=== PATIENT | male | born 1950 | race Caucasian/White ===

== ENCOUNTER 2020-09-04 09:15 | Emergency (ER) | payer MEDICARE, SELFPAY ==
[2020-09-04 09:18] VITALS: BP 194/86; PULSE 83; RESP 16; TEMP 36.4; O2SAT 96; BMI 33.5
--- NOTE | 2020-09-04 09:28 | CT_ITS ---
WS: [id number] CT ABDOMEN PELVIS TECHNIQUE: Contrast-enhanced CT of the abdomen and pelvis with coronal and sagittal reformatted image s. CLINICAL INFORMATION: RLQ pain COMPARISON: None. DLP: 1764.[address] scans at [facility] use at least one of these dose optimization techniques: automat ed exposure control; mA and/or kV adjustment per patient size (includes targeted exams where dose is matched to clinical indication); or iterative reconstruction. FINDINGS: Diffuse fatty infiltration of the liver. Normal portal vein and splenic vein. Normal spleen. Normal G E junction. Lung bases are well aerated. Subsegmental atelectasis left lower lobe. Mild fatty atrophy of the pancreas. Adrenal glands are normal. Normal renal parenchymal enhancement. No hydronephrosis. Normal gallbladder. Normal caliber abdominal aorta. No evidence of small or large bowel obstruction. No abdominal or pelvic lymphadenopathy. No inguinal lymphadenopathy. Normal appendix in the right lower quadrant. No evidence of acute appendicitis. CT/CT abdomen pelvis w con* [id number] IMPRESSION: 1. No acute findings in the abdomen or pelvis. 2. Diffuse fatty infiltration liver. 3. No evidence of small or large bowel obstruction. 4. Appendix appears decompressed in the right lower quadrant. No evidence of a cute appendicitis.
--- NOTE | 2020-09-04 09:29 | ED_ITS ---
HPI - Abdominal Pain General: Chief Complaint: Abdominal Pain Stated Complaint: right side pain Time Seen by Provider: 09/04/20 09:22 History of Present Illness: HPI narrative: Patient states started with right lower quadrant pain somewhat in the evening. Went to bed and it woke him up with severe pain in the right lower quadrant. Patient denies being sick have any fever chills no bowel or bladder problems. Has denies any injury. MD elicited complaint: abdominal pain Onset (ago): hour(s) Pain Consistency: constant Location: RUQ and RLQ Severity: mild Quality: aching Radiation: none Migration to: no migration Exacerbating factors: nothing Relieving factors: nothing Associated Symptoms: Reports no associated symptoms; Denies chills, fever(s), nausea and vomiting Review of Systems Const: Denies: fever(s), chills or body aches Eyes: Denies: change in vision or blurry vision ENMT: Denies: throat pain or nasal congestion Card: Denies: chest pain or dyspnea on exertion Resp: Denies: dyspnea, productive cough or non-productive cough GI: Reports: abdominal pain; Denies: nausea or vomiting : Denies: difficulty urinating Musc: Denies: extremity pain Skin/Breast: Denies: rash Neuro: Denies: headache(s) Psych: Denies: anxiety or depression Marcus/Lymph: Denies: easy bruising Physical Exam Const: COMMON NORMALS: no acute distress, average body habitus and patient oriented x3 HENMT: COMMON NORMALS: normocephalic HEAD & SCALP: normal to inspection and normocephalic FACE & SINUS: normal facial exam Eye: COMMON NORMALS: conjunctivae normal GENERAL EYE: appearance normal, both eyes and all related structures CONJUNCTIVA: Yes conjunctivae normal Neck/C-Spine: COMMON NORMALS: no JVD Chest: COMMONS NORMALS: normal inspection of the chest Resp: COMMON NORMALS: normal respiratory effort and clear to auscultation bilaterally AUSCULTATION: clear to auscultation bilaterally Cardio: COMMON NORMALS: no JVD, regular rate and regular rhythm RATE: regular rate RHYTHM: regular rhythm GI: AUSCULTATION: Yes Hypoactive bowel sounds present PALPATION: Yes Tenderness to palpation present (GI) Details: RLQ and RUQ PERCUSSION: dullness to percussion Extremity: COMMON NORMALS: normal to inspection and full ROM Neuro: COMMON NORMALS: patient oriented x3 Course Vital Signs: Vital signs: Vital Signs Temperature 97.5 F L 09/04/20 09:18 Pulse Rate 71 09/04/20 11:18 Respiratory Rate 15 09/04/20 11:18 Blood Pressure 165/88 09/04/20 11:18 Pulse Oximetry 96 09/04/20 11:18 MDM - Abdominal Pain MDM Narrative: Medical decision making narrative: CT and labs were negative for any cause of his abdominal pain. Patient was encouraged to return here if abdominal pain worsens or follow-up with his primary care provider. Lab Data: Labs: Lab Results 09/04/20 09/04/20 09/04/20 Range/Units 09:41 09:41 09:41 WBC 5.8 (4.0-10.0) 10^3/ uL RBC 4.52 (4.1-5.3) 10^6/u L Hgb 14.0 (11.7-16.6) g/dL Hct 42.5 (42.0-52.0) % MCV 94.0 (80-94) fL MCH 31.0 (28.0-34.0) pg MCHC 32.9 (30.0-36.0) g/dL RDW 12.4 (12.1-15.1) % Plt Count 167 (130-400) 10^3/c mm MPV 10.6 H (7.4-10.4) fL Neut % (Auto) 74.4 % Lymph % (Auto) 16.7 % Wirt % (Auto) 7.1 % Eos % (Auto) 1.2 % Baso % (Auto) 0.3 % Neut # (Auto) 4.27 (1.8-7.7) 10^3/u L Lymph # (Auto) 1.0 (0.8-4.8) 10^3/u L Wirt # (Auto) 0.4 (0.2-0.9) 10^3/u L Eos # (Auto) 0.1 (0.0-0.8) 10^3/u L Baso # (Auto) 0.0 (0.0-0.1) 10^3/u L Nucleated RBC % (a uto) 0 % Nucleated RBCs # 0.0 /100WBC Sodium 140 (136-145) mmol/L Potassium 3.9 (3.5-5.1) mmol/L Chloride 101 (98-107) mmol/L Carbon Dioxide 28 (22-29) mmol/L Anion Gap 14.9 (5-19) BUN 13 (8-23) mg/dL Creatinine 0.7 (0.7-1.2) mg/dL GFR Calculation 111.8 (90-130) mL/min Glucose 107 (65-115) mg/dL Calculated Osmolal ity 291 (285-295) mOsm/k g Calcium 9.0 (8.5-10.5) mg/dL Total Bilirubin 0.6 (0.15-1.2) mg/dL AST 17 (0-40) U/L ALT 20 (0-41) U/L Alkaline Phosphata se 61 (40-130) IU/L Total Protein 6.8 (6.6-8.7) g/dL Albumin 4.3 (3.5-5.2) g/dL Globulin 2.5 (1.3-4.6) g/dL Lipase 38 (13-60) U/L Urine Color Yellow (Yellow) Urine Appearance Clear (CLEAR) Urine pH 6.5 (5-7) Ur Specific Gravit y 1.005 (1.005-1.030) Urine Protein Neg (Negative) Urine Glucose (UA) Norm (Normal) Urine Ketones Negative (Negative) Urine Blood Neg (Negative) Urine Nitrate Negative (Negative) Urine Bilirubin Neg (Negative) Urine Urobilinogen Norm (Negative) mg/dL Ur Leukocyte Caro ase Negative (Negative) Discharge Plan Discharge Patient Disposition: Home Clinical Impression: Abdominal pain Qualifiers: Abdominal location: right lower quadrant Qualified Code(s): R10.31 - Right lower quadrant pain Condition: Stable Discharge Orders: Discharge ED (Routine); Ordered 09/04/20 Ordered By: Carmelo Torres Discharge Diet: Advance as tolerated Discharge Activity: Increase activity as tolerated Patient Instructions: Abdominal Pain (ED) Activity Restrictions/Additional Instructions: Follow-up if any worsening of symptoms. Follow-up your primary care provider return here. Coding Level of Care Code ED Automobile Upholstery Trim Installer for Estefania Fwd Exam Comprehensive
[2020-09-04] MEDS: sodium chloride 0.9% 1,000 ML 999 ML IV (09:46)
[2020-09-04 09:56] LABS: Add Urine Microscopic? NO; Charge for UA Resulting for Rev
[2020-09-04 09:58] LABS: Basophils % 0.3 %; Eosinophils # 0.1 10^3/uL (0.0-0.8); Eosinophils % 1.2 %; Hematocrit 42.5 % (42.0-52.0); Lymphocytes % 16.7 %; Mean Corpuscular HGB Conc 32.9 g/dL (30.0-36.0); Mean Platelet Volume 10.6 fL (7.4-10.4); Monocytes # 0.4 10^3/uL (0.2-0.9); Monocytes % 7.1 %; Neutrophils # 4.27 10^3/uL (1.8-7.7); Neutrophils % 74.4 %; Nucleated Red Blood Cells % 0 %; Platelet Count 167 10^3/cmm (130-400); Red Blood Count 4.52 10^6/uL (4.1-5.3); Red Cell Distribution Width 12.4 % (12.1-15.1); White Blood Count 5.8 10^3/uL (4.0-10.0)
[2020-09-04 10:08] LABS: Bilirubin Urine Neg (Negative); Blood Urine Neg (Negative); Glucose Urine UA Norm (Normal); Ketones Urine Negative (Negative); Leukocyte Esterase Urine Negative (Negative); Nitrate Urine Negative (Negative); Protein Urine Neg (Negative); Specific Gravity, Urine 1.005 (1.005-1.030); Urine Appearance Clear (CLEAR); Urine Color Yellow (Yellow); Urobilinogen Urine Norm (Negative); pH Urine 6.5 (5-7)
[2020-09-04 10:11] LABS: Alanine Aminotransferase 20 U/L (0-41); Albumin Level 4.3 g/dL (3.5-5.2); Alkaline Phosphatase 61 IU/L (40-130); Anion Gap 14.9 (5-19); Aspartate Amino Transferase 17 U/L (0-40); Blood Urea Nitrogen 13 mg/dL (8-23); Carbon Dioxide 28 mmol/L (22-29); Chloride 101 mmol/L (98-107); Globulin 2.5 g/dL (1.3-4.6); Glomerular Filtration Rate 111.8 mL/min (90-130); Glucose 107 mg/dL (65-115); Lipase 38 U/L (13-60); Osmolality Calculated 291 mOsm/kg (285-295); Potassium 3.9 mmol/L (3.5-5.1); Sodium 140 mmol/L (136-145); Total Bilirubin 0.6 mg/dL (0.15-1.2); Total Protein 6.8 g/dL (6.6-8.7)
[2020-09-04] MEDS: iohexol 300 mg/mL 100 mL Btl IV (10:45)
[2020-09-04 11:03] VITALS: BP 165/88; RESP 16; O2SAT 96
[2020-09-04 11:18] VITALS: BP 165/88; PULSE 71; RESP 15; O2SAT 96
== END 2020-09-04 11:19 | disposition home or self-care (01) ==
PROVIDERS: Emergency Provider Nurse Practitioner Family
DX: R10.31 Right lower quadrant pain (principal)
CPT/HCPCS: 74177; 80053; 81003; 83690; 85025; 96360; 99283; J7030; Q9967

== ENCOUNTER 2021-04-27 06:00 | Outpatient (RCR) | payer MEDICARE, SELFPAY | END 2021-05-17 23:59 | disposition home or self-care (01) | LOC: SPT 06:00 | PROVIDERS: Referring Provider Family Medicine; Visit Provider Family Medicine | DX: R53.1 Weakness (principal) | CPT/HCPCS: 97110; 97161 ==

== ENCOUNTER 2021-05-18 06:00 | Outpatient (RCR) | payer MEDICARE, OTHER, SELFPAY | END 2021-06-17 23:59 | disposition home or self-care (01) | LOC: SPT 06:00 | PROVIDERS: Referring Provider Family Medicine; Visit Provider Family Medicine | DX: R29.898 Other symptoms and signs involving the musculoskeletal system (principal) | CPT/HCPCS: 97110 ==

== ENCOUNTER 2021-06-18 06:00 | Outpatient (RCR) | payer MEDICARE, OTHER, SELFPAY | END 2021-07-16 15:23 | disposition home or self-care (01) | LOC: SPT 06:00 | PROVIDERS: Referring Provider Family Medicine; Visit Provider Family Medicine | DX: R29.898 Other symptoms and signs involving the musculoskeletal system (principal) | CPT/HCPCS: 97110 ==

== ENCOUNTER 2021-11-20 07:42 | Inpatient (IN) | payer MEDICARE, OTHER, SELFPAY ==
[2021-11-20] VITALS (15 sets, daily range): BP systolic 141–198; BP diastolic 74–93; PULSE 80–100; RESP 15–24; TEMP 36.9–37.7; O2SAT 89–97; BMI 31.7
--- NOTE | 2021-11-20 07:59 | ED_ITS ---
HPI - Fall General: Chief Complaint: ER Hold Stated Complaint: WEAKNESS; FALL Time Seen by Provider: 11/20/21 07:46 History of Present Illness: 71 year-old male presents emergency room with complaint of a fall. Is fallen 3-4 times in the last week. He was diagnosed with pneumonia recently completed a course of antibiotics and then was started on a second course of antibiotics by Dr. Gonzalez. He states since that diagnosis pneumonia he has had difficulty with balance and walking. He generally felt very weak. Last night he fell in his home and laid on the ground for about 6 to 7 hours. His lives with him he could not reach his cell phone and could not get her attention to come and help him she found him this morning and EMS was called. He states he has had a mildly productive cough with slight chest discomfort with deep breathing. He denies any pain rating to the neck arms or back. No difficulty with speech or vision or swallowing. MD complaint: fall Onset (ago): week(s) (1) Fall from: standing Fall witnessed: no Place fall occurred: home Loss of consciousness: None Prolonged down time: yes and hour(s) (6-7) Symptoms prior to fall: lightheadedness and dizziness Context: history of frequent falls Associated symptoms-after fall: Reports chest pain and difficulty walking; Denies abdominal pain Review of Systems Const: Denies: fever(s), chills, body aches, change in appetite, fatigue or malaise ENMT: Denies: throat pain, ear or mastoid pain, nasal discharge or nasal c ongestion Card: Reports: chest pain; Denies: palpitations, irregular heart rhythm, edema, dyspnea on exertion or orthopnea Resp: Reports: dyspnea and productive cough; Denies: non-productive cough GI: Denies: abdominal pain, nausea, vomiting, hematemesis, coffee ground emesis, diarrhea, constipation, bloating, hematochezia or melena : Denies: flank pain, dysuria, urinary frequency or urinary urgency Skin/Breast: Denies: rash or pruritus Neuro: Reports: difficulty walking, frequent falls and dizziness [facility] ED PFSH: Medical History Hypertension Social History Smoking and tobacco status: never smoked Alcohol intake: never Physical Exam 2 Const: GENERAL APPEARANCE: cooperative and comfortable ORIENTATION/CONSCIOUSNESS: Yes awake, Yes oriented to person, Yes oriented to place and Yes oriented to time HENMT: COMMON NORMALS: normocephalic, atraumatic and hearing grossly normal bilaterally HEAD & SCALP: normocephalic and atraumatic Resp: COMMON NORMALS: normal respiratory effort, No retractions, No use of accessory muscles and clear to auscultation bilaterally AUSCULTATION: clear to auscultation bilaterally Cardio: COMMON NORMALS: regular rate, regular rhythm and No murmurs present (Cardio) RATE: regular rate RHYTHM: regular rhythm GI: COMMON NORMALS: Soft to palpation and No hepatosplenomegaly present AUSCULTATION: Yes normoactive bowel sounds PALPATION: Yes Soft to palpation, No Tenderness to palpation present (GI), No Guarding due to palpation present (GI) and Yes No hepatosplenomegaly present Extremity: COMMON NORMALS: normal to inspection, capillary refill normal, no clubbing, cyanosis or edema, no calf tenderness and no pedal edema Neuro: SENSORIUM/ORIENTATION: Yes oriented to person, Yes oriented to place and Yes oriented to time Skin: COMMON NORMALS: no rashes or lesions noted GENERAL SKIN EXAM: no rashes or lesions noted Course Vital Signs: Vital signs: Vital Signs Temperature 98.0 F 11/22/21 12:00 Pulse Rate 64 11/22/21 12:00 Respiratory Rate 16 11/22/21 12:00 Blood Pressure 137/81 11/22/21 12:00 Pulse Oximetry 95 11/22/21 12:00 Oxygen Delivery Me thod 11/22/21 12:00 Oxygen Flow Rate 2 11/21/21 00:00 MDM - Fall Medical Decision Making Pneumonia with hypertension history of diabetes mellitus. Discussed with hospitalist orders written Medical Records I reviewed the patient's medical records. Lab Data I reviewed the patient's lab results. : 11/21/21 04:25 11/21/21 04:[address] 11/20/21 08:00 IMPRESSION: 1. Mild senescent changes as above. 2. No acute intracranial abnormality. 3. 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 If clinically concerned for metastatic disease, consider bone scan to assess for metabolically active bone lesions. Chest X-Ray 11/20/21 10:25 IMPRESSION: Dense consolidation in the right upper lobe compatible with pneumonia. Chest CT 11/22/21 10:14 IMPRESSION: 1. Right upper lobe apical, anterior and posterior segment medium-sized region of irregular consolidation and adjacent ground-glass opacities are seen. This is suspicious for pneumonia. Recommend follow-up until complete resolution. 2. Small right and tiny left pleural effusions with associated atelectasis, as noted above. 3. Nonspecific mediastinal lymphadenopathy. 4. Mild cardiomegaly. Laboratory Results WBC 12.3 10^3/uL (4.0-10.0) H 11/20/21 08:21 RBC 3.66 10^6/uL (4.1-5.3) L 11/20/21 08:21 Hgb 11.2 g/dL (11.7-16.6) L 11/20/21 08:21 Hct 34.8 % (42.0-52.0) L 11/20/21 08:21 MCV 95.1 fl (80-94) H 11/20/21 08:21 MCH 30.6 pg (28.0-34.0) 11/20/21 08:21 MCHC 32.2 g/dL (30.0-36.0) 11/20/21 08:21 RDW 13.8 % (12.1-15.1) 11/20/21 08:21 Plt Count 255 10^3/cmm (130-400) 11/20/21 08:21 MPV 10.5 fL (7.4-10.4) H 11/20/21 08:21 Neut % (Auto) 86.7 % 11/20/21 08:21 Lymph % (Auto) 6.8 % 11/20/21 08:21 [place] % (Auto) 4.8 % 11/20/21 08:21 Eos % (Auto) 0.2 % 11/20/21 08:21 Baso % (Auto) 0.1 % 11/20/21 08:21 Neut # (Auto) 10.67 10^3/uL (1.8-7.7) H 11/20/21 08:21 Lymph # (Auto) 0.8 10^3/uL (0.8-4.8) 11/20/21 08:21 [place] # (Auto) 0.6 10^3/uL (0.2-0.9) 11/20/21 08:21 Eos # (Auto) 0.0 10^3/uL (0.0-0.8) 11/20/21 08:21 Baso # (Auto) 0.0 10^3/uL (0.0-0.1) 11/20/21 08:21 Nucleated RBC % (auto) 0 % 11/20/21 08:21 Nucleated RBCs # 0.0 /100WBC 11/20/21 08:21 Sodium 133 mmol/L (136-145) L 11/20/21 08:21 Potassium 3.5 mmol/L (3.5-5.1) 11/20/21 08:21 Chloride 95 mmol/L (98-107) L 11/20/21 08:21 Carbon Dioxide 26 mmol/L (22-29) 11/20/21 08:21 Anion Gap 15.5 (5-19) 11/20/21 08:21 BUN 19 mg/dL (8-23) 11/20/21 08:21 Creatinine 0.8 mg/dL (0.7-1.2) 11/20/21 08:21 GFR Calculation 95.6 mL/min (90-130) 11/20/21 08:21 Glucose 136 mg/dL (65-115) H 11/20/21 08:21 Calculated Osmolality 280 mOsm/kg (285-295) L 11/20/21 08:21 Calcium 8.7 mg/dL (8.5-10.5) 11/20/21 08:21 Total Bilirubin 0.6 mg/dL (0.15-1.2) 11/20/21 08:21 AST 43 U/L (0-40) H 11/20/21 08:21 ALT 65 U/L (0-41) H 11/20/21 08:21 Alkaline Phosphatase 317 U/L (40-130) H 11/20/21 08:21 Creatine Kinase 113 U/L (39-308) 11/20/21 08:21 Total Protein 7.6 g/dL (6.6-8.7) 11/20/21 08:21 Albumin 3.2 g/dL (3.5-5.2) L 11/20/21 08:21 Globulin 4.4 g/dL (1.3-4.6) 11/20/21 08:21 Procalcitonin 0.32 ng/mL (0-0.5) 11/20/21 08:21 TSH 0.64 uIU/mL (0.27-4.20) 11/20/21 08:21 Urine Color Dark yellow (Yellow) 11/20/21 08:37 Urine Appearance Clear (CLEAR) 11/20/21 08:37 Urine pH 5 (5-7) 11/20/21 08:37 Ur Specific [place] 1.020 (1.005-1.030) 11/20/21 08:37 Urine Protein 1+ (Negative) H 11/20/21 08:37 Urine Glucose (UA) Norm (Normal) 11/20/21 08:37 Urine Ketones 1+ (Negative) H 11/20/21 08:37 Urine Blood 3+ (Negative) H 11/20/21 08:37 Urine Nitrate Negative (Negative) 11/20/21 08:37 Urine Bilirubin Neg (Negative) 11/20/21 08:37 Urine Urobilinogen Norm mg/dL (Negative) 11/20/21 08:37 Ur Leukocyte Esterase Negative (Negative) 11/20/21 08:37 Urine RBC 0-4 /hpf (0-2) H 11/20/21 08:37 Urine WBC 10-15 /hpf (0-5) H 11/20/21 08:37 Ur Squamous Epith Cells 0-4 /hpf (0-5) H 11/20/21 08:37 Amorphous Sediment 2+ /hpf 11/20/21 08:37 Urine Bacteria Trace /hpf (NONE) 11/20/21 08:37 Hyaline Casts 0-4 /lpf H 11/20/21 08:37 Urine Mucus 1+ /hpf 11/20/21 08:37 Discharge Plan Discharge Patient Disposition: Admitted As Inpatient Admit Provider: Elsy Pink Clinical Impression: Pneumonia, Hypertension, Diabetes mellitus Condition: Stable Coding Level of Care Code ED Floorwalker for Estefania Fwd Exam Detailed
--- NOTE | 2021-11-20 08:00 | CTR_ITS ---
PROCEDURE INFORMATION: Exam: CT Head Without Contrast Exam date and time: 11/20/2021 8:21 AM Age: 71 years old Clinical indication: Fall with blunt trauma. Fall with closed head injury. Balance disturbance. TECHNIQUE: Imaging protocol: Computed tomography of the head without contrast. Radiation optimization: All CT scans at this facility use at least one of these dose optimization techniques: automated exposure control; mA and/or kV adjustment per patient size (includes targeted exams where dose is matched to clinical indication); or iterative reconstruction. COMPARISON: No relevant prior studies available. RADIATION DOSE METRICS: Total DLP (mGy-cm): 1177.38 FINDINGS: Brain: No acute intracranial hemorrhage. No mass, mass effect or midline shift. There is mild patchy subcortical and periventricular hypodensity, most commonly associated with small vessel ischemic disease of indeterminate age. The posterior fossa is grossly unremarkable; however, it is partially obscurred by beam hardening artifact. Cerebral ventricles: The ventricles are prominent, compatible with mild parenchymal volume loss. Paranasal sinuses: Tiny retention cysts or polyps in the left maxillary sinus. Mild mucosal thickening in the ethmoid air cells. Mastoid air cells: No mastoid effusion. Orbital cavities: The visualized orbits are unremarkable. Bones/joints: No acute fracture is seen. 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 If clinically concerned for metastatic disease, consider bone scan to assess for metabolically active bone lesions. Soft tissues: No significant scalp soft tissue swelling. Vasculature: There is no evidence of acute large vessel infarct. CT/CT head wo con* [id number] IMPRESSION: 1. Mild senescent changes as above. 2. No acute intracranial abnormality. 3. 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 If clinically concerned for metastatic disease, consider bone scan to assess for metabolically active bone lesions.
--- NOTE | 2021-11-20 08:09 | ECG_ITS ---
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 Measurements Intervals [place] Rate: 92 P: 44 AR: 146 QRS: 39 QRSD: 115 T: -5 QT: 354 QTc: 439 Interpretive Statements SINUS RHYTHM MODERATE INTRAVENTRICULAR CONDUCTION DELAY NONSPECIFIC T-WAVE ABNORMALITY No previous ECG available for comparison Electronically Signed On 11-20-2021 13:13:52 CDT by Shea Gann M.D. [id number]
[2021-11-20 08:29] LABS: Basophils % 0.1 %; Eosinophils % 0.2 %; Hematocrit 34.8 % (42.0-52.0); Hemoglobin 11.2 g/dL (11.7-16.6); Lymphocytes # 0.8 10^3/uL (0.8-4.8); Lymphocytes % 6.8 %; Mean Corpuscular HGB Conc 32.2 g/dL (30.0-36.0); Mean Corpuscular Hemoglobin 30.6 pg (28.0-34.0); Mean Corpuscular Volume 95.1 fl (80-94); Mean Platelet Volume 10.5 fL (7.4-10.4); Monocytes # 0.6 10^3/uL (0.2-0.9); Monocytes % 4.8 %; Neutrophils # 10.67 10^3/uL (1.8-7.7); Neutrophils % 86.7 %; Nucleated Red Blood Cells % 0 %; Platelet Count 255 10^3/cmm (130-400); Red Blood Count 3.66 10^6/uL (4.1-5.3); Red Cell Distribution Width 13.8 % (12.1-15.1); White Blood Count 12.3 10^3/uL (4.0-10.0)
[2021-11-20 08:46] LABS: Alanine Aminotransferase 65 U/L (0-41); Albumin Level 3.2 g/dL (3.5-5.2); Alkaline Phosphatase 317 U/L (40-130); Anion Gap 15.5 (5-19); Aspartate Amino Transferase 43 U/L (0-40); Blood Urea Nitrogen 19 mg/dL (8-23); Calcium 8.7 mg/dL (8.5-10.5); Carbon Dioxide 26 mmol/L (22-29); Chloride 95 mmol/L (98-107); Creatine Phosphokinase 113 U/L (39-308); Creatinine Clr Calc Pharmacy 108.1797; Globulin 4.4 g/dL (1.3-4.6); Glomerular Filtration Rate 95.6 mL/min (90-130); Glucose 136 mg/dL (65-115); Osmolality Calculated 280 mOsm/kg (285-295); Potassium 3.5 mmol/L (3.5-5.1); Sodium 133 mmol/L (136-145); Total Bilirubin 0.6 mg/dL (0.15-1.2); Total Protein 7.6 g/dL (6.6-8.7)
[2021-11-20 08:56] LABS: Add Urine Culture? Yes; Add Urine Microscopic? YES; Amorphous Sediment Urine 2+ /hpf; Bacteria Urine TRACE /hpf; Bilirubin Urine Neg (Negative); Blood Urine 3+ (Negative); Glucose Urine UA Norm (Normal); Hyaline Casts Urine 0-4 /lpf; Ketones Urine 1+ (Negative); Leukocyte Esterase Urine Negative (Negative); Mucus Urine 1+ /hpf; Nitrate Urine Negative (Negative); Protein Urine 1+ (Negative); RBC Urine 0-4 /hpf (0-2); Squamous Epithelial Cell Urine 0-4 /hpf (0-5); Urine Appearance Clear (CLEAR); Urine Color Dark Yellow (Yellow); Urobilinogen Urine Norm (Negative); pH Urine 5 (5-7)
--- NOTE | 2021-11-20 10:25 | P.HP_ITS ---
Providers/Chief Complaint Primary Care Provider: Leonardo Gonzalez MD Chief Complaint: WEAKNESS; FALL History of Present Illness Jose Miguel Coleman is a 71 year old male with past medical history of hypertension, hyperlipidemia, borderline diabetes presents to the hospital after a fall at home. His complaints started around 9 to 10 days ago. He was seen at his primary care's office twice and was told he had an ear infection. However patient remained febrile. Fever at home has been between 10 2-1 03. He has had poor oral intake, weakness, failure to thrive. He was again seen by primary care this past and had a chest x-ray done which resulted as pneumonia. Initially for his ear infection he was given amoxicillin for 10 days and on his second visit after being diagnosed with pneumonia he was given a shot and then he was placed on doxycycline. Patient however has been feeling weaker and weaker and has been having frequent falls. Patient's also states that he is confused for the last few days. She also felt that he was wheezing. He has been coughing and expectorating bloody sputum. Denies smoking and drinking at this time. ED course: On arrival blood pressure 193/79, pulse 90, respiratory rate 22, saturating 90% on room air. Patient was placed on oxygen. CT head done negative for acute intracranial process. Chest x-ray shows right upper lobe dense consolidation consistent with pneumonia. Urinalysis slightly abnormal with 10-15 WBCs. Serum WBC 12,000. CPK normal. AST is 43, ALT 65. Patient given a dose of ceftriaxone in ER. Medications/Allergies Home Medications Medication Instructions Recorded Confirmed Last Taken Type albuterol sulfate 90 mcg/actuation 2 puff inhalation Q4H PRN 11/20/21 11/20/21 Unknown History aerosol inhaler Shortness Of Breath amlodipine 10 mg tablet 10 mg PO DAILY 11/20/21 11/20/21 11/19/21 History atorvastatin 20 mg tablet 20 mg PO DAILY 11/20/21 11/20/21 11/19/21 History doxazosin 4 mg tablet 4 mg PO DAILY 11/20/21 11/20/21 11/19/21 History doxycycline hyclate 100 mg tablet 100 mg PO BID 11/20/21 11/20/21 11/19/21 History fluticasone propionate 50 2 spray intranasal DAILY PRN Nasal 11/20/21 11/20/21 Unknown History mcg/actuation nasal Congestion spray,suspension losartan 100 1 tab PO DAILY 11/20/21 11/20/21 11/19/21 History mg-hydrochlorothiazide 25 mg tablet meclizine 25 mg tablet 25 mg PO BID 11/20/21 11/20/21 11/19/21 History metformin 850 mg tablet 850 mg PO BID 11/20/21 11/20/21 11/19/21 History metoprolol succinate 200 mg 200 mg PO DAILY 11/20/21 11/20/21 11/19/21 History tablet,extended release 24 hr Allergies Allergy/AdvReac Type Severity Reaction Status Date / Time No Known Allergies Allergy Verified 09/04/20 09:24 PFSH Acute PFSH: Medical History (Updated 11/20/21 @ 12:11 by Elsy Pink MD) Hypertension Social History (Updated 11/20/21 @ 08:02 by Krzysztof Sewell DO) Smoking and tobacco status: never smoked Alcohol intake: never Vitals/I&O/Wt Last Vital Signs Temp 98.5 F 11/20/21 07:47 Pulse 95 11/20/21 07:47 Resp 20 H 11/20/21 07:47 BP 198/93 11/20/21 07:47 Pulse Ox 95 11/20/21 07:47 O2 Del Method 11/20/21 07:47 Weight last 48 hrs Weight 106.141 kg Physical Exam Narrative: General: Alert oriented x3, patient seen laying in bed appearing comfortable at this time on 2 L nasal cannula, present at bedside. appears very dehydrated HEENT: Normocephalic, atraumatic, EOMI, breathing comfortably, dry oral mucosa Cardio: Regular rate rhythm, normal S1-S2, Respiratory: Coarse breath sounds bilaterally with rhonchi right upper lobe area, coughing does improve some breath sounds. Wheezing at bases bilaterally. GI: Abdomen soft, nontender, nondistended, bowel sounds +, obese rounded abdomen Behavior: Appropriate and cooperative Extremities: Chronic skin stasis changes bilateral lower extremities. No lower extremity edema present at this time Data : 11/20/21 08:21 11/20/21 08:21 A&P Assessment and plan (1) Hypertension: Status: Acute (2) Pneumonia: Status: Acute (3) Diabetes mellitus: Status: Acute (4) Hyponatremia: Status: Acute Plan #Right upper lobe pneumonia #Hypertension #Diabetes mellitus, borderline #Recent frequent falls, weakness #Mild hyponatremia ? Check sputum culture gram stain, procalcitonin, blood cultures, bacterial antigens strep, Legionella, MRSA nares ? Started on Zosyn and Levaquin IV ? Continue amlodipine 10 daily, lopressor 100 BID (with holding parameters), hold losartain/hctz. Continue atorvastatin ? Start on normal saline 75 cc/h ? Cardiac diet ? Sliding scale insulin low-dose ? Continue to monitor vital signs. ? DuoNeb every 6 hours as needed ? Avoid steroids ? Wean down oxygen as able - Continue NS 75 cc/hr ? PT, OT ? Patient has been falling and has been weak also he is secondary to poor oral intake and pneumonia. CT head negative. DVT prophylaxis: Heparin subcu Full code at bedside updated Attestations Medical Necessity Statement*: Anticipate greater than 2 midnight stay for treatment of right upper lobe pneumonia. Coding Level of Care Code Acute Ux Visual Designer for 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 Diagnoses Hypertension I10 Pneumonia J18.9 Diabetes mellitus E11.9 Hyponatremia E87.1
--- NOTE | 2021-11-20 10:25 | XRR_ITS ---
PROCEDURE INFORMATION: Exam: XR Chest Exam date and time: 11/20/2021 10:47 AM Age: 71 years old Clinical indication: Fever and shortness of breath. Rule out pneumonia. TECHNIQUE: Imaging protocol: Radiologic exam of the chest. Views: 1 view. COMPARISON: CT abdomen pelvis w con* [id number] 09/04/2020 10:41 AM FINDINGS: Lungs: There is dense consolidation in the right upper lobe compatible with pneumonia. Probable subsegmental atelectasis at the left perihilar region. Pleural spaces: No pleural effusion. No pneumothorax. Heart/Mediastinum: The cardiac silhouette is unchanged. No gross evidence of pneumomediastinum. Diaphragm: Persistent elevation of the right hemidiaphragm. Bones/joints: No gross fracture. XR/XR chest 1V portable [id number] IMPRESSION: Dense consolidation in the right upper lobe compatible with pneumonia.
[2021-11-20] MEDS: cefTRIAXone 1,000 MG in sodium chloride 0.9% (plus) 50 ML 100 MG IV (11:02)
[2021-11-20] MEDS: sodium chloride 0.9% 1,000 ML 75 ML IV (11:05)
[2021-11-20 11:09] LABS: Procalcitonin 0.32 ng/mL (0-0.5); Thyroid Stimulating Hormone 0.64 uIU/mL (0.27-4.20)
[2021-11-20] MEDS: heparin 5,000 unit/mL INJ 1 mL 5000 UNIT SUBCUT ×2 (11:10→23:24)
[2021-11-20] MEDS: piperacillin-tazobactam 3.375 GM in sodium chloride 0.9% (plus) 50 ML IV ×2 (11:40→17:18)
[2021-11-20] MEDS: levofloxacin-dextrose 5 % 750 MG/150 ML PREMIX 100 MG IV (12:28)
[2021-11-20 14:54] LABS: Basophils % 0.2 %; Eosinophils # 0.1 10^3/uL (0.0-0.8); Eosinophils % 0.5 %; Hematocrit 35.4 % (42.0-52.0); Hemoglobin 11.2 g/dL (11.7-16.6); Lymphocytes # 0.6 10^3/uL (0.8-4.8); Lymphocytes % 6.6 %; Mean Corpuscular HGB Conc 31.6 g/dL (30.0-36.0); Mean Corpuscular Hemoglobin 30.4 pg (28.0-34.0); Mean Corpuscular Volume 95.9 fl (80-94); Mean Platelet Volume 10.4 fL (7.4-10.4); Monocytes # 0.4 10^3/uL (0.2-0.9); Monocytes % 4.2 %; Neutrophils # 8.39 10^3/uL (1.8-7.7); Neutrophils % 87.2 %; Nucleated Red Blood Cells % 0 %; Platelet Count 251 10^3/cmm (130-400); Red Blood Count 3.69 10^6/uL (4.1-5.3); Red Cell Distribution Width 13.9 % (12.1-15.1); White Blood Count 9.6 10^3/uL (4.0-10.0)
[2021-11-20] MEDS: ipratropium-albuterol 3 mL Neb INHALATION ×3 (15:23→23:12)
[2021-11-20] MEDS: metoprolol tartrate 50 mg Tablet 100 MG PO (20:50)
[2021-11-21] VITALS (15 sets, daily range): BP systolic 134–153; BP diastolic 63–81; PULSE 64–112; RESP 12–20; TEMP 36.5–38.4; O2SAT 90–96
[2021-11-21] MEDS: acetaminophen 325 mg Tablet 650 MG PO
[2021-11-21] MEDS: piperacillin-tazobactam 3.375 GM in sodium chloride 0.9% (plus) 50 ML IV ×3 (02:45→17:03)
[2021-11-21] MEDS: ipratropium-albuterol 3 mL Neb INHALATION ×6 (03:26→23:48)
[2021-11-21 05:00] LABS: Basophils % 0.3 %; Eosinophils # 0.1 10^3/uL (0.0-0.8); Eosinophils % 0.8 %; Hemoglobin 11.8 g/dL (11.7-16.6); Lymphocytes # 0.7 10^3/uL (0.8-4.8); Lymphocytes % 9.5 %; Mean Corpuscular HGB Conc 31.9 g/dL (30.0-36.0); Mean Corpuscular Hemoglobin 30.7 pg (28.0-34.0); Mean Corpuscular Volume 96.4 fl (80-94); Mean Platelet Volume 10.3 fL (7.4-10.4); Monocytes # 0.4 10^3/uL (0.2-0.9); Monocytes % 5.6 %; Neutrophils # 6.17 10^3/uL (1.8-7.7); Neutrophils % 82.2 %; Nucleated Red Blood Cells % 0 %; Platelet Count 246 10^3/cmm (130-400); Red Blood Count 3.84 10^6/uL (4.1-5.3); White Blood Count 7.5 10^3/uL (4.0-10.0)
[2021-11-21 05:44] LABS: Blood Urea Nitrogen 16 mg/dL (8-23); Calcium 8.5 mg/dL (8.5-10.5); Carbon Dioxide 26 mmol/L (22-29); Chloride 100 mmol/L (98-107); Creatinine Clr Calc Pharmacy 108.1797; Glomerular Filtration Rate 111.5 mL/min (90-130); Glucose 123 mg/dL (65-115); Magnesium 2.5 mg/dL (1.7-2.3); Osmolality Calculated 287 mOsm/kg (285-295); Phosphorus 3.5 mg/dL (2.5-4.5); Sodium 137 mmol/L (136-145)
[2021-11-21] MEDS: potassium chloride ER 20 mEq Tablet 40 MEQ PO ×2 (09:29→17:03)
[2021-11-21] MEDS: amlodipine 10 mg Tablet PO (09:29)
[2021-11-21] MEDS: metoprolol tartrate 50 mg Tablet 100 MG PO ×2 (09:30→20:55)
[2021-11-21] MEDS: heparin 5,000 unit/mL INJ 1 mL 5000 UNIT SUBCUT ×2 (10:51→22:48)
--- NOTE | 2021-11-21 11:37 | P.PN_ITS ---
Subjective Subjective: Patient feels a lot better compared to before. Coughing is also improved. However still appears a little dehydrated. Vitals/I&O/Wt Last Vital Signs Temp 97.7 F 11/21/21 08:00 Pulse 64 11/21/21 11:24 Resp 18 11/21/21 11:24 BP 153/71 11/21/21 08:00 Pulse Ox 92 11/21/21 11:24 O2 Del Method 11/21/21 11:24 O2 Flow Rate 2 11/21/21 00:00 11/20/21 11/21/21 11/21/21 22:59 06:59 14:59 Intake Total 250 / 300 1050 / 1050 Output Total 500 / 500 Balance 250 / 300 550 / 550 Weight last 48 hrs Weight 106.141 kg Physical Exam Narrative: General: Alert oriented x3, patient seen laying in bed appearing comfortable at this time on 2 L nasal cannula, present at bedside. Still appears slightly dehydrated. HEENT: Normocephalic, atraumatic, EOMI, breathing comfortably, Cardio: Regular rate rhythm, normal S1-S2, Respiratory: Coarse breath sounds bilaterally, improved compared to yesterday. GI: Abdomen soft, nontender, nondistended, bowel sounds +, obese rounded abdomen Extremities: Chronic skin stasis changes bilateral lower extremities. No lower extremity edema present at this time Data : 11/21/21 04:25 11/21/21 04:25 Micro: Microbiology 11/20/21 10:43 Blood Culture - Preliminary Blood NEGATIVE TO DATE 11/20/21 10:39 Blood Culture - Preliminary Blood NEGATIVE TO DATE 11/20/21 08:37 Urine Culture - Preliminary Urine,Clean Catch 11/20/21 08:37 Legionella Urinary Antigen - Final Urine,Voided A&P Assessment and plan (1) Hypertension: Status: Acute (2) Pneumonia: Status: Acute (3) Diabetes mellitus: Status: Acute (4) Hyponatremia: Status: Acute Plan #Right upper lobe pneumonia #Hypertension #Diabetes mellitus, borderline #Recent frequent falls, weakness #Mild hyponatremia ? Check sputum culture gram stain, procalcitonin, blood cultures, bacterial antigens strep, Legionella, MRSA nares ? Continue on Zosyn and Levaquin IV ? Continue amlodipine 10 daily, lopressor 100 BID (with holding parameters), hold losartain/hctz. Continue atorvastatin ? Continue on normal saline 75 cc/h ? Cardiac diet ? Sliding scale insulin low-dose ? Continue to monitor vital signs. ? DuoNeb every 6 hours as needed ? Avoid steroids ? Wean down oxygen as able - Continue NS 75 cc/hr ? PT, OT ? Patient has been falling and has been weak also he is secondary to poor oral intake and pneumonia. CT head negative. - pt improving. DVT prophylaxis: Heparin subcu Full code at bedside updated Attestations Medical Necessity Statement*: Most likely plan for discharge tomorrow. He is improving. I would like to give him another day of IV antibiotics. Sputum culture is pending. 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
[2021-11-21] MEDS: sodium chloride 0.9% 1,000 ML 75 ML IV (13:47)
[2021-11-22] VITALS (14 sets, daily range): BP systolic 137–170; BP diastolic 73–90; PULSE 61–83; RESP 16–18; TEMP 36.4–36.7; O2SAT 93–97
[2021-11-22] MEDS: ipratropium-albuterol 3 mL Neb INHALATION ×5 (03:01→19:25)
[2021-11-22] MEDS: piperacillin-tazobactam 3.375 GM in sodium chloride 0.9% (plus) 50 ML IV ×3 (03:33→17:49)
[2021-11-22] MEDS: sodium chloride 0.9% 1,000 ML 75 ML IV (03:34)
[2021-11-22] MEDS: amlodipine 10 mg Tablet PO (08:47)
[2021-11-22] MEDS: metoprolol tartrate 50 mg Tablet 100 MG PO ×2 (08:47→20:55)
--- NOTE | 2021-11-22 10:14 | CTR_ITS ---
PROCEDURE INFORMATION: Exam: CT Chest Without Contrast; Diagnostic Exam date and time: 11/22/2021 10:40 AM Age: 71 years old Clinical indication: Shortness of breath; Additional info: Evaluate for empyema TECHNIQUE: Imaging protocol: Diagnostic computed tomography of the chest without contrast. Radiation optimization: All CT scans at this facility use at least one of these dose optimization techniques: automated exposure control; mA and/or kV adjustment per patient size (includes targeted exams where dose is matched to clinical indication); or iterative reconstruction. COMPARISON: CR (CHEST, ) 11/20/2021 10:47 AM RADIATION DOSE METRICS: Total DLP (mGy-cm): 585.53 FINDINGS: Trachea: The airway appears unremarkable. Lungs: There are normal lung volumes. Right upper lobe apical, anterior and posterior segment medium-sized region of irregular consolidation and adjacent ground-glass opacities are seen. This is suspicious for pneumonia. Recommend follow-up until complete resolution. Mild right and minimal left lower lobe atelectasis is seen. No CT evidence of interstitial lung disease. Pleural spaces: Small right and tiny left pleural effusions are seen. No pneumothorax. Heart: There is mild cardiomegaly. Minimal to mild coronary arterial atherosclerotic vascular calcifications are seen. No pericardial effusion. Lymph nodes: Enlarged hilar, aortopulmonic window, right paratracheal, and subcarinal lymph nodes are seen, the largest measuring 1.6 x 1.5 cm. Vasculature: Unremarkable. No aortic aneurysm. Bones/joints: No acute osseous abnormalities seen. Small degenerative osteophytes are seen throughout the thoracic spine. Soft tissues: Unremarkable. CT/CT chest con [id number] IMPRESSION: 1. Right upper lobe apical, anterior and posterior segment medium-sized region of irregular consolidation and adjacent ground-glass opacities are seen. This is suspicious for pneumonia. Recommend follow-up until complete resolution. 2. Small right and tiny left pleural effusions with associated atelectasis, as noted above. 3. Nonspecific mediastinal lymphadenopathy. 4. Mild cardiomegaly.
[2021-11-22] MEDS: heparin 5,000 unit/mL INJ 1 mL 5000 UNIT SUBCUT ×2 (11:25→22:36)
--- NOTE | 2021-11-22 14:29 | PC.NURSE ---
physician notified of no am labs with low potassium yesterday. reported replaced yesterday's low potassium with 40mEq PO x2. No new orders given at this time. physician reported labs next am
--- NOTE | 2021-11-22 15:07 | P.PN_ITS ---
Subjective Subjective: T-max of 101 overnight. Currently saturating 95% on room air. Denies any dyspnea at this time. Medications: Reviewed: Yes Vitals/I&O/Wt Last Vital Signs Temp 98.0 F 11/22/21 12:00 Pulse 64 11/22/21 12:00 Resp 16 11/22/21 12:00 BP 137/81 11/22/21 12:00 Pulse Ox 95 11/22/21 12:00 O2 Del Method 11/22/21 12:00 O2 Flow Rate 2 11/21/21 00:00 11/22/21 11/22/21 11/22/21 06:59 14:59 22:59 Intake Total 1000 / 2510 290 / 290 Output Total 600 / 1100 Balance 400 / 1410 290 / 290 Physical Exam Narrative: General: No acute distress, AO x3 HEENT: PERRLA, pupils bilaterally equal and reactive, pallors not present Chest: Bronchial breath sounds right upper lobe CVS: S1-S2 regular, no murmurs, no tachycardia, no gallops, no rubs Abdomen: Soft, nontender, no organomegaly, bowel sounds present Neuro: No focal deficits, no facial deformity, AO x3, power 5/5 in all limbs Extremities: No edema clubbing cyanosis Data : 11/21/21 04:25 11/21/21 04:25 Micro: Microbiology 11/20/21 08:37 Legionella Urinary Antigen - Final Urine,Voided Bacterial Antigens - Final 11/20/21 17:28 Gram Stain - Final Sputum - Expectorated Sputum Sputum Culture - Final 11/20/21 08:37 Urine Culture - Final Urine,Clean Catch 11/20/21 17:27 MRSA Culture - Final Nose 11/20/21 10:43 Blood Culture - Preliminary Blood NEGATIVE TO DATE 11/20/21 10:39 Blood Culture - Preliminary Blood NEGATIVE TO DATE A&P Assessment and plan (1) Hypertension: Status: Acute (2) Pneumonia: Status: Acute (3) Diabetes mellitus: Status: Acute (4) Hyponatremia: Status: Acute Plan #Right upper lobe pneumonia, presumed bacterial pneumonia #Hypertension #Diabetes mellitus, borderline #Recent frequent falls, weakness #Mild hyponatremia, now resolved. # transaminitis, may be related to dehydration, will trend Patient has received treatment as outpatient with amoxicillin versus Augmentin for 10 days followed by a course of doxycycline, however continued to have worsening clinical status. Noted to be febrile upon admission. Chest x-ray with right upper lobe consolidation. Continue treatment with piperacillin tazobactam, Levaquin added for atypical coverage. Change Levaquin to p.o. today. Given failure of outpatient treatment course and nearly 2 weeks of illness, would evaluate for additional complications such as complicated parapneumonic effusions. CT of the chest ordered for this assessment today. Sputum culture shows rare gram-positive cocci in pairs and clusters. Otherwise normal annika. MRSA nasal screen negative Blood culture negative so far, negative urine streptococcal and haemophilus antigens. Patient has been tested for COVID-19 twice as outpatient, reportedly negative on both occasions. ? Continue amlodipine 10 daily, lopressor 100 BID (with holding parameters), hold losartain/hctz due to dehydration. Continue atorvastatin ?Discontinue IV fluids today, encourage p.o. intake. ? Cardiac diet ? Sliding scale insulin low-dose ? Continue to monitor vital signs. ? DuoNeb every 6 hours as needed - currently on Room air ? 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 Fwd Diagnoses Hypertension I10 Pneumonia J18.9 Diabetes mellitus E11.9 Hyponatremia E87.1
[2021-11-22] MEDS: levoFLOXacin 750 mg Tablet PO (15:58)
[2021-11-22 20:45] LABS: Glucose Point of Care 134 mg/dL (70-110)
[2021-11-23] VITALS (9 sets, daily range): BP systolic 134–171; BP diastolic 76–85; PULSE 66–76; RESP 16–18; TEMP 36.3–36.6; O2SAT 94–97
[2021-11-23] MEDS: piperacillin-tazobactam 3.375 GM in sodium chloride 0.9% (plus) 50 ML IV ×2 (03:06→09:36)
[2021-11-23] MEDS: ipratropium-albuterol 3 mL Neb INHALATION ×2 (03:40→07:48)
[2021-11-23 06:25] LABS: Glucose Point of Care 116 mg/dL (70-110)
--- NOTE | 2021-11-23 09:28 | PM.DCS ---
Discharge Providers Date of Admission: 11/20/21 11:06 Date of Discharge: November 23, 2021 Attending Provider at Admission: Elsy Pink MD Attending Provider at Discharge: Shira Sterling MD Primary Care Provider: Leonardo Gonzalez MD Diagnoses at Discharge Discharge Diagnosis (1) Hypertension: Status: Acute (2) Pneumonia: Status: Acute (3) Diabetes mellitus: Status: Acute (4) Hyponatremia: Status: Acute Reason for Visit Reason for Visit: WEAKNESS; FALL Hospital Course Hospital Course 71-year-old male with hypertension hyperlipidemia, diabetes presented after a fall at home.? He was being treated outpatient for possible ear infection vs upper respiratory infection with Augmentin and then doxycycline since 11/12.? Underwnet chest x-ray when he failed to improve which showed dense consolidation in the right upper lobe compatible with pneumonia.? He was significantly dehydrated upon admission. Antihypertensives needed to be held transiently, however resumed at discharge as patient's blood pressure is now stabilized. He was treated with antibiotics empirically including piperacillin tazobactam and levofloxacin. On day of admission he had fever spike up to 101 Fahrenheit, however has now been afebrile for over 24 hours. He does not have any leukocytosis. CT of the chest was additionally performed given failure of outpatient antibiotics and to evaluate for development of any empyema or complicated parapneumonic effusion. CT was negative for the same. Small right and tiny left pleural effusions were noted with atelectasis with nonspecific mediastinal lymphadenopathy however no signs of empyema. Other lab abnormalities have included deranged LFTs with mildly elevated AST at 67, ALT at 43, alkaline phosphatase in the 300 range. Patient does have a history of fatty liver. Suspect that there may be some degree of cholestasis additionally related to beta-lactam antibiotics. No clinical signs of cholecystitis. He is recommended to hold his atorvastatin at discharge. Additionally repeat LFTs has been ordered in 3 days from discharge to be followed up by primary care physician. home O2 eval was performed prior to discharge. Patient was saturating 97% on room air., Including on exertion. He had been on supplemental O2 at 2 L/min initially upon arrival. This was able to be weaned down..PT assessment was sought given reported falls at home. Patient is recommended home exercise program.Respiratory viral panel remains pending at the time of discharge. Anticipate that results may take 7 to 10 days. Physical Exam Narrative: General: No acute distress, AO x3 HEENT: PERRLA, pupils bilaterally equal and reactive, pallors not present Chest: Normal vesicular breath sounds, no added sounds, equal good air entry bilaterally CVS: S1-S2 regular, no murmurs, no tachycardia, no gallops, no rubs Abdomen: Soft, nontender, no organomegaly, bowel sounds present Neuro: No focal deficits, no facial deformity, AO x3, power 5/5 in all limbs Extremities: No edema clubbing or cyanosis Discharge Data Studies Completed and Pending Completed Studies During Hospitalization Category Date Time Status CT chest wo con [id number] Routine Cat Scan 11/22/21 10:[address] head wo con* [id number] Stat Cat Scan 11/20/21 08:00 Completed XR chest 1V portable [id number] Urgent Exams 11/20/21 10:25 Completed Pending at discharge Category Date Time Status Blood Culture Routine Lab 11/20/21 10:43 Results CBC Auto Diff [Complete Blood Count w/Auto] Stat Lab 11/23/21 09:27 Ordered CMP [Comprehensive Metabolic Panel] Stat Lab 11/23/21 09:27 Ordered Respiratory Viral Panel PCR Stat Lab 11/20/21 19:02 Received Radiology Impressions Head CT 11/20/21 08:00 IMPRESSION: 1. Mild senescent changes as above. 2. No acute intracranial abnormality. 3. 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 If clinically concerned for metastatic disease, consider bone scan to assess for metabolically active bone lesions. Chest X-Ray 11/20/21 10:25 IMPRESSION: Dense consolidation in the right upper lobe compatible with pneumonia. Chest CT 11/22/21 10:14 IMPRESSION: 1. Right upper lobe apical, anterior and posterior segment medium-sized region of irregular consolidation and adjacent ground-glass opacities are seen. This is suspicious for pneumonia. Recommend follow-up until complete resolution. 2. Small right and tiny left pleural effusions with associated atelectasis, as noted above. 3. Nonspecific mediastinal lymphadenopathy. 4. Mild cardiomegaly. Laboratory Results WBC 7.5 10^3/uL (4.0-10.0) 11/21/21 04:25 RBC 3.84 10^6/uL (4.1-5.3) L 11/21/21 04:25 Hgb 11.8 g/dL (11.7-16.6) 11/21/21 04:25 Hct 37.0 % (42.0-52.0) L 11/21/21 04:25 MCV 96.4 fl (80-94) H 11/21/21 04:25 MCH 30.7 pg (28.0-34.0) 11/21/21 04:25 MCHC 31.9 g/dL (30.0-36.0) 11/21/21 04:25 RDW 14.0 % (12.1-15.1) 11/21/21 04:25 Plt Count 246 10^3/cmm (130-400) 11/21/21 04:25 MPV 10.3 fL (7.4-10.4) 11/21/21 04:25 Neut % (Auto) 82.2 % 11/21/21 04:25 Lymph % (Auto) 9.5 % 11/21/21 04:25 [place] % (Auto) 5.6 % 11/21/21 04:25 Eos % (Auto) 0.8 % 11/21/21 04:25 Baso % (Auto) 0.3 % 11/21/21 04:25 Neut # (Auto) 6.17 10^3/uL (1.8-7.7) 11/21/21 04:25 Lymph # (Auto) 0.7 10^3/uL (0.8-4.8) L 11/21/21 04:25 [place] # (Auto) 0.4 10^3/uL (0.2-0.9) 11/21/21 04:25 Eos # (Auto) 0.1 10^3/uL (0.0-0.8) 11/21/21 04:25 Baso # (Auto) 0.0 10^3/uL (0.0-0.1) 11/21/21 04:25 Nucleated RBC % (auto) 0 % 11/21/21 04:25 Nucleated RBCs # 0.0 /100WBC 11/21/21 04:25 Sodium 137 mmol/L (136-145) 11/21/21 04:25 Potassium 3.0 mmol/L (3.5-5.1) L 11/21/21 04:25 Chloride 100 mmol/L (98-107) 11/21/21 04:25 Carbon Dioxide 26 mmol/L (22-29) 11/21/21 04:25 Anion Gap 14.0 (5-19) 11/21/21 04:25 BUN 16 mg/dL (8-23) 11/21/21 04:25 Creatinine 0.7 mg/dL (0.7-1.2) 11/21/21 04:25 GFR Calculation 111.5 mL/min (90-130) 11/21/21 04:25 Glucose 123 mg/dL (65-115) H 11/21/21 04:25 POC Glucose 116 mg/dL (70-110) H 11/23/21 06:07 Calculated Osmolality 287 mOsm/kg (285-295) 11/21/21 04:25 Calcium 8.5 mg/dL (8.5-10.5) 11/21/21 04:25 Phosphorus 3.5 mg/dL (2.5-4.5) 11/21/21 04:25 Magnesium 2.5 mg/dL (1.7-2.3) H 11/21/21 04:25 Total Bilirubin 0.6 mg/dL (0.15-1.2) 11/20/21 08:21 AST 43 U/L (0-40) H 11/20/21 08:21 ALT 65 U/L (0-41) H 11/20/21 08:21 Alkaline Phosphatase 317 U/L (40-130) H 11/20/21 08:21 Creatine Kinase 113 U/L (39-308) 11/20/21 08:21 Total Protein 7.6 g/dL (6.6-8.7) 11/20/21 08:21 Albumin 3.2 g/dL (3.5-5.2) L 11/20/21 08:21 Globulin 4.4 g/dL (1.3-4.6) 11/20/21 08:21 Procalcitonin 0.32 ng/mL (0-0.5) 11/20/21 08:21 TSH 0.64 uIU/mL (0.27-4.20) 11/20/21 08:21 Urine Color Dark yellow (Yellow) 11/20/21 08:37 Urine Appearance Clear (CLEAR) 11/20/21 08:37 Urine pH 5 (5-7) 11/20/21 08:37 Ur Specific [place] 1.020 (1.005-1.030) 11/20/21 08:37 Urine Protein 1+ (Negative) H 11/20/21 08:37 Urine Glucose (UA) Norm (Normal) 11/20/21 08:37 Urine Ketones 1+ (Negative) H 11/20/21 08:37 Urine Blood 3+ (Negative) H 11/20/21 08:37 Urine Nitrate Negative (Negative) 11/20/21 08:37 Urine Bilirubin Neg (Negative) 11/20/21 08:37 Urine Urobilinogen Norm mg/dL (Negative) 11/20/21 08:37 Ur Leukocyte Esterase Negative (Negative) 11/20/21 08:37 Urine RBC 0-4 /hpf (0-2) H 11/20/21 08:37 Urine WBC 10-15 /hpf (0-5) H 11/20/21 08:37 Ur Squamous Epith Cells 0-4 /hpf (0-5) H 11/20/21 08:37 Amorphous Sediment 2+ /hpf 11/20/21 08:37 Urine Bacteria Trace /hpf (NONE) 11/20/21 08:37 Hyaline Casts 0-4 /lpf H 11/20/21 08:37 Urine Mucus 1+ /hpf 11/20/21 08:37 Vitals Last Vital Signs Temp 97.6 F 11/23/21 07:53 Pulse 70 11/23/21 07:53 Resp 18 11/23/21 07:53 BP 171/85 11/23/21 07:53 Pulse Ox 97 11/23/21 07:53 O2 Del Method 11/23/21 07:53 O2 Flow Rate 2 11/22/21 21:00 Discharge Plan Discharge Patient Disposition: Home Condition: Stable Prescriptions: New levofloxacin 750 mg Tablet 750 mg PO DAILY 5 Days Qty: 5 0RF cefuroxime axetil 500 mg tablet 500 mg PO BID 5 Days Qty: 10 0RF Continued metoprolol succinate 200 mg tablet extended release 24 hr 200 mg PO DAILY metformin 850 mg tablet 850 mg PO BID losartan-hydrochlorothiazide 100-25 mg tablet 1 tab PO DAILY meclizine 25 mg tablet 25 mg PO BID amlodipine 10 mg tablet 10 mg PO DAILY doxazosin 4 mg tablet 4 mg PO DAILY albuterol sulfate 90 mcg/actuation HFA aerosol inhaler 2 puff INHALATION Q4H PRN (Reason: Shortness Of Breath) fluticasone propionate 50 mcg/actuation spray,suspension 2 spray INTRANASAL DAILY PRN (Reason: Nasal Congestion) Held atorvastatin 20 mg tablet 20 mg PO DAILY Hold Instructions: Resume on 11/29/21. eugene christianson LFTs obtained Discontinued doxycycline hyclate 100 mg tablet 100 mg PO BID Discharge Orders: Discharge Order (Routine); Ordered 11/23/21 Ordered By: Shira Sterling Other Ambulatory Orders: Liver Panel (Routine) Timeframe: 3 Days Facility: [facility] - Location: Lab - Main Lab Ordered By: Shira Sterling Referrals: Leonardo Gonzalez MD [Primary Care Provider] - 11/25/21 12:30 pm Andrew Ramsey MD [Physician] - 2 weeks (follow up from hospital discharge for pneumonia ) Discharge Diet: Usual diet Discharge Activity: Resume usual activity Patient Instructions: Cefuroxime (By mouth), Levofloxacin (By mouth), Opioid Safety, Pneumonia Stoplight, Pneumonia - Viral Discharge Attestations Time Spent in Discharge Care*: greater than 30 min Quality Metrics Clinical Quality Measures [ No reported AMI, CVA or VTE this stay] Coding Level of Care Code Acute Chg FW DC note Diagnoses Hypertension I10 Pneumonia J18.9 Diabetes mellitus E11.9 Hyponatremia E87.1
[2021-11-23] MEDS: metoprolol tartrate 50 mg Tablet 100 MG PO (09:35)
[2021-11-23] MEDS: amlodipine 10 mg Tablet PO (09:35)
[2021-11-23] MEDS: levoFLOXacin 750 mg Tablet PO (09:35)
[2021-11-23] MEDS: doxazosin 4 mg Tablet PO (09:42)
--- NOTE | 2021-11-23 10:08 | PC.SOCIAL ---
IMM update IMM updated with patient and at bedside. Verbalized an understanding. Copy Pg 2 provided. Initialled, dated, timed, and placed in chart.
[2021-11-23 11:39] LABS: Basophils % 0.5 %; Eosinophils # 0.1 10^3/uL (0.0-0.8); Eosinophils % 1.3 %; Hematocrit 38.7 % (42.0-52.0); Hemoglobin 11.8 g/dL (11.7-16.6); Lymphocytes # 0.8 10^3/uL (0.8-4.8); Lymphocytes % 12.5 %; Mean Corpuscular HGB Conc 30.5 g/dL (30.0-36.0); Mean Corpuscular Hemoglobin 31.1 pg (28.0-34.0); Mean Corpuscular Volume 101.8 fl (80-94); Mean Platelet Volume 10.6 fL (7.4-10.4); Monocytes # 0.3 10^3/uL (0.2-0.9); Monocytes % 4.6 %; Neutrophils % 80.4 %; Nucleated Red Blood Cells % 0 %; Platelet Count 244 10^3/cmm (130-400); Red Cell Distribution Width 14.4 % (12.1-15.1); White Blood Count 6.1 10^3/uL (4.0-10.0)
[2021-11-23 11:50] LABS: Alanine Aminotransferase 89 U/L (0-41); Albumin Level 2.7 g/dL (3.5-5.2); Alkaline Phosphatase 363 U/L (40-130); Blood Urea Nitrogen 10 mg/dL (8-23); Calcium 8.4 mg/dL (8.5-10.5); Carbon Dioxide 25 mmol/L (22-29); Chloride 105 mmol/L (98-107); Globulin 4.3 g/dL (1.3-4.6); Glomerular Filtration Rate 133.2 mL/min (90-130); Glucose 122 mg/dL (65-115); Osmolality Calculated 284 mOsm/kg (285-295); Sodium 137 mmol/L (136-145); Total Bilirubin 0.3 mg/dL (0.15-1.2)
[2021-11-23 11:58] LABS: Creatinine Clr Calc Pharmacy 108.1797
[2021-11-23 11:59] LABS: Anion Gap 11.7 (5-19); Potassium 4.7 mmol/L (3.5-5.1)
[2021-11-23 12:00] LABS: Aspartate Amino Transferase 67 U/L (0-40)
[2021-11-23 12:13] LABS: Glucose Point of Care 131 mg/dL (70-110)
[2021-11-25 14:37] LABS: Adenovirus Not Detected (Not Detected); Human Metapneumovirus Not Detected (Not Detected); Human Parainflu Virus 1 Not Detected (Not Detected); Human Parainflu Virus 2 Not Detected (Not Detected); Human Parainflu Virus 3 Not Detected (Not Detected); Human Rsv A Not Detected (Not Detected); Influenza A Not Detected (Not Detected); Influenza B Not Detected (Not Detected); Rhinovirus/Enterovirus Not Detected (Not Detected)
== END 2021-11-23 14:39 | disposition home or self-care (01) | DRG 194 ==
LOC: ER 08:35 → MEDSURG 12:37
PROVIDERS: Admitting Provider Internal Medicine; Emergency Provider Family Medicine; PCP Family Medicine; Visit Provider Student in an Organized Health Care Education/Training Program
DX: J15.9 Unspecified bacterial pneumonia (principal); E87.1 Hypo-osmolality and hyponatremia; W19.XXXA Unspecified fall, initial encounter; I10 Essential (primary) hypertension; E78.5 Hyperlipidemia, unspecified; E11.9 Type 2 diabetes mellitus without complications; E86.0 Dehydration; R59.0 Localized enlarged lymph nodes; Z79.84 Long term (current) use of oral hypoglycemic drugs; Z79.51 Long term (current) use of inhaled steroids
CPT/HCPCS: 36415; 36416; 70450; 71045; 71250; 80048; 80053; 81001; 82550; 82962; 83735; 84100; 84145; 84443; 85025; 86403; 87040; 87070; 87086; 87205; 87449; 87633; 87641; 93005; 94640; 94760; 96365; 96366; 96367; 96372; 97161; 97165; 99285; J0696; J1644; J1956; J2543; J7030

== ENCOUNTER → 2021-12-01 12:28 | Outpatient (BNVA) | payer MEDICARE, OTHER, SELFPAY | PROVIDERS: PCP Family Medicine; Visit Provider Internal Medicine Critical Care Medicine | DX: J18.9 Pneumonia, unspecified organism (principal); J91.8 Pleural effusion in other conditions classified elsewhere | CPT/HCPCS: 71046 ==

== ENCOUNTER 2022-01-19 07:11 | Outpatient (CLI) | payer MEDICARE, OTHER, SELFPAY ==
--- NOTE | 2022-01-19 07:18 | NM_ITS ---
WS: [id number] NUCLEAR MEDICINE BONE SCAN Radiopharmaceutical: 26.7 Tc-99m MDP mCi IV Injection site: Antecubital Postinjection imaging delay: 1 hr CLINICAL INFORMATION: ABNORMAL CT OF THE HEAD COMPARISON: CT head November 20, [address] 2007 FINDINGS: Bone lesions: There are no osseous lesions suspicious for metastatic disease. Tiny amount of low-grad e uptake corresponding to the LEFT frontal calvarial lesion further described below Soft tissue contours: Normal. Kidneys: Normal. Other findings: Postoperative changes LEFT TKA. Degenerative type uptake about both AC joints, both s ternoclavicular joints, both knees. NM/NM bone scan whole body* [id number] IMPRESSION: 1. No evidence of osseous metastatic disease. 2. Small amount of low-grade uptake along the LEFT frontal calvarium correspon ding to the lesion seen on the head CT. However this is unchanged and stable co mpared to the sinus CT in 2007 and is of doubtful clinical significance. No cor tical breakthrough on the prior head CT. 3. This could be followed up with head CT in 3-6 months months to confirm stab ility if continued concern
== END 2022-01-19 07:12 | disposition home or self-care (01) ==
LOC: RAD 07:14
PROVIDERS: PCP Family Medicine; Visit Provider Family Medicine
DX: R93.0 Abnormal findings on diagnostic imaging of skull and head, not elsewhere classified (principal)
CPT/HCPCS: 78306; A9561

== ENCOUNTER → 2023-04-05 09:19 | Outpatient (BNVA) | payer MEDICARE, OTHER, SELFPAY | PROVIDERS: PCP Family Medicine; Visit Provider Family Medicine | DX: E11.9 Type 2 diabetes mellitus without complications (principal); I10 Essential (primary) hypertension; R60.0 Localized edema; E78.5 Hyperlipidemia, unspecified; R74.01 Elevation of levels of liver transaminase levels; H91.90 Unspecified hearing loss, unspecified ear; E66.9 Obesity, unspecified; Z79.899 Other long term (current) drug therapy | CPT/HCPCS: 80053; 80061; 83036; 84439; 84443; 85025 ==

== ENCOUNTER 2023-04-19 07:38 | Outpatient (CLI) | payer MEDICARE, OTHER, SELFPAY ==
--- NOTE | 2023-04-19 08:15 | USCV_ITS ---
Jose Miguel Coleman Age: 72 Gender: M : 1950 Exam Date: 04/19/2023 08:03 Ordering Phys: Sebastián Cochran MD Technologist: Exam Location: [facility] [place] Indication: sob chest pain BP: 154 / 82 HR: 75 Rhythm: Sinus Technical Quality: Adequate MEASUREMENTS (Male / Female) Normal Values 2D ECHO LV Diastolic Diameter PLAX 5.5 cm 4.2 - 5.9 / 3.9 - 5.3 cm LV Systolic Diameter PLAX 3.2 cm IVS Diastolic Thickness 1.2 cm 0.6 - 1.0 / 0.6 - 0.9 cm IVS Systolic Thickness 2.4 cm LVPW Diastolic Thickness 1.3 cm 0.6 - 1.0 / 0.6 - 0.9 cm LVPW Systolic Thickness 2.0 cm LVOT Diameter 2.4 cm LV Ejection Fraction 2D Teich 71.7 % LV Ejection Fraction MOD 2C 64.2 % LV Ejection Fraction 2C AL 65.9 % LA Diameter 4.0 cm IVC Diameter 1.2 cm M-MODE Aortic Annulus Diameter 4.0 cm LA Ao Ratio MM 0.9 MV E Point Septal Separation 1.3 cm DOPPLER AV Peak Velocity 129.0 cm/s LVOT Peak Velocity 90.0 cm/s AV Area Cont Eq vti 2.9 cm squared AV Area Cont Eq pk 3.1 cm squared MV Area PHT 4.6 cm squared Mitral E to A Ratio 1.0 MV E' Velocity 40.0 cm/s Mitral E to MV E' Ratio 11.0 Mitral E to LV E' Lateral Ratio 11.3 Mitral E to LV E' Septal Ratio 10.7 TR Peak Velocity 155.0 cm/s TR Peak Gradient 9.6 mmHg RV Acceleration Time 0.1 s FINDINGS Left Ventricle Left ventricle is normal in size. LV systolic function is normal with EF of 55 to 60%. No regional wall motion abnormalities are seen. Right Ventricle Normal in size and function Right Atrium Normal in size Left Atrium Normal in size Mitral Valve Structurally normal mitral valve. Trace mitral regurgitation. Aortic Valve Aortic valve is thickened. No significant stenosis or regurgitation. Tricuspid Valve Mild tricuspid regurgitation. Insufficient TR jet to calculate RVSP. Pulmonic Valve Not well-visualized. Pericardium Normal Aorta Normal in size IVC Appears to be normal CONCLUSIONS LV systolic function is normal with EF of 55 to 60%. Trace mitral regurgitation Mild tricuspid regurgitation. No comparison studies are available Malik Ye MD (Electronically Signed) Final Date: 21 April 2023 17:59 S
== END 2023-04-19 07:39 | disposition home or self-care (01) ==
LOC: RAD 07:38
PROVIDERS: PCP Family Medicine; Visit Provider Family Medicine
DX: R60.0 Localized edema (principal)
CPT/HCPCS: 93306

== ENCOUNTER 2023-05-04 07:36 | Outpatient (CLI) | payer MEDICARE, OTHER, SELFPAY ==
--- NOTE | 2023-05-04 08:15 | USCV_ITS ---
Jose Miguel Coleman Age: 72 Gender: M : 1950 Exam Date: 05/04/2023 07:56 Ordering Phys: Sebastián Cochran MD Technologist: KELLY Exam Location: [facility] [place] Indication: LE Edema HISTORY: Lower extremity edema. PROCEDURES: Venous duplex imaging was performed in bilateral lower extremities. The following venous structures were evaluated: common femoral vein, profunda vein, proximal portion of the greater saphenous vein, superficial femoral vein, and the popliteal vein. In addition, the posterior tibial and peroneal trunk were evaluated. Serial compression, augmentation maneuvers, and spectral Doppler flow evaluation were performed. FINDINGS: Normal 2-D Doppler and augmentation and compressibility throughout the lower extremity venous structures. Additional imaging through the proximal calf veins also reveals no thrombus. Limited evaluation of the greater saphenous vein is patent with no thrombus. CONCLUSIONS No DVT bilateral lower extremities. Dr. Sadia Krause DO (Electronically Signed) Final Date: 04 May 2023 09:34 S
== END 2023-05-04 07:37 | disposition home or self-care (01) ==
LOC: RAD 07:36
PROVIDERS: PCP Family Medicine; Visit Provider Family Medicine
DX: R60.0 Localized edema (principal)
CPT/HCPCS: 93970

== ENCOUNTER → 2023-05-22 11:58 | Outpatient (BNVA) | payer MEDICARE, OTHER, SELFPAY | PROVIDERS: PCP Family Medicine; Visit Provider Family Medicine | DX: R60.0 Localized edema (principal) | CPT/HCPCS: 80053; 85025 ==

== ENCOUNTER 2023-06-12 07:37 | Outpatient (CLI) | payer MEDICARE, OTHER, SELFPAY ==
[2023-06-12 09:01] LABS: Hepatitis B Core AB, Total Non-Reactive (Nonreactive); Hepatitis B Surface Antigen Non-Reactive (Nonreactive); Hepatitis C Virus Antibody Non-Reactive (Nonreactive)
[2023-06-12 09:05] LABS: Gamma Glutamyl Transferase 183 U/L (8-61)
[2023-06-14 18:04] LABS: Quantiferon Mitogen 8.25 IU/mL; Quantiferon Nil 0.04 IU/mL; Quantiferon Plus TB1 0.01 IU/mL; Quantiferon Plus TB2 0.01 IU/mL; Quantiferon TB Gold NEGATIVE (NEGATIVE)
== END 2023-06-12 07:38 | disposition home or self-care (01) ==
LOC: LAB 07:38
PROVIDERS: PCP Family Medicine; Visit Provider Internal Medicine Rheumatology
DX: Z11.1 Encounter for screening for respiratory tuberculosis (principal); Z11.59 Encounter for screening for other viral diseases; L93.2 Other local lupus erythematosus; Z79.899 Other long term (current) drug therapy; R74.01 Elevation of levels of liver transaminase levels
CPT/HCPCS: 36415; 82977; 86480; 86704; 86803; 87340

== ENCOUNTER → 2023-08-01 12:55 | Outpatient (BNVA) | payer MEDICARE, SELFPAY | PROVIDERS: PCP Family Medicine; Visit Provider Internal Medicine Rheumatology | DX: Z79.899 Other long term (current) drug therapy (principal); L93.2 Other local lupus erythematosus; R74.8 Abnormal levels of other serum enzymes; K74.3 Primary biliary cirrhosis; Z71.85 Encounter for immunization safety counseling | CPT/HCPCS: 36415; 82657; 99214 ==

== ENCOUNTER → 2023-08-09 08:58 | Outpatient (BNVA) | payer MEDICARE, OTHER, SELFPAY | PROVIDERS: PCP Family Medicine; Visit Provider Family Medicine | DX: E11.9 Type 2 diabetes mellitus without complications (principal); R60.0 Localized edema; I10 Essential (primary) hypertension; E78.5 Hyperlipidemia, unspecified; R74.01 Elevation of levels of liver transaminase levels; E66.9 Obesity, unspecified; L93.2 Other local lupus erythematosus; R19.7 Diarrhea, unspecified | CPT/HCPCS: 80053; 83036; 85025 ==

== ENCOUNTER 2023-09-05 07:23 | Outpatient (CLI) | payer MEDICARE, OTHER, SELFPAY ==
[2023-09-05 07:39] LABS: Basophils % 0.3 %; Eosinophils # 0.1 10^3/uL (0.0-0.8); Eosinophils % 2.1 %; Hematocrit 37.3 % (37-53); Mean Corpuscular HGB Conc 31.4 g/dL (30-55); Mean Corpuscular Hemoglobin 29.8 pg (27-33); Mean Corpuscular Volume 94.9 fl (82-101); Monocytes # 0.4 10^3/uL (0.2-0.9); Monocytes % 6.4 %; Neutrophils # 3.52 10^3/uL (1.8-7.7); Neutrophils % 57.7 %; Nucleated Red Blood Cells % 0 %; Platelet Count 193 10^3/cmm (157-399); Red Blood Count 3.93 10^6/uL (3.85-5.65); Red Cell Distribution Width 15.6 % (12.1-15.1)
[2023-09-05 07:57] LABS: Alanine Aminotransferase 25 U/L (0-41); Albumin Level 2.1 g/dL (3.5-5.2); Alkaline Phosphatase 230 U/L (40-130); Aspartate Amino Transferase 32 U/L (0-40); C Reactive Protein 3.1 mg/L (0.0-4.9); Globulin 3.1 g/dL (1.3-4.6); Total Bilirubin 0.2 mg/dL (0.15-1.2); Total Protein 5.2 g/dL (6.6-8.7)
== END 2023-09-05 07:24 | disposition home or self-care (01) ==
PROVIDERS: PCP Family Medicine; Visit Provider Internal Medicine Rheumatology
DX: Z79.899 Other long term (current) drug therapy (principal); L93.2 Other local lupus erythematosus
CPT/HCPCS: 36415; 80076; 82565; 85025; 86140

== ENCOUNTER 2023-10-09 09:22 | Emergency (ER) | payer MEDICARE, OTHER, SELFPAY ==
[2023-10-09] VITALS (41 sets, daily range): BP systolic 126–163; BP diastolic 70–81; PULSE 60–107; RESP 10–26; TEMP 36.6; O2SAT 92–98; BMI 33.7
--- NOTE | 2023-10-09 09:38 | XRR_ITS ---
PROCEDURE INFORMATION: Exam: XR Chest Exam date and time: 10/09/2023 9:59 AM Age: 73 years old Clinical indication: Other: Weakness TECHNIQUE: Imaging protocol: Radiologic exam of the chest. Views: 1 view. COMPARISON: CR XR chest 2V* [id number] 12/01/2021 12:36 PM FINDINGS: Lungs: No consolidation. Pleural spaces: No sizable pleural effusion or pneumothorax. Heart/Mediastinum: No cardiomegaly. Bones/joints: Unremarkable. XR/XR chest 1V portable [id number] IMPRESSION: No acute intrathoracic findings.
--- NOTE | 2023-10-09 09:39 | ECG_ITS ---
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 Measurements Intervals [place] Rate: 74 P: 25 MT: 118 QRS: 46 QRSD: 109 T: 37 QT: 394 QTc: 438 Interpretive Statements SINUS RHYTHM WITH SHORT MT INTERVAL Compared to ECG 11/20/2021 08:09:47 Short MT interval now present Intraventricular conduction delay no longer present T-wave abnormality no longer present Electronically Signed On 10-09-2023 14:30:49 CDT by Alexander Yo M.D. [id number]
[2023-10-09 10:02] LABS: Basophils % 0.4 %; Eosinophils # 0.1 10^3/uL (0.0-0.8); Eosinophils % 2.3 %; Hematocrit 36.9 % (37-53); Lymphocytes # 1.3 10^3/uL (0.8-4.8); Lymphocytes % 25.2 %; Mean Corpuscular HGB Conc 32.2 g/dL (30-55); Mean Corpuscular Hemoglobin 30.4 pg (27-33); Mean Corpuscular Volume 94.1 fl (82-101); Mean Platelet Volume 10.6 fL (7.4-10.4); Monocytes # 0.3 10^3/uL (0.2-0.9); Monocytes % 6.1 %; Neutrophils # 3.44 10^3/uL (1.8-7.7); Neutrophils % 65.6 %; Nucleated Red Blood Cells % 0 %; Platelet Count 188 10^3/cmm (157-399); Red Blood Count 3.92 10^6/uL (3.85-5.65); Red Cell Distribution Width 15.5 % (12.1-15.1); White Blood Count 5.24 10^3/uL (3.29-11.43)
[2023-10-09 10:30] LABS: Partial Thromboplastin Time 25.4 SECONDS (23.9-36.7)
--- NOTE | 2023-10-09 10:42 | W.ED.ABDPA2 ---
HPI - Abdominal Pain General: Chief Complaint: Abdominal Pain Stated Complaint: sent by walk in, [facility] fluid Time Seen by Provider: 10/09/23 09:31 History of Present Illness: 73-year-old man with a history of diabetes, hypertension, hyperlipidemia, type 2 diabetes and chronic lower extremity swelling that he has been being treated with torsemide. He had had some improvement and then over the last couple weeks his swelling has become much worse. He says his abdomen is swollen. His legs are swollen. He does not know why he swells. Apparently had a normal echo recently. There was some concern for liver disease but then he was told that was normal as well. He went to walk-in clinic today sent him to the emergency room. He is not having any orthopnea. He has some mild exertional dyspnea. No chest pain. No easy bruising. Abdomen is distended but no focal tenderness. Review of Systems Narrative: Constitutional symptoms: Negative except as documented in HPI. Skin symptoms: Negative except as documented in HPI. Eye symptoms: Negative except as documented in HPI. ENMT symptoms: Negative except as documented in HPI. Respiratory symptoms: Negative except as documented in HPI. Cardiovascular symptoms: Negative except as documented in HPI. Gastrointestinal symptoms: Negative except as documented in HPI. Genitourinary symptoms: Negative except as documented in HPI. Musculoskeletal symptoms: Negative except as documented in HPI. Neurologic symptoms: Negative except as documented in HPI. Psychiatric symptoms: Negative except as documented in HPI. Endocrine symptoms: Negative except as documented in HPI. [facility] PFSH: Medical History (Updated 10/09/23 @ 14:15 by Theresa Barrera MD) High gamma glutamyl transferase (GGT) History of pneumonia URI with cough and congestion Allergic rhinitis due to allergen Immunization counseling High risk medication use Hearing impaired Type 2 diabetes mellitus Hyperlipidemia Hypertension Diabetes mellitus Family History Brother Cancer Lung disease Father Stroke Other Diabetes Hypertension Denies family history of CAD (coronary artery disease) Clotting disorder Dementia Hyperlipidemia Psychiatric illness Chronic kidney disease (CKD) Suicide Anesthesia complication Bleeding disorder Family history of premature coronary artery disease Social History Smoking and tobacco/nicotine status: never used tobacco/nicotine Second hand smoke exposure: No Alcohol intake: current Alcohol intake frequency: holidays/special occasions only Alcohol type: beer Substance/Drug Use: never Adopted: No Caregiver/support person: No Lives independently: Yes Household members: spouse Housing: House Marital status: service: Yes ([employer]) Physical Exam Narrative: EXAM NARRATIVE: General: Alert, no acute distress. Skin: Warm, dry. Head: Normocephalic, atraumatic. Neck: Supple, trachea midline. Eye: Extraocular movements are intact. Ears, nose, mouth and throat: mucosa moist. Cardiovascular: Regular, Normal peripheral perfusion. Patient has extensive swelling of his legs. He has some venous stasis dermatitis changes of his shins. Respiratory: Lungs are clear to auscultation, respirations are non-labored, breath sounds are equal, Symmetrical chest wall expansion. Gastrointestinal: Soft, Nontender, distended Musculoskeletal: Normal ROM, no deformity. Neurological: Alert and oriented, No focal neurological deficit observed. Psychiatric: Cooperative, appropriate mood & affect. Course Vital Signs: Vital signs: Vital Signs Temperature 97.9 F 10/09/23 09:32 Pulse Rate 72 10/09/23 13:11 Respiratory Rate 14 10/09/23 13:11 Blood Pressure 151/79 10/09/23 13:11 Pulse Oximetry 98 10/09/23 13:11 Oxygen Delivery Me thod Room Air 10/09/23 13:11 MDM - Abdominal Pain Medical Decision Making Medical decision making: Differential diagnosis including but not limited to and based on the above HPI, review of systems and physical exam: for patient with edema: Congestive heart failure. Kidney failure. DVT / Pulmonary embolism. Protein malnutrition. Cirrhosis. Orders placed to evaluate differential diagnosis based on the above differential, HPI and physical exam Chest x-ray: No acute process. No infiltrate. No pneumothorax. This was reviewed and interpreted by myself the ER physician. EKG: Time 9:43 AM. Rate 74. Normal sinus rhythm, No ST-T changes, no ectopy, normal UT & QRS intervals, This was reviewed and interpreted by myself the ER physician at 9:45 AM Lab Review: Laboratory results were reviewed and interpreted by myself the emergency room physician. Lab work is fairly unremarkable. No leukocytosis. No severe anemia. His hemoglobin is 11.9. Platelets are 188. Liver enzymes are normal. Coags are normal. BUN and creatinine are [address] of the abdomen and pelvis with contrast: There is interval development of soft tissue anasarca throughout the abdomen and pelvis. Small amount of ascites. The rest of the exam is normal. This was reviewed and interpreted by myself the emergency room physician. I also reviewed the radiology report. I reviewed the patient's medical record. Consultation: I spoke with Dr. Barrera who saw the patient in the emergency room and has developed a plan for home. We are increasing his torsemide. He does not appear to have the stigmata of liver disease. Platelets are normal. Liver enzymes are normal. He also does not appear to have heart failure. His proBNP is not elevated and he had a fairly normal echocardiogram several months ago. His albumin is low and I agree that he may very well have a nephrotic syndrome and Dr. Barrera has arranged for 24-hour urine at home. Also arranged for him to have follow-up in clinic at the end of the week at the walk-in clinic because his PCP is out of town. Reexamination: Discussed admission versus going home with the patient. He is adamant that he wants to go home. I have consulted the hospitalist who saw the patient in the emergency room and we have developed a plan for going home. Apparently had success on 60 mg of torsemide rather than the 40 and so we are going to increase him to that for the next 3 weeks at which time he will see his primary care. There is an appointment already scheduled at that time. He has no increased work of breathing. No altered mental status. No focal motor deficits. Assessment and plan: Anasarca ?80 mg IV Lasix. Set up for 24-hour urine protein analysis. - Follow-up has been arranged. Increasing home torsemide. I have written a prescription for this. - Discharged home - Discussed findings and plan with patient. Answered any questions. - All laboratory values were reviewed and interpreted personally by myself, the ER physician - All imaging was reviewed and interpreted personally by myself, the ER physician. - Evaluation and treatment of this problem were appropriate in the emergency setting Lab Data 10/09/23 09:50 10/09/23 10:48 Labs/Radiology: Radiology Impressions Chest X-Ray 10/09/23 09:38 IMPRESSION: No acute intrathoracic findings. Abdomen/Pelvis CT 10/09/23 11:40 IMPRESSION: 1. Interval development of diffuse moderate soft tissue anasarca throughout the abdomen and pelvis. 2. Small amount of ascites. 3. No GI tract obstruction. Some of the small bowel loops in the central abdomen appear mildly thickened with adjacent fluid. No ischemic changes. 4. Small bilateral pleural effusions and small pericardial effusion. 5. No renal obstruction. 6. Small pelvic and iliac chain lymph nodes have increased slightly in size since 2020. This may be reactive process. Laboratory Results WBC 5.24 10^3/uL (3.29-11.43) 10/09/23 09:50 RBC 3.92 10^6/uL (3.85-5.65) 10/09/23 09:50 Hgb 11.90 g/dL (11.27-16.99) 10/09/23 09:50 Hct 36.9 % (37-53) L 10/09/23 09:50 MCV 94.1 fl (82-101) 10/09/23 09:50 MCH 30.4 pg (27-33) 10/09/23 09:50 MCHC 32.2 g/dL (30-55) 10/09/23 09:50 RDW 15.5 % (12.1-15.1) H 10/09/23 09:50 Plt Count 188 10^3/cmm (157-399) 10/09/23 09:50 MPV 10.6 fL (7.4-10.4) H 10/09/23 09:50 Neut % (Auto) 65.6 % 10/09/23 09:50 Lymph % (Auto) 25.2 % 10/09/23 09:50 [place] % (Auto) 6.1 % 10/09/23 09:50 Eos % (Auto) 2.3 % 10/09/23 09:50 Baso % (Auto) 0.4 % 10/09/23 09:50 Neut # (Auto) 3.44 10^3/uL (1.8-7.7) 10/09/23 09:50 Lymph # (Auto) 1.3 10^3/uL (0.8-4.8) 10/09/23 09:50 [place] # (Auto) 0.3 10^3/uL (0.2-0.9) 10/09/23 09:50 Eos # (Auto) 0.1 10^3/uL (0.0-0.8) 10/09/23 09:50 Baso # (Auto) 0.0 10^3/uL (0.0-0.1) 10/09/23 09:50 Nucleated RBC % (auto) 0 % 10/09/23 09:50 Nucleated RBCs # 0.0 /100WBC 10/09/23 09:50 PT 12.40 SECONDS (12.1-14.9) 10/09/23 09:50 PT Cancelled 10/09/23 09:50 INR 0.90 (0.8-1.2) 10/09/23 09:50 INR Cancelled 10/09/23 09:50 APTT 25.4 SECONDS (23.9-36.7) 10/09/23 09:50 APTT Cancelled 10/09/23 09:50 Sodium 140 mmol/L (136-145) 10/09/23 10:48 Potassium 4.4 mmol/L (3.5-5.1) 10/09/23 10:48 Chloride 110 mmol/L (98-107) H 10/09/23 10:48 Carbon Dioxide 23 mmol/L (22-29) 10/09/23 10:48 Anion Gap 11.4 (5-19) 10/09/23 10:48 BUN 23 mg/dL (8-23) 10/09/23 10:48 Creatinine 0.7 mg/dL (0.7-1.2) 10/09/23 10:48 GFR Calculation Not Reportable 10/09/23 10:48 Glucose 119 mg/dL (65-115) H 10/09/23 10:48 Calculated Osmolality 295 mOsm/kg (285-295) 10/09/23 10:48 Lactic Acid 0.7 mmol/L (0.5-2.2) 10/09/23 10:48 Calcium 7.4 mg/dL (8.5-10.5) L 10/09/23 10:48 Total Bilirubin 0.2 mg/dL (0.15-1.2) 10/09/23 10:48 AST 24 U/L (0-40) 10/09/23 10:48 ALT 19 U/L (0-41) 10/09/23 10:48 Alkaline Phosphatase 205 U/L (40-130) H 10/09/23 10:48 Ammonia 31 umol/L (16-60) 10/09/23 10:48 Troponin T Baseline 16 ng/L (0-15) H 10/09/23 10:48 C-Reactive Protein 3.3 mg/L (0.0-4.9) 10/09/23 10:48 NT-Pro-B Natriuret Pep 289 pg/mL (0-125) H 10/09/23 10:48 Total Protein 4.6 g/dL (6.6-8.7) L 10/09/23 10:48 Albumin 1.8 g/dL (3.5-5.2) L 10/09/23 10:48 Globulin 2.8 g/dL (1.3-4.6) 10/09/23 10:48 Urine Color Yellow (Yellow) 10/09/23 14:20 Urine Appearance Clear (CLEAR) 10/09/23 14:20 Urine pH 5 (5-7) 10/09/23 14:20 Ur Specific [place] 1.010 (1.005-1.030) 10/09/23 14:20 Urine Protein 3+ (Negative) H 10/09/23 14:20 Urine Glucose (UA) Norm (Normal) 10/09/23 14:20 Urine Ketones Negative (Negative) 10/09/23 14:20 Urine Blood 2+ (Negative) H 10/09/23 14:20 Urine Nitrate Negative (Negative) 10/09/23 14:20 Urine Bilirubin Neg (Negative) 10/09/23 14:20 Urine Urobilinogen Norm mg/dL (Negative) 10/09/23 14:20 Ur Leukocyte Esterase Negative (Negative) 10/09/23 14:20 Urine RBC 5-10 /hpf (0-2) H 10/09/23 14:20 Urine WBC 0-4 /hpf (0-5) H 10/09/23 14:20 Ur Squamous Epith Cells 0-4 /hpf (0-5) H 10/09/23 14:20 Amorphous Sediment Not Reportable 10/09/23 14:20 Urine Bacteria Trace /hpf (NONE) 10/09/23 14:20 All radiology interpretation(s) finalized by discharge Discharge Plan Discharge Patient Disposition: Home Clinical Impression: Anasarca Condition: Stable Prescriptions: New torsemide 20 mg tablet 60 mg PO DAILY 21 Days Qty: 60 0RF No Action loratadine 10 mg tablet 10 mg PO DAILY PRN (Reason: allergy symptoms) Qty: 30 1RF torsemide 20 mg tablet 40 mg PO QAM Qty: 180 0RF potassium chloride 20 mEq tablet extended release 40 meq PO DAILY Qty: 180 1RF ezetimibe 10 mg tablet 10 mg PO DAILY Qty: 90 1RF azathioprine 50 mg tablet 50 mg PO BID Qty: 180 1RF hydroxychloroquine 200 mg tablet 200 mg PO BID Qty: 180 1RF metformin 850 mg tablet 850 mg PO DAILY Qty: 90 2RF chlorthalidone 25 mg tablet 25 mg PO DAILY Qty: 90 0RF amlodipine 10 mg tablet 10 mg PO DAILY Qty: 30 1RF metoprolol succinate 100 mg tablet extended release 24 hr 100 mg PO BID clobetasol 0.05 % cream 1 applic topical BID PRN (Reason: Skin Irritation) doxazosin 4 mg tablet 8 mg PO DAILY lisinopril 40 mg tablet 40 mg PO DAILY Discharge Orders: Discharge ED (Routine); Ordered 10/09/23 Ordered By: Iza Harrell Other Ambulatory Orders: Comprehensive Metabolic Panel (Routine) Timeframe: 20231023 Facility: [facility] - Location: Lab - Main Lab Ordered By: Theresa Barrera Total Protein 24 Hour Urine (Routine) Timeframe: 20231009 Facility: [facility] - Location: Lab - Main Lab Ordered By: Theresa Barrera Referrals: Sebastián Cochran MD [Primary Care Provider] - 10/24/23 (Keep scheduled appointment for october 23) Discharge Diet: Usual diet Discharge Activity: Increase activity as tolerated Patient Instructions: Edema (ED) Activity Restrictions/Additional Instructions: Thank you for choosing [facility] for your healthcare needs today. Please realize this is an emergency room and that we are providing you with a medical screening exam and this may not be complete and all inclusive of all the testing and or work up that you may need to determine your ailment or severity of your illness. You have been screened and evaluated and felt safe for discharge. Health conditions do change or evolve sometimes and as such it is important that you follow up with your Primary Doctor to be re checked, 3-5 days is a general good time frame for follow up. You are always welcome to return to the ED for re assessment if your symptoms are worsening or you have new concerns Coding Level of Care Code ED Oil Processing Technician for 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
[2023-10-09 11:18] LABS: Ammonia 31 umol/L (16-60); Lactic Sepsis W/Reflex 0.7 mmol/L (0.5-2.2)
[2023-10-09 11:19] LABS: Troponin(5th) Baseline 16 ng/L (0-15)
[2023-10-09 11:27] LABS: Alanine Aminotransferase 19 U/L (0-41); Albumin Level 1.8 g/dL (3.5-5.2); Alkaline Phosphatase 205 U/L (40-130); Anion Gap 11.4 (5-19); Aspartate Amino Transferase 24 U/L (0-40); Blood Urea Nitrogen 23 mg/dL (8-23); C Reactive Protein 3.3 mg/L (0.0-4.9); Calcium 7.4 mg/dL (8.5-10.5); Carbon Dioxide 23 mmol/L (22-29); Chloride 110 mmol/L (98-107); Creatinine Clr Calc Pharmacy 108.3018; Globulin 2.8 g/dL (1.3-4.6); Glucose 119 mg/dL (65-115); NT Pro B Type Natriuretic Pept 289 pg/mL (0-125); Osmolality Calculated 295 mOsm/kg (285-295); Potassium 4.4 mmol/L (3.5-5.1); Sodium 140 mmol/L (136-145); Total Bilirubin 0.2 mg/dL (0.15-1.2); Total Protein 4.6 g/dL (6.6-8.7)
--- NOTE | 2023-10-09 11:40 | CT_ITS ---
WS: [id number] CT ABDOMEN AND PELVIS NONCONTRAST HISTORY: abdominal swelling TECHNIQUE: Imaging performed through the abdomen and pelvis. Coronal and sagittal reformats are submi tted. All CT scans at [facility] use at least one of these dose optimization techniques: auto mated exposure control; mA and/or kV adjustment per patient size (includes targeted exams where dose is matched to clinical indication); or iterative reconstruction. DLP: 1099.58 mGy.cm COMPARISON: 09/04/2020 Lower thorax: Motion artifact at the lung bases. There are small bilateral pleural effusions and depe ndent changes. Moderately enlarged heart with a small pericardial effusion. Small amount of fluid adj acent to the descending aorta. Liver: Normal size liver. No mass or bile duct dilatation. Gallbladder: Normal gallbladder. No pericholecystic fluid or cholelithiasis. No gallbladder wall thic kening. Pancreas: Normal size and attenuation. Normal pancreatic duct. No pancreatitis or mass. Spleen: Normal. Adrenal glands: Normal. No mass. Right kidney: Perinephric stranding, no obstruction. Left kidney: Perinephric stranding, no obstruction. Aorta: Mild atherosclerosis abdominal aorta with no aneurysm. There is moderate diffuse soft tissue edema and anasarca. There is a small amount of mesenteric disea se edema and a small amount of ascites. GI tract: No obstructive pattern. There is fluid adjacent to the small bowel loops. Some of the small bowel loops in the central abdomen appear mildly prominent with wall thickening. There is no obstruc tion or free air. No pneumatosis identified. Abdominal wall: Diffuse soft tissue anasarca. Pelvis: Well-distended urinary bladder. Soft tissue anasarca. There are small pelvic lymph nodes whic h may be reactive. Iliac chain and inguinal lymph nodes measure up to 2 cm. Lymph nodes have slightly increased in size since 2020. Osseous structures: Lumbar spondylosis. CT/CT abdomen pelvis wo con [id number] IMPRESSION: 1. Interval development of diffuse moderate soft tissue anasarca throughout e abdomen and pelvis. 2. Small amount of ascites. 3. No GI tract obstruction. Some of the small bowel loops in the central abdom en appear mildly thickened with adjacent fluid. No ischemic changes. 4. Small bilateral pleural effusions and small pericardial effusion. 5. No renal obstruction. 6. Small pelvic and iliac chain lymph nodes have increased slightly in size si nce 2020. This may be reactive process.
[2023-10-09] MEDS: FUROsemide 10 mg/mL SDV 10mL 80 MG IVP (13:09)
--- NOTE | 2023-10-09 14:05 | PM.CONSULT ---
Providers/Reason For Consult Consulting Physician/Specialty*: Frase/Hospitalist Reason for Consult*: Edema, weight gain ~30 pounds Requesting Physician: Dr Harrell Attending Physician: Dr Harrell Primary Care Provider: Sebastián Cochran MD History of Present Illness History of Present Illness Jose Miguel Coleman is a 73 year old male presented to the emergency room from walk-in clinic due to increasing edema. He follows with Dr. Cochran normally but he is out of town. He has known history of hypertension and hyperlipidemia. He has been on multiple medicines to manage blood pressures. He began having significant lower extremity edema sometime ago. Echocardiogram in March of this year showed normal ejection fraction. He has had adjustments made to medications and increasing amounts of diuretics added. His legs seem to be doing the best after he had taken torsemide 60 mg daily for 3 weeks. Ever since he stopped taking the torsemide at 60 mg and went back to 40 mg the edema has gradually returned and exceeded what it had been before. In addition to torsemide he is on chlorthalidone. Also taking an SHWETA inhibitor, extended release metoprolol, doxazosin and amlodipine. The amount of swelling has been such that he developed some blisters on his legs, 1 on the left lower extremity recently opening up with significant serous drainage. Healing wound noted to right lower extremity. Workup in the emergency room revealed extensive edema. Renal function was okay. He did receive a dose of Lasix. Hospitalist were consulted for consideration for admission. Review of Systems General: Reports: Other (ROS as per HPI or as noted here) Const: Reports: change in weight (20 to 30 pound gain last couple of months); Denies: fever(s) Card: Reports: palpitations, edema (Worsening) and dyspnea on exertion; Denies: chest pain, lightheadedness, syncope, orthopnea or leg pain with exertion Resp: Reports: dyspnea; Denies: productive cough, non-productive cough, pain on inspiration or hemoptysis GI: Denies: abdominal pain, nausea, vomiting, change in bowel habits or hematochezia : Denies: difficulty urinating, change in urine stream (No change in urine color), oliguria or hematuria Musc: Reports: extremity swelling Skin/Breast: Reports: sores (Left anterior leg, right posterior leg) Endo: Denies: polyuria or polydipsia Marcus/Lymph: Reports: other (No known history of blood clots); Denies: easy bruising or easy bleeding Medications/Allergies Home Medications Medication Instructions Recorded Confirmed Last Taken Type potassium chloride 20 mEq 40 meq (2 x 20 mEq) PO DAILY #180 07/04/23 10/09/23 10/08/23 Rx tablet,extended release tabs torsemide 20 mg tablet 40 mg (2 x 20 mg) PO QAM #180 tabs 07/04/23 10/09/23 10/08/23 Rx ezetimibe 10 mg tablet 10 mg PO DAILY cholesterol #90 tabs 07/05/23 10/09/23 10/08/23 Rx loratadine 10 mg tablet 10 mg PO DAILY PRN allergy 07/14/23 10/09/23 Unknown Rx symptoms #30 tabs azathioprine 50 mg tablet 50 mg PO BID #180 tabs 08/09/23 10/09/23 10/08/23 Rx hydroxychloroquine 200 mg tablet 200 mg PO BID #180 tabs 08/09/23 10/09/23 10/08/23 Rx metformin 850 mg tablet 850 mg PO DAILY #90 tabs 08/12/23 10/09/23 10/08/23 Rx chlorthalidone 25 mg tablet 25 mg PO DAILY #90 tabs 08/30/23 10/09/23 10/08/23 Rx amlodipine 10 mg tablet 10 mg PO DAILY #30 tabs 10/05/23 10/09/23 10/08/23 Rx clobetasol 0.05 % topical cream 1 applic topical BID PRN Skin 10/09/23 10/09/23 Unknown History Irritation doxazosin 4 mg tablet 8 mg PO DAILY 10/09/23 10/09/23 10/08/23 History lisinopril 40 mg tablet 40 mg PO DAILY 10/09/23 10/09/23 10/08/23 History metoprolol succinate 100 mg 100 mg PO BID 10/09/23 10/09/23 10/08/23 History tablet,extended release 24 hr torsemide 20 mg tablet 60 mg (3 x 20 mg) PO DAILY 3 weeks 10/09/23 Unknown Rx #60 tabs Allergies Allergy/AdvReac Type Severity Reaction Status Date / Time No Known Allergies Allergy Verified 10/09/23 08:40 PFSH Acute PFSH: Medical History (Updated 10/09/23 @ 18:50 by Theresa Barrera MD) High gamma glutamyl transferase (GGT) History of pneumonia Allergic rhinitis due to allergen Hearing impaired Type 2 diabetes mellitus Hyperlipidemia Hypertension Family History Brother Cancer Lung disease Father Stroke Other Diabetes Hypertension Denies family history of CAD (coronary artery disease) Clotting disorder Dementia Hyperlipidemia Psychiatric illness Chronic kidney disease (CKD) Suicide Anesthesia complication Bleeding disorder Family history of premature coronary artery disease Social History Smoking and tobacco/nicotine status: never used tobacco/nicotine Second hand smoke exposure: No Alcohol intake: current Alcohol intake frequency: holidays/special occasions only Alcohol type: beer Substance/Drug Use: never Adopted: No Caregiver/support person: No Lives independently: Yes Household members: spouse Housing: House Marital status: service: Yes ([employer]) Vitals/I&O/Wt Last Vital Signs Temp 97.9 F 10/09/23 09:32 Pulse 72 10/09/23 13:11 Resp 14 10/09/23 13:11 BP 151/79 10/09/23 13:11 Pulse Ox 98 10/09/23 13:11 O2 Del Method Room Air 10/09/23 13:11 Weight last 48 hrs Weight 112.945 kg Physical Exam Narrative: Patient is awake and alert, able to provide history. Normocephalic. Extraocular movements are intact. Oropharynx with moist mucous membranes. Lungs are clear without any accessory muscle use noted. Cardiovascular exam reveals a regular rhythm. Abdomen is soft. 4+ edema noted to the mid abdomen. Hands are also puffy. There is approximately quarter size diameter loss of superficial skin surface with visible fat layer and serous drainage in the left anterior cagle. There is some surrounding erythema but no warmth. Chronic stasis changes noted left more so than right lower extremity. On the posterior calf on the right there is approximately 1 cm diameter yellow scabbed over lesion with no drainage, surrounding erythema but no warmth, nontender. Data 10/09/23 09:50 10/09/23 10:48 Other Labs: Radiology Impressions Chest X-Ray 10/09/23 09:38 IMPRESSION: No acute intrathoracic findings. Abdomen/Pelvis CT 10/09/23 11:40 IMPRESSION: 1. Interval development of diffuse moderate soft tissue anasarca throughout the abdomen and pelvis. 2. Small amount of ascites. 3. No GI tract obstruction. Some of the small bowel loops in the central abdomen appear mildly thickened with adjacent fluid. No ischemic changes. 4. Small bilateral pleural effusions and small pericardial effusion. 5. No renal obstruction. 6. Small pelvic and iliac chain lymph nodes have increased slightly in size since 2020. This may be reactive process. Laboratory Results WBC 5.24 10^3/uL (3.29-11.43) 10/09/23 09:50 RBC 3.92 10^6/uL (3.85-5.65) 10/09/23 09:50 Hgb 11.90 g/dL (11.27-16.99) 10/09/23 09:50 Hct 36.9 % (37-53) L 10/09/23 09:50 MCV 94.1 fl (82-101) 10/09/23 09:50 MCH 30.4 pg (27-33) 10/09/23 09:50 MCHC 32.2 g/dL (30-55) 10/09/23 09:50 RDW 15.5 % (12.1-15.1) H 10/09/23 09:50 Plt Count 188 10^3/cmm (157-399) 10/09/23 09:50 MPV 10.6 fL (7.4-10.4) H 10/09/23 09:50 Neut % (Auto) 65.6 % 10/09/23 09:50 Lymph % (Auto) 25.2 % 10/09/23 09:50 Hudson % (Auto) 6.1 % 10/09/23 09:50 Eos % (Auto) 2.3 % 10/09/23 09:50 Baso % (Auto) 0.4 % 10/09/23 09:50 Neut # (Auto) 3.44 10^3/uL (1.8-7.7) 10/09/23 09:50 Lymph # (Auto) 1.3 10^3/uL (0.8-4.8) 10/09/23 09:50 Hudson # (Auto) 0.3 10^3/uL (0.2-0.9) 10/09/23 09:50 Eos # (Auto) 0.1 10^3/uL (0.0-0.8) 10/09/23 09:50 Baso # (Auto) 0.0 10^3/uL (0.0-0.1) 10/09/23 09:50 Nucleated RBC % (auto) 0 % 10/09/23 09:50 Nucleated RBCs # 0.0 /100WBC 10/09/23 09:50 PT 12.40 SECONDS (12.1-14.9) 10/09/23 09:50 PT Cancelled 10/09/23 09:50 INR 0.90 (0.8-1.2) 10/09/23 09:50 INR Cancelled 10/09/23 09:50 APTT 25.4 SECONDS (23.9-36.7) 10/09/23 09:50 APTT Cancelled 10/09/23 09:50 Sodium 140 mmol/L (136-145) 10/09/23 10:48 Potassium 4.4 mmol/L (3.5-5.1) 10/09/23 10:48 Chloride 110 mmol/L (98-107) H 10/09/23 10:48 Carbon Dioxide 23 mmol/L (22-29) 10/09/23 10:48 Anion Gap 11.4 (5-19) 10/09/23 10:48 BUN 23 mg/dL (8-23) 10/09/23 10:48 Creatinine 0.7 mg/dL (0.7-1.2) 10/09/23 10:48 GFR Calculation Not Reportable 10/09/23 10:48 Glucose 119 mg/dL (65-115) H 10/09/23 10:48 Calculated Osmolality 295 mOsm/kg (285-295) 10/09/23 10:48 Lactic Acid 0.7 mmol/L (0.5-2.2) 10/09/23 10:48 Calcium 7.4 mg/dL (8.5-10.5) L 10/09/23 10:48 Total Bilirubin 0.2 mg/dL (0.15-1.2) 10/09/23 10:48 AST 24 U/L (0-40) 10/09/23 10:48 ALT 19 U/L (0-41) 10/09/23 10:48 Alkaline Phosphatase 205 U/L (40-130) H 10/09/23 10:48 Ammonia 31 umol/L (16-60) 10/09/23 10:48 Troponin T Baseline 16 ng/L (0-15) H 10/09/23 10:48 C-Reactive Protein 3.3 mg/L (0.0-4.9) 10/09/23 10:48 NT-Pro-B Natriuret Pep 289 pg/mL (0-125) H 10/09/23 10:48 Total Protein 4.6 g/dL (6.6-8.7) L 10/09/23 10:48 Albumin 1.8 g/dL (3.5-5.2) L 10/09/23 10:48 Globulin 2.8 g/dL (1.3-4.6) 10/09/23 10:48 Urine Color Yellow (Yellow) 10/09/23 14:20 Urine Appearance Clear (CLEAR) 10/09/23 14:20 Urine pH 5 (5-7) 10/09/23 14:20 Ur Specific [place] 1.010 (1.005-1.030) 10/09/23 14:20 Urine Protein 3+ (Negative) H 10/09/23 14:20 Urine Glucose (UA) Norm (Normal) 10/09/23 14:20 Urine Ketones Negative (Negative) 10/09/23 14:20 Urine Blood 2+ (Negative) H 10/09/23 14:20 Urine Nitrate Negative (Negative) 10/09/23 14:20 Urine Bilirubin Neg (Negative) 10/09/23 14:20 Urine Urobilinogen Norm mg/dL (Negative) 10/09/23 14:20 Ur Leukocyte Esterase Negative (Negative) 10/09/23 14:20 Urine RBC 5-10 /hpf (0-2) H 10/09/23 14:20 Urine WBC 0-4 /hpf (0-5) H 10/09/23 14:20 Ur Squamous Epith Cells 0-4 /hpf (0-5) H 10/09/23 14:20 Amorphous Sediment Not Reportable 10/09/23 14:20 Urine Bacteria Trace /hpf (NONE) 10/09/23 14:20 Other data: ECHO 03/2023 CONCLUSIONS LV systolic function is normal with EF of 55 to 60%. Trace mitral regurgitation Mild tricuspid regurgitation. No comparison studies are available Laboratory Tests 04/05/23 09:19 Triglycerides 75 Cholesterol 163 LDL Cholesterol, Calc 89 HDL Cholesterol 59 L LDL/HDL Ratio 1.51 Cholesterol/HDL Ratio 2.76 A&P Assessment and plan (1) Lower extremity edema: Progressing to anasarca over time. Has had approximately 20-30 pound weight gain over the last couple of months which is documented and computer systems. Clinically did better when was on 60 mg of torsemide a day by his report. (2) Hypoalbuminemia: Progressively worsening over time (3) Nephrotic syndrome: Worsening lower extremity edema and abdominal wall anasarca, weight gain, worsening hypoalbuminemia, hypertension, 3+ protein on urinary dipstick today consistent with progressing nephrotic syndrome. In this patient known to have double-stranded DNA positivity though a chronic diagnosis of cutaneous lupus erythematosus only, concern is is this evidence of developing lupus nephritis or other vasculitic type entity versus nephrotic syndrome picture from diabetes, hepatic disease, heart failure. Normal renal function currently. Is on immunosuppressive azathioprine as well as hydroxychloroquine. Not on any NSAID therapy. Only on topical steroids. No history or current clinical evidence of thrombotic events. (4) Hypertension: Secondary hypertension suspected, though appears to be considered primary hypertension chronically, on amplodipine, doxazosin, torsemide, chlorthalidone, lisinopril, metoprolol succinate, and potassium replacement (5) Type 2 diabetes mellitus: [id number] without complications. Chronically on metformin. Is on an SHWETA inhibitor. 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 On hydroxychloroquine, azathioprine (recently started) and topical clobetasol. Follows with Dr holbrook. (8) High gamma glutamyl transferase (GGT): Previously noted abnormal lab value along with elevated alkaline phosphatase. Had been referred to GI for evaluation of primary biliary cirrhosis though not seen yet. Had nonobstructive biliary stones on ultrasound imaging. (9) Non-pressure ulcer of left lower extremity: With fat layer exposed and currently significant serous exudate, recent appearance on anterior cagle (10) Non-pressure ulcer of right lower extremity: Currently limited to skin breakdown with ongoing healing in the posterior calf (11) Obesity (BMI 30.0-34.9): Plan Recommendation to Mr. Coleman was at least overnight admission for further workup and medication adjustment along with clinical monitoring. He was not eager to be admitted to the hospital. We discussed alternative management options as outlined below and he was in agreement. He was given strict instructions to return to the emergency room for continued increase edema, increasing shortness of breath with exertion, increasing number of sores to his lower extremity or worsening of already present sores to include increasing redness, purulence, increasing drainage or pain in the legs, return for any chest discomfort or other concerning symptoms. He lives nearby and indicated he would not have issues returning should he need to. Recommend increasing torsemide to 60 mg daily for 2 to 3 weeks until follow-up with Dr. Cochran which is already scheduled on October 23 at 9:30 AM Follow-up at walk-in clinic this Monday if not showing improvement with this regimen as he did before Low-sodium diet information provided to Mr. Coleman Needs to monitor weights and blood pressures Complete metabolic panel to be drawn at the main lab the day prior to clinic follow-up with Dr Cochran, order placed 24-hour urine for total protein has been ordered by me with materials needed and instructions provided to Mr. Coleman on how to return and store urine Pending results of above may need referral to nephrology for further workup, possible biopsy Pending results of above may want to arrange follow-up with rheumatology sooner than the currently scheduled December 19, 2023 appointment at 1 PM Could consider a trial of steroids, though will need to monitor blood sugars if initiated and ideally would delay until work up confirms diagnosis as able clinically Will Check repeat GGT on ED blood work Lipid panel was collected in March Currently okay to continue metformin Currently okay to continue hydroxychloroquine and clobetasol topical Will continue azathioprine though it can have a side effect of worsening lower extremity edema given that overall clinical appearance is that of nephrotic syndrome for another reason, the edema was present prior to the initiation of azathioprine Patient instructed to keep a close eye on nonpressure ulcers to both lower extremities, keeping them as dry as able. Okay to use triple antibiotic ointment. Patient should be seen by a provider either at walk-in or here at the emergency room if develops any purulence, worsening/expansion of wound area, increasing redness or other discoloration or increasing pain with or without fevers. Above plans were reviewed with Dr. Harrell, ED physician as well as with patient and both were given an opportunity to ask questions Coding Level of Care Code 94138 Moderate Time for a total of 70 minutes, includes reviewing past or interval history, examining/interviewing patient, placing orders, counseling patient/family/other support, discussing plan of care with staff, communicating with other healthcare providers (ED provider), documenting encounter and coordinating care (Arranging outpatient 24-hour urine) Diagnoses Lower extremity edema R60.0 Hypoalbuminemia E88.09 Nephrotic syndrome N04.9 Hypertension I10 Type 2 diabetes mellitus E11.9 Hyperlipidemia E78.5 Cutaneous lupus erythematosus L93.2 High gamma glutamyl transferase (GGT) R74.8 Non-pressure ulcer of left lower extremity L97.929 Non-pressure ulcer of right lower extremity L97.919 Obesity (BMI 30.0-34.9) E66.9
[2023-10-09 14:53] LABS: Urine Appearance Clear (CLEAR); Urine Color Yellow (Yellow); pH Urine 5 (5-7)
[2023-10-09 14:54] LABS: Add Urine Culture? No; Add Urine Microscopic? YES; Bacteria Urine TRACE /hpf; Bilirubin Urine Neg (Negative); Blood Urine 2+ (Negative); Glucose Urine UA Norm (Normal); Ketones Urine Negative (Negative); Leukocyte Esterase Urine Negative (Negative); Nitrate Urine Negative (Negative); Protein Urine 3+ (Negative); Squamous Epithelial Cell Urine 0-4 /hpf (0-5); Urobilinogen Urine Norm (Negative); WBC Urine 0-4 /hpf (0-5)
[2023-10-09 20:02] LABS: Gamma Glutamyl Transferase 129 U/L (8-61)
== END 2023-10-09 15:07 | disposition home or self-care (01) ==
PROVIDERS: Hospitalist; Emergency Provider Emergency Medicine; PCP Family Medicine
DX: R60.1 Generalized edema (principal); Z79.84 Long term (current) use of oral hypoglycemic drugs; E11.9 Type 2 diabetes mellitus without complications; E78.5 Hyperlipidemia, unspecified; I10 Essential (primary) hypertension
CPT/HCPCS: 36415; 71045; 74176; 80053; 81001; 82140; 82977; 83605; 83880; 84484; 85025; 85610; 85730; 86140; 93005; 96374; 99285; J1940

== ENCOUNTER 2023-10-11 08:03 | Outpatient (CLI) | payer MEDICARE, OTHER, SELFPAY ==
[2023-10-11 09:01] LABS: Urine Total Protein 74.6 mg/dL (0-150)
[2023-10-11 09:08] LABS: Total Volume, Urine 2500 mL
== END 2023-10-11 08:04 | disposition home or self-care (01) ==
LOC: LAB 08:06
PROVIDERS: PCP Family Medicine; Visit Provider Hospitalist
DX: N04.9 Nephrotic syndrome with unspecified morphologic changes (principal); R60.1 Generalized edema
CPT/HCPCS: 84156

== ENCOUNTER → 2023-10-24 09:57 | Outpatient (BNVA) | payer MEDICARE, OTHER, SELFPAY | PROVIDERS: PCP Family Medicine; Visit Provider Family Medicine | DX: R74.01 Elevation of levels of liver transaminase levels (principal) | CPT/HCPCS: 80053; 82977 ==

== ENCOUNTER → 2023-11-22 13:12 | Outpatient (BNVA) | payer MEDICARE, OTHER, SELFPAY | PROVIDERS: PCP Family Medicine; Visit Provider Family Medicine | DX: R74.01 Elevation of levels of liver transaminase levels (principal) | CPT/HCPCS: 80053 ==

== ENCOUNTER → 2023-12-19 12:45 | Outpatient (BNVA) | payer MEDICARE, OTHER, SELFPAY | PROVIDERS: PCP Family Medicine; Visit Provider Internal Medicine Rheumatology | DX: L93.2 Other local lupus erythematosus (principal); R74.8 Abnormal levels of other serum enzymes; Z79.899 Other long term (current) drug therapy; Z71.85 Encounter for immunization safety counseling | CPT/HCPCS: 36415; 80076; 82550; 85025; 86140; 99214 ==

== ENCOUNTER → 2023-12-28 08:37 | Outpatient (BNVA) | payer MEDICARE, OTHER, SELFPAY | PROVIDERS: PCP Family Medicine; Visit Provider Family Medicine | DX: R60.9 Edema, unspecified (principal) | CPT/HCPCS: 80053 ==

== ENCOUNTER 2024-01-02 07:59 | Outpatient (CLI) | payer MEDICARE, OTHER, SELFPAY ==
[2024-01-02 08:52] LABS: Basophils % 0.6 %; Eosinophils # 0.2 10^3/uL (0.0-0.8); Eosinophils % 3.1 %; Hematocrit 36.1 % (37-53); Lymphocytes # 1.1 10^3/uL (0.8-4.8); Lymphocytes % 22.8 %; Mean Corpuscular HGB Conc 31.6 g/dL (30-55); Mean Corpuscular Hemoglobin 31.4 pg (27-33); Mean Corpuscular Volume 99.4 fl (82-101); Mean Platelet Volume 10.3 fL (7.4-10.4); Monocytes # 0.3 10^3/uL (0.2-0.9); Monocytes % 6.6 %; Neutrophils # 3.23 10^3/uL (1.8-7.7); Neutrophils % 66.5 %; Nucleated Red Blood Cells % 0 %; Platelet Count 166 10^3/cmm (157-399); Red Blood Count 3.63 10^6/uL (3.85-5.65); Red Cell Distribution Width 13.4 % (12.1-15.1); White Blood Count 4.86 10^3/uL (3.29-11.43)
[2024-01-02 09:12] LABS: Complement C3 54 mg/dL (90-180)
== END 2024-01-02 08:00 | disposition home or self-care (01) ==
LOC: LAB 08:00
PROVIDERS: PCP Family Medicine; Visit Provider Internal Medicine Rheumatology
DX: R76.8 Other specified abnormal immunological findings in serum (principal); Z79.899 Other long term (current) drug therapy; L93.2 Other local lupus erythematosus; R74.8 Abnormal levels of other serum enzymes
CPT/HCPCS: 36415; 82657; 85025; 86160

== ENCOUNTER → 2024-04-08 09:23 | Outpatient (BNVA) | payer MEDICARE, OTHER, SELFPAY | PROVIDERS: PCP Family Medicine; Visit Provider Family Medicine | DX: R80.9 Proteinuria, unspecified (principal); R60.9 Edema, unspecified; N04.9 Nephrotic syndrome with unspecified morphologic changes; E88.09 Other disorders of plasma-protein metabolism, not elsewhere classified; L93.2 Other local lupus erythematosus; R74.8 Abnormal levels of other serum enzymes; E11.9 Type 2 diabetes mellitus without complications; I10 Essential (primary) hypertension | CPT/HCPCS: 80048; 80076; 81000; 82043; 83735; 84156; 85025 ==

== ENCOUNTER → 2024-04-15 09:11 | Outpatient (BNVA) | payer MEDICARE, OTHER, SELFPAY | PROVIDERS: PCP Family Medicine; Visit Provider Internal Medicine Rheumatology | DX: L93.2 Other local lupus erythematosus (principal); Z79.899 Other long term (current) drug therapy; Z71.85 Encounter for immunization safety counseling; R74.8 Abnormal levels of other serum enzymes | CPT/HCPCS: 99214 ==

== ENCOUNTER → 2024-05-07 11:38 | Outpatient (BNVA) | payer MEDICARE, OTHER, SELFPAY | PROVIDERS: PCP Family Medicine; Visit Provider Family Medicine | DX: R74.8 Abnormal levels of other serum enzymes (principal) | CPT/HCPCS: 80076 ==

== ENCOUNTER 2024-06-18 12:26 | Outpatient (CLI) | payer MEDICARE, OTHER, SELFPAY ==
[2024-06-18 13:20] LABS: Basophils % 0.1 %; Eosinophils # 0.1 10^3/uL (0.0-0.8); Eosinophils % 0.9 %; Lymphocytes # 0.6 10^3/uL (0.8-4.8); Lymphocytes % 7.5 %; Mean Corpuscular HGB Conc 32.3 g/dL (30-55); Mean Corpuscular Hemoglobin 30.5 pg (27-33); Mean Corpuscular Volume 94.3 fl (82-101); Mean Platelet Volume 10.8 fL (7.4-10.4); Monocytes # 0.2 10^3/uL (0.2-0.9); Monocytes % 2.5 %; Neutrophils # 7.04 10^3/uL (1.8-7.7); Neutrophils % 88.6 %; Nucleated Red Blood Cells % 0 %; Platelet Count 163 10^3/cmm (157-399); Red Blood Count 3.71 10^6/uL (3.85-5.65); Red Cell Distribution Width 12.4 % (12.1-15.1); White Blood Count 7.95 10^3/uL (3.29-11.43)
[2024-06-18 13:25] LABS: Erythrocyte Sedimentation Rate 40 mm/hr (0-10)
[2024-06-18 13:45] LABS: Alanine Aminotransferase 21 U/L (0-41); Albumin Level 2.3 g/dL (3.5-5.2); Alkaline Phosphatase 60 U/L (40-130); Aspartate Amino Transferase 21 U/L (0-40); Globulin 2.4 g/dL (1.3-4.6); Total Bilirubin 0.2 mg/dL (0.15-1.2); Total Protein 4.7 g/dL (6.6-8.7)
== END 2024-06-18 12:27 | disposition home or self-care (01) ==
PROVIDERS: PCP Family Medicine; Visit Provider Internal Medicine Rheumatology
DX: R74.01 Elevation of levels of liver transaminase levels (principal); L93.2 Other local lupus erythematosus; Z79.899 Other long term (current) drug therapy
CPT/HCPCS: 36415; 80076; 82565; 85025; 85651; 86140

== ENCOUNTER → 2024-07-15 10:54 | Outpatient (BNVA) | payer MEDICARE, OTHER, SELFPAY | PROVIDERS: PCP Family Medicine; Visit Provider Internal Medicine Rheumatology | DX: M32.14 Glomerular disease in systemic lupus erythematosus (principal); Z79.899 Other long term (current) drug therapy; Z71.85 Encounter for immunization safety counseling; R74.8 Abnormal levels of other serum enzymes | CPT/HCPCS: 71100; 99215 ==

== ENCOUNTER 2024-11-11 08:14 | Outpatient (RCR) | payer MEDICARE, OTHER, SELFPAY | END 2024-11-17 23:59 | disposition home or self-care (01) | LOC: SPT 08:14 | PROVIDERS: PCP Family Medicine; Visit Provider Family Medicine | DX: S39.011D Strain of muscle, fascia and tendon of abdomen, subsequent encounter (principal); X58.XXXD Exposure to other specified factors, subsequent encounter | CPT/HCPCS: 97110; 97161 ==

== ENCOUNTER 2024-11-18 06:30 | Outpatient (RCR) | payer MEDICARE, OTHER, SELFPAY | END 2024-11-28 13:47 | disposition home or self-care (01) | LOC: SPT 06:30 | PROVIDERS: PCP Family Medicine; Visit Provider Family Medicine | DX: S39.011D Strain of muscle, fascia and tendon of abdomen, subsequent encounter (principal); X58.XXXD Exposure to other specified factors, subsequent encounter | CPT/HCPCS: 97110 ==

== ENCOUNTER 2024-11-26 09:24 | Outpatient (CLI) | payer MEDICARE, OTHER, SELFPAY ==
[2024-11-26 12:24] LABS: Alanine Aminotransferase 7 U/L (0-41); Albumin Level 2.1 g/dL (3.5-5.2); Alkaline Phosphatase 80 U/L (40-130); Aspartate Amino Transferase 12 U/L (0-40); Globulin 2.8 g/dL (1.3-4.6); Total Protein 4.9 g/dL (6.6-8.7)
== END 2024-11-26 09:25 | disposition home or self-care (01) ==
PROVIDERS: PCP Family Medicine; Visit Provider Internal Medicine Gastroenterology
DX: M32.14 Glomerular disease in systemic lupus erythematosus (principal); Z79.52 Long term (current) use of systemic steroids; D89.9 Disorder involving the immune mechanism, unspecified
CPT/HCPCS: 36415; 80076

== ENCOUNTER 2024-12-13 19:16 | Inpatient (IN) | payer MEDICARE, OTHER, SELFPAY ==
--- OUTSIDE RECORDS SUMMARY | 2024-11-21 09:00 | XMS_ITS ---
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 Name Role Phone Dimas MASON, Sebastián Primary Care Provider Unavailab Latonya Beaulieu Unavailable [phone] Flex Rao Unavailable [phone] Allergies No Known Allergies REASON FOR VISIT Lupus nephritis Medications Medication SIG (Take, Route, Frequency, Duration) Notes Start Date End Date Status Tylenol as needed Active Chlorthalidone 50 MG Tablet 1/2 tablet in the morning with food Orally daily; Duration: 30 days Active Bumetanide 2 MG Tablet as instructed Orally 2 tablets (3mg) in the morning and 1.5 tablet (2mg) in the early afternoon; Duration: 30 days increase in dose 02/04/2025 Active Allopurinol 100 MG Tablet 1 tablet Orall y twice a day; Duration: 30 days increase in dose 09/24/2024 Active Potassium Chloride ER 20 MEQ Tablet Extended Release 1 tablet Orally Twice a day Active Farxiga 10 MG Tablet 1 tablet Orally Once a day; Duration: 30 days 11/21/2024 Active Lisinopril 40 MG Tablet 1 tablet Orally Once a day Active Mycophenolate Mofetil 500 MG Tablet 3 tablets Orally Twice a day; Duration: 30 days Active Metoprolol Succinate 100 MG Capsule ER 24 Hour Sprinkle 1 capsule Orally Once a day Active Doxazosin Mesylate 4 MG Tablet 1 tablet Orally Twice a day Active Hydroxychloroquine Sulfate 200 MG Tablet 1 tablet Orally twice a day Active predniSONE 2.5 MG Tablet 1 tablet with food or milk Orally Once a day; Duration: 14 days Active Ezetimibe 10 MG Tablet 1 tablet Orally Once a day Active predniSONE 1 MG Tablet 1 tablet with food or milk Orally Once a day; Duration: 14 days To be started after Rx for 2.5 mg prednisone daily is completed 11/21/2024 Active Social History Tobacco Use: Social History Observation Description Date Details (start date - stop date) Former Smoker NA - NA Social History Tobacco Use: Social Info Question Answer Notes Tobacco Control (Standard) Tobacco use: Former smoker Additional Details Category Social Info Options Details Miscellaneous: Marital status: Children: x2 : [id number] [facility] Level of Education: 2 years [employer] 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 No complications of immunosuppressio n. Renal function is slightly worse, likely due to hydration status (chlorthalidone as well as being in the sun for a track meet) as indicated by his elevated BUN/cr. HTN is controlled. Edema is stable. Hypokalemia is controlled. Anemia is at goal and he is iron replete 11/21/2024 Nephrotic range proteinuria (ICD-10 - R80.9) Class V lupus i s being treated with persistent nephrotic proteinuria but with improved hypoalbuminemia and no microscopic hematuria. No complications of immunosuppressio n. Renal function is slightly worse, likely due to hydration status (chlorthalidone as well as being in the sun for a track meet) as indicated by his elevated BUN/cr. HTN is controlled. Edema is stable. Hypokalemia is controlled. 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 No complications of immunosuppressio n. Renal function is slightly worse, likely due to hydration status (chlorthalidone as well as being in the sun for a track meet) as indicated by his elevated BUN/cr. HTN is controlled. Edema is stable. Hypokalemia is controlled. 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 No complications of immunosuppressio n. Renal function is slightly worse, likely due to hydration status (chlorthalidone as well as being in the sun for a track meet) as indicated by his elevated BUN/cr. HTN is controlled. Edema is stable. Hypokalemia is controlled. 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 No complications of immunosuppressio n. Renal function is slightly worse, likely due to hydration status (chlorthalidone as well as being in the sun for a track meet) as indicated by his elevated BUN/cr. HTN is controlled. Edema is stable. Hypokalemia is controlled. Anemia is at goal and he is iron replete 11/21/2024 Stage 2 chronic kidney disease (ICD-10 - N18.2) Class V lupus i s being treated with persistent nephrotic proteinuria but with improved hypoalbuminemia and no microscopic hematuria. No complications of immunosuppressio n. Renal function is slightly worse, likely due to hydration status (chlorthalidone as well as being in the sun for a track meet) as indicated by his elevated BUN/cr. HTN is controlled. Edema is stable. Hypokalemia is controlled. Anemia is at goal and he is iron replete 11/21/2024 Essential hypertension (ICD-10 - I10) Class V lupus is being treated with persistent nephrotic proteinuria but with improved hypoalbuminemia and no microscopic hematuria. No complications of immunosuppressio n. Renal function is slightly worse, likely due to hydration status (chlorthalidone as well as being in the sun for a track meet) as indicated by his elevated BUN/cr. HTN is controlled. Edema is stable. Hypokalemia is controlled. 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 No complications of immunosuppressio n. Renal function is slightly worse, likely due to hydration status (chlorthalidone as well as being in the sun for a track meet) as indicated by his elevated BUN/cr. HTN is controlled. Edema is stable. Hypokalemia is controlled. Anemia is at goal and he is iron replete 11/21/2024 Hypokalemia (ICD-10 - E87.6) Class V lupus i s being treated with persistent nephrotic proteinuria but with improved hypoalbuminemia and no microscopic hematuria. No complications of immunosuppressio n. Renal function is slightly worse, likely due to hydration status (chlorthalidone as well as being in the sun for a track meet) as indicated by his elevated BUN/cr. HTN is controlled. Edema is stable. Hypokalemia is controlled. Anemia is at goal and he is iron replete 11/21/2024 Anemia of chronic disease (ICD-10 - D63.8) Class V lupus is being treated with persistent nephrotic proteinuria but with improved hypoalbuminemia and no microscopic hematuria. No complications of immunosuppressio n. Renal function is slightly worse, likely due to hydration status (chlorthalidone as well as being in the sun for a track meet) as indicated by his elevated BUN/cr. HTN is controlled. Edema is stable. Hypokalemia is controlled. 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 No complications of immunosuppressio n. Renal function is slightly worse, likely due to hydration status (chlorthalidone as well as being in the sun for a track meet) as indicated by his elevated BUN/cr. HTN is controlled. Edema is stable. Hypokalemia is controlled. 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 No complications of immunosuppressio n. Renal function is slightly worse, likely due to hydration status (chlorthalidone as well as being in the sun for a track meet) as indicated by his elevated BUN/cr. HTN is controlled. Edema is stable. Hypokalemia is controlled. Anemia is at goal and he is iron replete 11/21/2024 Other Decrease prednisione to 2.5 mg daily and continue mycophenelate 1500 mg twice daily. Monitor for complications of immunosupressio n. Monitor proteinuria and serum albumin. No need to renally dose medications. Decrease chlorthalidone to 50 mg once a day and continue other antihypertensiv es. Monitor blood pressure daily with goal blood pressure less than 130/80. Monitor weight daily, and skin for rashes. Goal is to not lose more than 4 lbs in 24 hours. Avoid nephrotoxins. Follow a low-sodium diet. Stay well hydrated. Risk factor modification. Order for an echocardiogram. Follow-up in 2 months with labs at [place] 5 to 10 days prior to appointment. BMP, mag, uric, hgb, iron stuides, UA, urine protein, urine creatinine, albumin The patient was instructed to follow up with their PCP for preventative health screenings. I am the scribe for Dr. 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 No complications of immunosuppressio n. Renal function is slightly worse, likely due to hydration status (chlorthalidone as well as being in the sun for a track meet) as indicated by his elevated BUN/cr. HTN is controlled. Edema is stable. Hypokalemia is controlled. Anemia is at goal and he is iron replete Plan Of Treatment Medication Medication Name Sig Start Date Stop Date Notes Farxiga 10 MG Tablet 1 tablet Orally Once a day; Duration: 30 days 11/21/2024 predniSONE 2.5 MG Tablet 1 tablet with food or milk Orally Once a day; Duration: 14 days predniSONE 1 MG Tablet 1 tablet with sophia d or milk Orally Once a day; Duration: 14 days 11/21/2024 To be started after Rx for 2.5 mg prednisone daily is completed Treatment Notes Assessment Notes Other Decrease prednisione to 2.5 mg daily and continue mycophenelate 1500 mg twice daily. Monitor for complications of immunosupression. Monitor proteinuria and serum albumin. No need to renally dose medications. Decrease chlorthalidone to 50 mg once a day and continue other antihypertensives. Monitor blood pressure daily with goal blood pressure less than 130/80. Monitor weight daily, and skin for rashes. Goal is to not lose more than 4 lbs in 24 hours. Avoid nephrotoxins. Follow a low-sodium diet. Stay well hydrated. Risk factor modification. Order for an echocardiogram. Follow-up in 2 months with labs at [place] 5 to 10 days prior to appointment. BMP, mag, uric, hgb, iron stuides, UA, urine protein, urine creatinine, albumin Next Appt Details Provider Name:Flex Jalen, 02/26/2025 01:40:00 PM, [address] [place] [address] Rik Freitas, [place], [phone], Provider Name:Flex Rao, 04/24/2025 02:00:00 PM, [address] [place] [address] Rik Freitas, [place], [phone], Provider Name:Flex Rao, 08/28/2025 01:00:00 PM, [address] [place] [address] Rik Freitas, [place], [phone], History and Physical Notes * HPI (History of Present Illness) Category Sub-Category Detail Notes Category Not es : The following is from my interview with the patient and review of provided records. The labs referenced in this note are from 11/05/2024, unless stated otherwise. Mr. Meraz is a 73-year-old white man with lupus and class V lupus nephritis who returns for follow-up. He had a baseline creatinine in the 0.7-0.8 rnage until he developed JEOL with a creatinine of 1.26 in 12/2023 and proteinuria. In 01/2024, his UPC was 2.01 g/gram. 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 He is currently on prednisone 15mg once daily and mycophenelate 1500mg BID. He follows with Dr. Gomez in [facility]. His creatinine was 1.31. He has no urinary complaints. His UA showed no blood, 3+protein and no bacteria. His UACR is >559.6 mg/gram. Urine protein was 189.20, urine creatinine 67.9, and urine microalbumin > 380.0. His serum albumin was 2.5. For hypertension, he takes lisinopril 40 mg daily, chlorthalidone 50 mg twice daily, doxazosin 4 mg twice daily, metoprolol succinate 100 mg daily, and Bumex (3 mg qAM and 2 mg in the afternoon) with 20 meq KCl twice daily. His blood pressure in clinic is 149/68 with a pulse of 64. He has been monitoring his blood pressure at home and his BP has been 120's -130's/70's-80's He has no complaints of chest pain, palpitations, or dyspnea with exertion. He does report swelling. He is trying to eat a low-sodium diet. No NSAID use. His sodium was 144, with a potassium of 4.3 and a magnesium of 2. His phosphorus was 3.3, and calcium 26.5. His hemoglobin was 10.9. His iron was 61, TSAT 26%, and ferritin 100. He has a history of gout. His uric acid was 6.9. He is taking Allopurinal 100 mg one tablet twice daily. Comorbidities: HTN, History of diabetes, now diet controlled, Lupus (SLE), HPLD Associated factors: Nephrotic proteinuria, hypoalbuminemia, anemia Aggravating factors: none known Laboratory data: 11/05/2024: 144, 4.3, 108, 26.5, 50, 1.31, glucose 100, calcium 8.0, phosphorus 3.3, magnesium 2.0, uric aicd 6.9, albumin 2.5, Hgb 10.9, TSAT 26%, ferritin 100, UA shows negative blood, 3+ protein, no evidence of infection, UPC 2.79 g/gram, UACR >559.6 mg/grams 08/22/2024: 144, 3.8, 106, 28.4, 48, 1.1, glucose 115, calcium 7.8, phosphorus 3.7, magnesium 2.1, uric acid 13.9, albumin 2.9, Hgb 11, Tsat 40%, ferritin 118. UA showed no blood, 2+ protein, no evidence of infection. UPC 4.99 g/gram. UACR > 1928.9 mg/gram 06/24/2024: 144, 3.8, 109, 29.7, 60, 1.02, glucose 125, calcium 7.7, magnesium 2.1, albumin 2.6, Hgb 11.7, WBC 6.8, platelets 149. UA showed trace/nonhemolyzed blood, 2+ protein. UPC 9.04 g/gram. UACR >3423 mg/gram 05/14/2024: 141, 4.3, 103, 32, 56, 0.94, glucose 112, calcium 7.9, albumin 2.3, Hgb 11.8. UA showed 1+ blood, 3+ protein. UPC 6.26 g/gram. UACR > 1155 mg/grams 03/28/2024: Hgb10.8-> 10.1 01/22/2024: UPC 2.01 g/gram 01/02/2024: Hgb 11.4, C3 54, C4 10, TPMT activity 16 (abnormal). 24 hour urine: 1.8 g/grams in 12/202312/26/2023: 145, 3.8, 112, 32.8, 44, 1.26, glucose 102, calcium 7.4, albumin 2.1, Hgb 10.9 12/19/2023: Albumin 1.9, Hgb 10.4 08/09/2023: 141, 5, 110, 27, 34, 0.9, glucose 100, calcium 7.6, albumin 2.4, HgbA1c 5.4%, Hgb 11.7 05/22/2023: 142, 3.6, 105, 29, 14, 0.8, glucose 121, calcium 7.5, albumin 2.4 04/05/2023: 141, 3.7, 104, 29, 9, 0.6, glucose 90, calcium 8.6, albumin 2.5, HgbA1c 6%, Hgb 13.4 07/21/2021: Creatinine 0.70 03/02/2020: Creatinine 0.80 Renal biopsy 03/28/2024: Membranous glomerulopathy, focal nodular glandular sclerosis. Mild IF/TA, mild/moderate arterial intimal fibrosis, no segmental sclerosis Examination Category Sub-Category Detail Notes Category Not es General Examination GENERAL APPEARANCE: alert, w ell hydrated, white woman in no distress, converses well EYES: extraocular movement intact (EOMI); sclera anicteric HEART: regular rate and rhy thm without murmurs, rubs, or gallops LUNGS: respirations even an d non-labored; no wheezes; no increased work of breathing ABDOMEN: bowel sounds present , soft, nontender, nondistended NEUROLOGIC: cranial nerves 2-12 grossly intact; nonfocal EXTREMITIES: 2+ edema up to the c [place] bilaterally PSYCH: cognitive function i ntact; good eye contact; judgment and insight good; mood/affect full range Progress Notes * MARKY MERAZ EDOB:[birth year] (74 yo M)Acc No.[id number]:11/21/2024 Progress Notes Patient: MARKY HOANG Provider: Kwasi Rao MD :1950 A ge:74 Y S ex:Male Date:11/21/2024 Address:[address] [place], [place] [id number] Pcp:Sebastián Cochran MD 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 The labs referenced in this note are from 11/05/2024, unless stated otherwise. Osmany Meraz is a 73-year-old white man with lupus and class V lupus nephritis who returns for follow-up. He had a baseline creatinine in the 0.7-0.8 rnage until he developed JOEL with a creatinine of 1.26 in 12/2023 and proteinuria. In 01/2024, his UPC was 2.01 g/gram. 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 He is currently on prednisone 15mg once daily and mycophenelate 1500mg BID. He follows with Dr. Gomez in [facility]. His creatinine was 1.31. He has no urinary complaints. His UA showed no blood, 3+protein and no bacteria. His U ACR is >559.6 mg/gram. Urine protein was 189.20, urine creatinine 67.9, and urine microalbumin > 380.0. His serum albumin was 2.5. F or hypertension, he takes lisinopril 40 mg daily, chlorthalidone 50 mg twice daily, doxazosin 4 mg twice daily, metoprolol succinate 100 mg daily, and Bumex (3 mg qAM and 2 mg in the afternoon) with 20 meq KCl twice daily. His blood pressure in clinic is 149/68 with a pulse of 64. He has been monitoring his blood pressure at home and his BP has been 120's -130's/70's-80's He has no complaints of chest pain, palpitations, or dyspnea with exertion. He does report swelling. He is trying to eat a low-sodium diet. No NSAID use. His sodium was 144, with a potassium of 4.3 and a magnesium of 2. H is phosphorus was 3.3, and calcium 26.5. H is hemoglobin was 10.9. His iron was 61, TSAT 26%, and ferritin 100. H e has a history of gout. His uric acid was 6.9. He is taking Allopurinal 100 mg one tablet twice daily. Comorbidities: HTN, History of diabetes, now diet controlled, Lupus (SLE), HPLD Associated factors: Nephrotic proteinuria, hypoalbuminemia, anemia Aggravating factors: none known Laboratory data: 11/05/2024: 144, 4.3, 108, 26.5, 50, 1.31, glucose 100, calcium 8.0, phosphorus 3.3, magnesium 2.0, uric aicd 6.9, albumin 2.5, Hgb 10.9, TSAT 26%, ferritin 100, UA shows negative blood, 3+ protein, no evidence of infection, UPC 2.79 g/gram, UACR >559.6 mg/grams 08/22/2024: 144, 3.8, 106, 28.4, 48, 1.1, g lucose 115, calcium 7.8, phosphorus 3.7, magnesium 2.1, uric acid 13.9, albumin 2.9, Hgb 11, Tsat 40%, ferritin 118. UA showed no blood, 2+ protein, no evidence of infection. UPC 4.99 g/gram. UACR > 1928.9 mg/gram 06/24/2024: 144, 3.8, 109, 29.7, 60, 1.02, glucose 125, calcium 7.7, magnesium 2.1, albumin 2.6, Hgb 11.7, WBC 6.8, platelets 149. UA showed trace/nonhemolyzed blood, 2+ protein. UPC 9.04 g/gram. UACR >3423 mg/gram 05/14/2024: 141, 4.3, 103, 32, 56, 0.94, glucose 112, calcium 7.9, albumin 2.3, Hgb 11.8. UA showed 1+ blood, 3+ protein. UPC 6.26 g/gram. U ACR > 1155 mg/grams 03/28/2024: Hgb10.8-> 10.1 01/22/2024: UPC 2.01 g/gram 01/02/2024: Hgb 11.4, C3 54, C4 10, TPMT activity 16 (abnormal). 24 hour urine: 1.8 g/grams i n 12/202312/26/2023: 145, 3.8, 112, 32.8, 44, 1.26, glucose 102, calcium 7.4, albumin 2.1, Hgb 10.9 12/19/2023: Albumin 1.9, Hgb 10.4 08/09/2023: 141, 5, 110, 27, 34, 0.9, glucose 100, calcium 7.6, a lbumin 2.4, HgbA1c 5.4%, Hgb 11.7 05/22/2023: 142, 3.6, 105, 29, 14, 0.8, glucose 121, calcium 7.5, albumin 2.4 04/05/2023: 141, 3.7, 104, 29, 9, 0.6, glucose 90, calcium 8.6, a lbumin 2.5, HgbA1c 6%, Hgb 13.4 07/21/2021: Creatinine 0.70 03/02/2020: Creatinine 0.80 Renal biopsy 03/28/2024: Membranous glomerulopathy, focal nodular glandular sclerosis. Mild IF/TA, mild/moderate arterial intimal fibrosis, no segmental sclerosis. * ROS: r claudio scanned into chart. * Medical History: Pneumonia Hernia Back Trouble High Blood Pressure Anxiety Colonic polyps elevated LFTs Primary biliary cirrhosis Lupus Medical History Verified * Surgical History: umbilical hernia (L) knee replacement Surgical History verified. * Hospitalization/Major Diagno stic Procedure: see surgical history Hospitalization Verified. * Family History: F ather: , Stroke. M other: , Heart attack. F amily History Verified..? no known family history of colon polyps or colon cancer. * Social History: T obacco Use: T obacco Control (Standard) T obacco use: F ormer smoker M iscellaneous: Boy mcgrath Employment Status: Retired. Children: x2. Level of Education: 2 years college. Marital status: . : [id number] [employer]. [employer] ocial History Verified. * Medications: T akingDoxazosin Mesylate 4 MG Tablet 1 tablet Orally Twice a day Ezetimibe 10 MG Tablet 1 tablet Orally Once a day Hydroxychloroquine Sulfate 200 MG Tablet 1 tablet Orally twice a day Lisinopril 40 MG Tablet 1 tablet Orally Once a day Metoprolol Succinate 100 MG Capsule ER 24 Hour Sprinkle 1 capsule Orally Once a day Mycophenolate Mofetil 500 MG Tablet 3 tablets Orally Twice a day Potassium Chloride ER 20 MEQ Tablet Extended Release 1 tablet Orally Twice a day Tylenol , Notes to Pharmacist: as neededChlorthalidone 50 MG Tablet 1/2 tablet in the morning with food Orally daily predniSONE 10 MG Tablet 1/2 tablet with food or milk Orally Once a day Bumetanide 2 MG Tablet as instructed Orally 2 tablets (3mg) in the morning and 1.5 tablet (2mg) in the early afternoon , stop date 02/04/2025, Notes to Pharmacist: increase in doseAllopurinol 100 MG Tablet 1 tablet Orally twice a day , Notes to Pharmacist: increase in doseTaking Doxazosin Mesylate 4 MG Tablet 1 tablet Orally Twice a day Taking Ezetimibe 10 MG Tablet 1 tablet Orally Once a day Taking Hydroxychloroquine Sulfate 200 MG Tablet 1 tablet Orally twice a day Taking Lisinopril 40 MG Tablet 1 tablet Orally Once a day Taking Metoprolol Succinate 100 MG Capsule ER 24 Hour Sprinkle 1 capsule Orally Once a day Taking Mycophenolate Mofetil 500 MG Tablet 3 tablets Orally Twice a day Taking Potassium Chloride ER 20 MEQ Tablet Extended Release 1 tablet Orally Twice a day Taking Tylenol , Notes to Pharmacist: as neededTaking Chlorthalidone 50 MG Tablet 1/2 tablet in the morning with food Orally daily Taking predniSONE 10 MG Tablet 1/2 tablet with food or milk Orally Once a day Taking Bumetanide 2 MG Tablet as instructed Orally 2 tablets (3mg) in the morning and 1.5 tablet (2mg) in the early afternoon , stop date 02/04/2025, Notes to Pharmacist: increase in doseTaking Allopurinol 100 MG Tablet 1 tablet Orally twice a day , Notes to Pharmacist: increase in doseDiscontinuedColchicine 0.6 MG Tablet 1.2 mg at the first sign of flare, then 0.6 mg in 1 hour Orally then take once daily for the next 3 days Orally Medication List reviewed and reconciled with the patientDiscontinued Colchicine 0.6 MG Tablet 1.2 mg at the first sign of flare, then 0.6 mg in 1 hour Orally then take once daily for the next 3 days Orally Medication List reviewed and reconciled with the patient * Allergies: N .K.D.A.yesAllergies Verified. Objective: * Vitals: H t: 72 in, Wt:231.04lbs, Wt-k.8 kg, BMI:31.33Index, Temp:97.8F, BP:149/68mm Hg, HR:64/min, Oxygen sat %:100%, O2 Source: RA, Ht-cm: 182.88 cm. * Examination: G eneral Examination: GENERAL APPEARANCE: a lert, well hydrated, white woman in no distress, converses well. EYES: e xtraocular movement intact (EOMI); sclera anicteric. HEART: r egular rate and rhythm without murmurs, rubs, or gallops. LUNGS: r espirations even and non-labored; no wheezes; no increased work of breathing. ABDOMEN: b owel sounds present, soft, nontender, nondistended. EXTREMITIES: 2 + edema up to the calves bilaterally. NEUROLOGIC: c ranial nerves 2-12 grossly intact; nonfocal. PSYCH: c ognitive function intact; good eye contact; judgment and insight good; mood/affect full range. Assessment: * Assessment: 1. 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 N ephrotic range proteinuria - R80.9 3 . H ypoalbuminemia - E88.09 4 . L julissa term (current) use of systemic steroids - Z79.52 5 . I mmunosuppressed status - D89.9 & #160; 6 . 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 E ssential hypertension - I10 8 . E nisa - R60.9 9 . H ypokalemia - E87.6 ? 1 0. A nemia of chronic disease - D63.8 1 1. B ilateral leg edema - R60.0 1 2. 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 No complications of immunosuppression. Renal function is slightly worse, likely due to hydration status (chlorthalidone as well as being in the sun for a track meet) as indicated by his elevated BUN/cr. HTN is controlled. Edema is stable. Hypokalemia is controlled. Anemia is at goal and he is iron replete Plan: * Treatment: 2. N ephrotic range proteinuria Start Farxiga Tablet, 10 MG, 1 tablet, Orally, Once a day, 30 days, 30, Start Date: 11/21/2024, Refills 11. 3. O thers Notes: Decrease prednisione to 2.5 mg daily and continue mycophenelate 1500 mg twice daily. Monitor for complications of immunosupression. Monitor proteinuria and serum albumin. No need to renally dose medications. Decrease chlorthalidone to 50 mg once a day and continue other antihypertensives. Monitor blood pressure daily with goal blood pressure less than 130/80. Monitor weight daily, and skin for rashes. Goal is to not lose more than 4 lbs in 24 hours. ? Avoid nephrotoxins. Follow a low-sodium diet. Stay well hydrated. Risk factor modification.? Order for an echocardiogram. Follow-up in 2 months with labs at [place] [facility] 5 to 10 days prior to appointment. BMP, mag, uric, hgb, iron stuides, UA, urine protein, urine c reatinine, albumin Clinical Notes: The patient was instructed to follow up with their PCP for preventative health screenings. I am the scribe for Dr. Rao and I have documented sections of this chart - Yola Diana ? * Procedure Codes: 3 079F DIAST BP 80-89 MM [id number] DIAST BP < 80 MM HG Billing Information: * Procedure Codes: 3079F DIAST BP 80-89 MM HG. 3078F DIAST BP < 80 MM HG. Care Plan Details* * Electronic signature of Brenna Rao MD on 12/13/2024 at 07:24 PM CDT Sign off status: Pending * Provider: Kwasi Rao MD Date: 0 11/21/2024 Generated for Margie hernandez/Randy/Jermaineitting on: 0 12/13/2024 07:24 PM CDT
--- NOTE | 2024-12-13 19:13 | CTR_ITS ---
PROCEDURE INFORMATION: Exam: CT Head Without Contrast Exam date and time: 12/13/2024 7:17 PM Age: 74 years old Clinical indication: Stroke-like symptoms; Left facial droop; Lt upper extremity and lt lower extremity weakness; Additional info: Left facial droop with left upper and lower ext weakness. Last known well time of 1810 hours. TECHNIQUE: Imaging protocol: Computed tomography of the head without contrast. Radiation optimization: All CT scans at this facility use at least one of these dose optimization techniques: automated exposure control; mA and/or kV adjustment per patient size (includes targeted exams where dose is matched to clinical indication); or iterative reconstruction. Other technique: STROKE PROTOCOL was implemented. COMPARISON: CT head wo con* [id number] 11/20/2021 8:21 AM RADIATION DOSE METRICS: Total DLP (mGy-cm): 1211.38 FINDINGS: Brain: No evidence of intra-axial or extra-axial hemorrhage. No mass effect or midline shift. Locke-white differentiation is maintained. Basilar cisterns are patent. Cerebral ventricles: No hydrocephalus. Paranasal sinuses: The visualized paranasal sinuses are well aerated. Mastoid air cells: The visualized mastoids and middle ears are clear. Bones: Calvarium is intact. No evidence of acute fracture. Soft tissues: No gross soft tissue abnormality. CT/CT head thrombolytic [id number] IMPRESSION: 1. No acute intracranial abnormality. ASSESSMENT: ASPECTS ([facility]roke Program Early CT Score) is 10.
--- NOTE | 2024-12-13 19:20 | CTR_ITS ---
PROCEDURE INFORMATION: Exam: CTA Head With Contrast, Arteriography Exam date and time: 12/13/2024 7:21 PM Age: 74 years old Clinical indication: Stroke-like symptoms; Left facial droop; Lt upper extremity and lt lower extremity weakness; Additional info: Left facial droop with left upper and lower ext weakness. Last known well time of 1810 hours. TECHNIQUE: Imaging protocol: Computed tomographic angiography of the head with contrast. Exam focused on the arteries. 3D rendering (Not supervised by radiologist): MIP and/or 3D reconstructed images were created by the technologist. Radiation optimization: All CT scans at this facility use at least one of these dose optimization techniques: automated exposure control; mA and/or kV adjustment per patient size (includes targeted exams where dose is matched to clinical indication); or iterative reconstruction. Contrast material: OMNI 350; Contrast volume: 100 ml; Contrast route: INTRAVENOUS (IV); COMPARISON: CT head thrombolytic [id number] 12/13/2024 7:17 PM RADIATION DOSE METRICS: Total DLP (mGy-cm): 483.97 FINDINGS: ANTERIOR CIRCULATION: Right internal carotid artery: Patent. Right middle cerebral artery: M1 and proximal M2 segments are patent. There is dense atherosclerotic calcification of/within a right M2 sylvian branch with high-grade stenosis distal to the calcification (for example, images 265-263 of series 4). Right anterior cerebral artery: Patent. Left internal carotid artery: Patent. Left middle cerebral artery: Patent. Moderate atherosclerotic irregularity of the M2/M3 branches. Left anterior cerebral artery: Patent. POSTERIOR CIRCULATION: Right vertebral artery: Patent. Left vertebral artery: Patent. The left vertebral artery is developmentally diminutive and terminates as an AICA-PICA trunk. Basilar artery: Patent. Right posterior cerebral artery: Patent. There is moderate atherosclerotic irregularity. Left posterior cerebral artery: Patent. PROCEDURE INFORMATION: Exam: CTA Neck With Contrast Exam date and time: 12/13/2024 7:21 PM Age: 74 years old Clinical indication: Stroke-like symptoms; Left facial droop; Lt upper extremity and lt lower extremity weakness; Additional info: Left facial droop with left upper and lower ext weakness. Last known well time of 1810 hours. TECHNIQUE: Imaging protocol: Computed tomographic angiography of the neck with contrast. Exam focused on the cervical segments of the vasculature. 3D rendering (Not supervised by radiologist): MIP and/or 3D reconstructed images were created by the technologist. Radiation optimization: All CT scans at this facility use at least one of these dose optimization techniques: automated exposure control; mA and/or kV adjustment per patient size (includes targeted exams where dose is matched to clinical indication); or iterative reconstruction. Contrast material: OMNI 350; Contrast volume: 100 ml; Contrast route: INTRAVENOUS (IV); COMPARISON: NM bone scan whole body* [id number] 01/19/2022 7:18 AM RADIATION DOSE METRICS: Total DLP (mGy-cm): 483.97 FINDINGS: Right common carotid artery: Patent. No evidence of hemodynamically significant stenosis. Right internal carotid artery: Patent. Moderate approximate 50% narrowing of the origin of the right ICA secondary to densely calcified atherosclerotic plaque. Right external carotid artery: Patent. Left common carotid artery: Patent. No evidence of hemodynamically significant stenosis. Left internal carotid artery: Patent. Moderate approximately 30% narrowing of the origin of the left ICA secondary to mixed atherosclerotic plaque. Left external carotid artery: Patent. Right vertebral artery: Patent. Dominant. Left vertebral artery: Patent. Developmentally diminutive. Soft tissues: No gross soft tissue abnormality. No evidence of fluid collection or hematoma. Bones/joints: No evidence of acute fracture or subluxation of the cervical spine. Severe foraminal stenosis on the left at C3-C4. Consider correlation with follow-up outpatient MRI if there is concern for neural impingement. Moderate C2-C3 central stenosis secondary to dense calcification the posterior longitudinal ligament. CT/CT angio headneck* [id number] IMPRESSION: 1. High-grade stenosis of a right M2 sylvian branch distal to a dense calcification raising the question of an embolized calcified plaque. IMPRESSION: 1. No evidence of acute thrombosis or high-grade stenosis in the neck. The findings were verbally communicated by telephone with Dr. WALDROP at 7:50 PM CDT on 12/13/2024. REFERENCES: NASCET CRITERIA. The degree of stenosis in the cervical segment of the internal carotid artery is based on NASCET criteria. Normal is no stenosis. Mild is less than 50% stenosis. Moderate is 50-69% stenosis. Severe is 70% to 99% stenosis. Total occlusion is no detectable patent lumen.
--- OUTSIDE RECORDS SUMMARY | 2024-12-13 19:24 | XMS_ITS | Clinical Summary ---
Author Organization [facility] Address [address] Attn: [place] [address] Care Team Providers Care Integrated Specialist Name Role Phone Unavailable Primary Care Provider Unavailabl e Immunizations Immunization Administration Dates Next Due (TDVAX)(7 YRS UP) TETANUS AN D DIPHTHERIA TOXOIDS, ADSORBED (2 LF OF TETANUS TOXOID AND 2 LF OF DIPHTHERIA TOXOID), 0.5ML (PF), IM 12/23/2003 Hepatitis A Vaccine 06/30/2004,01/23/2004,2003 Social History Tobacco Use Types Packs/Day Years Used Date Smoking Tobacco: Never Assessed Sex and Gender Information Value Date Recorded Sex Assigned at Not on file Legal Sex Male 4:37 PM [employer] Gender Identity Not on file Sexual Orientation Not on file Plan of Treatment Health Maintenance Due Date Last Done Comments COLORECTAL SCREENING 06/10/1996 Colorectal Cancer Screening 06/10/1996 FIT-DNA Q 3 years 06/10/1996 FIT/FOBT Q 1 year 06/10/1996 Flex Sig/CT Colonography Q 5 years 06/10/1996 PNEUMOCOCCAL VACCINE 50+ YEARS (1 of 1 - PCV) 06/11/19 02 ZOSTER VACCINE (1 of 2) 06/10/2001 DTAP/TDAP/TD VACCINES (1 - Tdap) 12/24/2003 12/23/19 04 INFLUENZA VACCINE (#1) 2024 RSV VACCINE (60+ or ) (1 - 1-dose 75+ series) 06/10/2026
--- OUTSIDE RECORDS SUMMARY | 2024-12-13 19:24 | XMS_ITS | Patient Health Record ---
Author Organization [facility] Address [address] [place] [address] Care Team Providers Care Decision Unit Rn Name Role Phone Sebastián Cochran MD Primary Care Provider Unavailab Latonya Beaulieu Unavailable [phone] Flex Rao Unavailable [phone] Mariana Lazar Unavailable [phone] Nathalie Cunningham Unavailable [phone] Adri Walters Unavailable [phone] Rossy Stokes Unavailable [phone] Allergies No Known Allergies Results Component Value Reference Range Flag Notes US Abdomen Limited-34796 Reviewed date:02/01/2024 02:19:58 PM Interpretation: Performing Lab: Notes/Report: zem=[id number]&org=iSite Protein (U) Random 04795 Reviewed date:02/28/2024 10:26:22 AM Interpretation: Performing Lab: Notes/Report: Diagnosis Description: Proteinuria, unspecified Ur Prot 120.40 .00-12.00 MG/DL VT Creatinine (U) 06549 Reviewed date:02/28/2024 10:26:22 AM Interpretation: Performing Lab: Notes/Report: Diagnosis Description: Proteinuria, unspecified Ur Creat 59.9 40.0-278.0 MG/DL Basic Metabolic Panel (BMP) 65766 Reviewed date:05/20/2024 05:55:21 PM Interpretation: Performing Lab: Notes/Report: Diagnosis 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 Ziggy Nuñez, [place] [address]. CLIA ID#: [id number] BUN 56 7-21 MG/DL HI Creat .94 .57-1.17 MG/DL C-lururj-q-benzoquinone imine (NAPQI) is a metabolite of acetaminophen, NAPQI concentrations of apparoximately 10 mg/L correlation to toxic levels of acetaminophen demonstrates a greater than or equil to 10% change in results. NAPQI concentrations greater than this may lead to falsely depressed results for patient samples. Use of this assay is not recommended for patients undergoing treatment with phenindione, due to the potential for falsely depressed results. GFR 85.9 NA Calculation pe rformed from GFR calculator provided by the [employer]. Glomerular Filtration rate(GRF) is the best overall index of kidney function. Normal GFR varies according to age,sex, body size, and declines with age. The National Kidney Foundation recommends using the CKD-EPI Creatinine Equation(2020) to estimate GFR. Anion Gap 10 5-15 BUN/Creat Ratio 59.6 12.0-20.0 % HI Calcium 7.9 8.7-10.4 MG/DL LOW Osmo Serum,Calculated 308 280-300 MOSM/KG HI CBC w\o Diff [id number] Reviewed date:05/20/2024 05:55:21 PM Interpretation: Performing Lab: Notes/Report: Diagnosis Description: Anemia in chronic kidney disease Diagnosis Description: Other detention (current) drug therapy WBC 7.4 4.5-11.0 X10'3 RBC 3.83 4.50-5.90 X10'6 LOW Hgb 11.8 13.5-17.5 G/DL LOW Hct 36.8 41.0-53.0 % LOW MCV 96.1 80.0-100.0 FL MCH 30.8 27.0-31.0 PG MCHC 32.1 31.0-37.0 G/DL Platelet 157 150-400 X10'3 RDW-SD 46.2 35.0-49.0 FL RDW-CV 13.2 12.2-15.6 % MPV 10.5 9.2-12.0 FL Microalbumin (U) Random 8204 3 Reviewed date:05/20/2024 05:55:21 PM Interpretation: Performing Lab: Notes/Report: Diagnosis Description: Proteinuria, unspecified Diagnosis Description: Essential (primary) hypertension Ur Microalbumin >380.0 .0-30.0 MG/L HI Ur Creat 32.9 40.0-278.0 MG/DL LOW Mal/Crea/Ratio >1155.0 .0-30.0 mg Alb/g Cr HI WHITLEY IGG SCREEN W/ RFX [id number] Reviewed date:02/14/2024 07:52:42 AM Interpretation: Performing Lab: Notes/Report: Diagnosis Description: Abnormal levels of other serum enzymes Diagnosis Description: Other specified abnormal findings of blood chemistry Diagnosis Description: Primary biliary cirrhosis WHITLEY IgG Detected WHITLEY BRIAN assays have been reported to have lower sensitivity than WHITLEY IFA for systemic autoimmune rheumatic diseases(SARD). Negative results do not necessarily rule out SARD. The GSD Antinuclear Antibody Screening test is qualitative enzyme immunoassay (EIA) intended to screen for the presence of antinuclear antibodies (WHITLEY) in human serum, against double stranded DNA (dsDNA,nDNA), histone, SS-A/Ro, SS-B/La, Sm, Sm/PRESIDENT [employer] CEO,SCL-70,Mervat-1, and ecntromeric antigens, along with sera positive for immunofluorescent (IFA) HEp-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 Diagnosis Description: Disorder involving the immune mechanism, unspecified Diagnosis Description: Chronic kidney disease, stage 2 (mild) Diagnosis Description: Acute kidney failure, unspecified Diagnosis Description: Anemia in chronic kidney disease 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 Patients should be off warfarin therapy for two weeks for accurate measurement of protein C. Access complete set of age- and/or gender-specific reference intervals for this test in the [facility] Test Directory ([employer]). 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 Diagnosis Description: Disorder involving the immune mechanism, unspecified Diagnosis Description: Chronic kidney disease, stage 2 (mild) Diagnosis Description: Acute kidney failure, unspecified Diagnosis Description: Anemia in chronic kidney disease Diagnosis Description: Other detention (current) drug therapy Diagnosis Description: Proteinuria, unspecified Diagnosis Description: Essential (primary) hypertension Diagnosis Description: Edema, unspecified Ur Creat 11.1 40.0-278.0 MG/DL LOW UA Microscopic--62425 Reviewed date:11/13/2024 01:35:07 PM Interpretation: Performing Lab: Notes/Report: Micro UA ordered by [employer] Expert Rules system. RBC U 2 NA WBC U <1 0-5 /HPF Bacteria None Seen Hyaline Casts 13 NA SQ EPI <1 NA Hemoglobin 37698 Reviewed date:04/24/2024 02:39:44 PM Interpretation: Performing Lab: Notes/Report: Diagnosis Description: Proteinuria, unspecified Diagnosis Description: Acute kidney failure, unspecified Diagnosis Description: Essential (primary) hypertension Diagnosis Description: Abnormal levels of other serum enzymes Diagnosis Description: Other specified disorders of kidney and ureter Diagnosis Description: Hemorrhagic condition, unspecified Diagnosis Description: Encounter for preprocedural laboratory examination Hgb 10.8 13.5-17.5 G/DL LOW Creatinine (B) 19515 Reviewed date:01/15/2024 12:50:09 PM Interpretation: Performing Lab: Notes/Report: Diagnosis Description: Abnormal levels of other serum enzymes Diagnosis Description: Other specified abnormal findings of blood chemistry Creat 1.26 .57-1.17 MG/DL HI B-wkpnbv-j-benzoquinone imine (NAPQI) is a metabolite of acetaminophen, NAPQI concentrations of apparoximately 10 mg/L correlation to toxic levels of acetaminophen demonstrates a greater than or equil to 10% change in results. NAPQI concentrations greater than this may lead to falsely depressed results for patient samples. Use of this assay is not recommended for patients undergoing treatment with phenindione, due to the potential for falsely depressed results. GFR 60.2 NA Calculation pe rformed from GFR calculator provided by the [employer]. Glomerular Filtration rate(GRF) is the best overall index of kidney function. Normal GFR varies according to age,sex, body size, and declines with age. The National Kidney Foundation recommends using the CKD-EPI Creatinine Equation(2020) to estimate GFR. Blood Urea Nitrogen (BUN) 84 520 Reviewed date:01/15/2024 12:50:55 PM Interpretation: Performing Lab: Notes/Report: Diagnosis Description: Abnormal levels of other serum enzymes Diagnosis Description: Other specified abnormal findings of blood chemistry BUN 44 7-21 MG/DL HI Magnesium (B) 21625 Reviewed date:05/20/2024 05:55:21 PM Interpretation: Performing Lab: Notes/Report: Diagnosis Description: Acute kidney failure, unspecified Diagnosis Description: Proteinuria, unspecified Diagnosis Description: Essential (primary) hypertension Magnesium 2.2 1.8-2.4 MG/DL % Iron Saturation (Fe & TIBC )--73359,27139 Reviewed date:01/11/2024 10:43:15 AM Interpretation: Performing Lab: Notes/Report: Diagnosis Description: Abnormal levels of other serum enzymes Diagnosis Description: Other specified abnormal findings of blood chemistry Iron 60 65-175 MCG/DL LOW Per Iron as say instruction for Use(IFU), patients treated with metal-binding drugs (e.g.deferoxamine) may have depressed iron values as chelated iron may not properly react in the iron assay. Testing was performed with this assay method. TIBC 206 250-450 NG/DL LOW % Iron Saturation 29 20-50 % Hepatic Function Panel [id number] Reviewed date:01/11/2024 10:43:15 AM Interpretation: Performing Lab: Notes/Report: Diagnosis Description: Abnormal levels of other serum enzymes Diagnosis Description: Other specified abnormal findings of blood chemistry Total Protein 4.1 5.8-8.0 G/DL LOW Albumin 2.1 3.2-4.8 G/DL LOW Bili Total <.2 .3-1.2 MG/DL LOW Use of this assay is not recommended for patients undergoing treatment with eltrombopag due to the potential for falsely elevated results. Bili Direct <.10 .05-.40 MG/DL Alk Phos 130 46-116 HI AST/SGOT 25 15-37 UNIT/L ALT/SGPT 15 12-78 UNIT/L Comprehensive Metabolic Pane l (CMP) 32029 Reviewed date:01/11/2024 10:43:15 AM Interpretation: Performing Lab: Notes/Report: Diagnosis Description: Abnormal levels of other serum enzymes Diagnosis Description: Other specified abnormal findings of blood chemistry Glucose Serum 102 71-110 MG/DL Testing p erformed at [facility], [address] [place] [address] Dr. Ziggy Nuñez, [place] [address]. CLIA ID#: [id number] BUN 44 7-21 MG/DL HI Creat 1.26 .57-1.17 MG/DL HI U-jmusup-c-benzoquinone imine (NAPQI) is a metabolite of acetaminophen, NAPQI concentrations of apparoximately 10 mg/L correlation to toxic levels of acetaminophen demonstrates a greater than or equil to 10% change in results. NAPQI concentrations greater than this may lead to falsely depressed results for patient samples. Use of this assay is not recommended for patients undergoing treatment with phenindione, due to the potential for falsely depressed results. GFR 60.2 NA Calculation pe rformed from GFR calculator provided by the National [employer]. Glomerular Filtration rate(GRF) is the best overall index of kidney function. Normal GFR varies according to age,sex, body size, and declines with age. The National Kid[employer] Foundation recommends using the CKD-EPI Creatinine Equation(2020) to estimate GFR. BUN/Creat Ratio 34.9 12.0-20.0 % HI Total Protein 4.1 5.8-8.0 G/DL LOW Albumin 2.1 3.2-4.8 G/DL LOW Globulin 2.0 2.3-3.5 G/DL LOW Alb/Glob 1.0 0.8-2.2 Calcium 7.4 8.7-10.4 MG/DL LOW Sodium 145 136-145 MMOL/L Potassium 3.8 3.5-5.1 MMOL/L Chloride 112 98-107 MMOL/L HI CO2 32.8 20.0-31.0 MMOL/L HI Anion Gap 4 5-15 LOW Alk Phos 130 46-116 HI Bili Total <.2 .3-1.2 MG/DL LOW Use of this assay is not recommended for patients undergoing treatment with eltrombopag due to the potential for falsely elevated results. AST/SGOT 25 15-37 UNIT/L ALT/SGPT 15 12-78 UNIT/L Osmo Serum,Calculated 311 280-300 MOSM/KG HI CBC w\ Auto Diff 17754 Reviewed date:01/11/2024 10:43:15 AM Interpretation: Performing Lab: Notes/Report: Diagnosis Description: Abnormal levels of other serum enzymes Diagnosis Description: Other specified abnormal findings of blood chemistry WBC 5.4 4.5-11.0 X10'3 RBC 3.51 4.50-5.90 X10'6 LOW Hgb 10.9 13.5-17.5 G/DL LOW Hct 34.9 41.0-53.0 % LOW MCV 99.4 80.0-100.0 FL MCH 31.1 27.0-31.0 PG HI MCHC 31.2 31.0-37.0 G/DL Platelet 179 150-400 X10'3 RDW-SD 49.6 35.0-49.0 FL HI RDW-CV 13.5 12.2-15.6 % MPV 10.5 9.2-12.0 FL Neutro Auto% 72.4 40.0-70.0 % HI Lymph Auto% 18.1 22.0-44.0 % LOW [place] Auto% 6.7 3.0-7.0 % Eos Auto% 2.0 2.0-4.0 % Baso Auto% 0.4 0.0-1.0 % Imm Gran% .4 .0-.4 % Neutro Abs 3.89 .80-7.70 Absolute Neutrophil Count 3890 NA Lymph Abs .97 .10-4.10 [place] Abs .36 .20-1.00 Eos Abs .11 .00-.40 Baso Abs .02 .00-.20 Imm Gran Abs .02 .00-.10 NRBC# .00 .00-.20 NRBC% .00 .00-.20 /100 intact WBC's Prothrombin Time 12639 Reviewed date:01/11/2024 10:43:15 AM Interpretation: Performing Lab: Notes/Report: Diagnosis Description: Abnormal levels of other serum enzymes Diagnosis Description: Other specified abnormal findings of blood chemistry ProTime 9.8 9.1-11.9 SEC Normal Range : 9.1-11.9 INR <.93 .90-1.20 Therapeutic Range: 2.0-3.0 Therapaeutic Range for heart valve replacement: 2.5-3.50 UA Reflex Micro, Reflex Cult [id number], 09991, 02178 Reviewed date:11/13/2024 01:35:07 PM Interpretation: Performing Lab: Notes/Report: Diagnosis 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 Diagnosis Description: Proteinuria, unspecified Diagnosis Description: Other disorders of plasma-protein metabolism, not elsewhere classified Diagnosis Description: Disorder involving the immune mechanism, unspecified Diagnosis Description: Chronic kidney disease, stage 2 (mild) Diagnosis Description: Essential (primary) hypertension Diagnosis Description: Edema, unspecified Diagnosis Description: Anemia, unspecified Diagnosis Description: Hypokalemia Diagnosis Description: Other detention (current) drug therapy Color UA Yellow NA Clarity UA Clear NA Specific gravity UA 1.011 1.005-1.030 Urine pH 5.5 5.0-8.0 NA Urine Glucose Negative NA Urine Bilirubin Negative NA Urine Ketone Negative NA Urine Blood Negative NA Urine Protein 3+ NA Urobilinogen 0.2 0.1-1.0 NA Urine Nitrite Negative NA Urine Leukocyte Negative NA Normal UA No Urine Culture No UA Reflex Micro, Reflex Cult [id number], 20399, 26849 Reviewed date:05/20/2024 05:55:21 PM Interpretation: Performing Lab: Notes/Report: Diagnosis Description: Acute kidney failure, unspecified Diagnosis Description: Proteinuria, unspecified Diagnosis Description: Essential (primary) hypertension Color UA Yellow NA Clarity UA Clear NA Specific gravity UA 1.011 1.005-1.030 Urine pH 5.5 5.0-8.0 NA Urine Glucose Negative NA Urine Bilirubin Negative NA Urine Ketone Negative NA Urine Blood 1+ NA Urine Protein 3+ NA Urobilinogen 0.2 0.1-1.0 NA Urine Nitrite Negative NA Urine Leukocyte Negative NA Normal UA No Urine Culture No Creatinine (U) 06648 Reviewed date:05/20/2024 05:55:21 PM Interpretation: Performing Lab: Notes/Report: Diagnosis Description: Proteinuria, unspecified Diagnosis Description: Essential (primary) hypertension Ur Creat 32.9 40.0-278.0 MG/DL LOW Protein (U) Random 49259 Reviewed date:05/20/2024 05:55:21 PM Interpretation: Performing Lab: Notes/Report: Diagnosis Description: Acute kidney failure, unspecified Diagnosis Description: Proteinuria, unspecified Diagnosis Description: Essential (primary) hypertension Ur Prot 205.90 .00-12.00 MG/DL HI Hepatic Function Panel [id number] Reviewed date:05/20/2024 05:55:21 PM Interpretation: Performing Lab: Notes/Report: future order labs due 10/29/2024 Diagnosis Description: Abnormal levels of other serum enzymes Total Protein 4.3 5.8-8.0 G/DL LOW Albumin 2.3 3.2-4.8 G/DL LOW Bili Total .3 .3-1.2 MG/DL Use of this assay is not recommended for patients undergoing treatment with eltrombopag due to the potential for falsely elevated results. Bili Direct <.10 .05-.40 MG/DL Alk Phos 77 46-116 AST/SGOT 22 15-37 UNIT/L ALT/SGPT 33 12-78 UNIT/L CT Guidance for Needle Biops w-Drhel-[id number] Reviewed date:03/28/2024 12:03:03 PM Interpretation: Performing Lab: Notes/Report: yso=[id number]&org=iSite IgM [id number] Reviewed date:02/01/2024 02:21:01 PM Interpretation: Performing Lab: Notes/Report: Diagnosis Description: Abnormal levels of other serum enzymes Diagnosis Description: Other specified abnormal findings of blood chemistry Diagnosis Description: Primary biliary cirrhosis IgM 22 35-263 mg/dL LOW Performed By: [email or web address] [place] [address] Linker Up: Jadiel Coates MD, PhD CLIA Number: [id number] IgG [id number] Reviewed date:02/01/2024 02:20:16 PM Interpretation: Performing Lab: Notes/Report: Diagnosis Description: Abnormal levels of other serum enzymes Diagnosis Description: Other specified abnormal findings of blood chemistry Diagnosis Description: Primary biliary cirrhosis IgG 351 677-0952 mg/dL NA Performed By: [email or web address] [address] Linker Up: Jadiel Coates MD, PhD CLIA Number: [id number] IgA [id number] Reviewed date:02/01/2024 02:21:20 PM Interpretation: Performing Lab: Notes/Report: Diagnosis Description: Abnormal levels of other serum enzymes Diagnosis Description: Other specified abnormal findings of blood chemistry Diagnosis Description: Primary biliary cirrhosis IgA 387 68-408 mg/dL NA Performed By: [facility] [address] [place] [address] Linker Up: Jadiel Coates MD, PhD CLIA Number: [id number] Ferritin [id number] Reviewed date:11/13/2024 01:35:07 PM Interpretation: Performing Lab: Notes/Report: Diagnosis 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 Diagnosis Description: Proteinuria, unspecified Diagnosis Description: Other disorders of plasma-protein metabolism, not elsewhere classified Diagnosis Description: Disorder involving the immune mechanism, unspecified Diagnosis Description: Chronic kidney disease, stage 2 (mild) Diagnosis Description: Essential (primary) hypertension Diagnosis Description: Edema, unspecified Diagnosis Description: Anemia, unspecified Diagnosis Description: Hypokalemia Diagnosis Description: Other detention (current) drug therapy Ferritin 100 8-388 NG/ML % Iron Saturation (Fe & TIBC )--86594,59694 Reviewed date:11/13/2024 01:35:07 PM Interpretation: Performing Lab: Notes/Report: Diagnosis 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 Diagnosis Description: Proteinuria, unspecified Diagnosis Description: Other disorders of plasma-protein metabolism, not elsewhere classified Diagnosis Description: Disorder involving the immune mechanism, unspecified Diagnosis Description: Chronic kidney disease, stage 2 (mild) Diagnosis Description: Essential (primary) hypertension Diagnosis Description: Edema, unspecified Diagnosis Description: Anemia, unspecified Diagnosis Description: Hypokalemia Diagnosis Description: Other heel sprayer (current) drug therapy Iron 61 65-175 MCG/DL LOW Per Iron as say instruction for Use(IFU), patients treated with metal-binding drugs (e.g.deferoxamine) may have depressed iron values as chelated iron may not properly react in the iron assay. Testing was performed with this assay method. 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 Diagnosis Description: Proteinuria, unspecified Diagnosis Description: Other disorders of plasma-protein metabolism, not elsewhere classified Diagnosis Description: Disorder involving the immune mechanism, unspecified Diagnosis Description: Chronic kidney disease, stage 2 (mild) Diagnosis Description: Essential (primary) hypertension Diagnosis Description: Edema, unspecified Diagnosis Description: Anemia, unspecified Diagnosis Description: Hypokalemia Diagnosis Description: Other heel sprayer (current) drug therapy Ur Prot 189.20 .00-12.00 MG/DL HI Magnesium (B) 16426 Reviewed date:11/13/2024 01:35:07 PM Interpretation: Performing Lab: Notes/Report: Diagnosis 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 Diagnosis Description: Proteinuria, unspecified Diagnosis Description: Other disorders of plasma-protein metabolism, not elsewhere classified Diagnosis Description: Disorder involving the immune mechanism, unspecified Diagnosis Description: Chronic kidney disease, stage 2 (mild) Diagnosis Description: Essential (primary) hypertension Diagnosis Description: Edema, unspecified Diagnosis Description: Anemia, unspecified Diagnosis Description: Hypokalemia Diagnosis Description: Other heel sprayer (current) drug therapy Magnesium 2.0 1.8-2.4 MG/DL Basic Metabolic Panel (BMP) 61170 Reviewed date:11/13/2024 01:35:07 PM Interpretation: Performing Lab: Notes/Report: Diagnosis 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 Diagnosis Description: Proteinuria, unspecified Diagnosis Description: Other disorders of plasma-protein metabolism, not elsewhere classified Diagnosis Description: Disorder involving the immune mechanism, unspecified Diagnosis Description: Chronic kidney disease, stage 2 (mild) Diagnosis Description: Essential (primary) hypertension Diagnosis Description: Edema, unspecified Diagnosis Description: Anemia, unspecified Diagnosis Description: Hypokalemia Diagnosis Description: Other heel sprayer (current) drug therapy Sodium 144 136-145 MMOL/L Potassium 4.3 3.5-5.1 MMOL/L Chloride 108 98-107 MMOL/L HI CO2 26.5 20.0-31.0 MMOL/L Glucose Serum 100 71-110 MG/DL Testing p erformed at [facility], [address] [place] [address] [address]gy Nuñ[place] [address]. CLIA ID#: [id number] BUN 50 7-21 MG/DL HI Creat 1.31 .57-1.17 MG/DL HI U-ztncwu-f-benzoquinone imine (NAPQI) is a metabolite of acetaminophen, NAPQI concentrations of apparoximately 10 mg/L correlation to toxic levels of acetaminophen demonstrates a greater than or equil to 10% change in results. NAPQI concentrations greater than this may lead to falsely depressed results for patient samples. Use of this assay is not recommended for patients undergoing treatment with phenindione, due to the potential for falsely depressed results. GFR 57.2 NA Calculation pe rformed from GFR calculator provided by the [employer]. Glomerular Filtration rate(GRF) is the best overall index of kidney function. Normal GFR varies according to age,sex, body size, and declines with age. The National Kid[employer] recommends using the CKD-EPI Creatinine Equation(2020) to estimate GFR. 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 Diagnosis Description: Proteinuria, unspecified Diagnosis Description: Other disorders of plasma-protein metabolism, not elsewhere classified Diagnosis Description: Disorder involving the immune mechanism, unspecified Diagnosis Description: Chronic kidney disease, stage 2 (mild) Diagnosis Description: Essential (primary) hypertension Diagnosis Description: Edema, unspecified Diagnosis Description: Anemia, unspecified Diagnosis Description: Hypokalemia Diagnosis Description: Other detention (current) drug therapy Ur Microalbumin >380.0 .0-30.0 MG/L HI Ur Creat 67.9 40.0-278.0 MG/DL Mal/Crea/Ratio >559.6 .0-30.0 mg Alb/g Cr HI Uric Acid (B) 77306 Reviewed date:11/13/2024 01:35:07 PM Interpretation: Performing Lab: Notes/Report: Diagnosis 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 Diagnosis Description: Proteinuria, unspecified Diagnosis Description: Other disorders of plasma-protein metabolism, not elsewhere classified Diagnosis Description: Disorder involving the immune mechanism, unspecified Diagnosis Description: Chronic kidney disease, stage 2 (mild) Diagnosis Description: Essential (primary) hypertension Diagnosis Description: Edema, unspecified Diagnosis Description: Anemia, unspecified Diagnosis Description: Hypokalemia Diagnosis Description: Other heel sprayer (current) drug therapy Uric Acid 6.9 3.5-7.2 MG/DL Phosphorus (B) 56969 Reviewed date:11/13/2024 01:35:07 PM Interpretation: Performing Lab: Notes/Report: Diagnosis 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 Diagnosis Description: Proteinuria, unspecified Diagnosis Description: Other disorders of plasma-protein metabolism, not elsewhere classified Diagnosis Description: Disorder involving the immune mechanism, unspecified Diagnosis Description: Chronic kidney disease, stage 2 (mild) Diagnosis Description: Essential (primary) hypertension Diagnosis Description: Edema, unspecified Diagnosis Description: Anemia, unspecified Diagnosis Description: Hypokalemia Diagnosis Description: Other heel sprayer (current) drug therapy Phos 3.3 2.4-5.1 MG/DL Hemoglobin 80419 Reviewed date:11/13/2024 01:35:07 PM Interpretation: Performing Lab: Notes/Report: Diagnosis 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 Diagnosis Description: Proteinuria, unspecified Diagnosis Description: Other disorders of plasma-protein metabolism, not elsewhere classified Diagnosis Description: Disorder involving the immune mechanism, unspecified Diagnosis Description: Chronic kidney disease, stage 2 (mild) Diagnosis Description: Essential (primary) hypertension Diagnosis Description: Edema, unspecified Diagnosis Description: Anemia, unspecified Diagnosis Description: Hypokalemia Diagnosis Description: Other detention (current) drug therapy Hgb 10.9 13.5-17.5 G/DL LOW Albumin 97813 Reviewed date:11/13/2024 01:35:07 PM Interpretation: Performing Lab: Notes/Report: Diagnosis 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 Diagnosis Description: Proteinuria, unspecified Diagnosis Description: Other disorders of plasma-protein metabolism, not elsewhere classified Diagnosis Description: Disorder involving the immune mechanism, unspecified Diagnosis Description: Chronic kidney disease, stage 2 (mild) Diagnosis Description: Essential (primary) hypertension Diagnosis Description: Edema, unspecified Diagnosis Description: Anemia, unspecified Diagnosis Description: Hypokalemia Diagnosis Description: Other detention (current) drug therapy Albumin 2.5 3.2-4.8 G/DL LOW Protein (U) Random 60966 Reviewed date:08/22/2024 04:50:29 PM Interpretation: Performing Lab: Notes/Report: Ur Prot 98.40 .00-12.00 MG/DL HI Uric Acid (B) 20965 Reviewed date:08/22/2024 04:50:29 PM Interpretation: Performing Lab: Notes/Report: Uric Acid 13.9 3.5-7.2 MG/DL HI UA Reflex Micro, Reflex Cult 60495, 88765, 91602 Reviewed date:08/22/2024 04:50:29 PM Interpretation: Performing Lab: Notes/Report: Color UA Yellow NA Clarity UA Clear NA Specific gravity UA 1.008 1.005-1.030 Urine pH 5.5 5.0-8.0 NA Urine Glucose Negative NA Urine Bilirubin Negative NA Urine Ketone Negative NA Urine Blood Negative NA Urine Protein 2+ NA Urobilinogen 0.2 0.1-1.0 NA Urine Nitrite Negative NA Urine Leukocyte Negative NA Normal UA No Urine Culture No Hemoglobin 27615 Reviewed date:08/22/2024 04:50:29 PM Interpretation: Performing Lab: Notes/Report: Hgb 11.0 13.5-17.5 G/DL LOW Ferritin 13146 Reviewed date:08/22/2024 04:50:29 PM Interpretation: Performing Lab: Notes/Report: Ferritin 118 8-388 NG/ML % Iron Saturation (Fe & TIBC )--35013,57116 Reviewed date:08/22/2024 04:50:29 PM Interpretation: Performing Lab: Notes/Report: Iron 100 65-175 MCG/DL Per Iron as say instruction for Use(IFU), patients treated with metal-binding drugs (e.g.deferoxamine) may have depressed iron values as chelated iron may not properly react in the iron assay. Testing was performed with this assay method. TIBC 250 250-450 NG/DL % Iron Saturation 40 20-50 % Albumin 39352 Reviewed date:08/22/2024 04:50:29 PM Interpretation: Performing Lab: Notes/Report: Albumin 2.9 3.2-4.8 G/DL LOW Creatinine (U) 60666 Reviewed date:08/22/2024 04:50:29 PM Interpretation: Performing Lab: Notes/Report: Ur Creat 19.7 40.0-278.0 MG/DL LOW Microalbumin (U) Random 8204 3 Reviewed date:08/22/2024 04:50:29 PM Interpretation: Performing Lab: Notes/Report: Ur Microalbumin >380.0 .0-30.0 MG/L HI Ur Creat 19.7 40.0-278.0 MG/DL LOW Mal/Crea/Ratio >1928.9 .0-30.0 mg Alb/g Cr HI Phosphorus (B) 24473 Reviewed date:08/22/2024 04:50:29 PM Interpretation: Performing Lab: Notes/Report: Phos 3.7 2.4-5.1 MG/DL Magnesium (B) 06928 Reviewed date:08/22/2024 04:50:29 PM Interpretation: Performing Lab: Notes/Report: Magnesium 2.1 1.8-2.4 MG/DL Basic Metabolic Panel (BMP) 95061 Reviewed date:08/22/2024 04:50:29 PM Interpretation: Performing Lab: Notes/Report: Sodium 144 136-145 MMOL/L Potassium 3.8 3.5-5.1 MMOL/L Chloride 106 98-107 MMOL/L CO2 28.4 20.0-31.0 MMOL/L Glucose Serum 115 71-110 MG/DL HI Testing p erformed at [facility], [address] [place] [address] [address] [place] [address]. CLIA ID#: [id number] BUN 48 7-21 MG/DL HI Creat 1.10 .57-1.17 MG/DL G-jfjkxz-j-benzoquinone imine (NAPQI) is a metabolite of acetaminophen, NAPQI concentrations of apparoximately 10 mg/L correlation to toxic levels of acetaminophen demonstrates a greater than or equil to 10% change in results. NAPQI concentrations greater than this may lead to falsely depressed results for patient samples. Use of this assay is not recommended for patients undergoing treatment with phenindione, due to the potential for falsely depressed results. GFR 70.4 NA Calculation pe rformed from GFR calculator provided by the [employer]. Glomerular Filtration rate(GRF) is the best overall index of kidney function. Normal GFR varies according to age,sex, body size, and declines with age. The National [employer] recommends using the CKD-EPI Creatinine Equation(2020) to estimate GFR. Anion Gap 13 5-15 BUN/Creat Ratio 43.6 12.0-20.0 % HI Calcium 7.8 8.7-10.4 MG/DL LOW Osmo Serum,Calculated 312 280-300 MOSM/KG HI UA Microscopic--86127 Reviewed date:08/23/2024 01:00:15 PM Interpretation: Performing Lab: Notes/Report: Micro UA ordered by [employer] Expert Rules system. RBC U <1 NA WBC U <1 0-5 /HPF SQ EPI 4 NA Protein (U) Random 68492 Reviewed date:06/26/2024 11:02:44 PM Interpretation: Performing Lab: Notes/Report: Ur Prot 100.30 .00-12.00 MG/DL HI Microalbumin (U) Random 8204 3 Reviewed date:06/26/2024 11:02:44 PM Interpretation: Performing Lab: Notes/Report: Ur Microalbumin >380.0 .0-30.0 MG/L HI Ur Creat 11.1 40.0-278.0 MG/DL LOW Mal/Crea/Ratio >3423.4 .0-30.0 mg Alb/g Cr HI UA Microscopic--57459 Reviewed date:06/26/2024 11:03:53 PM Interpretation: Performing Lab: Notes/Report: Micro UA ordered by [employer] Rules system. RBC U 5 NA WBC U <1 0-5 /HPF Bacteria None Seen Hyaline Casts <1 NA SQ EPI <1 NA UA Reflex Micro, Reflex Cult 44726, 44324, 32100 Reviewed date:06/26/2024 11:03:28 PM Interpretation: Performing Lab: Notes/Report: Diagnosis 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 Diagnosis Description: Disorder involving the immune mechanism, unspecified Diagnosis Description: Chronic kidney disease, stage 2 (mild) Diagnosis Description: Acute kidney failure, unspecified Diagnosis Description: Anemia in chronic kidney disease Diagnosis Description: Other detention (current) drug therapy Diagnosis Description: Proteinuria, unspecified Diagnosis Description: Essential (primary) hypertension Diagnosis Description: Edema, unspecified Color UA Yellow NA Clarity UA Clear NA Specific gravity UA 1.007 1.005-1.030 Urine pH 5.5 5.0-8.0 NA Urine Glucose Negative NA Urine Bilirubin Negative NA Urine Ketone Negative NA Urine Blood NHT NA Urine Protein 2+ NA Urobilinogen 0.2 0.1-1.0 NA Urine Nitrite Negative NA Urine Leukocyte Negative NA Normal UA No Urine Culture No Magnesium (B) 69977 Reviewed date:06/26/2024 11:03:53 PM Interpretation: Performing Lab: Notes/Report: Diagnosis 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 Diagnosis Description: Disorder involving the immune mechanism, unspecified Diagnosis Description: Chronic kidney disease, stage 2 (mild) Diagnosis Description: Acute kidney failure, unspecified Diagnosis Description: Anemia in chronic kidney disease Diagnosis Description: Other heel sprayer (current) drug therapy Diagnosis Description: Proteinuria, unspecified Diagnosis Description: Essential (primary) hypertension Diagnosis Description: Edema, unspecified Magnesium 2.1 1.8-2.4 MG/DL CBC w\ Auto Diff 43822 Reviewed date:06/26/2024 11:03:53 PM Interpretation: Performing Lab: Notes/Report: Diagnosis 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 Diagnosis Description: Disorder involving the immune mechanism, unspecified Diagnosis Description: Chronic kidney disease, stage 2 (mild) Diagnosis Description: Acute kidney failure, unspecified Diagnosis Description: Anemia in chronic kidney disease Diagnosis Description: Other detention (current) drug therapy Diagnosis Description: Proteinuria, unspecified Diagnosis Description: Essential (primary) hypertension Diagnosis Description: Edema, unspecified WBC 6.8 4.5-11.0 X10'3 RBC 3.87 4.50-5.90 X10'6 LOW Hgb 11.6 13.5-17.5 G/DL LOW Hct 37.1 41.0-53.0 % LOW MCV 95.9 80.0-100.0 FL MCH 30.0 27.0-31.0 PG MCHC 31.3 31.0-37.0 G/DL Platelet 149 150-400 X10'3 LOW RDW-SD 44.8 35.0-49.0 FL RDW-CV 12.7 12.2-15.6 % MPV 10.9 9.2-12.0 FL Neutro Auto% 81.4 40.0-70.0 % HI Lymph Auto% 11.5 22.0-44.0 % LOW [place] Auto% 4.7 3.0-7.0 % Eos Auto% 1.5 2.0-4.0 % LOW Baso Auto% 0.3 0.0-1.0 % Imm Gran% .6 .0-.4 % HI Neutro Abs 5.58 .80-7.70 Absolute Neutrophil Count 5580 NA Lymph Abs .79 .10-4.10 [place] Abs .32 .20-1.00 Eos Abs .10 .00-.40 Baso Abs .02 .00-.20 Imm Gran Abs .04 .00-.10 NRBC# .00 .00-.20 NRBC% .00 .00-.20 /100 intact WBC's Basic Metabolic Panel (BMP) 98374 Reviewed date:06/26/2024 11:03:53 PM Interpretation: Performing Lab: Notes/Report: Diagnosis 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 Diagnosis Description: Disorder involving the immune mechanism, unspecified Diagnosis Description: Chronic kidney disease, stage 2 (mild) Diagnosis Description: Acute kidney failure, unspecified Diagnosis Description: Anemia in chronic kidney disease Diagnosis Description: Other heel sprayer (current) drug therapy Diagnosis Description: Proteinuria, unspecified Diagnosis Description: Essential (primary) hypertension Diagnosis Description: Edema, unspecified Sodium 144 136-145 MMOL/L Potassium 3.8 3.5-5.1 MMOL/L Chloride 109 98-107 MMOL/L HI CO2 29.7 20.0-31.0 MMOL/L Glucose Serum 125 71-110 MG/DL HI Testing p erformed at [address] [place] [place] [address]. CLIA ID#: [id number] BUN 60 7-21 MG/DL HI Creat 1.02 .57-1.17 MG/DL K-sfvgty-u-benzoquinone imine (NAPQI) is a metabolite of acetaminophen, NAPQI concentrations of apparoximately 10 mg/L correlation to toxic levels of acetaminophen demonstrates a greater than or equil to 10% change in results. NAPQI concentrations greater than this may lead to falsely depressed results for patient samples. Use of this assay is not recommended for patients undergoing treatment with phenindione, due to the potential for falsely depressed results. GFR 77.1 NA Calculation pe rformed from GFR calculator provided by the [employer]. Glomerular Filtration rate(GRF) is the best overall index of kidney function. Normal GFR varies according to age,sex, body size, and declines with age. The National [employer] recommends using the CKD-EPI Creatinine Equation(2020) to estimate GFR. Anion Gap 9 5-15 BUN/Creat Ratio 58.8 12.0-20.0 % HI Calcium 7.7 8.7-10.4 MG/DL LOW Osmo Serum,Calculated 316 280-300 MOSM/KG HI Albumin 29673 Reviewed date:06/26/2024 11:03:53 PM Interpretation: Performing Lab: Notes/Report: Diagnosis 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 Diagnosis Description: Disorder involving the immune mechanism, unspecified Diagnosis Description: Chronic kidney disease, stage 2 (mild) Diagnosis Description: Acute kidney failure, unspecified Diagnosis Description: Anemia in chronic kidney disease Diagnosis Description: Other detention (current) drug therapy Diagnosis Description: Proteinuria, unspecified Diagnosis Description: Essential (primary) hypertension Diagnosis Description: Edema, unspecified Albumin 2.6 3.2-4.8 G/DL LOW UA Microscopic--22316 Reviewed date:05/16/2024 01:20:10 PM Interpretation: Performing Lab: Notes/Report: Micro UA ordered by [employer] Expert Rules system. RBC U 4 NA WBC U <1 0-5 /HPF Bacteria None Seen Hyaline Casts <1 NA SQ EPI <1 NA Hemoglobin 73746 Reviewed date:05/23/2024 04:11:14 PM Interpretation: Performing Lab: Notes/Report: Obtain 4 hours after biopsy. Hgb 10.1 13.5-17.5 G/DL LOW Schedule Confirmation Reviewed date:03/28/2024 11:55:21 AM Interpretation: Performing Lab: Notes/Report: CT Guidance for Needle Biopsy-Renal Partial Thromboplastin Time 64675 Reviewed date:03/28/2024 11:55:06 AM Interpretation: Performing Lab: Notes/Report: Diagnosis Description: Proteinuria, unspecified Diagnosis Description: Acute kidney failure, unspecified Diagnosis Description: Essential (primary) hypertension Diagnosis Description: Abnormal levels of other serum enzymes Diagnosis Description: Other specified disorders of kidney and ureter Diagnosis Description: Hemorrhagic condition, unspecified Diagnosis Description: Encounter for preprocedural laboratory examination PTT 24.0 22.6-31.8 SEC Therapeutic Range: 60-100. Critical Value Starting at > 100. Prothrombin Time 11432 Reviewed date:03/28/2024 11:55:10 AM Interpretation: Performing Lab: Notes/Report: Diagnosis Description: Proteinuria, unspecified Diagnosis Description: Acute kidney failure, unspecified Diagnosis Description: Essential (primary) hypertension Diagnosis Description: Abnormal levels of other serum enzymes Diagnosis Description: Other specified disorders of kidney and ureter Diagnosis Description: Hemorrhagic condition, unspecified Diagnosis Description: Encounter for preprocedural laboratory examination ProTime 9.8 9.1-11.9 SEC Normal Range : 9.1-11.9 INR <.93 .90-1.20 Therapeutic Range: 2.0-3.0 Therapaeutic Range for heart valve replacement: 2.5-3.50 Schedule Confirmation Reviewed date:02/01/2024 02:24:51 PM Interpretation: Performing Lab: Notes/Report: US Abdomen Limited Schedule Confirmation Reviewed date:01/11/2024 04:41:24 PM Interpretation: Performing Lab: Notes/Report: US Abdomen Limited US Abdomen Limited-[id number] Reviewed date:02/01/2024 02:20:22 PM Interpretation: Performing Lab: Notes/Report: See Below For Report US Abdomen Limited Diagnosis Description: Abnormal levels of other serum enzymes Read See Below For [place] [address] Reviewed date:02/01/2024 02:21:55 PM Interpretation: Performing Lab: Notes/Report: Diagnosis Description: Abnormal levels of other serum enzymes Diagnosis Description: Other specified abnormal findings of blood chemistry Diagnosis Description: Primary biliary cirrhosis Alkaline Phosphatase 129 40-120 UNIT/L HI Liver Isoenzyme 95 0-94 UNIT/L HI INTERPRETIVE INFORMATION: Alk-Phosphatase Liver Calc Bone Specific Alkaline Phosphatase (8056751) and 5'-nucleotidase (0101573) may be useful in identifying disorders of bone and liver, respectively. Bone Isoenzyme 34 0-55 UNIT/L NA Other Isoenzyme 0 NA Performed By: [facility] [address] [place] [address] Linker Up: Jadiel Coates MD, PhD CLIA Number: [id number] Miscellaneous Test Reviewed date:02/14/2024 07:52:53 AM Interpretation: Performing Lab: Notes/Report: Misc Sent to Ref Lab Name of Misc Test whitley reflex NA Mitochondial (M2) IgG 29727 Reviewed date:02/01/2024 02:22:27 PM Interpretation: Performing Lab: Notes/Report: Diagnosis Description: Abnormal levels of other serum enzymes Diagnosis Description: Other specified abnormal findings of blood chemistry Diagnosis Description: Primary biliary cirrhosis Mitochondrial M2 IgG 8.8 0.0-24.9 Units NA REFERENCE INTERVAL: Mitochondrial (M2) Antibody, IgG 20.0 Units or less ......... Negative 20.1 - 24.9 Units........... Equivocal 25.0 Units or greater....... Positive Anti-mitochondrial antibodies (AMA) are thought to be present in 90-95% of patients with primary biliary cholangitis (PBC). However, the frequency of detected antibodies may be cohort or assay dependent, as lower sensitivities have been reported. Not all PBC patients are positive for AMA; some patients may be positive for SP100 and/or GP210 antibodies. A negative result does not rule out PBC. Performed by [facility], [address] [place] [id number] [email or web address] Maksim Briones MD, Lab. Director [place] Number: [id number] Gamma Glutamyl Transferase ( GGT) 76298 Reviewed date:02/01/2024 02:20:42 PM Interpretation: Performing Lab: Notes/Report: Diagnosis Description: Abnormal levels of other serum enzymes Diagnosis Description: Other specified abnormal findings of blood chemistry Diagnosis Description: Primary biliary cirrhosis GGT 97 15-85 UNIT/L HI Reason For Referral Reason Elevated LFT's,Cirrh osis Appt 12/25 Referring Provider First Name Sebastián Referring Provider Last Name Dimas Referring Provider Speciality Family [facility] Referred Organization [facility] Ref[facility] Referred Address [address] [facility],[address],[place] Referred Provider Specialty Gastroentero logy General Notes Felicity Renteria 10/02 03:18:34 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 Referral Priority Routine Medications Medication SIG (Take, Route, Frequency, Duration) Notes Start Date End Date Status Tylenol 325 MG Tablet 1 tablet as needed Orally every 6 hrs as needed Active Potassium Chloride ER 20 MEQ Tablet Extended Release 1 tablet Orally Twice a day Active Bumetanide 2 MG Tablet as instructed Orally 2 tablets (3mg) in the morning and 1.5 tablet (2mg) in the early afternoon; Duration: 30 days increase in dose Active Chlorthalidone 50 MG Tablet 1/2 tablet in the morning with food Orally daily; Duration: 30 days Active Doxazosin Mesylate 4 MG Tablet 1 tablet Orally Twice a day Active Farxiga 10 MG Tablet 1 tablet Orally Once a day; Duration: 30 days 11/21/2024 Active Allopurinol 100 MG Tablet 1 tablet Orally 3 times a day; Duration: 30 days increase in dose 09/24/2024 Active Hydroxychloroquine Sulfate 200 MG Tablet 1 tablet Orally twice a day Active predniSONE 1 MG Tablet 1 tablet with food or milk Orally Once a day; Duration: 14 days To be started after Rx for 2.5 mg prednisone daily is completed 11/21/2024 Not-Taking Ezetimibe 10 MG Tablet 1 tablet Orally Once a day Active predniSONE 10 MG Tablet 1/2 tablet with food or milk Orally Once a day; Duration: 14 days Active Metoprolol Succinate 100 MG Capsule ER 24 Hour Sprinkle 1 capsule Orally Once a day Active Lisinopril 40 MG Tablet 1 tablet Orally Once a day Active Allopurinol 300 MG Tablet 1 tablet Orally Once a day; Duration: 30 days 11/25/2024 Not-Taking Mycophenolate Mofetil 500 MG Tablet 3 tablets Orally Twice a day; Duration: 30 days Active Social History Tobacco Use: Social History Observation Description Date Details (start date - stop date) Former Smoker NA - NA Social History Drugs/Alcohol: Social Info Question Answer Notes Drugs Have you used drugs other than those for medical reasons in the past 12 months? No Caffeine Intake: 2-3 cups per day Drug/Alcohol: Social Info Question Answer Notes AUDIT-C (Standard) Did you have a drink containing alcohol in the past year? Yes How often did you have a drink containing alcohol in the past year? 2 to 4 times a month (2 points) How many drinks did you have on a typical day when you were drinking in the past year? 1 or 2 drinks (0 point) How often did you have six or more drinks on one occasion in the past year? Less than monthly (1 point) Points 3 Interpretation Negative Tobacco Use: Social Info Question Answer Notes Tobacco Control (Standard) Tobacco use: Former smoker Additional Details Category Social Info Options Details Miscellaneous: Marital status: Children: x2 : 9790-8470 [facility] Level of Education: 2 years damaris [employer] Current Employment Status Retire d Drugs/Alcohol: Do you smoke marijuana? De nies, Denies Problems Problem Type SNOMED Code ICD Code Onset Dates Problem Status W/U Status Risk Notes Problem Anemia in chronic kidney disease (961372728) Anemia in chronic kidney disease (D63.1) Active confirmed Problem Primary biliary cirrhosis (32257606) Primary biliary cirrhosis (K74.3) Active confirmed Problem Disorder of kidney and/or ureter (982395804) Other specified disorders of kidney and ureter (N28.89) Active confirmed Problem Long-term current use of systemic steroid (888640960709118) behavioral health assistant (current) use of systemic steroids (Z79.52) Active confirmed Problem Essential hypertension (45998681) Essential hypertension (I10) Active confirmed Problem Anemia (390669668) Anemia, unspe cified type (D64.9) Active confirmed Problem Gout (70873615) Gout (M10.9) Active confirmed Problem Hypoalbuminemia (028138051) Hypoalbuminemia (E88.09) Active confirmed Problem Chronic kidney disease stage 2 (232549108) Stage 2 chronic kidney disease (N18.2) Active confirmed Problem Encounter for pre-operative laboratory testing (Z01.812) Active confirmed Problem Alkaline phosphatase raised (270183124) Elevated alkaline phosphatase level (R74.8) Active confirmed Problem Anemia of chronic disease (361939601) Anemia of chronic disease (D63.8) Active confirmed Problem Disorder of immune function (781869588) Immunosuppressed status (D89.9) Active confirmed Problem Lupus nephritis (23976670) 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) Active confirmed Problem Bleeds easily (556298882) Bleeds easily (D69.9) Active confirmed Vital Signs Heart Rate 74 /min 11/27/2024 Temperature 98.0 degrees Fahrenheit 11/27/2024 Respiratory Rate 20 /min 11/27/2024 Oximetry 98 % 11/27/2024 Blood pressure diastolic 60 mm Hg 11/27/2024 Height-cm 182.88 cm 11/27/2024 Weight-kg 103.33 kg 11/27/2024 Height 72 in 11/27/2024 Blood pressure systolic 146 mm Hg 11/27/2024 Weight 227.8 lbs 11/27/2024 BMI 30.89 kg/m2 11/27/2024 Encounters Encounter Location Date Provider Diagnosis [facility] [address] [place] [address] [address] [place] [address] 11/21/2024 Flex Rao Lupus nephritis M32. 14 ; Nephrotic range proteinuria R80.9 ; Hypoalbuminemia E88.09 ; detention (current) use of systemic steroids Z79.52 ; Immunosuppressed status D89.9 ; Stage 2 chronic kidney disease N18.2 ; Essential hypertension I10 ; Edema R60.9 ; Hypokalemia E87.6 ; Anemia of chronic disease D63.8 ; Bilateral leg edema R60.0 and Pharmacologic therapy Z79.899 [facility] [address] [place] [place] [address] 12/26/2023 Nathalie Cunningham Elevated serum gamma-glutamyl transferase level R74.8 ; Elevated LFTs R79.89 ; Primary biliary cirrhosis K74.3 and Functional diarrhea K59.1 [facility] [address] [place] [address] [address] [place] [address] 01/22/2024 Adri Stratmoen Proteinuria, unspecified type R80.9 ; JOEL (acute kidney injury) N17.9 ; Other proteinuria R80.8 and Essential hypertension I10 [facility] [address] [place] [address] 04/04/2024 Rossy Jacquespraneethff Lupus nephritis M32. 14 ; Stage 2 chronic kidney disease N18.2 ; JOEL (acute kidney injury) N17.9 ; Nephrotic range proteinuria R80.9 ; Essential hypertension I10 ; Anemia in chronic kidney disease D63.1 and Pharmacologic therapy Z79.899 [facility] [address] [place] [address] 05/01/2024 Brittneyrishi Nathan Elevated alkaline phosphatase level R74.8 ; Essential hypertension I10 ; Lupus nephritis M32.14 ; Stage 2 chronic kidney disease N18.2 and Anemia in chronic kidney disease D63.1 [facility] [address] [place] [address] [address] [place] [address] 05/16/2024 Flex Rao Lupus nephritis M32. 14 ; Nephrotic range proteinuria R80.9 ; Hypoalbuminemia E88.09 ; Immunosuppressed status D89.9 ; JOEL (acute kidney injury) N17.9 ; Stage 2 chronic kidney disease N18.2 ; Essential hypertension I10 ; Edema R60.9 ; Hypokalemia E87.6 ; Anemia in chronic kidney disease D63.1 and Pharmacologic therapy Z79.899 [facility] [address] [place] [address] 06/24/2024 Flex Rao Lupus nephritis M32. 14 ; Nephrotic range proteinuria R80.9 ; Hypoalbuminemia E88.09 ; Immunosuppressed status D89.9 ; Stage 2 chronic kidney disease N18.2 ; Essential hypertension I10 ; Edema R60.9 ; Hypokalemia E87.6 ; Anemia, unspecified type D64.9 and Pharmacologic therapy Z79.899 [facility] [address] [place] [address] Dr [address] [place] [address] 08/22/2024 Flex Rao Lupus nephritis M32. 14 ; Nephrotic range proteinuria R80.9 ; Hypoalbuminemia E88.09 ; detention (current) use of systemic steroids Z79.52 ; Immunosuppressed status D89.9 ; Stage 2 chronic kidney disease N18.2 ; Essential hypertension I10 ; Edema R60.9 ; Hypokalemia E87.6 ; Anemia of chronic disease D63.8 and Pharmacologic therapy Z79.899 [facility] [address] [place] [place] [address] 11/27/2024 Latonya Evans Elevated alkaline phosphatase level R74.8 ; Essential hypertension I10 ; Lupus nephritis M32.14 ; Stage 2 chronic kidney disease N18.2 ; Anemia in chronic kidney disease D63.1 and Gout M10.9 [facility] [address] [place] [address] 01/11/2024 Nathalie Cunningham Elevated serum gamma-glutamyl transferase level R74.8 ; Elevated LFTs R79.89 and Primary biliary cirrhosis K74.3 [facility] [address] [place] [address] Dr [address] [place] [address] 01/23/2024 Adri Stratmoen [facility] [address] [place] [address] [place] [address] 02/01/2024 Adri Stratmoen Proteinuria, unspecified type R80.9 and JOEL (acute kidney injury) N17.9 [facility] [address] [place] [place] [address] 02/14/2024 Nathalie Cunningham Elevated LFTs R79.89 [facility] [address] [place] [address] Dr [address] [place] [address] 03/07/2024 Adri Stratmoen Proteinuria, unspecified type R80.9 ; JOEL (acute kidney injury) N17.9 ; Essential hypertension I10 ; Elevated serum gamma-glutamyl transferase level R74.8 ; Other specified disorders of kidney and ureter N28.89 ; Bleeds easily D69.9 and Encounter for pre-operative laboratory testing Z01.812 [facility] [address] [place] [address] 03/28/[address] [address] [place] [address] 04/05/2024 [facility] [address] [place] [address] 04/10/2024 Adri [facility] [address] [place] [address] 04/10/2024 [facility] [address] [place] [address] 04/17/2024 [facility] [address] [place] [address] 05/07/2024 [facility] [address] [place] [address] 05/14/2024 Flex Rao Lupus nephritis M32. 14 ; Stage 2 chronic kidney disease N18.2 ; JOEL (acute kidney injury) N17.9 ; Anemia in chronic kidney disease D63.1 ; Pharmacologic therapy Z79.899 ; Nephrotic range proteinuria R80.9 ; Proteinuria, unspecified type R80.9 ; Essential hypertension I10 and Elevated alkaline phosphatase level R74.8 [facility] [address] [place] [address] 05/16/2024 Flex Rao [facility] [address] [place] [address] 06/24/2024 Flex Rao Nephrotic range proteinuria R80.9 ; JOEL (acute kidney injury) N17.9 and Hypoalbuminemia E88.09 [facility] [address] [place] [address] 08/22/2024 [facility] [address] R[address] Morley-[address] [place] [address] 09/02/2024 Adri Walters [facility] [address] [place] [address] R[address] [place] [address] 09/24/2024 Adri Walters Stage 2 chronic kidn ey disease N18.2 [facility] [address] Jolly Peyman-[address] [place] [address] 10/07/2024 [facility] R60.9 [facility] [address] Jolly Peyman-[address] [place] [address] 10/10/2024 [facility] [address] R[address] Morley-[address] [place] [address] 11/05/2024 [facility] [address] R[address] [place] [address] 11/14/2024 [facility] [address] [place] [address] 11/25/2024 [facility] [address] [place] [address] 11/25/2024 Latonya Evans [facility] [address] [place] [address] 11/26/2024 Latonya Evans Primary biliary cirrhosis K74.3 Assessments Encounter Date Diagnosis (ICD Code) Assessment Notes Treatment Notes Treatment Clinical Notes Section Notes 12/26/2023 Elevated LFTs (ICD-10 - R79.89) Having more la bs drawn and ordering ultrasound of liver. When resulted with consult with Dr Evans. Went over functional diarrhea measures. Mr Meraz does not plan to have any further colonoscopies. 12/26/2023 Elevated serum gamma-glutamyl transferase level (ICD-10 - R74.8) Having more lab s drawn and ordering ultrasound of liver. When resulted with consult with Dr Evans. Went over functional diarrhea measures. Mr Meraz does not plan to have any further colonoscopies. 01/11/2024 Elevated LFTs (ICD-10 - R79.89) 01/11/2024 Elevated serum gamma-glutamyl transferase level (ICD-10 - R74.8) 01/22/2024 JOEL (acute kidney injury) (ICD-10 - N17.9) Acute Kidney Injury: Care Instructions material was printed Acute kidney injury likely due to diuretics/nephro tic syndrome/Lisinop ril. Baseline creatinine 0.7-0.8 from February 2020 through May 2023. Proteinuria is possibly a recent finding. Hypertension is controlled. Diabetes is diet controlled. Following with rheumatology for cutaneous lupus. 01/22/2024 Proteinuria, unspecified type (ICD-10 - R80.9) Acute kidney injury likely due to diuretics/nephro tic syndrome/Lisinop ril. Baseline creatinine 0.7-0.8 from February 2020 through May 2023. Proteinuria is possibly a recent finding. Hypertension is controlled. Diabetes is diet controlled. Following with rheumatology for cutaneous lupus. 02/01/2024 Proteinuria, unspecified type (ICD-10 - R80.9) 02/14/2024 Elevated LFTs (ICD-10 - R79.89) 03/07/2024 Proteinuria, unspecified type (ICD-10 - R80.9) 04/04/2024 Stage 2 chronic kidney disease (ICD-10 - N18.2) CKD stage 1-2 i s baseline. JOEL noted in 12/2023 with no further lab to evaluate current renal function. Renal biopsy is consistent with lupus nephritis with resultant JOEL previously. Proteinuria was nephrotic range. Anemia is at goal with no iron studies to review. HTN is controlled at home but uncontrolled in clinic. 04/04/2024 Lupus nephritis (ICD-10 - M32.14) CKD stage 1-2 is baseline. JOEL noted in 12/2023 with no further lab to evaluate current renal function. Renal biopsy is consistent with lupus nephritis with resultant JOEL previously. Proteinuria was nephrotic range. Anemia is at goal with no iron studies to review. HTN is controlled at home but uncontrolled in clinic. 05/01/2024 Elevated alkaline phosphatase level (ICD-10 - R74.8) 05/01/2024 Essential hypertension (ICD-10 - I10) 05/14/2024 Lupus nephritis (ICD-10 - M32.14) 05/16/2024 Nephrotic range proteinuria (ICD-10 - R80.9) Class V lupus i s being treated with persistent nephrotic proteinuria and hypoalbuminemia. No complications of immunosuppressio n. JOEL is improved but renal function is not back at previous baseline. HTN is not controlled and is exacerbated by steroids and hypervolemia. Edema is uncontrolled. Hypokalemia is controlled. Anemia is at goal 05/16/2024 Lupus nephritis (ICD-10 - M32.14) Class V lupus is being treated with persistent nephrotic proteinuria and hypoalbuminemia. No complications of immunosuppressio n. JOEL is improved but renal function is not back at previous baseline. HTN is not controlled and is exacerbated by steroids and hypervolemia. Edema is uncontrolled. Hypokalemia is controlled. Anemia is at goal 06/24/2024 Nephrotic range proteinuria (ICD-10 - R80.9) Class V lupus i s being treated with persistent nephrotic proteinuria but with improved hypoalbuminemia. No complications of immunosuppressio n. Renal function is slightly worse, possibly due to hydration status as shown by BUN/Cr. HTN is stable. Edema is controlled. Hypokalemia is controlled. Anemia is at goal, unknown iron status. 06/24/2024 Lupus nephritis (ICD-10 - M32.14) Class V lupus is being treated with persistent nephrotic proteinuria but with improved hypoalbuminemia. No complications of immunosuppressio n. Renal function is slightly worse, possibly due to hydration status as shown by BUN/Cr. HTN is stable. Edema is controlled. Hypokalemia is controlled. Anemia is at goal, unknown iron status. 06/24/2024 Nephrotic range proteinuria (ICD-10 - R80.9) 08/22/2024 Nephrotic range proteinuria (ICD-10 - R80.9) Class [...] at goal and he is iron replete 08/22/2024 Lupus nephritis (ICD-10 - M32.14) Class V [...] at goal and he is iron replete 09/24/2024 Stage 2 chronic kidney disease (ICD-10 - N18.2) 10/07/2024 Edema (ICD-10 - R60.9) 11/21/2024 Nephrotic range proteinuria (ICD-10 - R80.9) [...] goal and he is iron replete 11/21/2024 Lupus nephritis (ICD-10 - M32.14) Class [...] at goal and he is iron replete 11/26/2024 Primary biliary cirrhosis (ICD-10 - K74.3) 11/27/2024 Essential hypertension (ICD-10 - I10) 11/27/2024 Elevated alkaline phosphatase level (ICD-10 - R74.8) 11/27/2024 Lupus nephritis (ICD-10 - M32.14) 11/21/2024 Hypoalbuminemia (ICD-10 - E88.09) Class V [...] at goal and he is iron replete 08/22/2024 Hypoalbuminemia (ICD-10 - E88.09) Class V lupus [...] at goal and he is iron replete 06/24/2024 JOEL (acute kidney injury) (ICD-10 - N17.9) 06/24/2024 Hypoalbuminemia (ICD-10 - E88.09) Class V lupus is being treated with persistent nephrotic proteinuria but with improved hypoalbuminemia. No complications of immunosuppressio n. Renal function is slightly worse, possibly due to hydration status as shown by BUN/Cr. HTN is stable. Edema is controlled. Hypokalemia is controlled. Anemia is at goal, unknown iron status. 05/16/2024 Hypoalbuminemia (ICD-10 - E88.09) Class V lupus is being treated with persistent nephrotic proteinuria and hypoalbuminemia. No complications of immunosuppressio n. JOEL is improved but renal function is not back at previous baseline. HTN is not controlled and is exacerbated by steroids and hypervolemia. Edema is uncontrolled. Hypokalemia is controlled. Anemia is at goal 05/14/2024 Stage 2 chronic kidney disease (ICD-10 - N18.2) 05/01/2024 Lupus nephritis (ICD-10 - M32.14) 04/04/2024 JOEL (acute kidney injury) (ICD-10 - N17.9) CKD stage 1-2 is baseline. JOEL noted in 12/2023 with no further lab to evaluate current renal function. Renal biopsy is consistent with lupus nephritis with resultant JOLE previously. Proteinuria was nephrotic range. Anemia is at goal with no iron studies to review. HTN is controlled at home but uncontrolled in clinic. 03/07/2024 JOEL (acute kidney injury) (ICD-10 - N17.9) 02/01/2024 JOEL (acute kidney injury) (ICD-10 - N17.9) 01/22/2024 Other proteinuria (ICD-10 - R80.8) Acute kidney injury likely due to diuretics/nephro tic syndrome/Lisinop ril. Baseline creatinine 0.7-0.8 from February 2020 through May 2023. Proteinuria is possibly a recent finding. Hypertension is controlled. Diabetes is diet controlled. Following with rheumatology for cutaneous lupus. 01/11/2024 Primary biliary cirrhosis (ICD-10 - K74.3) 12/26/2023 Primary biliary cirrhosis (ICD-10 - K74.3) Having more labs drawn and ordering ultrasound of liver. When resulted with consult with Dr Evans. Went over functional diarrhea measures. Mr Meraz does not plan to have any further colonoscopies. 12/26/2023 Functional diarrhea (ICD-10 - K59.1) Diarrhea Recommendations: 1. No liquids 30 minutes before meals and 1 hour after meals 2. No smoothies, milk, ice cream, or soup 3. Fiber Supplement 15 grams/day i.e. Metamucil wafer, 2 wafers with each meal (do not drink recommended liquid) 4. Stop all nonessential medications 5. Avoid concentrated sweets, juices, and sugar alcohols. Having more labs drawn and ordering ultrasound of liver. When resulted with consult with Dr Evans. Went over functional diarrhea measures. Mr Meraz does not plan to have any further colonoscopies. 01/22/2024 Essential hypertension (ICD-10 - I10) Acute kidney injury likely due to diuretics/nephro tic syndrome/Lisinop ril. Baseline creatinine 0.7-0.8 from February 2020 through May 2023. Proteinuria is possibly a recent finding. Hypertension is controlled. Diabetes is diet controlled. Following with rheumatology for cutaneous lupus. 03/07/2024 Essential hypertension (ICD-10 - I10) 04/04/2024 Nephrotic range proteinuria (ICD-10 - R80.9) CKD stage 1-2 i s baseline. JOEL noted in 12/2023 with no further lab to evaluate current renal function. Renal biopsy is consistent with lupus nephritis with resultant JOEL previously. Proteinuria was nephrotic range. Anemia is at goal with no iron studies to review. HTN is controlled at home but uncontrolled in clinic. 05/01/2024 Stage 2 chronic kidney disease (ICD-10 - N18.2) 05/14/2024 JOEL (acute kidney injury) (ICD-10 - N17.9) 05/16/2024 Immunosuppressed status (ICD-10 - D89.9) Class V lupus is being treated with persistent nephrotic proteinuria and hypoalbuminemia. No complications of immunosuppressio n. JOEL is improved but renal function is not back at previous baseline. HTN is not controlled and is exacerbated by steroids and hypervolemia. Edema is uncontrolled. Hypokalemia is controlled. 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 No complications of immunosuppressio n. Renal function is slightly worse, possibly due to hydration status as shown by BUN/Cr. HTN is stable. Edema is controlled. Hypokalemia is controlled. Anemia is at goal, unknown iron status. 11/21/2024 detention (current) use of systemic steroids (ICD-10 - [...] at goal and he is iron replete 11/27/2024 Stage 2 chronic kidney disease (ICD-10 - N18.2) 11/21/2024 Immunosuppressed status (ICD-10 - D89.9) Class [...] at goal and he is iron replete 08/22/2024 Immunosuppressed status (ICD-10 - D89.9) Class V [...] at goal and he is iron replete 11/27/2024 Anemia in chronic kidney disease (ICD-10 - D63.1) 06/24/2024 Stage 2 chronic kidney disease (ICD-10 - N18.2) Class V lupus i s being treated with persistent nephrotic proteinuria but with improved hypoalbuminemia. No complications of immunosuppressio n. Renal function is slightly worse, possibly due to hydration status as shown by BUN/Cr. HTN is stable. Edema is controlled. Hypokalemia is controlled. Anemia is at goal, unknown iron status. 05/16/2024 JOEL (acute kidney injury) (ICD-10 - N17.9) Class V lupus is being treated with persistent nephrotic proteinuria and hypoalbuminemia. No complications of immunosuppressio n. JOEL is improved but renal function is not back at previous baseline. HTN is not controlled and is exacerbated by steroids and hypervolemia. Edema is uncontrolled. Hypokalemia is controlled. Anemia is at goal 05/14/2024 Anemia in chronic kidney disease (ICD-10 - D63.1) 05/01/2024 Anemia in chronic kidney disease (ICD-10 - D63.1) 03/07/2024 Elevated serum gamma-glutamyl transferase level (ICD-10 - R74.8) 04/04/2024 Essential hypertension (ICD-10 - I10) CKD stage 1-2 is baseline. JOEL noted in 12/2023 with no further lab to evaluate current renal function. Renal biopsy is consistent with lupus nephritis with resultant JOEL previously. Proteinuria was nephrotic range. Anemia is at goal with no iron studies to review. HTN is controlled at home but uncontrolled in clinic. 04/04/2024 Anemia in chronic kidney disease (ICD-10 - D63.1) CKD stage 1-2 i s baseline. JOEL noted in 12/2023 with no further lab to evaluate current renal function. Renal biopsy is consistent with lupus nephritis with resultant JOEL previously. Proteinuria was nephrotic range. Anemia is at goal with no iron studies to review. HTN is controlled at home but uncontrolled in clinic. 03/07/2024 Other specified disorders of kidney and ureter (ICD-10 - N28.89) 05/14/2024 Pharmacologic therapy (ICD-10 - Z79.899) 06/24/2024 Essential hypertension (ICD-10 - I10) Class V lupus is being treated with persistent nephrotic proteinuria but with improved hypoalbuminemia. No complications of immunosuppressio n. Renal function is slightly worse, possibly due to hydration status as shown by BUN/Cr. HTN is stable. Edema is controlled. Hypokalemia is controlled. Anemia is at goal, unknown iron status. 05/16/2024 Stage 2 chronic kidney disease (ICD-10 - N18.2) Class V lupus i s being treated with persistent nephrotic proteinuria and hypoalbuminemia. No complications of immunosuppressio n. JOEL is improved but renal function is not back at previous baseline. HTN is not controlled and is exacerbated by steroids and hypervolemia. Edema is uncontrolled. Hypokalemia is controlled. Anemia is at goal 08/22/2024 Stage 2 chronic kidney disease (ICD-10 - [...] at goal and he is iron replete 11/27/2024 Gout (ICD-10 - M10.9) 11/21/2024 Essential hypertension (ICD-10 - I10) Class [...] at goal and he is iron replete 08/22/2024 Essential hypertension (ICD-10 - I10) Class V [...] at goal and he is iron replete 06/24/2024 Edema (ICD-10 - R60.9) Class V lupus is being treated with persistent nephrotic proteinuria but with improved hypoalbuminemia. No complications of immunosuppressio n. Renal function is slightly worse, possibly due to hydration status as shown by BUN/Cr. HTN is stable. Edema is controlled. Hypokalemia is controlled. Anemia is at goal, unknown iron status. 05/16/2024 Essential hypertension (ICD-10 - I10) Class V lupus is being treated with persistent nephrotic proteinuria and hypoalbuminemia. No complications of immunosuppressio n. JOEL is improved but renal function is not back at previous baseline. HTN is not controlled and is exacerbated by steroids and hypervolemia. Edema is uncontrolled. Hypokalemia is controlled. Anemia is at goal 03/07/2024 Bleeds easily (ICD-10 - D69.9) 05/14/2024 Nephrotic range proteinuria (ICD-10 - R80.9) 05/14/2024 Proteinuria, unspecified type (ICD-10 - R80.9) 04/04/2024 Pharmacologic therapy (ICD-10 - Z79.899) CKD stage 1-2 is baseline. JOEL noted in 12/2023 with no further lab to evaluate current renal function. Renal biopsy is consistent with lupus nephritis with resultant JOEL previously. Proteinuria was nephrotic range. Anemia is at goal with no iron studies to review. HTN is controlled at home but uncontrolled in clinic. 03/07/2024 Encounter for pre-operative laboratory testing (ICD-10 - Z01.812) 05/16/2024 Edema (ICD-10 - R60.9) Class V lupus is being treated with persistent nephrotic proteinuria and hypoalbuminemia. No complications of immunosuppressio n. JOEL is improved but renal function is not back at previous baseline. HTN is not controlled and is exacerbated by steroids and hypervolemia. Edema is uncontrolled. Hypokalemia is controlled. Anemia is at goal 06/24/2024 Hypokalemia (ICD-10 - E87.6) Class V lupus i s being treated with persistent nephrotic proteinuria but with improved hypoalbuminemia. No complications of immunosuppressio n. Renal function is slightly worse, possibly due to hydration status as shown by BUN/Cr. HTN is stable. Edema is controlled. Hypokalemia is controlled. Anemia is at goal, unknown iron status. 08/22/2024 Edema (ICD-10 - R60.9) Class V lupus [...] at goal and he is iron replete 06/24/2024 Anemia, unspecified type (ICD-10 - D64.9) Class V lupus i s being treated with persistent nephrotic proteinuria but with improved hypoalbuminemia. No complications of immunosuppressio n. Renal function is slightly worse, possibly due to hydration status as shown by BUN/Cr. HTN is stable. Edema is controlled. Hypokalemia is controlled. Anemia is at goal, unknown iron status. 08/22/2024 Hypokalemia (ICD-10 - E87.6) Class V lupus [...] at goal and he is iron replete 05/16/2024 Hypokalemia (ICD-10 - E87.6) Class V lupus i s being treated with persistent nephrotic proteinuria and hypoalbuminemia. No complications of immunosuppressio n. JOEL is improved but renal function is not back at previous baseline. HTN is not controlled and is exacerbated by steroids and hypervolemia. Edema is uncontrolled. Hypokalemia is controlled. Anemia is at goal 05/14/2024 Essential hypertension (ICD-10 - I10) 05/14/2024 Elevated alkaline phosphatase level (ICD-10 - R74.8) 05/16/2024 Anemia in chronic kidney disease (ICD-10 - D63.1) Class V lupus i s being treated with persistent nephrotic proteinuria and hypoalbuminemia. No complications of immunosuppressio n. JOEL is improved but renal function is not back at previous baseline. HTN is not controlled and is exacerbated by steroids and hypervolemia. Edema is uncontrolled. Hypokalemia is controlled. Anemia is at goal 06/24/2024 Pharmacologic therapy (ICD-10 - Z79.899) Class V lupus is being treated with persistent nephrotic proteinuria but with improved hypoalbuminemia. No complications of immunosuppressio n. Renal function is slightly worse, possibly due to hydration status as shown by BUN/Cr. HTN is stable. Edema is controlled. Hypokalemia is controlled. Anemia is at goal, unknown iron status. 08/22/2024 Anemia of chronic disease (ICD-10 - D63.8) [...] at goal and he is iron replete 08/22/2024 Pharmacologic therapy (ICD-10 - Z79.899) Class V [...] at goal and he is iron replete 05/16/2024 Pharmacologic therapy (ICD-10 - Z79.899) Class V lupus is being treated with persistent nephrotic proteinuria and hypoalbuminemia. No complications of immunosuppressio n. JOEL is improved but renal function is not back at previous baseline. HTN is not controlled and is exacerbated by steroids and hypervolemia. Edema is uncontrolled. Hypokalemia is controlled. Anemia is at goal 11/21/2024 Pharmacologic therapy (ICD-10 - Z79.899) Class [...] Follow-up in 2 months with labs at [facility] 5 to 10 days prior to appointment. [...] at goal and he is iron replete 01/22/2024 Other Repeat BMP in [address] Cochran's office. Urine protein creatinine ratio was 2.01 g/grams on January 22, 2024. Check SPEP, SIFE and Free light chains. Await results and decide on renal biopsy. Continue current diuretics. Weigh daily. Stay well-hydrated. Avoid nephrotoxins and NSAIDs. Need to renal dose medications at this time. Continue current antihypertensives and monitor blood pressure daily with a goal of less than 140/80. Patient instructed to call clinic if blood pressure not at goal range. Low-sodium diet. Follow up with Dr. Rao in 2 months with labs [address] Cochran's office. Acute kidney injury likely due to diuretics/nephro tic syndrome/Lisinop ril. Baseline creatinine 0.7-0.8 from February 2020 through May 2023. Proteinuria is possibly a recent finding. Hypertension is controlled. Diabetes is diet controlled. Following with rheumatology for cutaneous lupus. 04/04/2024 Other Repeat BMP within 1 week (04/08/2024) at Dr. Cochran's office. Given renal biopsy findings, he has been diagnosed with lupus nephritis. Would recommend he discontinue azathioprine and continue hydroxychloroquine . Recommendation is to start mycophenolate 500 mg twice daily for 7 days then increase to 1000 mg thereafter with concurrent glucocorticoid (prednisone 30-40 mg daily) therapy. It is recommended that he have CBC, LFTs and BMP weekly while taking mycophenolate. I have initiated a call to Dr Quiñones, Rheumatology to discuss treatment prior to initiation of medication regimen. He will need to monitor his blood glucose levels closely while taking prednisone. Continue current diuretics. Weigh daily. Stay well-hydrated. Avoid nephrotoxins and NSAIDs. Need to renal dose medications at this time. Continue current antihypertensives and monitor blood pressure daily with a goal of less than 140/80. Patient instructed to call clinic if blood pressure not at goal range. Low-sodium diet. Follow up in 1 month (after starting medications) with labs at Dr. Cochran's office 5-10 days prior to appointment BMP, CBC, LFTs, UA, serum albumin, mag The patient was instructed to follow up with their PCP for preventative health screenings. CKD stage 1-2 is baseline. JOEL noted in 12/2023 with no further lab to evaluate current renal function. Renal biopsy is consistent with lupus nephritis with resultant JOEL previously. Proteinuria was nephrotic range. Anemia is at goal with no iron studies to review. HTN is controlled at home but uncontrolled in clinic. 05/01/2024 Other Laboratory investigations from January 2024 as follows: total alkaline phosphatase 129, liver isoenzyme 95, bone isoenzyme 34. Antimitochondrial antibody within normal limits. Immunoglobulins within normal limits. Laboratory Investigations from last month as follows: total bilirubin 0.2, AST 35, ALT 25, albumin 2.1, alkaline [id number], WBC 4, hemoglobin 11, hematocrit 37, MCV 101, platelets 167. The patient has isolated alkaline phosphatase. He has no evidence of primary biliary cholangitis. Recent AMA was within normal limits.The report of abdominal ultrasound performed in January 2024 was also reviewed and noted. Liver is said to be normal. Gallbladder and bile ducts are said to be normal. No further intervention is indicated at this time. Will recheck liver function tests in 6 months. 05/16/2024 Other Increase mycophenelate to 1500mg twice daily. He is to call if experiancing diarrhea. Decrease to 15mg prednisone once daily. Call with current prednisone dose prior to taking decreased dose. Monitor for complications of immunosupression. Increase Bumex to 3mg in morning and 2mg in the afternoon (6-8 hours between doses). Monitor weight daily. Continue current antihypertensives and monitor blood pressure daily with goal blood pressure less than 130/80. No need to renally dose medications. Avoid nephrotoxins. Follow a low-sodium diet. Stay well hydrated. Risk factor modification. Monitor proteinuria Follow-up in 1 month with labs at [facility] the morning of the appointment. BMP, mag, CBC, UA, serum albumin, urine protein, urine creatinine The patient was instructed to follow up with their PCP for preventative health screenings. I am the scribe for Dr. 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 No complications of immunosuppressio n. JOEL is improved but renal function is not back at previous baseline. HTN is not controlled and is exacerbated by steroids and hypervolemia. Edema is uncontrolled. Hypokalemia is controlled. Anemia is at goal 06/24/2024 Other Continue prednisione and mycophenelate. Monitor for complications of immunosupression. Monitor proteinuria and serum albumin. No need to renally dose medications. Continue current antihypertensives. Monitor blood pressure daily with goal blood pressure less than 130/80. Avoid nephrotoxins. Follow a low-sodium diet. Stay well hydrated. Risk factor modification. Follow-up in 2 months with labs at [facility] 5 to 10 days prior to appointment. BMP, mag, uric, hgb, iron stuides, UA, urine protein, microalbumin, creatinine, albumin The patient was instructed to follow up with their PCP for preventative health screenings. I am the scribe for Dr. 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 No complications of immunosuppressio n. Renal function is slightly worse, possibly due to hydration status as shown by BUN/Cr. HTN is stable. Edema is controlled. Hypokalemia is controlled. Anemia is at goal, unknown iron status. 08/22/2024 Other Decrease prednisione to 10 mg daily and continue mycophenelate 1500 mg twice daily. Monitor for complications of immunosupression. Monitor proteinuria and serum albumin. No need to renally dose medications. Decrease chlorthalidone to 50 mg once a day and continue other antihypertensives. Monitor blood pressure daily with goal blood pressure less than 130/80. Avoid nephrotoxins. Follow a low-sodium diet. Stay well hydrated. Risk factor modification. Follow-up in 2 months with labs at [facility] 5 to 10 days prior to appointment. BMP, mag, uric, hgb, iron stuides, UA, urine protein, urine creatinine, albumin The patient was instructed to follow up with their PCP for preventative health screenings. I am the scribe for Dr. Rao and I have documented sections of this chart - Danisha Back Class V lupus is being treated with [...] at goal and he is iron replete 11/27/2024 Other Laboratory investigations from yesterday as follows: Total bilirubin 0.2 AST 12 ALT 7 albumin 2.1 total protein 4.9 alkaline phosphatase 80. The previously elevated alkaline phosphatase is now within normal limits. The patient has no evidence of liver cirrhosis. No further investigation or intervention is indicated at this time. We will see the patient back in the clinic on as-needed basis. Plan Of Treatment Pending Test Test Name Order Date Prothrombin Time 25039 03/07/2024 CBC w\ Auto Diff 75725 02/14/2024 Hemoglobin 74666 03/07/2024 Hepatic Function Panel 11724 02/14/2024 Hepatic Function Panel 13747 11/26/2024 Partial Thromboplastin Time 67651 2023 Basic Metabolic Panel (BMP) 67925 2023 Protein Electrophoresis (S) 40978, 26579 02/01/2024 Protein Electrophoresis (U) (Loiza/Lambd a) 81922, 77477, 42192, 24580 02/01/2024 Immunofixation-Serum 71378 02/01/2024 Albumin 19147 05/14/2024 Future Test Test Name Order Date Basic Metabolic Panel (BMP) 44605 2024 CBC w\ Auto Diff 70930 11/11/2024 Hepatic Function Panel 69939 11/11/2024 Creatinine (U) 44859 11/11/2024 Urinalysis--15919 11/11/2024 Next Appt Details Provider Name:Flex Rao, 02/26/2025 01:40:00 PM, [address] [place] [address] Rik Freitas, [place], [phone], Provider Name:Flex Rao, 04/24/2025 02:00:00 PM, [address] [place] [address] [place], [phone], Provider Name:Flex Rao, 08/28/2025 01:00:00 PM, [address] [place] [address] Rik Freitas, [place], [phone], Insurance Providers Payer Name Payer Address Payer Phone Subscriber Number Group Number Insured Name Patient Relationship to Insured Coverage Start Date Coverage End Date [place] [address] FAZAL ANDERSON [phone] [id number] MARKY NAJERA Self - patient is the insured [facility] [address] [place] [phone] [id number] MARKY NAJERA Self - patient is the insured Medical (General) History Medical History History ICD Code Pneumonia hernia Back Trouble hypertension anxiety colonic polyps elevated LFTs primary biliary cirrhosis lupus gout Surgical History Surgery Date(Month/Year) umbilical hernia repair (L) knee replacement Hospitalization History Reason Date(Month/Year) see surgical history
--- OUTSIDE RECORDS SUMMARY | 2024-12-13 19:24 | XMS_ITS | Data Portability ---
Author Organization JAROCHO Ardon Attala [facility] Address [address] [facility] [address] [place] [address] Care Team Providers Care Photoengraving Helper Name Role Phone RADHA LEWIS Primary Care Provider Assessment No assessment recorded. Plan of Treatment Reminders Order Date Submit Date Provider Last Modified By Organization Details Last Modified Time Details Appointments None record ed. Lab None record ed. Referral None record ed. Procedures None record ed. Surgeries None record ed. Imaging None record ed. Medication Orders lisino pril 10 mg tablet 2023 024 fantasma [facility] [place], [address], 4 11:23:28 Ciprod ex 0.3 %-0.1 % ear drops, suspen nora 2022 023 HAIM [facility] [place], [address], 3 15:12:29 olmesa rtan 40 mg tablet [address] [facility] [place], [address], 4 14:29:24 hydroc hlorot hiazid e 50 mg tablet [address] [facility] [place], [address], 4 14:29:29 metopr olol succin ate ER 100 mg tablet ,exten ded releas e 24 hr 2022 023 [facility], [place], [address], 3 10:48:38 Patient TargetsNo targets recorded. Patient InstructionsNo instructions recorded. Reason for Referral None Reported. Results Created Date Observation Date Name Description Value Unit Range Abnormal Flag Note LastModifiedBy Organization Detail LastModifiedTime 06/01/1905/31/2022 micro album in, urine creatinine, random urine 111 mg/dL 20-320 negative Not Available [facility] [id number] 10/16/2022 13:55:13 06/01/1905/31/2022 micro album in, urine albumin/crea tinine ratio, random urine 226 <30 abnormal units : mcg/m g creat the ada defin es abnor malit ies in album in excre tion follo ws: album inuri a categ ory resul t (mcg/ mg creat inine ) shahid l to mildl y incre ased <30 moder ately incre ased 30-29 9 sever luciana incre ased > or = 300 the ada recom mends that at least two of three speci mens colle cted withi n a 3-6 month perio d BE abnor mal befor e consi forrest g a patie nt to BE withi n a diagn ostic categ ory. repor t comme nt: yf test perfo [facility]med [facility] [place] [address] [place] [phone] candace tijerina md Not Available [facility] [id number] 10/16/2022 13:55:13 06/01/1905/31/2022 micro album in, urine albumin, urine 25.1 mg/dL negative refer ence range not estab lishe d Not Available [facility] [id number] 10/16/2022 13:55:13 06/01/1905/31/2022 CBC w/ auto diff monocytes % 8.0 % 2.0-10 .0 negative Not Available [facility] [address], [place], [address], 10/16/2022 13:55:36 06/01/19 23 05/31/2022 CBC w/ auto diff monocytes # 0.4 3_/uL negative Not Available [facility] [address], [place], [address], 10/16/2022 13:55:36 06/01/19 23 05/31/2022 CBC w/ auto diff lymphocytes # 1.1 3_/uL negative Not Available [facility] [address], [place], [address], 10/16/2022 13:55:36 06/01/19 23 05/31/2022 CBC w/ auto diff lymphocytes % 23.4 % 20.0-5 0.0 negative Not Available [facility] [address], [place], [address], 10/16/2022 13:55:36 06/01/19 23 05/31/2022 CBC w/ auto diff WBC 4.8 3_/uL 4.5-10 .5 negative Not Available [facility] [address], [place], [address], 10/16/2022 13:55:36 06/01/19 23 05/31/2022 CBC w/ auto diff MCHC 32.5 g/dL 32.0-3 6.0 negative Not Available [facility] [address], [place], [address], 10/16/2022 13:55:36 06/01/19 23 05/31/2022 CBC w/ auto diff RDW 14.5 % 11.5-1 4.5 negative Not Available [facility] [address], [place], [address], 10/16/2022 13:55:36 06/01/19 23 05/31/2022 CBC w/ auto diff HGB 12.5 g/dL 13.5-1 8.0 abnormal Not Available [facility] [address], [place], [address], 10/16/2022 13:55:36 06/01/19 23 05/31/2022 CBC w/ auto diff plt 132.6 3_/uL 150.0- 451.0 abnormal Not Available [facility] [address], [place], [address], 10/16/2022 13:55:36 06/01/19 23 05/31/2022 CBC w/ auto diff MCH 30.2 pg 27.0-3 2.0 negative Not Available [facility] [address], [place], [address], 10/16/2022 13:55:36 06/01/19 23 05/31/2022 CBC w/ auto diff MCV 93.0 fL 80.0-9 9.9 negative Not Available [facility] [address], [place], [address], 10/16/2022 13:55:36 06/01/19 23 05/31/2022 CBC w/ auto diff granulcytes# 3.2 3_/uL negative Not Available [facility] [address] [facility] [address], [place], [address], 10/16/2022 13:55:36 06/01/19 23 05/31/2022 CBC w/ auto diff granulcytes % 65.4 % 30.0-7 0.0 negative Not Available [facility] [address] [facility] [address], [place], [address], 10/16/2022 13:55:36 06/01/19 23 05/31/2022 CBC w/ auto diff HCT 38.3 % 35.0-6 0.0 negative Not Available [facility] [address] [facility], [place], [address], 10/16/2022 13:55:36 06/01/19 23 05/31/2022 CBC w/ auto diff RBC 4.12 6_/uL 4.30-5 .90 abnormal Not Available [facility] [address], [place], [address], 10/16/2022 13:55:36 06/01/19 23 05/31/2022 HbA1c (hemo globi n A1c), blood hemaglobin A1C 6.7 4.2-6. 5 abnormal Not Available [facility] [address], [place], [address], 10/16/2022 13:55:12 11/23/19 23 11/22/2022 HbA1c (hemo globi n A1c), blood HbA1c 6.6 Not Available [facility] ([facility]) [address] [place] [address], [id number], 11/22/2022 08:40:41 12/28/1912/28/2022 COMPR EHENS HU METAB OLIC PANEL glucose 111 mg/dL 65-99 high Fasti ng refer ence inter omer For someo ne witho ut known diabe julian, a gluco se value betwe en 100 and 125 mg/dL is consi stent with predi abete s and shoul d be confi rmed with a follo w-up test. Not Available [facility] [address], [address], 12/28/2022 06:21:46 12/28/1912/28/2022 COMPR EHENS HU METAB OLIC PANEL urea nitrogen (BUN) 11 mg/dL 7-25 normal Not Available [facility] [address], [address], 12/28/2022 06:21:46 12/28/19 23 12/28/2022 COMPR EHENS HU METAB OLIC PANEL creatinine 0.73 mg/dL 0.70-1 .28 normal Not Available [facility] [address] [place], [address], 12/28/2022 06:21:46 12/28/1912/28/2022 COMPR EHENS HU METAB OLIC PANEL eGFR 97 mL/mi n/1.7 3m2 > or = 60 normal Not Available [address], [address], 12/28/2022 06:21:46 12/28/1912/28/2022 COMPR EHENS HU METAB OLIC PANEL BUN/creatini ne ratio SEE NOTE: (calc ) 6-22 Not Repor howie: BUN and Creat inine are withi n refer ence range . Not Available [address], [address], 12/28/2022 06:21:46 12/28/1912/28/2022 COMPR EHENS HU METAB OLIC PANEL sodium 140 mmol/ L 135-14 6 normal Not Available [address], [address], 12/28/2022 06:21:46 12/28/1912/28/2022 COMPR EHENS HU METAB OLIC PANEL potassium 3.7 mmol/ L 3.5-5. 3 normal Not Available [address], [address], 12/28/2022 06:21:46 12/28/1912/28/2022 COMPR EHENS HU METAB OLIC PANEL chloride 104 mmol/ L 98-110 normal Not Available [address], [address], 12/28/2022 06:21:46 12/28/1912/28/2022 COMPR EHENS HU METAB OLIC PANEL carbon dioxide 30 mmol/ L 20-32 normal Not Available [address], [address], 12/28/2022 06:21:46 12/28/1912/28/2022 COMPR EHENS HU METAB OLIC PANEL calcium 8.9 mg/dL 8.6-10 .3 normal Not Available [address], [address], 12/28/2022 06:21:46 12/28/1912/28/2022 COMPR EHENS HU METAB OLIC PANEL protein, total 7.0 g/dL 6.1-8. 1 normal Not Available [address], [address], 12/28/2022 06:21:46 12/28/1912/28/2022 COMPR EHENS HU METAB OLIC PANEL albumin 3.5 g/dL 3.6-5. 1 low Not Available [address], [address], 12/28/2022 06:21:46 12/28/1912/28/2022 COMPR EHENS HU METAB OLIC PANEL globulin 3.5 g/dL_ (calc ) 1.9-3. 7 normal Not Available [address], [address], 12/28/2022 06:21:46 12/28/1912/28/2022 COMPR EHENS HU METAB OLIC PANEL albumin/glob ulin ratio 1.0 (calc ) 1.0-2. 5 normal Not Available [address], [address], 12/28/2022 06:21:46 12/28/1912/28/2022 COMPR EHENS HU METAB OLIC PANEL bilirubin, total 0.5 mg/dL 0.2-1. 2 normal Not Available [address], [address], 12/28/2022 06:21:46 12/28/1912/28/2022 COMPR EHENS HU METAB OLIC PANEL alkaline phosphatase 194 U/L 35-144 high Not Available [facility] [address] [place], [address], 12/28/2022 06:21:46 12/28/1912/28/2022 COMPR EHENS HU METAB OLIC PANEL AST 29 U/L 10-35 normal Not Available [facility] [address] [place], [address], 12/28/2022 06:21:46 12/28/1912/28/2022 COMPR EHENS HU METAB OLIC PANEL ALT 31 U/L 9-46 normal Not Available [address], [address], 12/28/2022 06:21:46 Result Notes None recorded. Problems Name Problem SNOMED Code Status Onset Date Resolution Date Notes Provider Name and Address Organization Details Recorded Time Benign essential hypertension 4886843 Active 2022 Hyperte nsion; 023 10:29AM by Pippa maguire, Office Visit; Promote d; acuity set as *; Not Available [facility] 3 03:08:39 Hyperlipidemi a 28845051 Active 2022 Hyperli pidemia ; 023 10:29AM by Pippa maguire, Office Visit; Promote d; acuity set as *; Not Available [facility] 3 03:08:39 Type 2 diabetes mellitus 83995190 Active 2022 [facility] roy [facility] 3 10:13:38 Problem Notes None recorded. Procedures Surgical History Date Name Laterality Status Provider Name and Address Organization Details Recorded Time Knee Replacement completed FABIO SUTTON [facility] 11/24/2022 09:58:28 Hernia Repair completed PIPPA MORRIS [facility] 01/03/2023 10:31:35 Imaging Results None recorded. Procedure Notes None recorded. Medical Equipment None Reported. Medications Name Sig Start Date Stop Date Status Note LastModified by Organization Details LastModified Time neomycin- polymyxin -hydrocor t 3.5 mg/mL-10, 000 unit/mL-1 % ear solution INSTILL 4 DROPS IN EAR 2 TIMES PER DAY FOR 7 DAYS FOR OTITIS EXTERNA 11/24 completed Not Available Not Available Not Available prednison e 10 mg tablet PLEASE SEE ATTACHED FOR DETAILED DIRECTIO NS active Not Available Not Available No t Available atorvasta tin 20 mg tablet TAKE 1 TABLET DAILY 01/03 completed Not Available Not Available Not Available torsemide 20 mg tablet TAKE 2 TABLETS BY MOUTH EVERY MORNING active Not Available Not Available No t Available cetirizin e 10 mg tablet TAKE 2 TABLETS IN THE MORNING AND 2 TABLETS IN THE EVENING 01/03 completed Not Available Not Available Not Available hydrochlo rothiazid e 50 mg tablet TAKE 1 TABLET DAILY 03/23 completed Not Available Not Available Not Available metoprolo l succinate ER 200 mg tablet,ex tended release 24 hr TAKE 1 TABLET DAILY 01/03 completed Not Available Not Available Not Available lisinopri l 20 mg tablet TAKE 1 TABLET BY MOUTH EVERY DAY 04/20 completed Not Available Not Available Not Available prednison e 20 mg tablet 2 TABS DAILY FOR 5 DAYS, 1&1/2 TABS DAILY FOR 5 DAYS, 1 TAB DAILY FOR 5 DAYS, 1/2 TAB DAILY X 5 DAYS active Not Available Not Available No t Available fluoroura cil 5 % topical cream APPLY A THIN LAYER TWICE DAILY TO LESIONS OF CONCERNS ON FACE FOR 14 DAYS 11/24 completed Not Available Not Available Not Available metoprolo l succinate ER 100 mg tablet,ex tended release 24 hr TAKE 2 TABLETS BY MOUTH DAILY active Not Available Not Available No t Available metformin 850 mg tablet TAKE 1 TABLET BY MOUTH TWICE A DAY active Not Available Not Available No t Available clobetaso l 0.05 % topical cream APPLY TOPICALL Y TWICE A DAY active Not Available Not Available No t Available penicilli n V potassium 500 mg tablet TAKE 1 TABLET BY MOUTH FOUR TIMES A DAY UNTIL GONE active Not Available Not Available No t Available chlorthal idone 25 mg tablet TAKE 1 TABLET BY MOUTH EVERY DAY active Not Available Not Available No t Available losartan 100 mg-hydroc hlorothia zide 25 mg tablet 01/03 completed Not Available Not Available Not Available amoxicill in 875 mg tablet TAKE 1 TABLET BY MOUTH TWICE DAILY 11/24 completed Not Available Not Available Not Available doxazosin 8 mg tablet TAKE 1 TABLET DAILY active Not Available Not Available No t Available meclizine 25 mg tablet TAKE 1 TABLET BY MOUTH TWICE A DAY 01/03 completed Not Available Not Available Not Available amlodipin e 10 mg tablet TAKE 1 TABLET DAILY active Not Available Not Available No t Available lisinopri l 10 mg tablet TAKE 1 TABLET BY MOUTH EVERY DAY active Not Available Not Available No t Available omeprazol e 20 mg capsule,d elayed release TAKE 1 CAPSULE BY MOUTH EVERY DAY 01/03 completed Not Available Not Available Not Available doxazosin 4 mg tablet TAKE 2 TABLETS BY MOUTH DAILY active Not Available Not Available No t Available hydroxych loroquine 200 mg tablet TAKE 1 TABLET BY MOUTH TWICE A DAY active Not Available Not Available No t Available cefuroxim e axetil 500 mg tablet TAKE 1 TABLET BY MOUTH TWICE A DAY FOR 5 DAYS 11/24 completed Not Available Not Available Not Available levofloxa yuko 750 mg tablet TAKE 1 TABLET BY MOUTH DAILY FOR 5 DAYS 11/24 completed Not Available Not Available Not Available albuterol sulfate HFA 90 mcg/actua tion aerosol inhaler TAKE 2 PUFFS BY MOUTH EVERY 4 HOURS NEEDED active Not Available Not Available No t Available lisinopri l 40 mg tablet Take 1 tablet every day by oral route. 2023 active Not Available Not Available Not Avai lable fluticaso ne propionat e 50 mcg/actua tion nasal spray,karlie pension USE 1 SPRAY IN EACH NOSTRIL TWICE DAILY NEEDED 01/03 completed Not Available Not Available Not Available doxycycli ne hyclate 100 mg tablet TAKE 1 TABLET BY MOUTH TWICE A DAY 11/24 completed Not Available Not Available Not Available amoxicill in 875 mg-potass ium clavulana te 125 mg tablet TAKE 1 TABLET BY MOUTH TWICE A DAY 11/24 completed Not Available Not Available Not Available olmesarta n 40 mg tablet TAKE 1 TABLET DAILY 03/23 completed Not Available Not Available Not Available ezetimibe 10 mg tablet TAKE 1 TABLET BY MOUTH EVERY DAY FOR CHOLESTE ROL active Not Available Not Available No t Available Ciprodex 0.3 %-0.1 % ear drops,karlie pension INSTILL 4 DROPS INTO AFFECTED EAR(S) BY OTIC ROUTE 2 TIMES PER DAY FOR 7 DAYS 2022 active Not Available Not Available Not Avai lable atorvasta tin QD 11/24 completed 173; Recorded 04/04/19 23 12:40PM by Fabio Sutton RN (Authori zed through Radha Lewis MD), Refill Request; Mail Order Quantity : 100 Tablet; Refill Quantity : 0; Not Available Not Available Not Available doxazosin QD 11/24 completed Recorded 03/07/20 22 2:20PM by Radha Lewis MD, Office Visit; Mail Order Quantity : 100 Tablet; Refill Quantity : 0; Not Available Not Available Not Available metoprolo l succinate QD 11/24 completed Recorded 06/30/19 22 11:53AM by Radha Lewis MD, Office Visit; Mail Order Quantity : 100 Tablet; Refill Quantity : 0; Not Available Not Available Not Available metformin two times daily 11/24 completed 173; Recorded 05/24/19 23 1:38PM by Fabio Sutton RN (Authori jenarod through Radha Lewis MD), Refill Request; Mail Order Quantity : 180 Tablet; Refill Quantity : 0; Not Available Not Available Not Available Hyzaar QD 11/24 completed short supply sent to local pharmacy [facility]/; 173; Recorded 05/25/19 23 2:56PM by Fabio Sutton RN (Authori zed through Radha Lewis MD), Refill Request; Refill Quantity : 0; Not Available Not Available Not Available amlodipin e besylate (bulk) QD 11/24 completed 173; Recorded 04/06/19 23 9:29AM by Pippa hunter (Authori zed through Radha Lewis MD), Refill Request; Mail Order Quantity : 90 Tablet; Refill Quantity : 0; Not Available Not Available Not Available potassium chloride ER 20 mEq tablet,ex tended release TAKE 2 TABLETS BY MOUTH DAILY active Not Available Not Available No t Available Vitals Date Recorded Body height Body mass index (BMI) Body weight Oxygen saturation Oxygen saturation in Arterial blood by Pulse oximetry Heart rate Respiratory rate Body temperature Systolic And Diastolic Provider Name and Address Organization Details Last Updated DateTime 4 182.88 cm 32.7 kg/m2 485677. 76 g 96 % 96 % 75 /min 20 /min 98.2 [degF] 190/82 mm[Hg] [facility] 4 14:35:55 Date Recorded Body height Body mass index (BMI) Body weight Body temperature Oxygen saturation Oxygen saturation in Arterial blood by Pulse oximetry Heart rate Systolic And Diastolic Provider Name and Address Organization Details Last Updated DateTime 3 182.88 cm 31.7 kg/m2 940001. 61 g 98.5 [degF] 95 % 95 % 73 /min 170/80 mm[Hg] [facility] 12:02:29 Date Recorded Body height Body mass index (BMI) Body weight Respiratory rate Heart rate Oxygen saturation Oxygen saturation in Arterial blood by Pulse oximetry Body temperature Systolic And Diastolic Provider Name and Address Organization Details Last Updated DateTime 3 182.88 cm 31.8 kg/m2 831541. 01 g 20 /min 80 /min 98 % 98 % 98.3 [degF] 174/68 mm[Hg] [facility] 3 10:13:23 Date Recorded Body height Body mass index (BMI) Body weight Oxygen saturation Oxygen saturation in Arterial blood by Pulse oximetry Heart rate Respiratory rate Body temperature Systolic And Diastolic Provider Name and Address Organization Details Last Updated DateTime 3 182.88 cm 31.2 kg/m2 104487. 25 g 98 % 98 % 64 /min 18 /min 97.5 [degF] 156/70 mm[Hg] PIPPA DURAN [facility] 3 10:39:07 Date Recorded Body height Body weight Body mass index (BMI) Oxygen saturation Oxygen saturation in Arterial blood by Pulse oximetry Heart rate Respiratory rate Body temperature Systolic And Diastolic Provider Name and Address Organization Details Last Updated DateTime 3 182.88 cm 982771. 69 g 30.4 kg/m2 100 % 100 % 76 /min 15 /min 97.3 [degF] 182/91 mm[Hg] Heidi Toby [facility] 3 14:56:53 Social History Question Answer Notes LastModified by [employer] Details LastModified Time Tobacco Smoking Status Former Smoker PIPPA roy [facility] 01/03/2023 10:31:19 Have You Ever Been Counseled For Unhealthy Alcohol Use? No Information not available 01/03/2023 Sex: Unknown Functional Status Question Answer Note LastModified by [employer] Details LastModified Time Do you use any illicit or recreational drugs? No Information not available 01/03/2023 What is your level of alcohol consumption? Occasional Information not available 01/03/2023 Mental Status None recorded. Family History Nothing Reported. Medical History No medical history recorded. Immunizations Vaccine Type Date Status Note Provider Nam e and Address Organization Details Recorded Time Td(adult) unspecified formulation 3 completed Not Available [facility] 03/23/2023 14:02:51 Influenza, split virus, trivalent, preservative 3 completed Not Available [facility] 03/23/2023 14:02:52 zoster recombinant 3 completed FABIO roy [facility] 11/24/2022 10:05:09 COVID-19, mRNA, LNP-S, PF, 100 mcg/0.5mL dose or 50 mcg/0.25mL dose 1 completed [facility]ABIO roy [facility] 11/24/2022 10:05:09 COVID-19, mRNA, LNP-S, PF, 100 mcg/0.5mL dose or 50 mcg/0.25mL dose 1 completed FABIO roy, [facility] 11/24/2022 10:05:09 Pneumococcal conjugate PCV20, polysaccharide NYZ325 conjugate, adjuvant, PF 2 completed FABIO roy, [facility] 11/24/2022 10:05:09 pneumococcal polysaccharide PPV23 5 completed FABIO roy, [facility] 11/24/2022 10:05:10 Influenza, split virus, trivalent, preservative 2 completed FABIO roy [facility] 11/24/2022 10:05:10 Td (adult), 2 Lf tetanus toxoid, preservative free, adsorbed 4 completed FABIO roy, [facility] 11/24/2022 10:05:10 Influenza, split virus, quadrivalent, PF 5 completed FABIO roy, [facility] 11/24/2022 10:05:10 Hep A-Hep B 5 completed FABIO roy [facility] 11/24/2022 10:05:10 Hep A-Hep B 4 completed FABIO roy [facility] 11/24/2022 10:05:10 Hep A-Hep B 4 completed FABIO roy [facility] 11/24/2022 10:05:10 Past Encounters Encounter ID Performer Location Encounter Start Date Encounter Closed Date Diagnosis/Indication Diagnosis SNOMED-CT Code Diagnosis ICD10 Code Diagnosis IMO Codes Diagnosis Note [id number] LESLIE CUMMINGS PA-C [facility] ([facility]) [address] [place] [phone] 07/01/2022 11:21:06 07/07/2022 13:04:37 Impacted cerumen in left ear 1322292881 972836 H61.22 ear flushed with water until clear. TM was visuallize d and normal after. [id number] Radha Lewis MD [facility] ([facility]) [address] [place] [phone] 11/24/2022 09:45:38 12/02/2022 22:52:07 Benign essential hypertension 4842249 I10 Type 2 martha betes mellitus 44285144 E11.9 [id number] Radha Lewis MD [facility] ([facility]) [address] [place] [phone] 01/03/2023 09:53:12 01/03/2023 14:24:48 Benign essential hypertension 6947061 I10 [id number] TERRANCE DE LA TORRE [facility] ([facility]) [address] [place] [phone] 03/15/2023 12:13:28 03/15/2023 16:10:03 Acute otitis externa 27043882 H60.509 Start Ciprodex today. Encouraged patient to avoid swimming and submerging head in water for the next 14 days. Can use heat compresses as needed for pain relief. If not improving in 7 days, should return for further evaluation . Essential hypertension 14800239 I10 Recommend a follow up with PCP regarding BP readings. Recommend keeping a log of morning and evening blood pressures until seen by PCP. If any chest pain, SOB, dizziness, or severe HAs occur, should go to ED. Patient verbalizes understand ing. [id number] aRdha Lewis MD [facility] ([facility]) [address] [place] [phone] 03/23/2023 14:02:33 03/23/2023 15:44:23 Benign essential hypertension 5384275 I10 Cough 63923711 R05.9 Health Concerns Section Related Observation LastModified by Organization Detai ls LastModified Time None Recorded Concern Status LastModified by Organization Details LastModified Time None Recorded Advance Directives Directive None Recorded Payers Insurance Date Sequence Insurance Name Policy Number Policy Forrester Covered Member ID Forrester Member ID Guarantor Name 07/07/2023 [place] - [facility] (MEDICARE) Jose Miguel Edmondisenant [id number] Jose Miguel Dang Jared 04/19/2023 2 [employer] - PLAN F (MEDICARE SUPPLEMENT) Jose Miguel Dang Jared [id number] Jose Miguel Dang Jared 03/23/2023 2 [employer] (MEDICARE SUPPLEMENT) Jose Miguel Dang Jared [id number] Jose Miguel Dang Jaerd 07/07/2023 1 [place] Jose Miguel Edmondisenant [id number] Jose Miguel Dang Jared Notes Date Note Type Note Provider Name and Address Organization Details Recorded Time 3 text/html Ear Pain Brief HPIReported by PatientHPIFor quality, patient reportsaching pain. For severity, patient reportsfeverbut reportscurrent pain 04/29. For location, patient reportsleft. For onset/timing, patient reportsrecurrent episode. For context, patient reportsnon-smoker. For associated symptoms, patient reportsno discharge from ear,no nasal congestion,no nasal discharge,no sore throat,no dental pain, andno jaw pain.ROS as noted in the HPI LESLIE CUMMINGS PA-C [address] [place] [address], [phone], [facility] 07/04/2022 14:45:13 3 text/html Hypertension F/UReported by PatientHPIFor lifestyle, patient reportsnot exercising regularly. For medications, patient reportstaking medications as directed,no side effects from medication, andchecks blood pressure at home, range: (150-160's/70's). For associated symptoms, patient reportsno dizziness,no lightheadedness,no chest pain,no shortness of breath,no palpitations,no edema,no calf pain with exertion, andno headache. Diabetes F/UReported by PatientHPIFor context, patient reportsnot missing doses of medications,not seeing eye doctor regularly, andnot checking feet regularly. For associated symptoms, patient reportsno unintentional weight gain,no unintentional weight loss,no dizziness,no sweats,no headaches,no confusion,no polydipsia,no polyphagia,no polyuria,no blurred vision,no numbness of feet,no calluses on feet,no nocturia,no skin infections,no paresthesia,no fatigue, andno utis.ROS as noted in the HPI Radha Lewis MD [address] [place], [address], [facility] 11/24/2022 10:48:45 3 text/html Hypertension F/UReported by PatientHPIFor lifestyle, patient reportsnot exercising regularly. For medications, patient reportstaking medications as directed,no side effects from medication, andchecks blood pressure at home, range: (140,10/70s). For associated symptoms, patient reportsno dizziness,no lightheadedness,no chest pain,no shortness of breath,no palpitations,no edema,no calf pain with exertion, andno headache.ROS as noted in the HPI Pt states his Bp has been running mainly 160/70s occ it is 140/70s Radha Lewis MD [address] [place], [address], [facility] 01/03/2023 10:58:37 3 text/html Ear Pain Brief HPIReported by PatientHPIFor location, patient reportspain radiates to neckbut reportsleft. For quality, patient reportsaching painbut reportsno discharge from the ears. For severity, patient reportsinterferes with ability to sleepbut reportsno fever,able to perform daily activities, andmoderate pain. For associated symptoms, patient reportssore throatbut reportsno discharge from ear,no nasal congestion,no nasal discharge, andno hearing loss. For onset/timing, patient reportsstarted 2weeks ago,constant pain, andgradual onset. For duration, patient reportsconstant pain. For context, patient reportsno recent trauma. For alleviating factors, patient reportsnsaids.ROS as noted in the HPI Patient is a 72 year old male who presents to the walk in clinic today for left ear pain and sore throat. Reports symptoms for 2 weeks, however, pain is worse today. Reports his ear is now painful to touch. Denies any drainage. Has not tried any OTC medications. Patient also reports BPs running in the 180s/90s for 1 week. Patient recently stopped his olmesartan and hydrochlorothiazide 1 week ago per PCP orders. Is still taking amlodipine, doxazosin, and metoprolol. Denies chest pain, PINEDA, dizziness, or SOB. VILMA DE LA TORRE-Boy [address] [place], [address], [facility] 06/04/2023 23:35:36 4 text/html CoughReported by PatientHPIFor associated symptoms, patient reportswheezing,shortnes s of breath, andnasal dischargebut reportsno feverandno chest pain. For quality, patient reportsdry. For severity, patient reportsmild. For duration, patient reportsacute (<3 weeks). Hypertension F/UReported by PatientHPIFor lifestyle, patient reportsnot exercising regularly. For associated symptoms, patient reportsshortness of breathandedemabut reportsno dizziness,no lightheadedness,no chest pain,no palpitations,no calf pain with exertion, andno headache. For medications, patient reportstaking medications as directedandno side effects from medication.ROS as noted in the HPI s Radha Lewis MD [address] [place], [address], [facility] 03/23/2023 15:39:06
--- OUTSIDE RECORDS SUMMARY | 2024-12-13 19:25 | XMS_ITS | Encounter Summary ---
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 Name Role Phone Unavailable Primary Care Provider Unavailabl e Encounter Details Date Type Department Care Team (Latest Contact Info) Description 04/30/2002 Outpatient Historical [facility] Medicine [place] [address] [facility] [address] [facility] [address] [place] [id number] Nyla Ventura MD SCREENING MAL NEOP-COLON (Primary Dx) Social History Tobacco Use Types Packs/Day Years Used Date Smoking Tobacco: Never Assessed Sex and Gender Information Value Date Recorded Sex Assigned at Not on file 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
--- OUTSIDE RECORDS SUMMARY | 2024-12-13 19:25 | XMS_ITS | Clinical Summary ---
Author Organization [facility] Address [address] 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
[2024-12-13] MEDS: iohexol 350 mg/mL 500 mL Btl (per mL) IV (19:33)
--- NOTE | 2024-12-13 19:34 | ECG_ITS ---
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[id number] Requested By: Baudilio Man Order Number: [id number] Reading MD: ADRIAN CAROLINA Measurements Intervals [place] Rate: 94 P: 66 AR: 177 QRS: 66 QRSD: 120 T: 37 QT: 382 QTc: 478 Interpretive Statements SINUS RHYTHM WITH OCCASIONAL VENTRICULAR PREMATURE COMPLEXES POSSIBLE LEFT ATRIAL ENLARGEMENT [-0.1mV P-WAVE IN V1/V2] SEPTAL MYOCARDIAL INFARCTION , OF INDETERMINATE AGE [40+ ms Q WAVE IN V1/V2] Compared to ECG 10/09/2023 09:43:45 Ventricular premature complex(es) now present Myocardial infarct finding now present Short AR interval no longer present Electronically Signed On 12-14-2024 21:34:46 CDT by ADRIAN CAROLINA [email or web address]
--- NOTE | 2024-12-13 19:35 | ED_ITS ---
HPI - Neuro Symptoms/Deficit 2 General: Chief Complaint: Neuro Symptoms/Deficit Stated Complaint: stroke Time Seen by Provider: 12/13/24 19:16 History of Present Illness: 74-year-old male gentleman with history of diabetes hypertension hyperlipidemia. He presents with sudden onset of left-sided facial and extremity weakness around 610 this evening. 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 No speech difficulty. No vision change. He did have a gait abnormality trying to get to the ambulance [place]. He complains of no symptoms currently. He believes he is back to normal. No headache. No recent illness. No vomiting. No history of hemorrhage Related Data Home Medications ?Medication ?Instructions ?Recorded ?Confirmed clobetasol 0.05 % topical cream 1 applic topical BID P RN Skin 10/09/23 12/09/24 Irritation metoprolol succinate 100 mg 100 mg PO ONCE 02/26/24 tablet,extended release 24 hr allopurinol 200 mg tablet 200 mg PO DAILY 10/29/24 bumetanide 2 mg tablet See Rx Instructions PO BID 0 10/29/24 12/09/24 chlorthalidone 50 mg tablet 25 mg PO DAILY 10/29/24 colchicine 0.6 mg tablet 0.3 mg PO DAILY PRN 10/29/24 12/09/24 Previous Rx's ?Medication ?Instructions ?Recorded doxazosin 4 mg tablet 8 mg (2 x 4 mg) PO DAILY #18 0 tabs 02/14/24 albuterol sulfate 90 mcg/actuation 2 puff inhalation Q 6H PRN 07/05/24 aerosol inhaler shortness of breath or wheez ing #8.5 grams ehasoikmcnywltk-ffhrfxoevnnjlhu-SB 5 ml PO Q6H PRN col d symptoms #118 07/05/24 2 mg-30 mg-10 mg/5 mL oral syrup mL (Bromfed DM) potassium chloride 20 mEq 40 meq (2 x 20 mEq) PO DAILY #180 07/08/24 tablet,extended release tabs hydroxychloroquine 200 mg tablet 200 mg PO ONCE #90 ta bs 07/15/24 mycophenolate mofetil 500 mg 1,500 mg (3 x 500 mg) PO BID lpus 07/15/24 tablet (CellCept) nephriis #180 tabs ezetimibe 10 mg tablet 10 mg PO DAILY cholesterol # 90 tabs 09/11/24 lisinopril 40 mg tablet 40 mg PO DAILY #90 tabs 08/19 09/11 Allergies Allergy/AdvReac Type Severity Reaction Status Date / Time No Known Allergies Allergy Verified 12/09/24 09:53 PFSH ED 2 PFSH: Medical History Lupus nephritis Fluid retention Dependent edema Anasarca High gamma glutamyl transferase (GGT) History of pneumonia Allergic rhinitis due to allergen Hearing impaired Type 2 diabetes mellitus Hyperlipidemia Hypertension Family History Brother Cancer Lung disease Father Stroke Other Diabetes Hypertension Denies family history of CAD (coronary artery disease) Clotting disorder Dementia Hyperlipidemia Psychiatric illness Chronic kidney disease (CKD) Suicide Anesthesia complication Bleeding disorder Family history of premature coronary artery disease Social History Smoking and tobacco/nicotine status: never used tobacco/nicotine Second hand smoke exposure: No Alcohol intake: current Alcohol intake frequency: holidays/special occasions only Alcohol type: beer Substance/Drug Use: never Adopted: No Caregiver/support person: No Lives independently: Yes Household members: spouse Housing: House Marital status: service: Yes ([facility]) NIH stroke score 2 NIHSS: Level Of Consciousness - 1a: 0 Level Of Consciousness Questions - 1b: Both Correct Level Of Consciousness Commands - 1c: Both Correct Best Gaze - 2: Normal Visual Tinajero - 3: No Visual Loss Facial Palsy - 4: N ormal Motor Arm Right - 5: No Drift Motor Arm Left - 5: No Drift Motor Leg Right - 6: No Drift Motor Leg Left - 6: No Drift Limb Ataxia - 7: A bsent Sensory - 8: Normal Best Language - 9: No Aphasia Dysarthia - 10: Normal Extinction And Inattention - 11: 0 Score: Total Score: 0 Physical Exam 2 Const: COMMON NORMALS: no acute distress GENERAL APPEARANCE: cooperative; not ill appearing and not frail appearing HENMT: COMMON NORMALS: normocephalic, atraumatic and Normal external nose present HEAD & SCALP: normocephalic and atraumatic FACE & SINUS: normal facial exam and face symmetric NOSE: Normal external nose present Eye: COMMON NORMALS: Equal, round and reactive pupils present and EOMs intact bilaterally PUPIL: Yes Equal, round and reactive pupils present Neck/C-Spine: GENERAL: Yes trachea midline Chest: CHEST: Yes Symmetrical chest wall rise Resp: COMMON NORMALS: normal respiratory effort, No retractions, No use of accessory muscles and clear to auscultation bilaterally AUSCULTATION: clear to auscultation bilaterally Cardio: COMMON NORMALS: regular rate and regular rhythm RATE: regular rate RHYTHM: regular rhythm GI: COMMON NORMALS: Normal to inspection, nondistended, normoactive bowel sounds present Extremity: COMMON NORMALS: no pedal edema Neuro: MILA COMA SCALE: document GCS findings [place] coma scale eye opening: Spontaneous Mila coma scale verbal response: Orientated Mila coma scale motor response: Obey commands Mila coma scale total score: 15 S ENSORY EXAM: Yes extremities (intact) Psych: COMMON NORMALS: speech normal SPEECH: Yes normal speech Skin: COMMON NORMALS: no rashes or lesions noted GENERAL SKIN EXAM: no rashes or lesions noted Course 2 Vital Signs: Vital signs: Vital Signs Temperature 98 F 12/13/24 19:43 Pulse Rate 77 12/13/24 22:53 Respiratory Rate 16 12/13/24 22:53 Blood Pressure 174/76 12/13/24 22:53 Pulse Oximetry 95 12/13/24 22:53 Oxygen Delivery Me thod Room Air 12/13/24 21:28 MDM - Neuro Symptoms/Deficit Medical Decision Making Patient symptoms are resolved. His NIH scale is now 0. He has walked in the room without any problem. He states that he feels much better than he did at home. His CT of the head shows no acute abnormality. CTA however shows high- grade stenosis in the right M2 sylvian branch raising the question of an embolized calcified plaque. We have sent images to neurology at [facility] as well as to IR. Neurology will call us back with an opinion. As his stroke scale is currently 0, he is not a candidate for TNKase at this time. Spoke with neurology at [facility] in [place]. Dr. Bennett's recommendations are no IR intervention at this time, as it is a calcified plaque likely not amenable to intervention, as well as the resolution of symptoms and NIH score currently of 0. He recommends antiplatelet therapy with aspirin 81 mg, Plavix 75 mg, echocardiogram, MRI. I have spoken with hospitalist regarding observation admission for these. The patient has been quite hypertensive in the emergency department. He has responded transiently to 2 different boluses of labetalol. He was given oral amlodipine here. Blood pressure is down to 172/71 currently. Allowing permissive hypertension at this point given his TIA symptoms and high-grade stenosis in the area listed above. Will continue to monitor. Lab Data 12/13/24 19:35 12/13/24 19:[address] 12/13/24 19:13 IMPRESSION: 1. No acute intracranial abnormality. ASSESSMENT: ASPECTS ([place] Stroke Program Early CT Score) is 10. ADDENDUM: 12/13/241938 The findings were verbally communicated by telephone with Dr. WALDROP at 7:37 PM CDT on 12/13/2024. Head/Neck CTA 12/13/24 19:20 IMPRESSION: 1. High-grade stenosis of a right M2 sylvian branch distal to a dense calcification raising the question of an embolized calcified plaque. IMPRESSION: 1. No evidence of acute thrombosis or high-grade stenosis in the neck. The findings were verbally communicated by telephone with Dr. WALDROP at 7:50 PM CDT on 12/13/2024. REFERENCES: NASCET CRITERIA. The degree of stenosis in the cervical segment of the internal carotid artery is based on NASCET criteria. Normal is no stenosis. Mild is less than 50% stenosis. Moderate is 50-69% stenosis. Severe is 70% to 99% stenosis. Total occlusion is no detectable patent lumen. Laboratory Results WBC 5.31 10^3/uL (3.29-11.43) 12/13/24 19:35 RBC 3.60 10^6/uL (3.85-5.65) L 12/13/24 19:35 Hgb 10.80 g/dL (11.27-16.99) L 12/13/24 19:35 Hct 34.0 % (37-53) L 12/13/24 19:35 MCV 94.4 fl (82-101) 12/13/24 19:35 MCH 30.0 pg (27-33) 12/13/24 19:35 MCHC 31.8 g/dL (30-55) 12/13/24 19:35 RDW 13.3 % (12.1-15.1) 12/13/24 19:35 Plt Count 237 10^3/cmm (157-399) 12/13/24 19:35 MPV 9.6 fL (7.4-10.4) 12/13/24 19:35 Neut % (Auto) 75.3 % 12/13/24 19:35 Lymph % (Auto) 14.3 % 12/13/24 19:35 Swain % (Auto) 7.7 % 12/13/24 19:35 Eos % (Auto) 1.9 % 12/13/24 19:35 Baso % (Auto) 0.4 % 12/13/24 19:35 Neut # (Auto) 4.00 10^3/uL (1.8-7.7) 12/13/24 19:35 Lymph # (Auto) 0.8 10^3/uL (0.8-4.8) 12/13/24 19:35 Swain # (Auto) 0.4 10^3/uL (0.2-0.9) 12/13/24 19:35 Eos # (Auto) 0.1 10^3/uL (0.0-0.8) 12/13/24 19:35 Baso # (Auto) 0.0 10^3/uL (0.0-0.1) 12/13/24 19:35 Nucleated RBC % (auto) 0 % 12/13/24 19:35 Nucleated RBCs # 0.0 /100WBC 12/13/24 19:35 PT 12.40 SECONDS (12.1-14.9) 12/13/24 19:35 INR 0.87 (0.8-1.2) 12/13/24 19:35 APTT 25.8 SECONDS (23.9-36.7) 12/13/24 19:35 Sodium 139 mmol/L (136-145) 12/13/24 19:35 Potassium 3.8 mmol/L (3.5-5.1) 12/13/24 19:35 Chloride 102 mmol/L (98-107) 12/13/24 19:35 Carbon Dioxide 27 mmol/L (22-29) 12/13/24 19:35 Anion Gap 13.8 (5-19) 12/13/24 19:35 BUN 33 mg/dL (8-23) H 12/13/24 19:35 Creatinine 1.0 mg/dL (0.7-1.2) 12/13/24 19:35 GFR Calculation Not Reportable 12/13/24 19:35 Glucose 127 mg/dL (65-115) H 12/13/24 19:35 Calculated Osmolality 297 mOsm/kg (285-295) H 12/13/24 19:35 Calcium 7.9 mg/dL (8.5-10.5) L 12/13/24 19:35 Total Bilirubin 0.2 mg/dL (0.15-1.2) 12/13/24 19:35 AST 22 U/L (0-40) 12/13/24 19:35 ALT 16 U/L (0-41) 12/13/24 19:35 Alkaline Phosphatase 85 U/L (40-130) 12/13/24 19:35 Total Protein 5.2 g/dL (6.6-8.7) L 12/13/24 19:35 Albumin 2.3 g/dL (3.5-5.2) L 12/13/24 19:35 Globulin 2.9 g/dL (1.3-4.6) 12/13/24 19:35 Urine Color Yellow (Yellow) 12/13/24 20:12 Urine Appearance Clear (CLEAR) 12/13/24 20:12 Urine pH 6.0 (5-7) 12/13/24 20:12 Ur Specific [place] 1.025 (1.005-1.030) 12/13/24 20:12 Urine Protein 3+ (Negative) A 12/13/24 20:12 Urine Glucose (UA) Trace (Normal) H 12/13/24 20:12 Urine Ketones Negative (Negative) 12/13/24 20:12 Urine Blood Trace (Negative) A 12/13/24 20:12 Urine Nitrate Negative (Negative) 12/13/24 20:12 Urine Bilirubin Negative (Negative) 12/13/24 20:12 Urine Urobilinogen 0.2 mg/dL (Negative) 12/13/24 20:12 Ur Leukocyte Esterase Negative (Negative) 12/13/24 20:12 Urine RBC 3-5 /hpf (0-2) 12/13/24 20:12 Urine WBC 0-5 /hpf (0-5) 12/13/24 20:12 Ur Squamous Epith Cells 0-5 /hpf (0-5) 12/13/24 20:12 Amorphous Sediment Not Reportable 12/13/24 20:12 Urine Bacteria None seen /hpf (NONE) 12/13/24 20:12 Hyaline Casts 10.73 /lpf 12/13/24 20:12 Urine Opiates Screen Negative ng/mL (Negative) 12/13/24 20:12 Ur Barbiturates Screen Negative ng/mL (Negative) 12/13/24 20:12 Ur Phencyclidine Scrn Negative ng/mL (Negative) 12/13/24 20:12 Ur Amphetamines Screen Negative ng/mL (Negative) 12/13/24 20:12 U Benzodiazepines Scrn Negative ng/mL (Negative) 12/13/24 20:12 Urine Cocaine Screen Negative ng/mL (Negative) 12/13/24 20:12 U Marijuana (THC) Screen Negative ng/mL (Negative) 12/13/24 20:12 Ethyl Alcohol 20 mg/dL (0-10) H 12/13/24 19:35 All radiology interpretation(s) finalized by discharge Critical Care Time 2 Critical Care Time: Critical Care Time: Yes Total Critical Care Time: 40 Attestation: This case had a high probability of a clinically significant, sudden, or life threatening deterioration of this patient's condition which required my full and direct attention, intervention and personal management. Time is independent of any procedures performed. 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
[2024-12-13 19:43] VITALS: BP 233/114; PULSE 92; RESP 22; TEMP 36.6; O2SAT 100; BMI 30.4
[2024-12-13 19:46] LABS: Hematocrit 34.0 % (37-53); Hemoglobin 10.80 g/dL (11.27-16.99); Mean Corpuscular HGB Conc 31.8 g/dL (30-55); Mean Corpuscular Hemoglobin 30.0 pg (27-33); Mean Corpuscular Volume 94.4 fl (82-101); Nucleated Red Blood Cells % 0 %; Platelet Count 237 10^3/cmm (157-399); Red Blood Count 3.60 10^6/uL (3.85-5.65); White Blood Count 5.31 10^3/uL (3.29-11.43)
[2024-12-13 19:52] LABS: INR 0.87 (0.8-1.2); Prothrombin Time 12.40 SECONDS (12.1-14.9)
[2024-12-13 19:53] LABS: Partial Thromboplastin Time 25.8 SECONDS (23.9-36.7)
[2024-12-13 20:04] LABS: Alanine Aminotransferase 16 U/L (0-41); Albumin Level 2.3 g/dL (3.5-5.2); Alcohol Level 20 mg/dL (0-10); Alkaline Phosphatase 85 U/L (40-130); Anion Gap 13.8 (5-19); Aspartate Amino Transferase 22 U/L (0-40); Blood Urea Nitrogen 33 mg/dL (8-23); Calcium 7.9 mg/dL (8.5-10.5); Carbon Dioxide 27 mmol/L (22-29); Chloride 102 mmol/L (98-107); Creatinine Clr Calc Pharmacy 81.2814; Globulin 2.9 g/dL (1.3-4.6); Glucose 127 mg/dL (65-115); Osmolality Calculated 297 mOsm/kg (285-295); Potassium 3.8 mmol/L (3.5-5.1); Sodium 139 mmol/L (136-145); Total Protein 5.2 g/dL (6.6-8.7)
[2024-12-13 20:36] LABS: Glucose Urine UA Trace (Normal); Nitrate Urine Negative (Negative); Specific Gravity, Urine 1.025 (1.005-1.030)
[2024-12-13 20:39] LABS: Add Urine Microscopic? YES
[2024-12-13 20:44] LABS: PCP Screen Urine Negative (Negative)
[2024-12-13 20:47] LABS: UA Slide Review UA Slide Review Perf
[2024-12-13] MEDS: labetalol 5 mg/mL SDV 20mL 10 MG IVP ×2 (21:14→21:41)
[2024-12-13 21:28] VITALS: BP 197/85; PULSE 79; RESP 18; O2SAT 98
--- NOTE | 2024-12-13 22:31 | PM.HP ---
Providers/Chief Complaint Admitting Physician: Mag Torres MD--- patient admitted before 12 midnight Primary Care Provider: Sebsatián Cochran MD Chief Complaint: stroke History of Present Illness Jose Miguel Coleman is a 74 year old male with medical history significant for hypertension lupus, presenting to the emergency room because of an abrupt left-sided weakness while doing some cleaning out at home. He found that the left hand was not working well not cooperating at all with him and he also then found out that he could not walk because his left foot was not carrying on the weight. Patient decided to come to the emergency room but by the time patient mated to the emergency room all the symptomatology regarding the left side had resolved patient just received aspirin and Plavix the area no need for thrombolytics because patient did not have any other thing going on. The emergency room physician had called the higher institution for the scope and they felt like there is nothing to add to care except for give antiplatelets and for that reason did not be excepting the patient. I was called to evaluate patient for admission and as I walked into the room and noticed that patient has left facial droop I called the attention of the patient and the they said they never noted and confirmed that yes he has a droop. Again this will take 24 hours should this resolve within 24 hours then this will be seen as a TIA. I will follow through with obtaining an MRI this morning for this patient. Patient be monitored prior to discharge. Echocardiogram be obtained and read as well. If we could not get an MRI then CTA of the head and neck done if not already done in the ED. PT OT to see the patient speech may have to evaluate the patient as well. Review of Systems Narrative: System review upon 10 organ review where entirely unremarkable except for neurological event that had happened as narrated otherwise system review where unremarkable. Medications/Allergies Home Medications ?Medication ?Instructions ?Recorded ?Confirmed ?Last Taken ?Type clobetasol 0.05 % topical cream 1 applic topical BID PRN Skin 10/09/23 12/09/24 Unknown History Irritation doxazosin 4 mg tablet 8 mg (2 x 4 mg) PO DAILY #180 tabs 02/14/24 12/09/24 Unknown Rx metoprolol succinate 100 mg 100 mg PO ONCE 02/26/24 12/09/24 Unknown History tablet,extended release 24 hr albuterol sulfate 90 mcg/actuation 2 puff inhalation Q6H PRN 07/05/24 12/09/24 Unknown Rx aerosol inhaler shortness of breath or wheezing #8.5 grams mqkyjbnxpcznanc-zkhgujcdhiqkahb-ZS 5 ml PO Q6H PRN cold symptoms #118 07/05/24 12/09/24 Unknown Rx 2 mg-30 mg-10 mg/5 mL oral syrup mL (Bromfed DM) potassium chloride 20 mEq 40 meq (2 x 20 mEq) PO DAILY #180 07/08/24 12/09/24 Unknown Rx tablet,extended release tabs hydroxychloroquine 200 mg tablet 200 mg PO ONCE #90 tabs 07/15/24 12/09/24 Unknown Rx mycophenolate mofetil 500 mg 1,500 mg (3 x 500 mg) PO BID lpus 07/15/24 12/09/24 Unknown Rx tablet (CellCept) nephriis #180 tabs ezetimibe 10 mg tablet 10 mg PO DAILY cholesterol #90 tabs 09/11/24 12/09/24 Unknown Rx lisinopril 40 mg tablet 40 mg PO DAILY #90 tabs 09/12/24 12/09/24 Unknown Rx allopurinol 200 mg tablet 200 mg PO DAILY 10/29/24 12/09/24 Unknown History bumetanide 2 mg tablet See Rx Instructions PO BID 10/29/24 12/09/24 Unknown History chlorthalidone 50 mg tablet 25 mg PO DAILY 10/29/24 12/09/24 Unknown History colchicine 0.6 mg tablet 0.3 mg PO DAILY PRN 10/29/24 12/09/24 Unknown History Allergies Allergy/AdvReac Type Severity Reaction Status Date / Time No Known Allergies Allergy Verified 12/09/24 09:53 PFSH Acute PFSH: Medical History Lupus nephritis Fluid retention Dependent edema Anasarca High gamma glutamyl transferase (GGT) History of pneumonia Allergic rhinitis due to allergen Hearing impaired Type 2 diabetes mellitus Hyperlipidemia Hypertension Family History Brother Cancer Lung disease Father Stroke Other Diabetes Hypertension Denies family history of CAD (coronary artery disease) Clotting disorder Dementia Hyperlipidemia Psychiatric illness Chronic kidney disease (CKD) Suicide Anesthesia complication Bleeding disorder Family history of premature coronary artery disease Social History Smoking and tobacco/nicotine status: never used tobacco/nicotine Second hand smoke exposure: No Alcohol intake: current Alcohol intake frequency: holidays/special occasions only Alcohol type: beer Substance/Drug Use: never Adopted: No Caregiver/support person: No Lives independently: Yes Household members: spouse Housing: House Marital status: service: Yes ([facility]) Vitals/I&O/Wt Last Vital Signs Temp 98 F 12/13/24 19:43 Pulse 79 12/13/24 21:28 Resp 18 12/13/24 21:28 BP 197/85 12/13/24 21:28 Pulse Ox 98 12/13/24 21:28 O2 Del Method Room Air 12/13/24 21:28 12/13/24 12/13/24 12/13/24 06:59 14:59 22:59 Intake Total 0 / 0 Balance 0 / 0 Weight last 48 hrs Weight 101.968 kg Weight 101.786 kg Physical Exam Narrative: Patient is not ill-appearing and not toxic. 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 There is positive left facial droop Data 12/14/24 02:23 12/14/24 02:23 A&P Assessment and plan 1. Transient cerebral ischemia: 2. Lupus nephritis: 3. Gout: 4. Accelerated hypertension: 5. Left-sided weakness: Plan: #1 TIA with an active left facial droop but with resolution of left-sided weakness - Continue antiplatelets with an admission to stepdown unit - May obtain MRI of the brain today or CTA of the head and neck - Monitor the resolution of the left-sided facial droop - May have speech to evaluate, PT OT to evaluate ambulation and self-care #2 Dehydration - Gentle hydration #3 Accelerated hypertension likely secondary to events of TIA/CVA - Continue to optimize high blood pressure but cannot optimize to a low blood pressure or close to that - Must allow perfusion of the brain at this time #4 GI and DVT prophylaxis in place PDMP PDMP Reviewed: Last Reviewed 12/14/24 05:26 by Mag Torres MD Attestations Medical Necessity Statement*: Patient with TIA on presentation with left facial droop will need further monitoring for at least 2 midnights Coding Level of Care Code 21103 Diagnoses Transient cerebral ischemia G45.9 Lupus nephritis M32.14 Gout M10.9 Accelerated hypertension I10 Left-sided weakness R53.1 Time Spent (min) 60
[2024-12-13 22:53] VITALS: BP 174/76; PULSE 77; RESP 16; O2SAT 95
[2024-12-14] VITALS (7 sets, daily range): BP systolic 170–191; BP diastolic 82–98; PULSE 80–89; RESP 10–20; TEMP 36.3–36.9; O2SAT 97–100
[2024-12-14] MEDS: pantoprazole 40 mg SDV IVP ×2 (00:39→21:34)
[2024-12-14] MEDS: heparin 5,000 unit/mL INJ 1 mL 5000 UNIT SUBCUT ×4 (00:41→21:35)
[2024-12-14 02:53] LABS: Hematocrit 34.0 % (37-53); Hemoglobin 10.70 g/dL (11.27-16.99); Mean Corpuscular HGB Conc 31.5 g/dL (30-55); Mean Corpuscular Hemoglobin 29.4 pg (27-33); Mean Corpuscular Volume 93.4 fl (82-101); Nucleated Red Blood Cells % 0 %; Platelet Count 237 10^3/cmm (157-399); Red Blood Count 3.64 10^6/uL (3.85-5.65); White Blood Count 6.11 10^3/uL (3.29-11.43)
--- NOTE | 2024-12-14 03:03 | XRR_ITS ---
PROCEDURE INFORMATION: Exam: XR Bilateral Hips Exam date and time: 12/14/2024 3:26 AM Age: 74 years old Clinical indication: Injury or trauma; Blunt trauma (contusions or hematomas); Fall from standing onto buttocks. C/O low back and left hip pain. TECHNIQUE: Imaging protocol: Radiologic exam of the bilateral hips. Views: 2 views of hips with pelvis when performed. COMPARISON: CT abdomen pelvis wo con [id number] 10/09/2023 12:38 PM FINDINGS: Bones/joints: No fracture or subluxation. Degenerative changes lower lumbar spine. Soft tissues: Unremarkable. Organs: Contrast material in the bladder. XR/XR hip BI 3-4V wo/w pel [id number] IMPRESSION: No fracture or subluxation.
--- NOTE | 2024-12-14 03:03 | XRR_ITS ---
PROCEDURE INFORMATION: Exam: XR Lumbosacral Spine Exam date and time: 12/14/2024 3:17 AM Age: 74 years old Clinical indication: Injury or trauma; Blunt trauma (contusions or hematomas); Prior surgery; Surgery date: 6+ months; Surgery type: Hernia repair; Fall from standing onto buttocks. C/O low back and left hip pain. TECHNIQUE: Imaging protocol: Radiologic exam of the lumbosacral spine. Views: 2 or 3 views. COMPARISON: [place] bone scan whole body* [id number] 01/19/2022 7:18 AM FINDINGS: Bones/joints: Moderate disc narrowing L3-L4 L4-L5. Anterior and posterior vertebral: Lines are intact. No listhesis. Multilevel facet arthropathy most prominent in the lower lumbar spine. No acute fracture or subluxation. Degenerative changes as above. Soft tissues: Unremarkable. XR/XR lumbar spine 2-3V* [id number] IMPRESSION: 1. No acute fracture or subluxation. 2. Degenerative changes as above.
[2024-12-14 03:17] LABS: Alanine Aminotransferase 14 U/L (0-41); Albumin Level 2.4 g/dL (3.5-5.2); Alkaline Phosphatase 83 U/L (40-130); Anion Gap 13.7 (5-19); Aspartate Amino Transferase 19 U/L (0-40); Blood Urea Nitrogen 30 mg/dL (8-23); Calcium 8.0 mg/dL (8.5-10.5); Carbon Dioxide 26 mmol/L (22-29); Chloride 106 mmol/L (98-107); Creatinine Clr Calc Pharmacy 99.0055; Globulin 2.8 g/dL (1.3-4.6); Glucose 115 mg/dL (65-115); Magnesium 2.2 mg/dL (1.7-2.3); Osmolality Calculated 301 mOsm/kg (285-295); Potassium 3.7 mmol/L (3.5-5.1); Sodium 142 mmol/L (136-145); Total Protein 5.2 g/dL (6.6-8.7)
--- NOTE | 2024-12-14 03:44 | PC.NURSE ---
patient sitting to sit on side of bed to use urinal, nurse stepped out of room momentarily and returned to find patient sitting on floor, patient stated he had dropped urinal and bent over to pick it up and slid on floor, patient assisted back to bed, patient denies any pain or injuries, denies hitting his head, no injuries noted on assessment, bp 179/92, hr 80, O2 95% RA, RR 20, patient educated not to attempt to flower picker any items and to call for help instead, bed alarm set, Dr Torres notified, x-rays ordered
--- NOTE | 2024-12-14 07:00 | MRR_ITS ---
PROCEDURE INFORMATION: Exam: MR Head Without Contrast Exam date and time: 12/14/2024 9:04 AM Age: 74 years old Clinical indication: Weakness, extremity and weakness, facial; Left; Additional info: Left facial droop, patient left-sided weakness and hemiparesis had resolved TECHNIQUE: Imaging protocol: Magnetic resonance imaging of the head without contrast. COMPARISON: CT angio headneck* [id number] 12/13/2024 7:21 PM FINDINGS: Brain: There is a small area of patchy acute ischemia involving the superior aspect of the right centrum semiovale. This area measures about 2.5 cm in diameter. No evidence of hemorrhage or significant mass effect. No midline shift. Mild chronic ischemic change involves the periventricular white matter bilaterally. Cerebral ventricles: Normal. No ventriculomegaly. Bones: Unremarkable. Paranasal sinuses: Bilateral maxillary sinus disease is noted. Mastoid air cells: Normal as visualized. No mastoid effusion. Orbital cavities: Unremarkable. Soft tissues: Unremarkable. MR/MR head wo con* [id number] IMPRESSION: Small acute infarct involving the right centrum semiovale with no evidence of hemorrhage
--- NOTE | 2024-12-14 09:11 | PC.NURSE ---
Assisted patient up to wheelchair x1 assist. Patient taken to MRI at this time. Patient is extremely weak on the left side. He also is favoring his left side. speech remains clear and is aaox4.
--- NOTE | 2024-12-14 11:50 | PC.CHAP ---
Pastoral Care Encounter/Spiritual Assessment Type of Contact [] Declined study coordinator visit [] Patient/Family/Request visit [] Outpatient visit [] Follow-up visit [] Physician referral [] Code/Alert [X] Routine visit [] Staff referral [] Actively dying [] Patient sleeping [] Family support [] [] Out of room [] Palliative care [] [X] Receiving care in room [] Pre-surgical visit [] Trauma [] Long length of stay [] ICU visit [] Other: Relational/Emotional Strength [] Patient feels connected with others/family/visitors/staff [] Distress [] Loneliness/isolation [] Abandonment Spirituality of Patient [] Person of Lise [] Attends Restorationist of their Lise [] Believes in Prayer [] Reads Bible or Hoahaoism materials [] There are Spiritual issues to be addressed Marine Meteorologist Interventions [] Prayer [] Active listening [] Non-anxious presence [] Spiritual/emotional support [] Crisis/trauma care [] Spiritual counseling [] Bereavement support [] Provided bereavement packet [] Provided Bible/devotional materials [] Provided toy/stuffed animal, coloring book to patient or family member [] Provided Communion [] Anointing/[place] [] Salvation [] Completed spiritual assessment [] Other: Impact on Illness or Injury [] Angry [] Fearful [] Anxious [] Often cries [] Exhaustion [] Unable to work [] Unable to attend confucianist [] Unable to walk/stand [] Unable to read [] Unable to drive [] Unable to eat/drink [] Unable to sleep [] Unable to be with family [] Patient intubated [] Other: Summary Time spent with patient
--- NOTE | 2024-12-14 12:00 | P.PN_ITS ---
Subjective 2 Subjective: ongoing Left UE weakenss, decreased sensation. Vitals/I&O/Wt Last Vital Signs Temp 98.4 F 12/14/24 11:36 Pulse 81 12/14/24 11:36 Resp 20 H 12/14/24 11:36 BP 180/95 12/14/24 11:36 Pulse Ox 98 12/14/24 11:36 O2 Del Method Room Air 12/14/24 11:36 12/13/24 12/14/24 12/14/24 22:59 06:59 14:59 Intake Total 0 / 0 480 / 480 Output Total 200 / 200 200 / 200 Balance 0 / 0 -200 / -200 280 / 280 Weight last 48 hrs Weight 96.706 kg Weight 96.388 kg Weight 101.968 kg Weight 101.786 kg Physical Exam 2 Const: COMMON NORMALS: no acute distress, average body habitus and patient oriented x3 HENMT: COMMON NORMALS: normocephalic and atraumatic HEAD & SCALP: n ormocephalic and atraumatic Eye: COMMON NORMALS: Equal, round and reactive pupils present and EOMs intact bilaterally PUPIL: Yes Equal, round and reactive pupils present Neck/C-Spine: COMMON NORMALS: full ROM, no lymphadenopathy and supple Resp: COMMON NORMALS: normal respiratory effort and clear to auscultation bilaterally AUSCULTATION: clear to auscultation bilaterally Cardio: COMMON NORMALS: regular rate, regular rhythm, S1 normal heart sound present, S2 normal heart sound present, No gallops present (Cardio), No murmurs present (Cardio) and No rub (Cardio) RATE: regular rate RHYTHM: regular rhythm HEART SOUNDS: S1 normal heart sound present and S2 normal heart sound present GI: COMMON NORMALS: Soft to palpation, non-tender, no masses and no bruits PALPATION: Yes Soft to palpation Neuro: COMMON NORMALS: patient oriented x3 and CN's II-XII intact bilaterally SENSORIUM/ORIENTATION: Yes other (decreased strength 4/5 on left UE, 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 Left-sided weakness: 2. CVA (cerebral vascular accident): Plan: 74 year old male presentign with left sided weakness. 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 - will need vascular follow up within 2 weeks. - cont. ASA/plavix, intensive statin, cont. zetia - lumbar xray without fractures Dehydration - Gentle hydration - hold bumex Lupus nephritis: - cont. doxazosin, cellcept Gout: Accelerated hypertension likely secondary to events of TIA/CVA - cont. chlorthalidone, lisinopril, BB #4 GI and DVT prophylaxis in place Disposition - speech to evaluate, PT OT to evaluate ambulation and self-care - home meds restarted PDMP PDMP Reviewed: Not Reviewed Attestations 2 Medical Necessity Statement*: ongoing inpatient stay for acute CVA Time Spent in Patient Care: 16 - 35 minutes (>than 50% of time sp ent in counselling and/or direct pt care on unit) . Coding Level of Care Code Acute Code for Chg Fwd Diagnoses Left-sided weakness R53.1 CVA (cerebral vascular accident) I63.9
[2024-12-14 12:44] LABS: Estmated Average Glucose 134; Hemoglobin A1C 6.3 % (4.0-6.0)
--- NOTE | 2024-12-14 13:24 | PC.NURSE ---
Patient assisted up to bathroom using walker and gait belt. Patient tolerated well. Denies pain or other needs at this time.
[2024-12-15] VITALS: BP 197/83; PULSE 79; RESP 15; TEMP 36.8; O2SAT 98
[2024-12-15 03:51] LABS: Hematocrit 31.9 % (37-53); Hemoglobin 9.90 g/dL (11.27-16.99); Mean Corpuscular HGB Conc 31.0 g/dL (30-55); Mean Corpuscular Hemoglobin 29.2 pg (27-33); Mean Corpuscular Volume 94.1 fl (82-101); Nucleated Red Blood Cells % 0 %; Platelet Count 218 10^3/cmm (157-399); Red Blood Count 3.39 10^6/uL (3.85-5.65); White Blood Count 5.01 10^3/uL (3.29-11.43)
[2024-12-15 04:00] VITALS: BP 190/91; PULSE 74; RESP 15; TEMP 37.1; O2SAT 97
[2024-12-15 04:16] LABS: Anion Gap 8.6 (5-19); Blood Urea Nitrogen 26 mg/dL (8-23); Calcium 7.6 mg/dL (8.5-10.5); Carbon Dioxide 26 mmol/L (22-29); Chloride 106 mmol/L (98-107); Creatinine Clr Calc Pharmacy 88.1364; Glucose 111 mg/dL (65-115); Osmolality Calculated 289 mOsm/kg (285-295); Potassium 3.6 mmol/L (3.5-5.1); Sodium 137 mmol/L (136-145)
[2024-12-15 04:32] LABS: Cholesterol 203 mg/dL (0-200); HDL Cholesterol 46 mg/dL (60-100); Triglycerides 158 mg/dL (0-150)
[2024-12-15] MEDS: heparin 5,000 unit/mL INJ 1 mL 5000 UNIT SUBCUT ×3 (05:35→22:01)
[2024-12-15] MEDS: metoprolol succinate ER (24 HR) 100 mg Tablet PO (07:49)
[2024-12-15 08:00] VITALS: BP 198/72; PULSE 78; RESP 27; TEMP 36.7; O2SAT 97
--- NOTE | 2024-12-15 10:52 | P.PN_ITS ---
Subjective 2 Subjective: Left sided weakness improving. Vitals/I&O/Wt Last Vital Signs Temp 98.0 F 12/15/24 08:00 Pulse 78 12/15/24 08:00 Resp 27 H 12/15/24 08:00 BP 198/72 12/15/24 08:00 Pulse Ox 97 12/15/24 08:00 O2 Del Method Room Air 12/15/24 04:00 12/14/24 12/15/24 12/15/24 22:59 06:59 14:59 Intake Total 420 / 2100 987.5 / 3087.5 360 / 360 Output Total 400 / 900 250 / 250 Balance 20 / 1200 987.5 / 2187.5 110 / 110 Weight last 48 hrs Weight 97.205 kg Weight 96.706 kg Weight 96.388 kg Weight 101.968 kg Weight 101.786 kg Physical Exam 2 Narrative: Physical Exam Const: no acute distress, average body habi tus and patient or iented x3 HENMT: normocephalic and atraumatic Eye: Equal, round and r eactive pupils pre sent and EOMs inta ct bilaterally Neck/C-Spine: full ROM, no lymph adenopathy and sup ple Resp: normal respiratory effort and clear to auscultation bi laterally Cardio: regular rate, regu lar rhythm, S1/S2 normal, No gallops , No murmurs and N o rub GI: Soft to palpation, non-tender, no ma sses and no bruits Neuro: patient oriented x 3 and CN's II-XII intact bilaterally . 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 Per , sl ight left corner o f mouth downturn i s chronic, not new . Psych: mental status aliza sly normal, Normal thought process p resent, cooperativ e, normal affect a nd speech normal Skin: no rashes or lesio ns noted GENERAL SKIN EXAM: no rash es or lesions note d Data 12/15/24 03:21 12/15/24 03:21 A&P Assessment and plan 1. CVA (cerebral vascular accident): 2. Left-sided weakness: Plan: 74 year old male presenting with left sided weakness. Acute CVA - Left-sided weakness - acute left facial droop (resolved) - left-sided weakness ongoing, improved this AM. 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 - will need vascular follow up within 2 weeks as outpatient. - cont. ASA/plavix, intensive statin, cont. zetia - lumbar xray without fractures - echo Dehydration - Gentle hydration - hold bumex Lupus nephritis: - cont. doxazosin, cellcept Gout: Accelerated hypertension likely secondary to events of TIA/CVA - cont. chlorthalidone, lisinopril, BB GI and DVT prophylaxis in place Diet: cardiac Disposition - PT OT to evaluate ambulation and self-care - home meds restarted - may benefit from ongoing therapies PT/OT are recommending outpatient services after discharge. PDMP PDMP Reviewed: Not Reviewed Attestations 2 Medical Necessity Statement*: Ongoing inpatient for CVA Time Spent in Patient Care: 16 - 35 minutes (>than 50% of time sp ent in counselling and/or direct pt care on unit) . Coding Level of Care Code Acute Code for Chg Fwd Diagnoses CVA (cerebral vascular accident) I63.9 Left-sided weakness R53.1
--- NOTE | 2024-12-15 11:00 | USCV_ITS ---
Jose Miguel Coleman Age: 74 Gender: M : 1950 Exam Date: 12/15/2024 13:43 Ordering Phys: Elia Rangel MD Technologist: Ron Luis [place] [facility] [place]: cva BP: 198 / 72 HR: 66 Rhythm: Sinus Technical Quality: Adequate MEASUREMENTS (Male / Female) Normal Values 2D ECHO LV Diastolic Diameter PLAX 5.9 cm 4.2 - 5.9 / 3.9 - 5.3 cm IVS Diastolic Thickness 1.3 cm 0.6 - 1.0 / 0.6 - 0.9 cm IVS Systolic Thickness 2.3 cm LVPW Diastolic Thickness 0.9 cm 0.6 - 1.0 / 0.6 - 0.9 cm LVPW Systolic Thickness 2.1 cm LVOT Diameter 2.1 cm LV Ejection Fraction 2D Teich 69.6 % LV Ejection Fraction MOD 4C 69.3 % LV Ejection Fraction MOD 2C 61.0 % LV Ejection Fraction 2C AL 60.5 % LA Diameter 3.3 cm RA Systolic Volume 4C AL 35.4 ml RA Systolic Volume 4C MOD 35.1 ml LA Sys Volume AL 71.5 cm cubed LA Sys Volume Index AL 31.9 cm cubed/m squared Aorta at Sinotubular Diameter 2.5 cm IVC Diameter 1.9 cm M-MODE LA Ao Ratio MM 1.3 AV Cusp Separation MM 1.6 cm DOPPLER AV Peak Velocity 163.0 cm/s LVOT Peak Velocity 92.0 cm/s AV Area Cont Eq vti 2.4 cm squared AV Area Cont Eq pk 2.0 cm squared MV Peak Velocity 115.0 cm/s MV Area PHT 3.7 cm squared Mitral E to A Ratio 0.7 TV Peak Velocity 485.3 cm/s TR Peak Velocity 498.0 cm/s TR Peak Gradient 99.2 mmHg TR Mean Velocity 380.0 cm/s TR Mean Gradient 62.2 mmHg TR Velocity Time Integral 118.8 cm PV Peak Velocity 108.7 cm/s RV Ejection Time 0.3 s FINDINGS Left Ventricle Normal left ventricular size and systolic function, EF 60-65%. No regional wall motion abnormalities. Grade 1 diastolic dysfunction Right Ventricle Normal right ventricular size and systolic function. Right Atrium Normal right atrial size. Echogenic structure seen in right atrium. 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 Bubble study does not show evidence of intracardiac shunting Left Atrium Normal left atrial size. Mitral Valve Structurally normal mitral valve. Mild mitral valve regurgitation. Aortic Valve Thickened aortic valve. No significant stenosis or regurgitation. Tricuspid Valve Insufficient TR jet to calculate RVSP Pulmonic Valve Not well visualized Pericardium Normal Aorta Normal in size IVC Not well visualized CONCLUSIONS LV systolic function is normal with EF of 60-65%. Grade 1 diastolic dysfunction. Echogenic structure seen in right atrium. 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 Clinical correlation is required. Bubble study does not show evidence of intracardiac shunting Mild mitral valve regurgitation. Malik Ye MD (Electronically Signed) Final Date: 16 December 2024 12:33 S
--- NOTE | 2024-12-15 13:11 | PC.NURSE ---
Patient is c/o increases slurring of words and heaviness to left arm. Observed worsening of facial droop. Informed Dr Rangel. No new orders received.
[2024-12-15 14:00] VITALS: PULSE 70
[2024-12-15 16:00] VITALS: BP 195/95; PULSE 77; RESP 23; TEMP 36.7; O2SAT 97
--- NOTE | 2024-12-15 16:01 | PC.NURSE ---
Patient requesting to be weighed at this time. He says I feel a little tao. Patient has put on 9lb. His left side is swollen. Informed Dr Rangel and received order to stop IVF.
[2024-12-15 19:44] VITALS: BP 169/86; PULSE 83; RESP 18; TEMP 36.8
[2024-12-15] MEDS: pantoprazole 40 mg SDV IVP (22:00)
[2024-12-16] VITALS (7 sets, daily range): BP systolic 160–196; BP diastolic 74–91; PULSE 65–76; RESP 13–21; TEMP 36.6–36.9; O2SAT 95–97
[2024-12-16 04:35] LABS: Hematocrit 31.4 % (37-53); Hemoglobin 9.70 g/dL (11.27-16.99); Mean Corpuscular HGB Conc 30.9 g/dL (30-55); Mean Corpuscular Hemoglobin 29.0 pg (27-33); Mean Corpuscular Volume 93.7 fl (82-101); Nucleated Red Blood Cells % 0 %; Platelet Count 203 10^3/cmm (157-399); Red Blood Count 3.35 10^6/uL (3.85-5.65); White Blood Count 5.57 10^3/uL (3.29-11.43)
[2024-12-16 05:06] LABS: Anion Gap 11.6 (5-19); Blood Urea Nitrogen 31 mg/dL (8-23); Calcium 7.8 mg/dL (8.5-10.5); Carbon Dioxide 25 mmol/L (22-29); Chloride 107 mmol/L (98-107); Creatinine Clr Calc Pharmacy 81.1124; Glucose 98 mg/dL (65-115); Osmolality Calculated 297 mOsm/kg (285-295); Potassium 3.6 mmol/L (3.5-5.1); Sodium 140 mmol/L (136-145)
[2024-12-16] MEDS: heparin 5,000 unit/mL INJ 1 mL 5000 UNIT SUBCUT (06:02)
[2024-12-16] MEDS: metoprolol succinate ER (24 HR) 100 mg Tablet PO (08:40)
--- NOTE | 2024-12-16 09:28 | PC.SOCIAL ---
IMM Update pg 2 of IMM Updated and reviewed w/ patient and signed by patient. Copy provided and copy dated, initialed and placed in chart.
--- NOTE | 2024-12-16 09:51 | PC.CHAP ---
Pastoral Care Encounter/Spiritual Assessment Type of Contact [] Declined mold worker visit [] Patient/Family/Request visit [] Outpatient visit [] Follow-up visit [] Physician referral [] Code/Alert [x] Routine visit [] Staff referral [] Actively dying [] Patient sleeping [] Family support [] [] Out of room [] Palliative care [] [x] Receiving care in room [] Pre-surgical visit [] Trauma [] Long length of stay [] ICU visit [] Other: Relational/Emotional Strength [] Patient feels connected with others/family/visitors/staff [] Distress [] Loneliness/isolation [] Abandonment Spirituality of Patient [] Person of Lise [] Attends Denominational of their Lise [] Believes in Prayer [] Reads Bible or Anabaptist materials [] There are Spiritual issues to be addressed Database Programmer Analyst Interventions [x] Prayer [] Active listening [] Non-anxious presence [] Spiritual/emotional support [] Crisis/trauma care [] Spiritual counseling [] Bereavement support [] Provided bereavement packet [] Provided Bible/devotional materials [] Provided toy/stuffed animal, coloring book to patient or family member [] Provided Communion [] Anointing/[place] [] Salvation [] Completed spiritual assessment [] Other: Impact on Illness or Injury [] Angry [] Fearful [] Anxious [] Often cries [] Exhaustion [] Unable to work [] Unable to attend taoism [] Unable to walk/stand [] Unable to read [] Unable to drive [] Unable to eat/drink [] Unable to sleep [] Unable to be with family [] Patient intubated [] Other: Summary Time spent with patient
--- NOTE | 2024-12-16 10:25 | USCV_ITS ---
Jose Miguel Coleman Age: 74 Gender: M : 1950 Exam Date: 12/16/2024 13:14 Ordering Phys: Shira Sterling MD Technologist: Exam Location[place] [facility] [place]: lt arm swelling PROCEDURES: Venous duplex imaging was performed in only the left upper extremity. The following venous structures were evaluated: internal jugular vein, subclavian vein, axillary vein, and brachial veins. In addition, the basilic vein, cephalic vein, radial vein, and ulnar vein. FINDINGS: No evidence of deep vein thrombosis or superficial thrombophlebitis in the left upper extremity. CONCLUSIONS No evidence of thrombus of the left upper extremity veins. Phan Quispe MD (Electronically Signed) Final Date: 16 December 2024 16:45 S
--- NOTE | 2024-12-16 11:30 | PM.DCS ---
Discharge Providers Date of Admission: 12/13/24 20:52 Date of Discharge: December 16, 2024 Attending Provider at Admission: Mag Torres MD Attending Provider at Discharge: Shira Sterling MD Primary Care Provider: Sebastián Cochran MD Diagnoses at Discharge Discharge Diagnosis 1. CVA (cerebral vascular accident): 2. Left-sided weakness: Reason for Visit Reason for Visit: stroke Hospital Course Hospital Course 74 year old male with medical history significant for hypertension, lupus, gout on allopurinol ppx, on chronic prednisone 1mg po daily , being tapered down from presenting to the emergency room because of an abrupt left-sided weakness while doing some cleaning out at home. NIHSS at arrival was estimated at zero per review of ER records. CT of the head did not show acute abnormality. CTA showed high-grade stenosis in the right M2 sylvian branch raising the question of an embolized calcified plaque. Images were sent to neurology at [facility] as well as to IR there. He was not considered a TNKase candidate due to low NIHSS. Neurology at [facility] opined that calcified plaque likely not amenable to intervention, antiplatelet therapy with aspirin 81 mg, Plavix 75 mg, echocardiogram and usual stroke care was recommended. Patient was noted to have left sided facial droop by the time he was seen by admitting hospitalist and LUE weakness which has persisted. Facial droop is resolved today. MRI of the brain showed a small acute infarct involving the right centrum semiovale with no evidence of hemorrhage. Patient was evaluated by physical therapy, Occupational Therapy and speech therapy during the course of admission. Please see their assessments for details. Patient is being discharged to acute rehab for poststroke rehabilitative care. Outpatient follow-up recommended with neurology within 2 weeks No A-fib was noted on telemetry during course of admission. Outpatient event monitor is recommended at discharge given suspicion for embolization. Echocardiogram remains pending at discharge. Patient will be called if reported abnormal. Patient was noted to have left hand and forearm swelling today. Patient states that he has intermittent swelling affecting his left upper extremity and left lower extremity on and off for many years. It has been attributed previously to either gout flares versus anasarca. However given the asymmetry of the upper extremity swelling, would be prudent to rule out DVT since patient does have underlying lupus which makes him high risk of thromboembolic events. An upper extremity Doppler has been ordered and is currently pending at the time of this discharge. If Doppler returns negative, possibility of gout remains. Resume his home allopurinol prophylaxis and also added colchicine for acute flare. Patient reports that he is recently on a prednisone taper which was prescribed after a gout flare a few months ago. He suspects that tapering the prednisone may be related to his worsening swelling. Physical Exam Narrative: General: No acute distress, AO x3 HEENT: PERRLA, pupils bilaterally equal and reactive, pallors not present Chest: Normal vesicular breath sounds, no added sounds, equal good air entry bilaterally CVS: S1-S2 regular, no murmurs, no tachycardia, no gallops, no rubs Abdomen: Soft, nontender, no organomegaly, bowel sounds present Neuro: LUE Drift noted, weaker paralegal compared to right side. Discharge Data Studies Completed and Pending Completed Studies During Hospitalization Category Date Time Status CT angio headneck* [id number] Stat Cat Scan 12/13/24 19:[address] head thrombolytic [id number] Stat Cat Scan 12/13/24 19:13 Completed XR hip BI 3-4V wo/w pel [id number] Stat Exams 12/14/24 03:03 Completed XR lumbar spine 2-3V* [id number] Stat Exams 12/14/24 03:03 Completed MR head wo con* [id number] Routine MRI 12/14/24 07:00 Completed Pending at discharge Category Date Time Status Covid Antigen [SARS Covid-2 Antigen] Routine Lab 12/16/24 10:42 Uncollected HBA1C [Hemoglobin A1C] Routine Lab 12/16/24 11:28 Ordered Lipid Panel Routine Lab 12/16/24 11:28 [place] [id number] Urgent Ultrasound 12/16/24 10:25 Ordered CV. echo w/w bubble cont [id number] Routine Ultrasound 12/15/24 11:00 Taken Radiology Impressions Head CT 12/13/24 19:13 IMPRESSION: 1. No acute intracranial abnormality. ASSESSMENT: ASPECTS ([place] Stroke Program Early CT Score) is 10. ADDENDUM: 12/13/241938 The findings were verbally communicated by telephone with Dr. WALDROP at 7:37 PM CDT on 12/13/2024. Head/Neck CTA 12/13/24 19:20 IMPRESSION: 1. High-grade stenosis of a right M2 sylvian branch distal to a dense calcification raising the question of an embolized calcified plaque. IMPRESSION: 1. No evidence of acute thrombosis or high-grade stenosis in the neck. The findings were verbally communicated by telephone with Dr. WALDROP at 7:50 PM CDT on 12/13/2024. REFERENCES: NASCET CRITERIA. The degree of stenosis in the cervical segment of the internal carotid artery is based on NASCET criteria. Normal is no stenosis. Mild is less than 50% stenosis. Moderate is 50-69% stenosis. Severe is 70% to 99% stenosis. Total occlusion is no detectable patent lumen. Hip/Pelvis X-Ray 12/14/24 03:03 IMPRESSION: No fracture or subluxation. Lumbar Spine X-Ray 12/14/24 03:03 IMPRESSION: 1. No acute fracture or subluxation. 2. Degenerative changes as above. Head MRI 12/14/24 07:00 IMPRESSION: Small acute infarct involving the right centrum semiovale with no evidence of hemorrhage Laboratory Results WBC 5.57 10^3/uL (3.29-11.43) 12/16/24 02:31 RBC 3.35 10^6/uL (3.85-5.65) L 12/16/24 02:31 Hgb 9.70 g/dL (11.27-16.99) L 12/16/24 02:31 Hct 31.4 % (37-53) L 12/16/24 02:31 MCV 93.7 fl (82-101) 12/16/24 02:31 MCH 29.0 pg (27-33) 12/16/24 02:31 MCHC 30.9 g/dL (30-55) 12/16/24 02:31 RDW 13.6 % (12.1-15.1) 12/16/24 02:31 Plt Count 203 10^3/cmm (157-399) 12/16/24 02:31 MPV 10.2 fL (7.4-10.4) 12/16/24 02:31 Neut % (Auto) 70.7 % 12/16/24 02:31 Lymph % (Auto) 18.1 % 12/16/24 02:31 Runnels % (Auto) 8.6 % 12/16/24 02:31 Eos % (Auto) 2.0 % 12/16/24 02:31 Baso % (Auto) 0.2 % 12/16/24 02:31 Neut # (Auto) 3.94 10^3/uL (1.8-7.7) 12/16/24 02:31 Lymph # (Auto) 1.0 10^3/uL (0.8-4.8) 12/16/24 02:31 Runnels # (Auto) 0.5 10^3/uL (0.2-0.9) 12/16/24 02:31 Eos # (Auto) 0.1 10^3/uL (0.0-0.8) 12/16/24 02:31 Baso # (Auto) 0.0 10^3/uL (0.0-0.1) 12/16/24 02:31 Nucleated RBC % (auto) 0 % 12/16/24 02: Nucleated RBCs # 0.0 /100WBC 12/16/24 02:31 PT 12.40 SECONDS (12.1-14.9) 12/13/24 19:35 INR 0.87 (0.8-1.2) 12/13/24 19:35 APTT 25.8 SECONDS (23.9-36.7) 12/13/24 19:35 Sodium 140 mmol/L (136-145) 12/16/24 02:31 Potassium 3.6 mmol/L (3.5-5.1) 12/16/24 02:31 Chloride 107 mmol/L (98-107) 12/16/24 02:31 Carbon Dioxide 25 mmol/L (22-29) 12/16/24 02:31 Anion Gap 11.6 (5-19) 12/16/24 02:31 BUN 31 mg/dL (8-23) H 12/16/24 02:31 Creatinine 1.0 mg/dL (0.7-1.2) 12/16/24 02:31 GFR Calculation Not Reportable 12/16/24 02:31 Glucose 98 mg/dL (65-115) 12/16/24 02:31 POC Glucose 128 mg/dL (70-110) H 12/13/24 19:18 Estimat Average Glucose 134 12/14/24 02:23 Hemoglobin A1c 6.3 % (4.0-6.0) H 12/14/24 02:23 Calculated Osmolality 297 mOsm/kg (285-295) H 12/16/24 02:31 Calcium 7.8 mg/dL (8.5-10.5) L 12/16/24 02:31 Phosphorus 4.1 mg/dL (2.5-4.5) 12/14/24 02:23 Magnesium 2.2 mg/dL (1.7-2.3) 12/14/24 02:23 Total Bilirubin 0.2 mg/dL (0.15-1.2) 12/14/24 02:23 AST 19 U/L (0-40) 12/14/24 02:23 ALT 14 U/L (0-41) 12/14/24 02:23 Alkaline Phosphatase 83 U/L (40-130) 12/14/24 02:23 Total Protein 5.2 g/dL (6.6-8.7) L 12/14/24 02:23 Albumin 2.4 g/dL (3.5-5.2) L 12/14/24 02:23 Globulin 2.8 g/dL (1.3-4.6) 12/14/24 02:23 Triglycerides 158 mg/dL (0-150) H 12/15/24 03:21 Cholesterol 203 mg/dL (0-200) H 12/15/24 03:21 LDL Cholesterol, Calc 125 mg/dL (50-129) 12/15/24 03:21 HDL Cholesterol 46 mg/dL (60-100) L 12/15/24 03:21 LDL/HDL Ratio 2.72 RATIO (0.00-3.22) 12/15/24 03:21 Cholesterol/HDL Ratio 4.41 mg/dL (1.0-5.00) 12/15/24 03:21 Urine Color Yellow (Yellow) 12/13/24 20:12 Urine Appearance Clear (CLEAR) 12/13/24 20:12 Urine pH 6.0 (5-7) 12/13/24 20:12 Ur Specific Selmer 1.025 (1.005-1.030) 12/13/24 20:12 Urine Protein 3+ (Negative) A 12/13/24 20:12 Urine Glucose (UA) Trace (Normal) H 12/13/24 20:12 Urine Ketones Negative (Negative) 12/13/24 20:12 Urine Blood Trace (Negative) A 12/13/24 20:12 Urine Nitrate Negative (Negative) 12/13/24 20:12 Urine Bilirubin Negative (Negative) 12/13/24 20:12 Urine Urobilinogen 0.2 mg/dL (Negative) 12/13/24 20:12 Ur Leukocyte Esterase Negative (Negative) 12/13/24 20:12 Urine RBC 3-5 /hpf (0-2) 12/13/24 20:12 Urine WBC 0-5 /hpf (0-5) 12/13/24 20:12 Ur Squamous Epith Cells 0-5 /hpf (0-5) 12/13/24 20:12 Amorphous Sediment Not Reportable 12/13/24 20:12 Urine Bacteria None seen /hpf (NONE) 12/13/24 20:12 Hyaline Casts 10.73 /lpf 12/13/24 20:12 Urine Opiates Screen Negative ng/mL (Negative) 12/13/24 20:12 Ur Barbiturates Screen Negative ng/mL (Negative) 12/13/24 20:12 Ur Phencyclidine Scrn Negative ng/mL (Negative) 12/13/24 20:12 Ur Amphetamines Screen Negative ng/mL (Negative) 12/13/24 20:12 U Benzodiazepines Scrn Negative ng/mL (Negative) 12/13/24 20:12 Urine Cocaine Screen Negative ng/mL (Negative) 12/13/24 20:12 U Marijuana (THC) Screen Negative ng/mL (Negative) 12/13/24 20:12 Ethyl Alcohol 20 mg/dL (0-10) H 12/13/24 19:35 Vitals Last Vital Signs Temp 98.4 F 12/16/24 07:36 Pulse 74 12/16/24 07:36 Resp 16 12/16/24 07:36 BP 196/83 12/16/24 07:36 Pulse Ox 96 12/16/24 07:36 O2 Del Method Room Air 12/15/24 04:00 Discharge Plan Discharge Patient Disposition: Xfer SNF Condition: Stable Prescriptions: New clopidogrel 75 mg Tablet 75 mg PO DAILY 21 Days Qty: 21 0RF colchicine 0.6 mg Tablet 0.6 mg PO DAILY 30 Days Qty: 30 0RF aspirin 81 mg Tablet,Delayed Release (Dr/Ec) 81 mg PO DAILY 30 Days Qty: 30 0RF atorvastatin 40 mg Tablet 40 mg PO BEDTIME 30 Days Qty: 30 0RF Continued metoprolol succinate 100 mg tablet extended release 24 hr 100 mg PO DAILY hydroxychloroquine 200 mg tablet 200 mg PO ONCE Qty: 90 1RF mycophenolate mofetil [CellCept] 500 mg tablet 1,500 mg PO BID Qty: 180 5RF chlorthalidone 50 mg tablet 50 mg PO BID bumetanide 2 mg tablet See Rx Instructions PO BID Rx Instructions: 4mg qAM and 3mg qPM orally twice a day; doxazosin 4 mg tablet 8 mg PO DAILY Qty: 180 3RF potassium chloride 20 mEq tablet extended release 40 meq PO DAILY Qty: 180 3RF ezetimibe 10 mg tablet 10 mg PO DAILY Qty: 90 3RF lisinopril 40 mg tablet 40 mg PO DAILY Qty: 90 1RF dapagliflozin propanediol [Farxiga] 10 mg Tablet 10 mg PO DAILY prednisone 1 mg Tablet 1 mg PO DAILY Other Ambulatory Orders: MCT/Event Monitor 14 Days (Routine) Timeframe: 1 Day Facility: [facility] - Location: Radiology Ordered By: Shira Sterling Occupational Therapy Eval and Treat Outpatient (Order) Timeframe: 3 Days Facility: [facility] - Location: Occupational Therapy Ordered By: Shira Sterling Physical Therapy Eval and Treat Outpatient (Order) Timeframe: 3 Days Facility: [facility] - Location: Physical Therapy [place] Ordered By: Shira Sterling Referrals: [facility] [Outside] Sebastián Cochran MD [Primary Care Provider, Family Practice] - 01/08/25 9:30 am Lidia Theodore MD [Physician, Neurology] - 7-10 days Referral Note: post stroke follow up, right M2 sylvian branch with high-grade stenosis Discharge Diet: Cardiac and Diabetic Discharge Activity: As per PT/OT instructions Patient Instructions: Ischemic Stroke (GEN), Self Care Measures After a Stroke (DC), Opioid Safety, Stroke Stoplight, Patient Portal & Ivette Instructions Discharge Attestations Time Spent in Discharge Care*: greater than 30 min Quality Metrics Clinical Quality Measures [ Cerebrovascular Accident { Contraindication to Antithrombotic: None; antithrombotic prescribed; Contraindication to Anticoagulation: Overlap treatment not indicated; Contraindication to Statin: None; Statin prescribed; Contraindication to tPA: Did not meet criteria; Symptom Onset Unknown: No;}] Coding Level of Care Code Acute Code for Chg Fwd Diagnoses CVA (cerebral vascular accident) I63.9 Left-sided weakness R53.1
[2024-12-16 12:01] LABS: Estmated Average Glucose 134; Hemoglobin A1C 6.3 % (4.0-6.0)
[2024-12-16 12:13] LABS: Cholesterol 192 mg/dL (0-200); HDL Cholesterol 49 mg/dL (60-100); Triglycerides 159 mg/dL (0-150)
[2024-12-16 13:22] LABS: SARS Covid-2 Antigen Negative (Negative)
--- NOTE | 2024-12-16 16:08 | PC.NURSE ---
report called to snf talked to Nina cabrera in [facility]. Report provided about pt's stroke and discharge plan and continuity of rehab care post stroke.
--- NOTE | 2024-12-16 16:25 | PC.NURSE ---
Patient BP is 188/86. Notified hospitalist and received telephone order to give 10 mg iv once of hydralazine and recheck in half an hour and keep BP between 150 to 160 systolic range. BP recheck approximately 1701 pm: BP-161/72. Notified , and agreed to discharge patient to SNF.
[2024-12-16] MEDS: hyDRALAzine 20 mg/mL INJ 1 mL 10 MG IVP (16:45)
== END 2024-12-16 17:31 | disposition skilled nursing facility (03) | DRG 65 ==
LOC: ER 20:40 → MEDSURG 21:45 → CSU 23:03
PROVIDERS: Internal Medicine; Admitting Provider Internal Medicine; Emergency Provider Emergency Medicine; PCP Family Medicine; Visit Provider Student in an Organized Health Care Education/Training Program
DX: I63.9 Cerebral infarction, unspecified (principal); G81.94 Hemiplegia, unspecified affecting left nondominant side; R29.810 Facial weakness; R29.700 NIHSS score 0; M32.14 Glomerular disease in systemic lupus erythematosus; M10.9 Gout, unspecified; M79.89 Other specified soft tissue disorders; E86.0 Dehydration; I10 Essential (primary) hypertension; Z79.52 Long term (current) use of systemic steroids
CPT/HCPCS: 36415; 36416; 70450; 70496; 70498; 70551; 72100; 73522; 80048; 80053; 80061; 80306; 80307; 81001; 82962; 83036; 83735; 84100; 85025; 85610; 85730; 87426; 92523; 92610; 93005; 93971; 96372; 96374; 96375; 97112; 97116; 97161; 97165; 97530; 97535; 99285; C8929; J0360; J1644; J2470; J3490; J7030; J7512; J9999

== ENCOUNTER 2024-12-30 09:55 | Outpatient (CLI) | payer MEDICARE, OTHER, SELFPAY | END 2024-12-30 09:56 | disposition home or self-care (01) | LOC: RAD 01-11 09:40 | PROVIDERS: PCP Family Medicine; Visit Provider Student in an Organized Health Care Education/Training Program | DX: I63.9 Cerebral infarction, unspecified (principal); R03.0 Elevated blood-pressure reading, without diagnosis of hypertension | CPT/HCPCS: 99203 ==

== ENCOUNTER 2024-12-31 11:34 | Outpatient (CLI) | payer MEDICARE, OTHER, SELFPAY | END 2024-12-31 11:35 | disposition home or self-care (01) | LOC: LAB 11:37 | PROVIDERS: PCP Family Medicine; Visit Provider Nurse Practitioner | DX: I63.9 Cerebral infarction, unspecified (principal) | CPT/HCPCS: 36415; 85613; 85730 ==

== ENCOUNTER → 2025-01-22 09:20 | Outpatient (BNVA) | payer MEDICARE, OTHER, SELFPAY | PROVIDERS: PCP Family Medicine; Visit Provider Internal Medicine Rheumatology | DX: L93.2 Other local lupus erythematosus (principal); Z79.899 Other long term (current) drug therapy; Z71.85 Encounter for immunization safety counseling; R74.8 Abnormal levels of other serum enzymes; K80.20 Calculus of gallbladder without cholecystitis without obstruction | CPT/HCPCS: 99214 ==

== ENCOUNTER 2025-02-07 09:41 | Inpatient (IN) | payer MEDICARE, OTHER, SELFPAY ==
[2025-02-07] VITALS (7 sets, daily range): BP systolic 106–144; BP diastolic 58–71; PULSE 74–98; RESP 15–18; TEMP 36.5–36.8; O2SAT 93–100; BMI 24.7; BMI 25.9
--- OUTSIDE RECORDS SUMMARY | 2025-02-07 09:51 | XMS_ITS | Data Portability ---
Author Organization JAROCHO Ardon Nap[facility] Address [address] [facility] [address] [place] [address] Care Team Providers Care Operations Research Engineer Name Role Phone RADHA LEWIS Primary Care [...] pril 10 mg tablet 2023 024 fantasma [facility] [place], [address], 4 11:23:28 Ciprod ex 0.3 %-0.1 % ear drops, suspen nora 2022 023 HAIM [facility] [place], [address], 3 15:12:29 olmesa rtan 40 mg tablet [address] [facility], [address], 4 14:29:24 hydroc hlorot hiazid e 50 mg tablet [address] [facility] [place], [address], 4 14:29:29 metopr olol succin ate ER 100 mg tablet ,exten ded releas e 24 hr 2022 0907 023 [facility], [facility], [place], [address], 3 10:48:38 Patient TargetsNo targets recorded. Patient InstructionsNo instructions recorded. Reason for Referral None Reported. Results Created Date Observation Date Name Description Value Unit Range Abnormal Flag Note LastModifiedBy Organization Detail LastModifiedTime 11/23/1911/22/2022 HbA1c (hemo globi n A1c), blood HbA1c 6.6 Not Available [facility] ([facility]) [address] [place] [address], [phone], 11/22/2022 08:40:41 12/28/1912/28/2022 COMPR EHENS HU METAB OLIC PANEL glucose 111 mg/dL 65-99 high Fasti ng refer ence inter omer For someo ne witho ut known diabe julian, a gluco se value betwe en 100 and 125 mg/dL is consi stent with predi abete s and shoul d be confi rmed with a follo w-up test. Not Available [facility] [address] [address] [place], [address], 12/28/2022 06:21:46 12/28/1912/28/2022 COMPR EHENS HU METAB OLIC PANEL urea nitrogen (BUN) 11 mg/dL 7-25 normal Not Available [facility] [address] [address] [address] [place], [address], 12/28/2022 06:21:46 12/28/1912/28/2022 COMPR EHENS HU METAB OLIC PANEL creatinine 0.73 mg/dL 0.70-1 .28 normal Not Available [facility] [address] [address] [place], [address], 12/28/2022 06:21:46 12/28/19 23 12/28/2022 COMPR EHENS HU METAB OLIC PANEL eGFR 97 mL/mi n/1.7 3m2 > or = 60 normal Not Available [address], [address], 12/28/2022 06:21:46 12/28/1912/28/2022 COMPR EHENS HU METAB OLIC PANEL BUN/creatini ne ratio SEE NOTE: (calc ) 6-22 Not Repor howie: BUN and Creat inine are withi n refer ence range . Not Available [address], [address], 12/28/2022 06:21:46 12/28/1912/28/2022 COMPR EHENS HU METAB OLIC PANEL sodium 140 mmol/ L 135-14 6 normal Not Available [address], [address], 12/28/2022 06:21:46 12/28/1912/28/2022 COMPR EHENS HU METAB OLIC PANEL potassium 3.7 mmol/ L 3.5-5. 3 normal Not Available [address], [address], 12/28/2022 06:21:46 12/28/1912/28/2022 COMPR EHENS HU METAB OLIC PANEL chloride 104 mmol/ L 98-110 normal Not Available [address], [address], 12/28/2022 06:21:46 12/28/1912/28/2022 COMPR EHENS HU METAB OLIC PANEL carbon dioxide 30 mmol/ L 20-32 normal Not Available [address], [address], 12/28/2022 06:21:46 12/28/1912/28/2022 COMPR EHENS HU METAB OLIC PANEL calcium 8.9 mg/dL 8.6-10 .3 normal Not Available [facility] [address], [address], 12/28/2022 06:21:46 12/28/1912/28/2022 COMPR EHENS HU METAB OLIC PANEL protein, total 7.0 g/dL 6.1-8. 1 normal Not Available [address], [address], 12/28/2022 06:21:46 12/28/1912/28/2022 COMPR EHENS HU METAB OLIC PANEL albumin 3.5 g/dL 3.6-5. 1 low Not Available [address], [address], 12/28/2022 06:21:46 12/28/1912/28/2022 COMPR EHENS HU METAB OLIC PANEL globulin 3.5 g/dL_ (calc ) 1.9-3. 7 normal Not Available [address], [address], 12/28/2022 06:21:46 12/28/1912/28/2022 COMPR EHENS HU METAB OLIC PANEL albumin/glob ulin ratio 1.0 (calc ) 1.0-2. 5 normal Not Available [facility] [employer] [address], [address], 12/28/2022 06:21:46 12/28/19 23 12/28/2022 COMPR EHENS HU METAB OLIC PANEL bilirubin, total 0.5 mg/dL 0.2-1. 2 normal Not Available [address], [address], 12/28/2022 06:21:46 12/28/19 23 12/28/2022 COMPR EHENS HU METAB OLIC PANEL alkaline phosphatase 194 U/L 35-144 high Not Available [facility] [address] [place], [address], 12/28/2022 06:21:46 12/28/1912/28/2022 COMPR EHENS HU METAB OLIC PANEL AST 29 U/L 10-35 normal Not Available [facility] [address] [place], [address], 12/28/2022 06:21:46 12/28/19 23 12/28/2022 COMPR EHENS HU METAB OLIC PANEL ALT 31 U/L 9-46 normal Not Available [facility] [address] [place], [address], 12/28/2022 06:21:46 Result Notes None recorded. Problems Name Problem SNOMED Code Status Onset Date Resolution Date Notes Provider Name and Address Organization Details Recorded Time Benign essential hypertension 6861080 Active 2022 Hyperte nsion; 023 10:29AM by Pippa maguire, Office Visit; Promote d; acuity set as *; Not Available [facility] 3 03:08:39 Hyperlipidem ia 57021931 Active 2022 Hyperli pidemia ; 023 10:29AM by Pippa maguire, Office Visit; Promote d; acuity set as *; Not Available [facility] 3 03:08:39 Type 2 diabetes mellitus 90525850 Active [address] [facility] 3 10:13:38 Cerebrovascu lar accident 339603467 Active [address] [facility] 5 19:23:30 Lives in correction 381059915 Active 2024 FABIO roy [facility] 5 19:23:32 Problem Notes None recorded. Procedures Surgical History Date Name Laterality Status Provider Name and Address Organization Details Recorded Time Knee Replacement completed FABIO JOSE RAMON [facility], [place] 11/24/2022 09:58:28 Hernia Repair completed PIPPA [facility] 01/03/2023 10:31:35 Imaging Results None recorded. [...] 23 12:40PM by Fabio Sutton RN (Authori jenarod through [...] 23 1:38PM by Fabio Sutton RN (Authori zed through Radha Lewis MD), Refill Request; Mail Order Quantity : 180 Tablet; Refill Quantity : 0; Not Available Not Available Not Available Hyzaar QD 11/24 completed short supply sent to local pharmacy VO /bh; 173; Recorded 05/25/19 23 2:56PM by Fabio Sutton RN (Authori zed through Radha Lewis MD), Refill Request; Refill Quantity : 0; Not Available Not Available Not Available amlodipin e besylate (bulk) QD 11/24 completed 173; Recorded 04/06/19 23 9:29AM by Pippa hunter (Authori marilynn through Radha Lewis MD), Refill Request; Mail Order Quantity : 90 Tablet; Refill Quantity : 0; Not Available Not Available Not Available potassium chloride ER 20 mEq tablet,ex tended release TAKE 2 TABLETS BY MOUTH DAILY active Not Available Not Available No t Available Vitals Date Recorded Body height Body mass index (BMI) Body weight Oxygen saturation Heart rate Respiratory rate Body temperature Systolic And Diastolic Provider Name and Address Organization Details Last Updated DateTime 4 182.88 cm 32.7 kg/m2 927122. 76 g 96 % 75 /min 20 /min 98.2 [degF] 190/82 mm[Hg] [facility] 4 14:35:55 Date Recorded Body height Body mass index (BMI) Body weight Respiratory rate Heart rate Oxygen saturation Body temperature Systolic And Diastolic Provider Name and Address Organization Details Last Updated DateTime 3 182.88 cm 31.8 kg/m2 268054. 01 g 20 /min 80 /min 98 % 98.3 [degF] 174/68 mm[Hg] [facility] 3 10:13:23 Date Recorded Body height Body mass index (BMI) Body weight Oxygen saturation Heart rate Respiratory rate Body temperature Systolic And Diastolic Provider Name and Address Organization Details Last Updated DateTime 5 182.88 cm 29.2 kg/m2 11663.3 6 g 97 % 76 /min 20 /min 98.6 [degF] 138/72 mm[Hg] [facility] 5 19:13:57 Date Recorded Body height Body mass index (BMI) Body weight Oxygen saturation Heart rate Respiratory rate Body temperature Systolic And Diastolic Provider Name and Address Organization Details Last Updated DateTime 3 182.88 cm 31.2 kg/m2 787700. 25 g 98 % 64 /min 18 /min 97.5 [degF] 156/70 mm[Hg] ROSALINAANDRÉS ROGER RHODES [facility] 3 10:39:07 Date Recorded Body height Body weight Body mass index (BMI) Oxygen saturation Heart rate Respiratory rate Body temperature Systolic And Diastolic Provider Name and Address Organization Details Last Updated DateTime 3 182.88 cm 200462. 69 g 30.4 kg/m2 100 % 76 /min 15 /min 97.3 [degF] 182/91 mm[Hg] Heidi Islasverena [facility] 3 14:56:53 Social History Question Answer Notes LastModified by Organizat ion Details LastModified Time Tobacco Smoking Status Former Smoker PIPPA roy [facility] 01/03/2023 10:31:19 What Was The Date Of Your Most Recent Tobacco Screening? 12/19/2024 [email or web address] Information not available 12/19/2024 Have You Ever Been Counseled For Unhealthy Alcohol Use? No Information not available 01/03/2023 Sex: Unknown Functional Status Question Answer Note LastModified by Organizat ion Details LastModified Time Do you use any illicit or recreational drugs? No Information not available 01/03/2023 What is your level of alcohol consumption? Occasional Information not available 01/03/2023 Mental Status None recorded. Family History Nothing Reported. Medical History Condition Response Stroke Y Immunizations Vaccine Type Date Status Note Provider Nam e and Address Organization Details Recorded Time Td(adult) unspecified formulation 3 completed Not Available [facility] 03/23/2023 14:02:51 Influenza, split virus, trivalent, preservative 3 completed [facility] Available [facility] 03/23/2023 14:02:52 zoster recombinant 3 completed FABIO roy [facility] 11/24/2022 10:05:09 COVID-19, mRNA, LNP-S, PF, 100 mcg/0.5mL dose or 50 mcg/0.25mL dose 1 completed FABIO roy [facility] 11/24/2022 10:05:09 COVID-19, mRNA, LNP-S, PF, 100 mcg/0.5mL dose or 50 mcg/0.25mL dose 1 completed FABIO roy [facility] 11/24/2022 10:05:09 Pneumococcal conjugate PCV20, polysaccharide WRI635 conjugate, adjuvant, PF 2 completed FABIO roy [facility] 11/24/2022 10:05:09 pneumococcal polysaccharide PPV23 5 completed FABIO roy [facility] 11/24/2022 10:05:10 Influenza, split virus, trivalent, preservative 2 [facility] 11/24/2022 10:05:10 Td (adult), 2 Lf tetanus toxoid, preservative free, adsorbed 4 [facility] 11/24/2022 10:05:10 Influenza, split virus, quadrivalent, PF 5 [facility] 11/24/2022 10:05:10 Hep A-Hep B 5 completed FABIO roy [facility] 11/24/2022 10:05:10 Hep A-Hep B 4 completed FABIO roy [facility] 11/24/2022 10:05:10 Hep A-Hep B 4 [facility] 11/24/2022 10:05:10 Influenza, recombinant, trivalent, PF 4 completed Not Available [facility] 12/19/2024 09:10:29 Past Encounters Encounter ID Performer Location Encounter Start Date Encounter Closed Date Diagnosis/Indication Diagnosis SNOMED-CT Code Diagnosis ICD10 Code Diagnosis IMO Codes Diagnosis Note [id number] LESLIE CUMMINGS PA-C [facility] ([facility] [address] [place] [phone] 07/01/2022 11:21:06 07/07/2022 13:04:37 Impacted cerumen in left ear 9923992405 078074 H61.22 ear flushed with water until clear. TM was visuallize d and normal after. [id number] Radha Lewis MD [facility] ([facility] [address] [place] [phone] 11/24/2022 09:45:38 12/02/2022 22:52:07 Benign essential hypertension 7266293 I10 Type 2 martha betes mellitus 36447168 E11.9 [id number] Radha Lewis MD [facility] ([facility] [address] [place] [phone] 01/03/2023 09:53:12 01/03/2023 14:24:48 Benign essential hypertension 4933581 I10 [id number] TERRANCE DE LA TORRE [facility] ([facility]) [address] [place] [phone] 03/15/2023 12:13:28 03/15/2023 16:10:03 Acute otitis externa 51531959 H60.509 Start Ciprodex today. Encouraged patient to avoid swimming and submerging head in water for the next 14 days. Can use heat compresses as needed for pain relief. If not improving in 7 days, should return for further evaluation . Essential hypertension 14527327 I10 Recommend a follow up with PCP regarding BP readings. Recommend keeping a log of morning and evening blood pressures until seen by PCP. If any chest pain, SOB, dizziness, or severe HAs occur, should go to ED. Patient verbalizes understand ing. [id number] Radha Lewis MD [facility] ([facility]) [address] [place] [address] 03/23/2023 14:02:33 03/23/2023 15:44:23 Benign essential hypertension 8575464 I10 Cough 52842329 R05.9 [id number] Radha Lewis MD [facility] ([facility]) [address] [place] [address] 12/19/2024 09:09:42 12/20/2024 08:46:19 Cerebrovascular accident 091649635 I63.9 79081981 Lives in correction 16 1768125 Z78.9 [id number] Health Concerns Section Related Observation LastModified by Organization Detai ls LastModified Time None Recorded Concern Status LastModified by Organization Details LastModified Time None Recorded Advance Directives Directive None Recorded Payers Insurance Date Sequence Insurance Name Policy Number Policy Forrester Covered Member ID Forrester Member ID Guarantor Name 02/06/2025 [place] A - [facility] (MEDICARE) Jose Miguel E Jared [id number] Jose Miguel E Jared 02/06/2025 2 [employer] - PLAN F (MEDICARE SUPPLEMENT) [id number] Jose Miguel E Jared [id number] Jose Miguel E Jared 12/19/2024 2 [employer] (MEDICARE SUPPLEMENT) Jose Miguel E Jared [id number] Jose Miguel E Jared 02/06/2025 1 [place] Jose Miguel E Jared [id number] Jose Miguel E Jared Notes Date Note Type Note Provider Name and Address Organization Details Recorded Time 3 text/html Hypertension F/UReported by PatientHPIFor lifestyle, [...] noted in the HPI Radha Lewis MD [address] [place] [address], [phone], [facility] 11/24/2022 10:48:45 3 text/html Hypertension [...] occ it is 140/70s Radha Lewis MD [address] [place] [address], [phone], [facility] 01/03/2023 10:58:37 3 text/html Ear [...] Denies chest pain, PINEDA, dizziness, or SOB. RAYNE MILLER, VILMA-Boy [address] [place] [address], [phone], [facility] 06/04/2023 23:35:36 4 text/html CoughReported [...] in the HPI s Radha Lewis MD [address] [place] [address], [phone], [facility] 03/23/2023 15:39:06 5 text/html Patient was admitted yesterday 12/18/24 to [facility] following discharge from [facility] post CVA affecting Left side Radha Lewis MD [address] [place] [address], [phone], [facility] 12/20/2024 09:18:06
--- OUTSIDE RECORDS SUMMARY | 2025-02-07 09:51 | XMS_ITS | Encounter Summary ---
Author Organization [facility], [facility] Address [address] [facility] [address] [place] [address] Phone Care Team Providers Care Corrugated Fastener Driver Name Role Phone Leonardo Gonzalez MD Primary Care Provider Encounter Details Date Type Department Care Team (Late st Contact Info) Description 06/13/2022 Orders Only [facility] [address] [facility] [address] [place] [address] Abnormal renal function Social History Tobacco Use Types Packs/Day Years Used Date Smoking Tobacco: Never Assessed Sex and Gender Information Value Date Recorded Sex Assigned at Not on file Legal Sex Male 12:29 PM EDT Gender Identity Not on file Sexual Orientation Not on file documented as of this encounter Plan of Treatment Not on file documented as of this encounter Visit Diagnoses Diagnosis Abnormal renal function documented in this encounter Care Teams Corrugated Fastener Driver Relationship Specialty Start Date End Date Leonardo Gonzalez MD [address] [place] [address] PCP - General Family Medicine 06/13/22 documented as of this encounter
--- OUTSIDE RECORDS SUMMARY | 2025-02-07 09:51 | XMS_ITS | Clinical Summary ---
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
--- OUTSIDE RECORDS SUMMARY | 2025-02-07 09:51 | XMS_ITS | Clinical Summary ---
Author Organization [employer] Address [address] 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
--- OUTSIDE RECORDS SUMMARY | 2025-02-07 09:51 | XMS_ITS | Clinical Summary ---
Author Organization [facility] Facility Address [address] [address] Care Team Providers Care Correction Officer Penitentiary Name Role Phone Leonardo Gonzalez MD Primary Care Provider [phone] Social History Tobacco Use Types Packs/Day Years Used Date Smoking Tobacco: Never Assessed Sex and Gender Information Value Date Recorded Sex Assigned at Not on file Legal Sex Male 12:29 PM EDT Gender Identity Not on file Sexual Orientation Not on file Plan of Treatment Health Maintenance Due Date Last Done Comments Colorectal Cancer Screening: Annual FOBT 06/10/2000 Colorectal Cancer Screening: Colonoscopy 06/10/2000 Colorectal Cancer Screening: Sigmoidoscopy 06/10/2000 Pneumococcal Vaccine: 50+ Ye ars (1 of 1 - PCV) 06/10/2001 Influenza Vaccine (#1) 2024 Hepatitis B Vaccine Aged Out No longe r eligible based on patient's age to complete this topic Insurance Medicare Care Teams Correction Officer Penitentiary Relationship Specialty Start Date End Date Leonardo Gonzalez MD [address] [place] [address] PCP - General Family Medicine 06/13/22
--- OUTSIDE RECORDS SUMMARY | 2025-02-07 09:51 | XMS_ITS | Encounter Summary ---
Author Organization [facility] Address [address] [place] [address] Care Team Providers Care Manufacturing Director Name Role Phone Unavailable Primary Care Provider Unavailabl e Encounter Details Date Type Department Care Team (Latest Contact Info) Description 04/30/2002 Outpatient Historical [facility] [place] [address] [facility] [address] [place] [phone] Nyla Ventura MD SCREENING MAL NEOP-COLON (Primary Dx) Social History Tobacco Use Types Packs/Day Years Used Date Smoking Tobacco: Never Assessed Sex and Gender Information Value Date Recorded Sex Assigned at Not on file 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
--- OUTSIDE RECORDS SUMMARY | 2025-02-07 09:52 | XMS_ITS | Continuity of Care Document ---
Author Organization [facility] Rose Mary Mora, [facility] ([facility]) Address [address] [place] [address] Care Team Providers Care Nursing Staff Development Coordinator Name Role Phone RADHA LEWIS Primary Care Provider [phone] Assessment No assessment recorded. Plan of Treatment Reminders Order Date Submit Date Provider Last Modified By Organization Details Last Modified Time Details Appointments None record ed. Lab None record ed. Referral None record ed. Procedures None record ed. Surgeries None record ed. Imaging None record ed. Medication Orders None record ed. Patient TargetsNo targets recorded. Patient InstructionsNo instructions recorded. Reason for Referral None Reported. Problems Name Problem SNOMED Code Status Onset Date Resolution Date Notes Provider Name and Address Organization Details Recorded Time Benign essential hypertension 8075672 Active 2022 Hyperte nsion; 023 10:29AM by Pippa maguire, Office Visit; Promote d; acuity set as *; Not Available [facility] 3 03:08:39 Hyperlipidem ia 60261823 Active 2022 Hyperli pidemia ; 023 10:29AM by Pippa maguire, Office Visit; Promote d; acuity set as *; Not Available [employer] 3 03:08:39 Type 2 diabetes mellitus 90258142 Active 2022 CAMRYN roy [facility] Rose Mary Mora 3 10:13:38 Cerebrovascu lar accident 711938001 Active 2024 [facility]:23:30 Lives in [facility] 563161848 Active 2024 CAMRYN JOSE RAMON [facility], [place] 19:23:32 Problem Notes None recorded. Procedures Surgical History Date Name Laterality Status Provider Name and Address Organization Details Recorded Time Knee Replacement completed CAMRYN JOSE RAMON [facility] 11/24/2022 09:58:28 Hernia Repair completed PIPPA [facility]ORRIS [facility] 01/03/2023 10:31:35 Imaging Results None recorded. [...] completed 173; Recorded 04/04/19 23 12:40PM by Camryn Sutton RN (Authori marilynn through Radha Lewis MD), Refill [...] completed 173; Recorded 05/24/19 23 1:38PM by Camryn Sutton RN (Authori marilynn through Radha Lewis MD), Refill Request; Mail Order Quantity : 180 Tablet; Refill Quantity : 0; Not Available Not Available Not Available Hyzaar QD 11/24 completed short supply sent to local pharmacy VO JR/bh; 173; Recorded 05/25/19 2:56PM by Camryn Sutton RN (Authori marilynn through Radha Lewis MD), Refill Request; Refill Quantity : 0; Not Available Not Available Not Available amlodipin e besylate (bulk) QD 11/24 completed 173; Recorded 04/06/19 9:29AM by Pippa bartonr (Authori marilynn through Radha Lewis MD), Refill [...] and Address Organization Details Last Updated DateTime 182.88 cm 29.2 kg/m2 03879.3 6 g 97 % 76 /min 20 /min 98.6 [degF] 138/72 mm[Hg] CAMRYN SUTTON [facility] 19:13:57 Social History Question Answer Notes LastModified by Organizat ion Details LastModified Time Tobacco Smoking Status Former Smoker PIPPA roy [facility] 01/03/2023 10:31:19 What Was The Date Of [...] Td(adult) unspecified formulation 3 completed Not Available [facility] 03/23/2023 14:02:51 Influenza, split virus, trivalent, preservative 3 completed Not Available [facility] 03/23/2023 14:02:52 zoster recombinant 3 completed CAMRYN roy [facility] 11/24/2022 10:05:09 COVID-19, mRNA, LNP-S, PF, 100 mcg/0.5mL dose or 50 mcg/0.25mL dose 1 completed CAMRYN roy [facility] 11/24/2022 10:05:09 COVID-19, mRNA, LNP-S, PF, 100 mcg/0.5mL dose or 50 mcg/0.25mL dose 1 completed CAMRYN roy [facility] 11/24/2022 10:05:09 Pneumococcal conjugate PCV20, polysaccharide [id number] conjugate, adjuvant, PF 2 [facility] 11/24/2022 10:05:09 pneumococcal polysaccharide PPV23 5 completed CAMRYN roy [facility] 11/24/2022 10:05:10 Influenza, split virus, trivalent, preservative 2 completed CAMRYN roy [facility] 11/24/2022 10:05:10 Td (adult), 2 Lf tetanus toxoid, preservative free, adsorbed 4 completed CAMRYN roy [facility] 11/24/2022 10:05:10 Influenza, split virus, quadrivalent, PF 5 completed CAMRYN roy [facility] 11/24/2022 10:05:10 Hep A-Hep B 5 completed CAMRYN roy, [facility] 11/24/2022 10:05:10 Hep A-Hep B 4 completed CAMRYN roy [facility] 11/24/2022 10:05:10 Hep A-Hep B 4 completed CAMRYN roy, [facility] 11/24/2022 10:05:10 Influenza, recombinant, trivalent, PF 4 completed Not Available [facility] 12/19/2024 09:10:29 Past Encounters Encounter ID Performer Location Encounter Start Date Encounter Closed Date Diagnosis/Indication Diagnosis SNOMED-CT Code Diagnosis ICD10 Code Diagnosis IMO Codes Diagnosis Note [id number] Radha Lewis MD [facility] ([facility]) [address] [place] [address] 12/19/2024 09:09:42 12/20/2024 08:46:19 Cerebrovascular accident 951223588 I63.9 74535752 Lives in [facility] 16 7200961 Z78.9 [id number] Health Concerns Section Related Observation LastModified by Organization Detai ls LastModified Time None Recorded Concern Status LastModified by Organization Details LastModified Time None Recorded Payers Encounter Date Sequence Insurance Name Policy Number Policy Forrester Covered Member ID Forrester Member ID Guarantor Name 12/19/2024 1 [id number] Jose Miguel Coleman [id number] Jose Miguel Coleman 12/19/2024 2 [employer] - PLAN F (MEDICARE SUPPLEMENT) [id number] Jose Miguel Coleman [id number] Jose Miguel Coleman Notes Date Note Type Note Provider Name and Address Organization Details Recorded Time 12/19/2024 text/html Patient was admitted yesterday 12/18/24 to [facility] following discharge from [facility] post CVA affecting Left side Radha Lewis MD [address] [place] [address], [phone], [facility] 12/20/2024 09:18:06
--- OUTSIDE RECORDS SUMMARY | 2025-02-07 09:52 | XMS_ITS | Patient Health Record ---
Author Organization [facility] Address [address] [place] [address] Care Team Providers Care Courtroom Clerk Name Role Phone Dimas MASON, Sebastián Primary Care Provider Unavailab Latonya Beaulieu Unavailable [phone] Flex Rao Unavailable [phone] Mariana Lazar Unavailable [phone] Nathalie Cunningham Unavailable [phone] Adri Walters Unavailable [phone] Rossy Stokes Unavailable [phone] Allergies No Known Allergies Results Component Value Reference Range Flag Notes CT Guidance for Needle Biops [id number] Reviewed date:03/28/2024 12:03:03 PM Interpretation: Performing Lab: Notes/Report: [id number] Microalbumin (U) Random 8204 3 Reviewed date:06/26/2024 11:02:44 PM Interpretation: Performing Lab: Notes/Report: Ur Microalbumin >380.0 .0-30.0 MG/L HI Ur Creat 11.1 40.0-278.0 MG/DL LOW Mal/Crea/Ratio >3423.4 .0-30.0 mg Alb/g Cr HI Protein (U) Random 18366 Reviewed date:06/26/2024 11:02:44 PM Interpretation: Performing Lab: Notes/Report: Ur Prot 100.30 .00-12.00 MG/DL HI UA Microscopic--12972 Reviewed date:11/13/2024 01:35:07 PM Interpretation: Performing Lab: Notes/Report: Micro UA ordered by Discern Expert Rules system. 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 Phos 3.3 2.4-5.1 MG/DL Uric Acid (B) 91702 Reviewed date:11/13/2024 01:35:07 PM Interpretation: Performing Lab: [...] unspecified Diagnosis Description: Hypokalemia 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 Uric Acid 6.9 3.5-7.2 MG/DL Schedule Confirmation Reviewed date:03/28/2024 11:55:21 AM Interpretation: Performing Lab: Notes/Report: CT Guidance for Needle Biopsy-Renal Hemoglobin 98486 Reviewed date:11/13/2024 01:35:07 PM Interpretation: Performing Lab: [...] unspecified Diagnosis Description: Hypokalemia Diagnosis Description: Other snf (current) drug therapy Hgb 10.9 13.5-17.5 G/DL LOW Hemoglobin 64120 Reviewed date:08/22/2024 04:50:29 PM Interpretation: Performing Lab: Notes/Report: Hgb 11.0 13.5-17.5 G/DL LOW UA Reflex Micro, Reflex Cult 31612, 34187, 39557 Reviewed date:08/22/2024 04:50:29 PM Interpretation: Performing Lab: [...] NA Normal UA No Urine Culture No Uric Acid (B) 66163 Reviewed date:08/22/2024 04:50:29 PM Interpretation: Performing Lab: Notes/Report: Uric Acid 13.9 3.5-7.2 MG/DL HI Protein (U) Random 18468 Reviewed date:08/22/2024 04:50:29 PM Interpretation: Performing Lab: Notes/Report: Ur Prot 98.40 .00-12.00 MG/DL HI Basic Metabolic Panel (BMP) 83784 Reviewed date:08/22/2024 04:50:29 PM Interpretation: Performing Lab: Notes/Report: Sodium 144 136-145 MMOL/L Potassium 3.8 3.5-5.1 MMOL/L Chloride 106 98-107 MMOL/L CO2 28.4 20.0-31.0 MMOL/L Glucose Serum 115 71-110 MG/DL HI Testing p erformed at [facility] [place] [address]. CLIA ID#: [id number] BUN 48 7-21 MG/DL HI Creat 1.10 .57-1.17 MG/DL A-gcewsy-q-benzoquino ne imine (NAPQI) is a metabolite of acetaminophen, [...] LOW Osmo Serum,Calculated 312 280-300 MOSM/KG HI Magnesium (B) 69897 Reviewed date:08/22/2024 04:50:29 PM Interpretation: Performing Lab: Notes/Report: Magnesium 2.1 1.8-2.4 MG/DL Phosphorus (B) 01144 Reviewed date:08/22/2024 04:50:29 PM Interpretation: Performing Lab: Notes/Report: Phos 3.7 2.4-5.1 MG/DL Microalbumin (U) Random 8204 3 Reviewed date:08/22/2024 04:50:29 PM Interpretation: Performing Lab: Notes/Report: Ur Microalbumin >380.0 .0-30.0 MG/L HI Ur Creat 19.7 40.0-278.0 MG/DL LOW Mal/Crea/Ratio >1928.9 .0-30.0 mg Alb/g Cr HI Creatinine (U) 54901 Reviewed date:08/22/2024 04:50:29 PM Interpretation: Performing Lab: Notes/Report: Ur Creat 19.7 40.0-278.0 MG/DL LOW Albumin 28914 Reviewed date:08/22/2024 04:50:29 PM Interpretation: Performing Lab: Notes/Report: Albumin 2.9 3.2-4.8 G/DL LOW % Iron Saturation (Fe & TIBC )--69259,63077 Reviewed date:08/22/2024 04:50:29 PM Interpretation: Performing Lab: Notes/Report: Iron 100 65-175 MCG/DL Per Iron as say instruction for Use(IFU), patients treated with metal-binding drugs (e.g.deferoxamine) may have depressed iron values as chelated iron may not properly react in the iron assay. Testing was performed with this assay method. TIBC 250 250-450 NG/DL % Iron Saturation 40 20-50 % Ferritin 41848 Reviewed date:08/22/2024 04:50:29 PM Interpretation: Performing Lab: Notes/Report: Ferritin 118 8-388 NG/ML Magnesium (B) 85923 Reviewed date:05/20/2024 05:55:21 PM Interpretation: Performing Lab: Notes/Report: Diagnosis Description: Acute kidney failure, unspecified Diagnosis Description: Proteinuria, unspecified Diagnosis Description: Essential (primary) hypertension Magnesium 2.2 1.8-2.4 MG/DL Hemoglobin 09764 Reviewed date:04/24/2024 02:39:44 PM Interpretation: Performing Lab: Notes/Report: Diagnosis Description: Proteinuria, unspecified Diagnosis Description: Acute kidney failure, unspecified Diagnosis Description: Essential (primary) hypertension Diagnosis Description: Abnormal levels of other serum enzymes Diagnosis Description: Other specified disorders of kidney and ureter Diagnosis Description: Hemorrhagic condition, unspecified Diagnosis Description: Encounter for preprocedural laboratory examination Hgb 10.8 13.5-17.5 G/DL LOW UA Microscopic--54942 Reviewed date:08/23/2024 01:00:15 PM Interpretation: Performing Lab: Notes/Report: Micro UA ordered by Discern Expert Rules system. RBC U <1 NA WBC U <1 0-5 /HPF SQ EPI 4 NA Basic Metabolic Panel (BMP) 39070 Reviewed date:11/13/2024 01:35:07 PM Interpretation: Performing Lab: [...] unspecified Diagnosis Description: Hypokalemia Diagnosis Description: Other snf (current) drug therapy Sodium 144 136-145 MMOL/L Potassium 4.3 3.5-5.1 MMOL/L Chloride 108 98-107 MMOL/L HI CO2 26.5 20.0-31.0 MMOL/L Glucose Serum 100 71-110 MG/DL Testing p erformed at [facility], [address] [place] [address] [address] [place] [address]. 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 Magnesium 2.0 1.8-2.4 MG/DL Protein (U) Random 42202 Reviewed date:11/13/2024 01:35:07 PM Interpretation: Performing Lab: [...] unspecified Diagnosis Description: Hypokalemia Diagnosis Description: Other snf (current) drug therapy Ur Prot 189.20 .00-12.00 MG/DL HI % Iron Saturation (Fe & TIBC )--06171,09005 Reviewed date:11/13/2024 01:35:07 PM Interpretation: Performing Lab: [...] unspecified Diagnosis Description: Hypokalemia 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 Testing was performed with this assay method. TIBC 231 250-450 NG/DL LOW % Iron Saturation 26 20-50 % Ferritin 80362 Reviewed date:11/13/2024 01:35:07 PM Interpretation: Performing Lab: [...] unspecified Diagnosis Description: Hypokalemia Diagnosis Description: Other snf (current) drug therapy Ferritin 100 8-388 NG/ML Prothrombin Time 45042 Reviewed date:03/28/2024 11:55:10 AM Interpretation: Performing Lab: [...] Therapaeutic Range for heart valve replacement: 2.5-3.50 Partial Thromboplastin Time 98496 Reviewed date:03/28/2024 11:55:06 AM Interpretation: Performing Lab: [...] 60-100. Critical Value Starting at > 100. 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 Color UA Yellow NA [...] Culture No UA Reflex Micro, Reflex Cult 38656, 08173, 88633 Reviewed date:05/20/2024 05:55:21 PM Interpretation: Performing Lab: [...] UA No Urine Culture No Creatinine (U) 36653 Reviewed date:05/20/2024 05:55:21 PM Interpretation: Performing Lab: Notes/Report: Diagnosis Description: Proteinuria, unspecified Diagnosis Description: Essential (primary) hypertension Ur Creat 32.9 40.0-278.0 MG/DL LOW Protein (U) Random 73009 Reviewed date:05/20/2024 05:55:21 PM Interpretation: Performing Lab: Notes/Report: Diagnosis Description: Acute kidney failure, unspecified Diagnosis Description: Proteinuria, unspecified Diagnosis Description: Essential (primary) hypertension Ur Prot 205.90 .00-12.00 MG/DL HI Hepatic Function Panel 35327 Reviewed date:05/20/2024 05:55:21 PM Interpretation: Performing Lab: [...] 12-78 UNIT/L CT Guidance for Needle Biops [id number] Reviewed date:03/28/2024 11:55:00 AM Interpretation: Performing Lab: Notes/Report: See Below For Report CT Guidance for Needle Biopsy-Renal Diagnosis Description: Proteinuria, unspecified Read See Below For Report Hemoglobin 48375 Reviewed date:05/23/2024 04:11:14 PM Interpretation: Performing Lab: Notes/Report: Obtain 4 hours after biopsy. 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 Diagnosis Description: Disorder involving the immune mechanism, unspecified Diagnosis Description: Chronic kidney disease, stage 2 (mild) Diagnosis Description: Acute kidney failure, unspecified Diagnosis Description: Anemia in chronic kidney disease 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 Diagnosis Description: Proteinuria, unspecified [...] HI Lymph Auto% 11.5 22.0-44.0 % LOW [place] Auto% 4.7 3.0-7.0 % Eos Auto% 1.5 2.0-4.0 % LOW Baso Auto% 0.3 0.0-1.0 % Imm Gran% .6 .0-.4 % HI Neutro Abs 5.58 .80-7.70 Absolute Neutrophil Count 5580 NA Lymph Abs .79 .10-4.10 [place] Abs .32 .20-1.00 Eos Abs .10 .00-.40 Baso Abs .02 .00-.20 Imm Gran Abs .04 .00-.10 NRBC# .00 .00-.20 NRBC% .00 .00-.20 /100 intact WBC's Protein C Total 51999 Reviewed date:06/26/2024 11:02:58 PM Interpretation: Performing Lab: Notes/Report: Diagnosis 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 Diagnosis Description: Disorder involving the immune mechanism, unspecified Diagnosis Description: Chronic kidney disease, stage 2 (mild) Diagnosis Description: Acute kidney failure, unspecified Diagnosis Description: Anemia in chronic kidney disease Diagnosis Description: Other snf (current) drug therapy Diagnosis Description: Proteinuria, unspecified [...] reference intervals for this test in the [facility] Test Directory ([facility]). 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 Diagnosis Description: Proteinuria, unspecified Diagnosis Description: Essential (primary) hypertension Diagnosis Description: Edema, unspecified Ur Creat 11.1 40.0-278.0 MG/DL LOW UA Reflex Micro, Reflex Cult 00848, 73434, 14293 Reviewed date:06/26/2024 11:03:28 PM Interpretation: Performing Lab: Notes/Report: Diagnosis 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 RBC U 5 NA WBC U <1 0-5 /HPF Bacteria None Seen Hyaline Casts <1 NA SQ EPI <1 NA CBC w\o Diff 72031 Reviewed date:05/20/2024 05:55:21 PM Interpretation: Performing Lab: Notes/Report: Diagnosis Description: Anemia in chronic kidney disease Diagnosis Description: Other snf (current) drug therapy WBC 7.4 4.5-11.0 X10'3 RBC 3.83 4.50-5.90 X10'6 LOW Hgb 11.8 13.5-17.5 G/DL LOW Hct 36.8 41.0-53.0 % LOW MCV 96.1 80.0-100.0 FL MCH 30.8 27.0-31.0 PG MCHC 32.1 31.0-37.0 G/DL Platelet 157 150-400 X10'3 RDW-SD 46.2 35.0-49.0 FL RDW-CV 13.2 12.2-15.6 % MPV 10.5 9.2-12.0 FL Basic Metabolic Panel (BMP) 79467 Reviewed date:05/20/2024 05:55:21 PM Interpretation: Performing Lab: Notes/Report: Diagnosis 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 [place] [address]. CLIA ID#: [id number] BUN 56 7-21 MG/DL HI Creat .94 .57-1.17 MG/DL W-nnuyjw-s-benzoquino ne imine (NAPQI) is a metabolite of acetaminophen, [...] LOW Osmo Serum,Calculated 308 280-300 MOSM/KG HI UA Microscopic--72604 Reviewed date:05/16/2024 01:20:10 PM Interpretation: Performing Lab: Notes/Report: Micro UA ordered by Tarisa Expert Rules system. RBC U 4 NA WBC U <1 0-5 /HPF Bacteria None Seen Hyaline Casts <1 NA SQ EPI <1 NA Albumin 93197 Reviewed date:06/26/2024 11:03:53 PM Interpretation: Performing Lab: Notes/Report: Diagnosis 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 Diagnosis Description: Disorder involving the immune mechanism, unspecified Diagnosis Description: Chronic kidney disease, stage 2 (mild) Diagnosis Description: Acute kidney failure, unspecified Diagnosis Description: Anemia in chronic kidney disease Diagnosis Description: Other snf (current) drug therapy Diagnosis Description: Proteinuria, unspecified Diagnosis Description: Essential (primary) hypertension Diagnosis Description: Edema, unspecified Albumin 2.6 3.2-4.8 G/DL LOW Basic Metabolic Panel (BMP) 03626 Reviewed date:06/26/2024 11:03:53 PM Interpretation: Performing Lab: Notes/Report: Diagnosis 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 Diagnosis Description: Disorder involving the immune mechanism, unspecified Diagnosis Description: Chronic kidney disease, stage 2 (mild) Diagnosis Description: Acute kidney failure, unspecified Diagnosis Description: Anemia in chronic kidney disease Diagnosis Description: Other snf (current) drug therapy Diagnosis Description: Proteinuria, unspecified Diagnosis Description: Essential (primary) hypertension Diagnosis Description: Edema, unspecified Sodium 144 136-145 MMOL/L Potassium 3.8 3.5-5.1 MMOL/L Chloride 109 98-107 MMOL/L HI CO2 29.7 20.0-31.0 MMOL/L Glucose Serum 125 71-110 MG/DL HI Testing p erformed at [facility], [address] [place] [address] [address] [place] [address]. CLIA ID#: [id number] BUN 60 7-21 MG/DL HI Creat 1.02 .57-1.17 MG/DL V-yxudpc-w-benzoquino ne imine (NAPQI) is a metabolite of acetaminophen, [...] LOW Osmo Serum,Calculated 316 280-300 MOSM/KG HI Magnesium (B) 38325 Reviewed date:06/26/2024 11:03:53 PM Interpretation: Performing Lab: Notes/Report: Diagnosis 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 Diagnosis Description: Disorder involving the immune mechanism, unspecified Diagnosis Description: Chronic kidney disease, stage 2 (mild) Diagnosis Description: Acute kidney failure, unspecified Diagnosis Description: Anemia in chronic kidney disease Diagnosis Description: Other snf (current) drug therapy Diagnosis Description: Proteinuria, unspecified Diagnosis Description: Essential (primary) hypertension Diagnosis Description: Edema, unspecified Magnesium 2.1 1.8-2.4 MG/DL Reason For Referral No Information Medications Medication SIG (Take, Route, Frequency, Duration) Notes Start Date End Date Status Tylenol 325 MG Tablet 1 tablet as needed Orally every 6 hrs as needed Active Potassium Chloride ER 20 MEQ Tablet Extended Release 1 tablet Orally Twice a day Active Chlorthalidone 50 MG Tablet 1/2 tablet [...] Details Miscellaneous: Marital status: Children: x2 : [facility] Level of Education: 2 years damaris ege Current Employment Status Retire d Drugs/Alcohol: Do you smoke marijuana? 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 (Z79.52) Active confirmed Problem Essential hypertension (99125250) Essential hypertension (I10) Active confirmed Problem Anemia (729618420) Anemia, unspe cified type (D64.9) Active confirmed Problem Gout (23748038) Gout (M10.9) Active confirmed Problem Hypoalbuminemia (197290022) Hypoalbuminemia (E88.09) Active confirmed Problem Chronic kidney disease stage 2 (732299959) Stage 2 chronic kidney disease (N18.2) Active confirmed Problem Encounter for pre-operative laboratory testing (Z01.812) Active confirmed Problem Alkaline phosphatase raised (575849300) Elevated alkaline phosphatase level (R74.8) Active confirmed Problem Anemia of chronic disease (905139781) Anemia of chronic disease (D63.8) Active confirmed Problem Disorder of immune function (909385199) Immunosuppressed status (D89.9) Active confirmed Problem Lupus nephritis (34761904) 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) Active confirmed Problem Bleeds easily (397434544) Bleeds easily (D69.9) Active confirmed Vital Signs Heart Rate 74 /min 11/27/2024 Temperature 98.0 degrees Fahrenheit 11/27/2024 Respiratory Rate 20 /min 11/27/2024 Blood pressure diastolic 60 mm Hg 11/27/2024 Oximetry 98 % 11/27/2024 Height-cm 182.88 cm 11/27/2024 Weight-kg 103.33 kg 11/27/2024 Height 72 in 11/27/2024 Blood pressure systolic 146 mm Hg 11/27/2024 Weight 227.8 lbs 11/27/2024 BMI 30.89 kg/m2 11/27/2024 Encounters Encounter Location Date Provider Diagnosis [facility] [address] [place] [address] [address] [place] [address] 06/24/2024 Flex Rao Lupus nephritis M32. 14 ; Nephrotic range proteinuria R80.9 ; Hypoalbuminemia E88.09 ; Immunosuppressed status D89.9 ; Stage 2 chronic kidney disease N18.2 ; Essential hypertension I10 ; Edema R60.9 ; Hypokalemia E87.6 ; Anemia, unspecified type D64.9 and Pharmacologic therapy Z79.899 [facility] [address] [place] [address] [address] [place] [address] 05/16/2024 Flex Rao Lupus nephritis M32. 14 ; Nephrotic range proteinuria R80.9 ; Hypoalbuminemia E88.09 ; Immunosuppressed status D89.9 ; JOEL (acute kidney injury) N17.9 ; Stage 2 chronic kidney disease N18.2 ; Essential hypertension I10 ; Edema R60.9 ; Hypokalemia E87.6 ; Anemia in chronic kidney disease D63.1 and Pharmacologic therapy Z79.899 [facility] [address] [place] [address] 04/04/2024 Rossy Stokes Lupus nephritis M32. 14 ; Stage 2 chronic kidney disease N18.2 ; JOEL (acute kidney injury) N17.9 ; Nephrotic range proteinuria R80.9 ; Essential hypertension I10 ; Anemia in chronic kidney disease D63.1 and Pharmacologic therapy Z79.899 [facility] [address] [place] [address] 11/21/2024 Flex Rao Lupus nephritis M32. 14 ; Nephrotic range proteinuria R80.9 ; Hypoalbuminemia E88.09 ; watermaster (current) use of systemic steroids Z79.52 ; Immunosuppressed status D89.9 ; Stage 2 chronic kidney disease N18.2 ; Essential hypertension I10 ; Edema R60.9 ; Hypokalemia E87.6 ; Anemia of chronic disease D63.8 ; Bilateral leg edema R60.0 and Pharmacologic therapy Z79.899 [facility] [address] [place] [address] 11/27/2024 Abodunrin Badejo Elevated alkaline phosphatase level R74.8 ; Essential hypertension I10 ; Lupus nephritis M32.14 ; Stage 2 chronic kidney disease N18.2 ; Anemia in chronic kidney disease D63.1 and Gout M10.9 [facility] [address] [facility] [place] [address] 05/01/2024 Abodunrin Badejo Elevated alkaline phosphatase level R74.8 ; Essential hypertension I10 ; Lupus nephritis M32.14 ; Stage 2 chronic kidney disease N18.2 and Anemia in chronic kidney disease D63.1 [facility] [address] [place] [address] 08/22/2024 Flex Rao Lupus nephritis M32. 14 ; Nephrotic range proteinuria R80.9 ; Hypoalbuminemia E88.09 ; watermaster (current) use of systemic steroids Z79.52 ; Immunosuppressed status D89.9 ; Stage 2 chronic kidney disease N18.2 ; Essential hypertension I10 ; Edema R60.9 ; Hypokalemia E87.6 ; Anemia of chronic disease D63.8 and Pharmacologic therapy Z79.899 [facility] [address] [place] [address] [place] [address] 04/10/2024 [facility] [address] [place] [address] [place] [address] 04/10/2024 Adri Walters [facility] [address] [place] [address] [place] [address] 04/05/2024 [facility] [address] [place] [address] 03/28/2024 Adri Walters [facility] [address] [place] [address] [place] [address] 03/07/2024 Adri Walters Proteinuria, unspecified type R80.9 ; JOEL (acute kidney injury) N17.9 ; Essential hypertension I10 ; Elevated serum gamma-glutamyl transferase level R74.8 ; Other specified disorders of kidney and ureter N28.89 ; Bleeds easily D69.9 and Encounter for pre-operative laboratory testing Z01.812 [facility] [facility] [address] [address] 02/14/2024 Nathalie Cunningham Elevated LFTs R79.89 [facility] [address] [place] [address] [place] [address] 02/04/2025 Flex aRo [facility] [address] [address] 11/26/2024 Latonya Evans Primary biliary cirrhosis K74.3 [facility] [address] [address] 11/25/2024 Latonya Evans [facility] [address] [place] [address] [place] [address] 11/25/2024 Flex [facility] [address] [place] [address] [place] [address] 11/14/2024 Flex [facility] [address] [place] [address] [place] [address] 11/05/2024 Flex [facility] [address] [place] [address] 10/10/2024 Flex [facility] [address] [place] [address] 10/07/2024 Flex Rao Edema R60.9 [facility] [address] [place] [address] 09/24/2024 Adri Walters Stage 2 chronic kidn ey disease N18.2 [facility] [address] [place] [address] 09/02/2024 Adri Walters [facility] [address] [place] [address] [place] [address] 08/22/2024 [facility] [address] [place] [address] 06/24/2024 Flex Rao Nephrotic range proteinuria R80.9 ; JOEL (acute kidney injury) N17.9 and Hypoalbuminemia E88.09 [facility] [address] [place] [address] 05/16/2024 Flex Rao [facility] [address] [place] [address] [place] [address] 05/14/2024 Flex Rao Lupus nephritis M32. 14 ; Stage 2 chronic kidney disease N18.2 ; JOEL (acute kidney injury) N17.9 ; Anemia in chronic kidney disease D63.1 ; Pharmacologic therapy Z79.899 ; Nephrotic range proteinuria R80.9 ; Proteinuria, unspecified type R80.9 ; Essential hypertension I10 and Elevated alkaline phosphatase level R74.8 [facility] [address] [place] [address] 05/07/2024 Rossy Stokes [facility] [address] [place] [address] Dr [address] [place] [address] 04/17/2024 Rossy Stokes Assessments Encounter Date Diagnosis (ICD Code) Assessment Notes Treatment Notes Treatment Clinical Notes Section Notes 02/14/2024 Elevated LFTs (ICD-10 - R79.89) 03/07/2024 [...] lupus i s being treated with persistent nephrotic, but improved, proteinuria and no microscopic hematuria. No complications of immunosuppressio n. Renal function is slightly worse. HTN is stable. Anemia is at goal and he is iron replete. Edema is worse. Murmur is newly detected. Hypoalbuminemia is recurrent. Hypokalemia is controlled. Gout is controlled. 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 No complications of immunosuppressio n. Renal function is slightly worse. HTN is stable. Anemia is at goal and he is iron replete. Edema is worse. Murmur is newly detected. Hypoalbuminemia is recurrent. Hypokalemia is controlled. Gout is controlled. 11/26/2024 Primary biliary cirrhosis (ICD-10 - K74.3) 11/27/2024 Essential hypertension (ICD-10 - I10) 11/27/2024 Elevated alkaline phosphatase level (ICD-10 - R74.8) 11/27/2024 Lupus nephritis (ICD-10 - M32.14) 11/21/2024 Hypoalbuminemia (ICD-10 - E88.09) Class V lupus is being treated with persistent nephrotic, but improved, proteinuria and no microscopic hematuria. No complications of immunosuppressio n. Renal function is slightly worse. HTN is stable. Anemia is at goal and he is iron replete. Edema is worse. Murmur is newly detected. Hypoalbuminemia is recurrent. Hypokalemia is controlled. Gout is controlled. 08/22/2024 Hypoalbuminemia (ICD-10 - E88.09) Class V [...] JOEL (acute kidney injury) (ICD-10 - N17.9) 03/07/2024 Essential hypertension (ICD-10 - I10) 04/04/2024 [...] goal 06/24/2024 Hypoalbuminemia (ICD-10 - E88.09) 08/22/2024 retirement (current) use of systemic steroids (ICD-10 - [...] is at goal, unknown iron status. 11/21/2024 retirement (current) use of systemic steroids (ICD-10 - Z79.52) Class V lupus is being treated with persistent nephrotic, but improved, proteinuria and no microscopic hematuria. No complications of immunosuppressio n. Renal function is slightly worse. HTN is stable. Anemia is at goal and he is iron replete. Edema is worse. Murmur is newly detected. Hypoalbuminemia is recurrent. Hypokalemia is controlled. Gout is controlled. 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 No complications of immunosuppressio n. Renal function is slightly worse. HTN is stable. Anemia is at goal and he is iron replete. Edema is worse. Murmur is newly detected. Hypoalbuminemia is recurrent. Hypokalemia is controlled. Gout is controlled. 08/22/2024 Immunosuppressed status (ICD-10 - D89.9) Class [...] lupus i s being treated with persistent nephrotic, but improved, proteinuria and no microscopic hematuria. No complications of immunosuppressio n. Renal function is slightly worse. HTN is stable. Anemia is at goal and he is iron replete. Edema is worse. Murmur is newly detected. Hypoalbuminemia is recurrent. Hypokalemia is controlled. Gout is controlled. 11/27/2024 Gout (ICD-10 - M10.9) 11/21/2024 Essential hypertension (ICD-10 - I10) Class V lupus is being treated with persistent nephrotic, but improved, proteinuria and no microscopic hematuria. No complications of immunosuppressio n. Renal function is slightly worse. HTN is stable. Anemia is at goal and he is iron replete. Edema is worse. Murmur is newly detected. Hypoalbuminemia is recurrent. Hypokalemia is controlled. Gout is controlled. 08/22/2024 Essential hypertension (ICD-10 - I10) Class [...] V lupus is being treated with persistent nephrotic, but improved, proteinuria and no microscopic hematuria. No complications of immunosuppressio n. Renal function is slightly worse. HTN is stable. Anemia is at goal and he is iron replete. Edema is worse. Murmur is newly detected. Hypoalbuminemia is recurrent. Hypokalemia is controlled. Gout is controlled. 11/21/2024 Hypokalemia (ICD-10 - E87.6) Class V lupus i s being treated with persistent nephrotic, but improved, proteinuria and no microscopic hematuria. No complications of immunosuppressio n. Renal function is slightly worse. HTN is stable. Anemia is at goal and he is iron replete. Edema is worse. Murmur is newly detected. Hypoalbuminemia is recurrent. Hypokalemia is controlled. Gout is controlled. 06/24/2024 Anemia, unspecified type (ICD-10 - D64.9) [...] V lupus is being treated with persistent nephrotic, but improved, proteinuria and no microscopic hematuria. No complications of immunosuppressio n. Renal function is slightly worse. HTN is stable. Anemia is at goal and he is iron replete. Edema is worse. Murmur is newly detected. Hypoalbuminemia is recurrent. Hypokalemia is controlled. Gout is controlled. 11/21/2024 Bilateral leg edema (ICD-10 - R60.0) Class V lupus is being treated with persistent nephrotic, but improved, proteinuria and no microscopic hematuria. No complications of immunosuppressio n. Renal function is slightly worse. HTN is stable. Anemia is at goal and he is iron replete. Edema is worse. Murmur is newly detected. Hypoalbuminemia is recurrent. Hypokalemia is controlled. Gout is controlled. 08/22/2024 Pharmacologic therapy (ICD-10 - Z79.899) Class [...] V lupus is being treated with persistent nephrotic, but improved, proteinuria and no microscopic hematuria. No complications of immunosuppressio n. Renal function is slightly worse. HTN is stable. Anemia is at goal and he is iron replete. Edema is worse. Murmur is newly detected. Hypoalbuminemia is recurrent. Hypokalemia is controlled. Gout is controlled. 04/04/2024 Other Repeat BMP within 1 week [...] AST 35, ALT 25, albumin 2.1, alkaline [id number], WBC 4, hemoglobin 11, hematocrit 37, MCV [...] Follow-up in 1 month with labs at [facility] the morning of the appointment. BMP, mag, CBC, UA, serum albumin, urine protein, urine creatinine The patient was instructed to follow up with their PCP for preventative health screenings. I am the scribe for Dr. Rao and I have documented sections of this chart - Danisha Wong Class V lupus is being treated with [...] Follow-up in 2 months with labs at [facility] 5 to 10 days prior to appointment. [...] Follow-up in 2 months with labs at [facility] 5 to 10 days prior to appointment. [...] of immunosupression. Monitor proteinuria and serum albumin. At this time, dose medications for GFR less than 60 ml/min. Avoid nephrotoxins. Low sodium diet. Risk factor modification. Stay well hydrated. Start Farxiga 10 mg daily. He was informed of increased risk of UTI and skin infections. He was instructed to look at his groin and genitalia every day and monitor for rash. If he has a rash, then he is to see medical evaluation as it may indicate infection. If he gets urine on his skin, then he is to wash his skin with soap and water and he is to change any soiled clothes. To prevent cutaneous infection, recommended talcum powder, corn starch, or GoldBond. Continue current antihypertensives and monitor blood pressure daily with goal blood pressure less than 130/80. Continue Bumex and, as he is starting Farxiga, monitor weight daily. Goal is to not lose more than 4 lbs in 24 hours. Continue KCl; monitor potassium and magnesium levels. Obtain echo at [facility] to evaluate murmur and cardiac function. Follow-up in 2 months with labs at [facility] 5 to 10 days prior to appointment. BMP, mag, uric, CBC, iron stuides, UA, urine protein, urine creatinine, albumin The patient was instructed to follow up with their PCP for preventative health screenings. I am the scribe for Dr. Rao and I have documented sections of this chart - Yola Diana Class V lupus is being treated with persistent nephrotic, but improved, proteinuria and no microscopic hematuria. No complications of immunosuppressio n. Renal function is slightly worse. HTN is stable. Anemia is at goal and he is iron replete. Edema is worse. Murmur is newly detected. Hypoalbuminemia is recurrent. Hypokalemia is controlled. Gout is controlled. 11/27/2024 Other Laboratory investigations from yesterday as [...] Test Test Name Order Date Prothrombin Time 31705 03/07/2024 CBC w\ Auto Diff 75009 02/14/2024 Hemoglobin 00190 03/07/2024 Hepatic Function Panel 05697 02/14/2024 Hepatic Function Panel 05618 11/26/2024 Partial Thromboplastin Time 41196 2023 Basic Metabolic Panel (BMP) 86904 2023 Protein Electrophoresis (S) 12363, 04174 02/01/2024 Protein Electrophoresis (U) ([place] a) 51801, 42334, 65884, 01272 02/01/2024 Immunofixation-Serum 81828 02/01/2024 Albumin 84514 05/14/2024 Future Test Test Name Order Date Basic Metabolic Panel (BMP) 78740 2024 CBC w\ Auto Diff 75703 11/11/2024 Hepatic Function Panel 57973 11/11/2024 Creatinine (U) 80094 11/11/2024 Urinalysis--96978 11/11/2024 Echo Complete EC-00600 12/23/2024 Albumin 01749 02/21/2025 Basic Metabolic Panel (BMP) 08525 2024 CBC w\ Auto Diff 91947 02/21/2025 Ferritin 30601 02/21/2025 Hemoglobin 46129 02/21/2025 Iron Binding Capacity Total 21396 2024 Iron Level 21460 02/21/2025 Magnesium (B) 30760 02/21/2025 Protein (U) Random 74188 02/21/2025 Uric Acid (B) 09437 02/21/2025 Creatinine (U) 73312 02/21/2025 UA Reflex Micro, Reflex Cult 31196, 8101 5, 23972 02/21/2025 % Iron Saturation (Fe & TIBC)--62392,835 50 02/21/2025 Next Appt Details Provider Name:Flex Jalen, 02/26/2025 11:00:00 AM, [address] [place] [address] Rik Freitas, [place], [address], Provider Name:Flex Rao, 04/24/2025 02:00:00 PM, [address] [place] [address] Rik Freitas, [place], [address], Provider Name:Flex Rao, 08/28/2025 01:00:00 PM, [address] [place] [address] Rik Freitas, [place], [address], Insurance Providers Payer Name Payer Address Payer Phone Subscriber Number Group Number Insured Name Patient Relationship to Insured Coverage Start Date Coverage End Date [place] Medicare [address] [place] [phone] [id number] MARKY NAJERA Self - patient is the insured [employer] [facility] [address] [place] [phone] [id number] MARKY NAJERA Self - patient is the insured Medical (General) History Medical History History ICD Code Pneumonia hernia Back Trouble hypertension anxiety colonic polyps elevated LFTs primary biliary cirrhosis lupus gout Surgical History Surgery Date(Month/Year) (L) knee replacement umbilical hernia repair Hospitalization History Reason Date(Month/Year) see surgical history
--- NOTE | 2025-02-07 10:04 | ECG_ITS ---
[facility]: 2025-02-07 Pat Name: Jose Miguel Coleman Department: Room: Gender: Male Ambulatory Services Representative: : 1950 Requested By: Krzysztof Tillman Order Number: [id number] Santy MD: Tristan Pollack M.D. Measurements Intervals Nemo Rate: 81 P: 51 RI: 168 QRS: 49 QRSD: 123 T: 43 QT: 360 QTc: 420 Interpretive Statements SINUS RHYTHM MODERATE INTRAVENTRICULAR CONDUCTION DELAY [105+ ms QRS DURATION, 80+ ms Q/S IN V1/V2, NO Q AND 60+ ms R IN I/aVL/V5/V6] NONSPECIFIC T-WAVE ABNORMALITY Compared to ECG 12/13/2024 19:34:38 Intraventricular conduction delay now present T-wave abnormality now present Ventricular premature complex(es) no longer present Myocardial infarct finding no longer present Electronically Signed On 02-08-2025 14:03:55 EMBEDDED SOFTWARE DEVELOPER by Tristan Pollack M.D. [email or web address]
[2025-02-07 10:08] LABS: Hematocrit 33.2 % (37-53); Hemoglobin 10.60 g/dL (11.27-16.99); Mean Corpuscular HGB Conc 31.9 g/dL (30-55); Mean Corpuscular Hemoglobin 29.0 pg (27-33); Mean Corpuscular Volume 90.7 fl (82-101); Nucleated Red Blood Cells % 0 %; Platelet Count 163 10^3/cmm (157-399); Red Blood Count 3.66 10^6/uL (3.85-5.65); White Blood Count 4.57 10^3/uL (3.29-11.43)
[2025-02-07 10:25] LABS: Lactic Sepsis W/Reflex 1.1 mmol/L (0.5-2.2)
[2025-02-07 10:26] LABS: Troponin(5th) Baseline 75 ng/L (0-15)
[2025-02-07 10:27] LABS: Alanine Aminotransferase 10 U/L (0-41); Albumin Level 3.8 g/dL (3.5-5.2); Alkaline Phosphatase 105 U/L (40-130); Anion Gap 26.1 (5-19); Aspartate Amino Transferase 14 U/L (0-40); Calcium 9.2 mg/dL (8.5-10.5); Carbon Dioxide 14 mmol/L (22-29); Chloride 103 mmol/L (98-107); Globulin 2.8 g/dL (1.3-4.6); Glucose 145 mg/dL (65-115); Magnesium 2.6 mg/dL (1.7-2.3); Potassium 5.1 mmol/L (3.5-5.1); Sodium 138 mmol/L (136-145); Total Protein 6.6 g/dL (6.6-8.7)
--- NOTE | 2025-02-07 10:29 | W.ED.WEAKNES ---
HPI - Weakness General: Chief complaint: ER Hold Stated complaint: low bp - weight loss Time Seen by Provider: 02/07/25 09:42 History of Present Illness: 74-year-old male presents to the emergency room from local long-term with complaint of low blood pressure and weight loss. He has had diarrhea. History of recent stroke and has had [facility] recovering. shelter reported pressures of 80/40 systolic. Improved blood pressures here denies abdominal pain or dysuria. Associated symptoms: Denies chest pain, chills, dysuria or fever(s) Related Data Home Medications ?Medication ?Instructions ?Recorded ?Confirmed metoprolol succinate 100 mg 100 mg PO DAILY 02/26/24 02/07/25 tablet,extended release 24 hr bumetanide 2 mg tablet 4 mg PO DAILY 10/29/24 02/07/25 Held on 02/10/25. Instructions: Resume on 02/17/25. hold until you see nephrology dapagliflozin propanediol 10 mg 10 mg PO DAILY 12/14/24 02/07/25 tablet (Farxiga) prednisone 1 mg tablet 1 mg PO DAILY 12/16/24 02/07/25 acetaminophen 325 mg tablet 650 mg PO Q4H PRN Pain 02/07/25 02/07/25 allopurinol 100 mg tablet 100 mg PO DAILY 02/07/25 02/07/25 aspirin 81 mg tablet,delayed 81 mg PO DAILY 02/07/25 02/07/25 release atorvastatin 40 mg tablet 40 mg PO BEDTIME 02/07/25 02/07/25 bisacodyl 10 mg rectal suppository 10 mg MO DAILY PRN Constipation 02/07/25 02/07/25 clopidogrel 75 mg tablet 75 mg PO DAILY 02/07/25 02/07/25 doxazosin 8 mg tablet 8 mg PO DAILY 02/07/25 02/07/25 omeprazole 20 mg capsule,delayed 20 mg PO DAILY 02/07/25 02/07/25 release Previous Rx's ?Medication ?Instructions ?Recorded potassium chloride 20 mEq 40 meq (2 x 20 mEq) PO DAILY #180 07/08/24 tablet,extended release tabs Held on 02/10/25. Instructions: Resume on 02/17/25. lisinopril 40 mg tablet 40 mg PO DAILY #90 tabs 09/12/24 mycophenolate mofetil 500 mg 1,500 mg (3 x 500 mg) PO BID lpus 01/22/25 tablet (CellCept) nephriis #180 tabs doxazosin 4 mg tablet 8 mg (2 x 4 mg) PO DAILY 30 days 02/10/25 #60 tabs ezetimibe 10 mg tablet 10 mg PO DAILY 30 days #30 tabs 02/10/25 pantoprazole 40 mg tablet,delayed 40 mg PO BID 30 days #60 tabs 02/10/25 release (Protonix) sucralfate 1 gram tablet 1 g PO Q12H 30 days #60 tabs 02/10/25 Allergies Allergy/AdvReac Type Severity Reaction Status Date / Time No Known Allergies Allergy Verified 01/29/25 08:34 Review of Systems Const: Reports: change in appetite, change in weight, fatigue and malaise; Denies: fever(s) or chills Card: Denies: chest pain Resp: Denies: dyspnea GI: Denies: abdominal pain : Denies: dysuria, urinary frequency or urinary urgency Musc: Denies: neck pain or back pain Skin/Breast: Denies: rash PFSH ED PFSH: Medical History Lupus nephritis Fluid retention Dependent edema Anasarca High gamma glutamyl transferase (GGT) History of pneumonia Allergic rhinitis due to allergen Hearing impaired Type 2 diabetes mellitus Hyperlipidemia Essential hypertension Family History Brother Cancer Lung disease Father Stroke Other Diabetes Hypertension Denies family history of CAD (coronary artery disease) Clotting disorder Dementia Hyperlipidemia Psychiatric illness Chronic kidney disease (CKD) Suicide Anesthesia complication Bleeding disorder Family history of premature coronary artery disease Social History Smoking and tobacco/nicotine status: never used tobacco/nicotine Second hand smoke exposure: No Alcohol intake: current Alcohol intake frequency: holidays/special occasions only Alcohol type: beer Substance/Drug Use: never Adopted: No Caregiver/support person: No Lives independently: Yes Household members: spouse Housing: House Marital status: service: Yes ([facility]) Physical Exam Const: GENERAL APPEARANCE: cooperative ORIENTATION/CONSCIOUSNESS: Yes awake, Yes oriented to person, Yes oriented to place and Yes oriented to time HENMT: COMMON NORMALS: normocephalic, atraumatic and hearing grossly normal bilaterally HEAD & SCALP: normocephalic and atraumatic Resp: COMMON NORMALS: normal respiratory effort, No retractions, No use of accessory muscles and clear to auscultation bilaterally AUSCULTATION: clear to auscultation bilaterally Cardio: COMMON NORMALS: regular rate, regular rhythm and No murmurs present (Cardio) RATE: regular rate RHYTHM: regular rhythm GI: COMMON NORMALS: Soft to palpation and No hepatosplenomegaly present AUSCULTATION: Yes normoactive bowel sounds PALPATION: Yes Soft to palpation, No Tenderness to palpation present (GI), No Guarding due to palpation present (GI) and Yes No hepatosplenomegaly present Extremity: COMMON NORMALS: normal to inspection, capillary refill normal, no clubbing, cyanosis or edema, no calf tenderness and no pedal edema Neuro: SENSORIUM/ORIENTATION: Yes oriented to person, Yes oriented to place and Yes oriented to time Skin: COMMON NORMALS: no rashes or lesions noted GENERAL SKIN EXAM: no rashes or lesions noted Course Vital Signs: Vital signs: Vital Signs Temperature 97.5 F L 02/10/25 15:37 Pulse Rate 76 02/10/25 15:37 Respiratory Rate 16 02/10/25 15:37 Blood Pressure 150/70 02/10/25 15:37 Pulse Oximetry 98 02/10/25 15:37 Oxygen Delivery Me thod Room Air 02/10/25 11:32 MDM - Weakness Medical Decision Making Medical decision making Social determinants: Difficulty managing ADLs and is on home I reviewed the patient's medical record. I reviewed the patient's current home meds Alternate historians: Differential diagnosis: Sepsis cystitis metabolic encephalopathy acute coronary syndrome generalized deconditioning, dehydration Lab Review: Labs reviewed as found on the chart. Acute kidney injury mild anemia Imaging: Abdominal CT shows diverticuli without diverticulitis no evidence of high-grade obstruction Assessment of risk: Level of risk: High Hospitalization considerations: Admit for acute kidney injury and dehydration Reexamination: Stable unchanged from initial exam Assessment and plan: IV fluids started. Patient has acute kidney injury is having significant gastroenteritis with volume losses from diarrhea there is no evidence of diverticulitis. C. difficile was done and is negative. He has history of lupus which is probably exacerbating his kidney injury. Discussed with hospitalist will admit IV fluids initiated. Medical Records I reviewed the patient's medical records. Lab Data I reviewed the patient's lab results. 02/10/25 12:52 02/10/25 12:52 Radiology Impressions Abdomen/Pelvis CT 02/07/25 10:43 IMPRESSION: 1. Few sigmoid diverticuli. No evidence of acute diverticulitis. 2. A few air-fluid levels in normal caliber colon. No evidence of high-grade obstruction. 3. Normal noncontrast pancreas. 4. No hydronephrosis in either kidney. 5. Ahuja catheter. Enlarged prostate. Laboratory Results WBC 4.57 10^3/uL (3.29-11.43) 02/07/25 09:49 RBC 3.66 10^6/uL (3.85-5.65) L 02/07/25 09:49 Hgb 10.60 g/dL (11.27-16.99) L 02/07/25 09:49 Hct 33.2 % (37-53) L 02/07/25 09:49 MCV 90.7 fl (82-101) 02/07/25 09:49 MCH 29.0 pg (27-33) 02/07/25 09:49 MCHC 31.9 g/dL (30-55) 02/07/25 09:49 RDW 13.2 % (12.1-15.1) 02/07/25 09:49 Plt Count 163 10^3/cmm (157-399) 02/07/25 09:49 MPV 12.0 fL (7.4-10.4) H 02/07/25 09:49 Neut % (Auto) 77.4 % 02/07/25 09:49 Lymph % (Auto) 16.0 % 02/07/25 09:49 [place] % (Auto) 5.5 % 02/07/25 09:49 Eos % (Auto) 0.7 % 02/07/25 09:49 Baso % (Auto) 0.2 % 02/07/25 09:49 Neut # (Auto) 3.54 10^3/uL (1.8-7.7) 02/07/25 09:49 Lymph # (Auto) 0.7 10^3/uL (0.8-4.8) L 02/07/25 09:49 [place] # (Auto) 0.3 10^3/uL (0.2-0.9) 02/07/25 09:49 Eos # (Auto) 0.0 10^3/uL (0.0-0.8) 02/07/25 09:49 Baso # (Auto) 0.0 10^3/uL (0.0-0.1) 02/07/25 09:49 Nucleated RBC % (auto) 0 % 02/07/25 09:49 Nucleated RBCs # 0.0 /100WBC 02/07/25 09:49 Sodium 138 mmol/L (136-145) 02/07/25 09:49 Potassium 5.1 mmol/L (3.5-5.1) 02/07/25 09:49 Chloride 103 mmol/L (98-107) 02/07/25 09:49 Carbon Dioxide 14 mmol/L (22-29) L 02/07/25 09:49 Anion Gap 26.1 (5-19) H 02/07/25 09:49 BUN 163 mg/dL (8-23) H* D 02/07/25 09:49 Creatinine 3.0 mg/dL (0.7-1.2) H 02/07/25 09:49 GFR Calculation Not Reportable 02/07/25 09:49 Glucose 145 mg/dL (65-115) H 02/07/25 09:49 Calculated Osmolality 342 mOsm/kg (285-295) H 02/07/25 09:49 Lactic Acid 1.1 mmol/L (0.5-2.2) 02/07/25 09:49 Calcium 9.2 mg/dL (8.5-10.5) 02/07/25 09:49 Phosphorus 8.1 mg/dL (2.5-4.5) H* 02/07/25 09:49 Magnesium 2.6 mg/dL (1.7-2.3) H 02/07/25 09:49 Magnesium Cancelled 02/07/25 09:49 Total Bilirubin 0.2 mg/dL (0.15-1.2) 02/07/25 09:49 AST 14 U/L (0-40) 02/07/25 09:49 ALT 10 U/L (0-41) 02/07/25 09:49 Alkaline Phosphatase 105 U/L (40-130) 02/07/25 09:49 Creatine Kinase 63 U/L (39-308) 02/07/25 09:49 Troponin T Baseline 75 ng/L (0-15) H 02/07/25 09:49 Troponin T 120 Minute 58.54 ng/L (0-15) H 02/07/25 11:54 Delta Troponin T -16.46 ABS# (0-10) L 02/07/25 11:54 Total Protein 6.6 g/dL (6.6-8.7) 02/07/25 09:49 Albumin 3.8 g/dL (3.5-5.2) 02/07/25 09:49 Globulin 2.8 g/dL (1.3-4.6) 02/07/25 09:49 Lipase 923 U/L (13-60) H 02/07/25 09:49 TSH 1.01 uIU/mL (0.27-4.20) 02/07/25 09:49 Urine Color Yellow (Yellow) 02/07/25 11:42 Urine Appearance Clear (CLEAR) 02/07/25 11:42 Urine pH 5.0 (5-7) 02/07/25 11:42 Ur Specific [place] 1.014 (1.005-1.030) 02/07/25 11:42 Urine Protein 1+ (Negative) A 02/07/25 11:42 Urine Glucose (UA) Negative (Normal) 02/07/25 11:42 Urine Ketones Negative (Negative) 02/07/25 11:42 Urine Blood Negative (Negative) 02/07/25 11:42 Urine Nitrate Negative (Negative) 02/07/25 11:42 Urine Bilirubin Negative (Negative) 02/07/25 11:42 Urine Urobilinogen 0.2 mg/dL (Negative) 02/07/25 11:42 Ur Leukocyte Esterase Negative (Negative) 02/07/25 11:42 Urine RBC 6-10 /hpf (0-2) 02/07/25 11:42 Urine WBC 0-5 /hpf (0-5) 02/07/25 11:42 Ur Squamous Epith Cells 0-5 /hpf (0-5) 02/07/25 11:42 Amorphous Sediment Not Reportable 02/07/25 11:42 Urine Bacteria None seen /hpf (NONE) 02/07/25 11:42 Hyaline Casts 72.81 /lpf 02/07/25 11:42 Coarse Granular Casts 5-10 /lpf H 02/07/25 11:42 C. difficile (PCR) Negative (Negative) 02/07/25 12:40 Blood Type A Positive 02/07/25 10:42 Rho(D) Type Rh positive 02/07/25 10:42 Antibody Screen Negative 02/07/25 10:42 All radiology interpretation(s) finalized by discharge EKG Data EKG 1: I personally reviewed and interpreted this EKG as follows: Interpretation: EKG 02/07/2025 10:04 AM sinus rhythm rate of 81 MO interval 168 QTc [address] elevation present. Compared to EKG 12/13/2024. EKG 2: I personally reviewed and interpreted this EKG as follows: Interpretation: EKG 02/07/2025 1247 sinus rhythm rate of 76 MO interval 165 QTc [address] changes noted no significant change compared to 8 EKG done earlier same day Discharge Plan Discharge Patient Disposition: Admitted As Inpatient Admit Provider: Justina Chavez Clinical Impression: JOEL (acute kidney injury), Gastroenteritis and colitis, viral, Type 2 diabetes mellitus Condition: Stable Discharge Diet: Cardiac Discharge Activity: Resume usual activity Coding Level of Care Code ED Stamps Or Coins Salesperson for 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
[2025-02-07 10:37] LABS: Lipase 923 U/L (13-60); Osmolality Calculated 342 mOsm/kg (285-295)
[2025-02-07 10:38] LABS: Blood Urea Nitrogen 163 mg/dL (8-23)
--- NOTE | 2025-02-07 10:43 | CT_ITS ---
WS: [id number] CT ABDOMEN PELVIS TECHNIQUE: Noncontrast CT of the abdomen and pelvis with coronal and sagittal reformatted images. CLINICAL INFORMATION: Abdominal pain/diarrhea/elevated lipase COMPARISON: 2023 DLP: 796.[address] scans at [facility] use at least one of these dose optimization techniques: automated exposure control; mA and/or kV adjustment per patient size (includes targeted exams where dose is matched to clinical indication); or iterative reconstruction. FINDINGS: Tiny esophageal hiatal hernia. Normal noncontrast liver and spleen. Normal noncontrast pancreas. Adrenal glands are normal. No hydronephrosis in either kidney. No obstructing renal or ureteral calculi. Normal caliber abdominal aorta. Aortic calcification. A few air-fluid levels in normal caliber colon. No evidence of high-grade obstruction. Enlarged prostate measuring 4.5 cm. Ahuja catheter. Small bladder cystocele. Sigmoid diverticulosis. No evidence of acute diverticulitis. 7.6 mm noncalcified nodule LEFT lower lobe stable since 2020. CT/CT abdomen pelvis wo con [id number] IMPRESSION: 1. Few sigmoid diverticuli. No evidence of acute diverticulitis. 2. A few air-fluid levels in normal caliber colon. No evidence of high-grade o bstruction. 3. Normal noncontrast pancreas. 4. No hydronephrosis in either kidney. 5. Ahuja catheter. Enlarged prostate.
--- NOTE | 2025-02-07 11:21 | PC.NURSE ---
SOLIZ PLACED. VERY LITTLE URINE RETURN. EMA NOTIFIED.
[2025-02-07 11:48] LABS: Glucose Urine UA Negative (Normal); Nitrate Urine Negative (Negative); Specific Gravity, Urine 1.014 (1.005-1.030)
[2025-02-07 11:51] LABS: Add Urine Microscopic? YES
[2025-02-07 12:19] LABS: UA Slide Review UA Slide Review Perf
[2025-02-07 12:22] LABS: Troponin 5 2HR 58.54 ng/L (0-15)
--- NOTE | 2025-02-07 12:40 | PC.PHAR ---
Pt is from [facility]
--- NOTE | 2025-02-07 12:47 | ECG_ITS ---
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 Measurements Intervals [place] Rate: 76 P: 68 [place]: 165 QRS: 46 QRSD: 130 T: 28 QT: 389 QTc: 437 Interpretive Statements SINUS RHYTHM MODERATE INTRAVENTRICULAR CONDUCTION DELAY [105+ ms QRS DURATION, 80+ ms Q/S IN V1/V2, NO Q AND 60+ ms R IN I/aVL/V5/V6] Compared to ECG 02/07/2025 10:04:11 T-wave abnormality no longer present Electronically Signed On 02-08-2025 14:20:30 CLUB ATTENDANT by Tristan Pollack M.D. [email or web address] [id number]
[2025-02-07 13:22] LABS: Thyroid Stimulating Hormone 1.01 uIU/mL (0.27-4.20)
[2025-02-07] MEDS: alum-mag-hydroxide-sime 30 mL UDC 15 ML PO ×2 (13:22→21:52)
[2025-02-07] MEDS: heparin 5,000 unit/mL INJ 1 mL 5000 UNIT SUBCUT (13:23)
[2025-02-07] MEDS: pantoprazole 40 mg SDV IVP (13:23)
[2025-02-07 13:37] LABS: C.Diff PCR (Lab) NEGATIVE (Negative)
--- NOTE | 2025-02-07 14:00 | PM.HP ---
Providers/Chief Complaint Admitting Physician: Justina Chavez MD Primary Care Provider: Sebastián Cochran MD Chief Complaint: low bp - weight loss History of Present Illness As per the previous notes and the patient/family: Jose Miguel Coleman is a 74 year old male with past medical history of lupus, allergic rhinitis, diabetes, hyperlipidemia, hypertension, presented with diarrhea that has been ongoing from last 2 weeks. he was in the rehab facility as [facility] and during his stay started to have diarrhea, water in nature, non foul smelling and non bloody. he also reported having a metallic taste. no fat or malabsorption symptoms. no joint pains or any skin rash. no fever or any chills. no change in his urinary habits. he does reported having wt loss and generalised weakness more than 10 pounds in these 2 weeks. no joint swellings. no chest pain or pressure any orthopnea or PND. rest of the review of system is unremarkable Review of Systems General: Reports: 10 or more systems reviewed and unremarkable except in HPI and below Medications/Allergies Home Medications ?Medication ?Instructions ?Recorded ?Confirmed ?Last Taken ?Type metoprolol succinate 100 mg 100 mg PO DAILY 02/26/24 02/07/25 02/04/25 History tablet,extended release 24 hr potassium chloride 20 mEq 40 meq (2 x 20 mEq) PO DAILY #180 07/08/24 02/07/25 02/07/25 Rx tablet,extended release tabs lisinopril 40 mg tablet 40 mg PO DAILY #90 tabs 09/12/24 02/07/25 02/04/25 Rx bumetanide 2 mg tablet 4 mg PO DAILY 10/29/24 02/07/25 02/06/25 History dapagliflozin propanediol 10 mg 10 mg PO DAILY 12/14/24 02/07/25 02/06/25 History tablet (Farxiga) prednisone 1 mg tablet 1 mg PO DAILY 12/16/24 02/07/25 02/06/25 History mycophenolate mofetil 500 mg 1,500 mg (3 x 500 mg) PO BID lpus 01/22/25 02/07/25 02/06/25 Rx tablet (CellCept) nephriis #180 tabs acetaminophen 325 mg tablet 650 mg PO Q4H PRN Pain 02/07/25 02/07/25 01/18/25 History allopurinol 100 mg tablet 100 mg PO DAILY 02/07/25 02/07/25 Unknown History aspirin 81 mg tablet,delayed 81 mg PO DAILY 02/07/25 02/07/25 02/06/25 History release atorvastatin 40 mg tablet 40 mg PO BEDTIME 02/07/25 02/07/25 02/06/25 History bisacodyl 10 mg rectal suppository 10 mg CA DAILY PRN Constipation 02/07/25 02/07/25 Unknown History bumetanide 1 mg tablet 3 mg PO .QAFTERNOON DAILY 02/07/25 02/07/25 02/06/25 History clopidogrel 75 mg tablet 75 mg PO DAILY 02/07/25 02/07/25 02/06/25 History doxazosin 8 mg tablet 8 mg PO DAILY 02/07/25 02/07/25 02/06/25 History omeprazole 20 mg capsule,delayed 20 mg PO DAILY 02/07/25 02/07/25 Unknown History release Allergies Allergy/AdvReac Type Severity Reaction Status Date / Time No Known Allergies Allergy Verified 01/29/25 08:34 PFSH Acute PFSH: Medical History (Updated 02/07/25 @ 17:43 by Justina Chavez MD) Lupus nephritis Fluid retention Dependent edema Anasarca High gamma glutamyl transferase (GGT) History of pneumonia Allergic rhinitis due to allergen Hearing impaired Type 2 diabetes mellitus Hyperlipidemia Hypertension Family History Brother Cancer Lung disease Father Stroke Other Diabetes Hypertension Denies family history of CAD (coronary artery disease) Clotting disorder Dementia Hyperlipidemia Psychiatric illness Chronic kidney disease (CKD) Suicide Anesthesia complication Bleeding disorder Family history of premature coronary artery disease Social History Smoking and tobacco/nicotine status: never used tobacco/nicotine Second hand smoke exposure: No Alcohol intake: current Alcohol intake frequency: holidays/special occasions only Alcohol type: beer Substance/Drug Use: never Adopted: No Caregiver/support person: No Lives independently: Yes Household members: spouse Housing: House Marital status: service: Yes ([facility]) Vitals/I&O/Wt Last Vital Signs Temp 98.2 F 02/07/25 09:42 Pulse 84 02/07/25 12:04 Resp 16 02/07/25 12:04 BP 108/71 02/07/25 12:04 Pulse Ox 98 02/07/25 12:04 O2 Del Method Room Air 02/07/25 12:04 Weight last 48 hrs Weight 82.554 kg Physical Exam Narrative: General: Alert and oriented, lying comfortably without any distress, looks dehydrated, HEENT: Normocephalic, atraumatic, grossly unremarkable exam Cardio: normal rate rhythm, normal S1-S2 without any murmurs, rubs, or gallops and JVD normal Respiratory: normal vascular breathing on auscultation without any wheezes, stridor, rhonchi GI: Abdomen soft, nontender, nondistended, normoactive bowel sounds present all 4 quadrants, Neuro: grossly intact neurological status apart from the residual left sided weakness at baseline Behavior: Appropriate and cooperative Extremities: Adequate palpable pulses, mild trace edema, and having chronic skin changes on the shins with pigmentation Urinary Catheter Management: Ahuja: Cath Placed During This Visit: yes Urinary Catheter Date of Insertion: 02/07/25 Urinary Catheter Time of Insertion: 10:56 Data 02/07/25 09:49 02/07/25 09:49 Micro: Microbiology 02/07/25 12:40 Stool Lactoferrin - Final Stool Occult Blood (FIT) - Final 02/07/25 11:04 Blood Culture - Preliminary Blood SPECIMEN COLLECTED 02/07/25 10:58 Blood Culture - Preliminary Blood SPECIMEN COLLECTED A&P Assessment and plan 1. Gastroenteritis and colitis, viral: C diff negative possible viral gastroenteritis stool studies metro and cipro follow stools studies and blood cultures monitor intake and output monitor and correct electrolytes renal parameters monitoring 2. Lupus nephritis: hold off Hydroxychlorquine, MMF and prednisone at the moment having JOEL? likely pre renal with increased BUN/cr ratio adequate hydration and fluids to continue 3. JOEL (acute kidney injury): cont adequate hydration monitor renal parameters and if improving then cont hydration if not improving consider JOEL workup monitor and correct electrolytes 4. Gout: currently stable hold NSAIDS since the patient is having JOEL pt informed that he is on allopurinol, considerng JOEL, hold it at the moment analgesia as per pain scale 5. Type 2 diabetes mellitus: Insulin S/S 6. Hyperlipidemia: home medications reviewed, the patient does not seem to be on statins? to follow up with the PCP 7. Hypertension: BP on the softer side, hold Anti HTN as of now untill BP is more stable 8. CVA (cerebral vascular accident): cont aspirin, plavix and statins as per home medications PDMP PDMP Reviewed: Not Reviewed Attestations Medical Necessity Statement*: Jose Miguel Coleman's hospital stay will require greater than 2 midnights for management of diarrhea Time Spent in Patient Care: 16 - 35 minutes (>than 50% of time spent in counselling and/or direct pt care on unit). Other Attestations: Patient condition has been discussed at length with the patient/family, I have independently reviewed the chart labs imaging/diagnostics/EKG. the goals of care and code status with the patient/family/NOK/legal unit support representative, and documented accordingly. The management has been done according to the current clinical condition with respect to patient goals of care and based on recommendations/guidelines. The patient/family has been informed about the current condition and further plan of care. Agreed with the plan of care and understood without any language barrier. Every effort was made to ensure accuracy of racker octave board. Any obvious errors or omissions should be clarified with the author of the document. Coding Level of Care Code 47550 Diagnoses Gastroenteritis and colitis, viral A08.4 Lupus nephritis M32.14 JOEL (acute kidney injury) N17.9 Gout M10.9 Type 2 diabetes mellitus E11.9 Hyperlipidemia E78.5 Hypertension I10 CVA (cerebral vascular accident) I63.9
--- NOTE | 2025-02-07 17:04 | ECG_ITS ---
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 Measurements Intervals [place] Rate: 87 P: 56 [place]: 164 QRS: 41 QRSD: 125 T: 35 QT: 353 QTc: 426 Interpretive Statements SINUS RHYTHM MODERATE INTRAVENTRICULAR CONDUCTION DELAY [105+ ms QRS DURATION, 80+ ms Q/S IN V1/V2, NO Q AND 60+ ms R IN I/aVL/V5/V6] NONSPECIFIC T-WAVE ABNORMALITY Compared to ECG 02/07/2025 12:47:32 T-wave abnormality now present Electronically Signed On 02-08-2025 14:18:28 MEAT AND POULTRY INSPECTOR by Tristan Pollack M.D. [id number] [id number]
[2025-02-07 17:32] LABS: Troponin 5 6HR 60.97 ng/L (0-15)
[2025-02-07] MEDS: metroNIDAZOLE IV 500 MG/100 ML PREMIX 100 MG IV (18:10)
[2025-02-07] MEDS: HYDROcodone-acetaminophen 5-325 mg Tablet 1 TAB PO (21:48)
[2025-02-08] VITALS (8 sets, daily range): BP systolic 116–147; BP diastolic 54–72; PULSE 65–81; RESP 15–17; TEMP 36.4–36.9; O2SAT 95–98
[2025-02-08 04:07] LABS: Hematocrit 27.8 % (37-53); Hemoglobin 8.90 g/dL (11.27-16.99); Mean Corpuscular HGB Conc 32.0 g/dL (30-55); Mean Corpuscular Hemoglobin 28.7 pg (27-33); Mean Corpuscular Volume 89.7 fl (82-101); Nucleated Red Blood Cells % 0 %; Platelet Count 117 10^3/cmm (157-399); Red Blood Count 3.10 10^6/uL (3.85-5.65); White Blood Count 3.69 10^3/uL (3.29-11.43)
[2025-02-08] MEDS: heparin 5,000 unit/mL INJ 1 mL 5000 UNIT SUBCUT ×2 (04:18→12:00)
[2025-02-08] MEDS: metroNIDAZOLE IV 500 MG/100 ML PREMIX 100 MG IV ×3 (04:19→17:12)
[2025-02-08] MEDS: alum-mag-hydroxide-sime 30 mL UDC 15 ML PO ×3 (04:24→13:40)
[2025-02-08 04:31] LABS: Alanine Aminotransferase 7 U/L (0-41); Albumin Level 3.2 g/dL (3.5-5.2); Alkaline Phosphatase 84 U/L (40-130); Anion Gap 15.3 (5-19); Aspartate Amino Transferase 13 U/L (0-40); Calcium 8.8 mg/dL (8.5-10.5); Carbon Dioxide 15 mmol/L (22-29); Chloride 113 mmol/L (98-107); Globulin 2.6 g/dL (1.3-4.6); Glucose 87 mg/dL (65-115); Potassium 4.3 mmol/L (3.5-5.1); Sodium 139 mmol/L (136-145); Total Protein 5.8 g/dL (6.6-8.7)
[2025-02-08 04:49] LABS: Osmolality Calculated 331 mOsm/kg (285-295)
[2025-02-08 04:51] LABS: Blood Urea Nitrogen 134 mg/dL (8-23)
--- NOTE | 2025-02-08 08:51 | P.PN_ITS ---
Subjective 2 Subjective: Patient is seen today on the medical floor. He is a 74-year-old male who was admitted last night because of persistent diarrhea. He reports diarrhea for about 2 weeks duration. This is associated with some anorexia and significant significant nausea in the last few days. Upon getting to the ER, he was found to be in severe azotemia, with BUN of 163. Consequently, he was admitted and started on some cautious IV rehydration. Upon seeing him this morning, he reports feeling fine. He denies any new symptoms. He reports about 7 to 10 diarrhea episodes per day in recent days. He denies any fever, abdominal pain, or any other significant systemic or GI symptoms. Vitals/I&O/Wt Last Vital Signs Temp 97.6 F 02/08/25 07:53 Pulse 65 02/08/25 07:53 Resp 15 02/08/25 07:53 BP 116/69 02/08/25 07:53 Pulse Ox 97 02/08/25 07:53 O2 Del Method Room Air 02/08/25 07:53 02/07/25 02/08/25 02/08/25 22:59 06:59 14:59 Intake Total 300 / 4300 1880 / 6180 600 / 600 Output Total 575 / 575 1500 / 2075 Balance -275 / 3725 380 / 4105 600 / 600 Weight last 48 hrs Weight 86.183 kg Weight 86.591 kg Weight 82.554 kg Physical Exam 2 Narrative: General: Awake and alert. Cooperative. Chest/Resp: Normal respiratory chest movts; no obvious respiratory distress. CVS: Regular heart rate and rhythm. GI: Non-distended; soft, nontender. No obvious organomegaly. Extremities: No obvious pitting pedal edema. Skin: No obvious new rashes or new skin lesions. Mildly dry mucous membrane. Urinary Catheter Management: Ahuja: Cath Placed During This Visit: yes Reason for Continuing Indwelling Catheter: Acute Urinary Retention or Obstruction Urinary Catheter Date of Insertion: 02/07/25 Urinary Catheter Time of Insertion: 10:56 Data 02/08/25 03:34 02/08/25 03:34 Micro: Microbiology 02/07/25 12:40 Stool Lactoferrin - Final Stool Occult Blood (FIT) - Final 02/07/25 11:04 Blood Culture - Preliminary Blood SPECIMEN COLLECTED 02/07/25 10:58 Blood Culture - Preliminary Blood SPECIMEN COLLECTED A&P Assessment and plan 1. Renal azotemia: Severe. Apparently prerenal. 2. JOEL (acute kidney injury): Resolving. 3. Gastroenteritis and colitis, viral: Resolving. At the further needs to be done about this, as this does not. Currently on some antibiotics; will complete this oral. 4. Hemiplegia following CVA (cerebrovascular accident): Otherwise stable. 5. Type 2 diabetes mellitus: Will treat hyperglycemia with sliding scale insulin. 6. Essential hypertension: Currently soft but stable. Holding home dose of lisinopril and probably resume/continue metoprolol by tomorrow. Monitor closely. Plan: Currently stable patient. He is getting intravenously hydrated with Ringer's lactate. So, we will use diuretics at this time, and continue cautious IV rehydration with LR or normal saline. Watch out for fluid overload. Repeat BMP in the morning, and make changes accordingly as clinical picture evolves. I take note of the y low bicarb; I expect this to correct with adequate rehydration. I do not see need to work this far out, given the obvious explanation of the JOEL with renal azotemia caused by the 2 weeks of diarrhea, while patient was most likely getting oral diuretics and antihypertensives in the face of decreased oral intake. Further plans to be adjusted as clinical picture evolves. PDMP PDMP Reviewed: Not Reviewed Attestations 2 Medical Necessity Statement*: Patient admitted for apparent severe clinical condition, as outlined in the Assessment & Plan section above. Patient will need up to 2 midnight stay, estimated, at least, to adequately and appropriately treat and optimally control above-named clinical conditions,. Coding Level of Care Code Acute Code for [facility] Diagnoses Renal azotemia R79.89 JOEL (acute kidney injury) N17.9 Gastroenteritis and colitis, viral A08.4 Hemiplegia following CVA (cerebrovascular accident) I69.359 Type 2 diabetes mellitus E11.9 Essential hypertension I10
[2025-02-08] MEDS: pantoprazole 40 mg SDV IVP (12:00)
--- NOTE | 2025-02-08 12:17 | PC.CHAP ---
Pastoral Care Encounter/Spiritual Assessment Type of Contact [] Declined mechanical manager visit [] Patient/Family/Request visit [] Outpatient visit [] Follow-up visit [] Physician referral [] Code/Alert [] Routine visit [] Staff referral [] Actively dying [] Patient sleeping [] Family support [] [] Out of room [] Palliative care [] [x] Receiving care in room [] Pre-surgical visit [] Trauma [] Long length of stay [] ICU visit [] Other: Relational/Emotional Strength [] Patient feels connected with others/family/visitors/staff [] Distress [] Loneliness/isolation [] Abandonment Spirituality of Patient [] Person of Lise [] Attends Druze of their Lise [] Believes in Prayer [] Reads Bible or Islam materials [] There are Spiritual issues to be addressed Supplier Quality Engineer Interventions [] Prayer [] Active listening [] Non-anxious presence [] Spiritual/emotional support [] Crisis/trauma care [] Spiritual counseling [] Bereavement support [] Provided bereavement packet [] Provided Bible/devotional materials [] Provided toy/stuffed animal, coloring book to patient or family member [] Provided Communion [] Anointing/[place] [] Salvation [] Completed spiritual assessment [] Other: Impact on Illness or Injury [] Angry [] Fearful [] Anxious [] Often cries [] Exhaustion [] Unable to work [] Unable to attend scientologist [] Unable to walk/stand [] Unable to read [] Unable to drive [] Unable to eat/drink [] Unable to sleep [] Unable to be with family [] Patient intubated [] Other: Summary Time spent with patient
[2025-02-08] MEDS: HYDROcodone-acetaminophen 5-325 mg Tablet 1 TAB PO (20:51)
[2025-02-09] VITALS (8 sets, daily range): BP systolic 132–187; BP diastolic 50–82; PULSE 59–85; RESP 16–18; TEMP 36.4–36.7; O2SAT 96–98
[2025-02-09] MEDS: heparin 5,000 unit/mL INJ 1 mL 5000 UNIT SUBCUT ×2 (00:38→12:14)
[2025-02-09] MEDS: metroNIDAZOLE IV 500 MG/100 ML PREMIX 100 MG IV (01:11)
[2025-02-09] MEDS: HYDROcodone-acetaminophen 5-325 mg Tablet 1 TAB PO ×2 (04:47→21:20)
[2025-02-09 08:54] LABS: Hematocrit 27.4 % (37-53); Hemoglobin 8.70 g/dL (11.27-16.99); Mean Corpuscular HGB Conc 31.8 g/dL (30-55); Mean Corpuscular Hemoglobin 29.4 pg (27-33); Mean Corpuscular Volume 92.6 fl (82-101); Nucleated Red Blood Cells % 0 %; Platelet Count 123 10^3/cmm (157-399); Red Blood Count 2.96 10^6/uL (3.85-5.65); White Blood Count 3.28 10^3/uL (3.29-11.43)
[2025-02-09] MEDS: alum-mag-hydroxide-sime 30 mL UDC 15 ML PO ×2 (09:04→21:19)
--- NOTE | 2025-02-09 09:04 | PM.PN ---
Subjective Subjective: Seen again this morning on the medical floor, patient reports feeling much better. He reports decreasing diarrhea. He reports only about 2-3 episodes of diarrhea, though the stool is still loose. He denies any abdominal pain. His appetite is also getting better. No new symptoms. Vitals/I&O/Wt Last Vital Signs Temp 97.6 F 02/09/25 07:58 Pulse 65 02/09/25 07:58 Resp 17 02/09/25 07:58 BP 132/74 02/09/25 07:58 Pulse Ox 96 02/09/25 07:58 O2 Del Method Room Air 02/09/25 07:58 02/08/25 02/09/25 02/09/25 22:59 06:59 14:59 Intake Total 938.333 / 2265.000 1783.333 / 4048.333 560 / 560 Output Total 1550 / 1550 1600 / 3150 Balance -611.667 / 715.000 183.333 / 898.333 560 / 560 Weight last 48 hrs Weight 86.183 kg Weight 86.183 kg Weight 86.591 kg Weight 82.554 kg Physical Exam Narrative: General: Awake and alert. Cooperative. Chest/Resp: Normal respiratory chest movts; no obvious respiratory distress. CVS: Regular heart rate and rhythm. GI: Non-distended; soft. Nontender. No obvious organomegaly. Extremities: No obvious pitting pedal edema. Skin: No obvious new rashes or new skin lesions. Urinary Catheter Management: Ahuja: Cath Placed During This Visit: yes Reason for Continuing Indwelling Catheter: Acute Urinary Retention or Obstruction Urinary Catheter Date of Insertion: 02/07/25 Urinary Catheter Time of Insertion: 10:56 Data 02/09/25 08:44 02/09/25 08:44 Micro: Microbiology 02/07/25 11:04 Blood Culture - Preliminary Blood NEGATIVE TO DATE 02/07/25 10:58 Blood Culture - Preliminary Blood NEGATIVE TO DATE A&P Assessment and plan 1. Renal azotemia: Unremarkable resolving. 2. JOEL (acute kidney injury): Getting much better. 3. Gastroenteritis and colitis, viral: Also resolving. 4. Type 2 diabetes mellitus: Blood sugar currently controlled/stable. 5. Essential hypertension: 6. Hyperlipidemia: 7. Hemiplegia following CVA (cerebrovascular accident): Plan: Currently stable patient. He we will continue IV rehydration with saline; change in normal saline to half saline, and try to increase to the 120 cc. I will attempt 3 L only. Recheck BMP in the morning, in the anticipate discharge if the BUN and creatinine levels are looking much better. In addition, I am changing the IV ciprofloxacin and metronidazole to oral route. DC Ahuja's catheter. Anticipate discharge tomorrow. PDMP PDMP Reviewed: Not Reviewed Attestations Medical Necessity Statement*: Patient admitted for apparent severe clinical condition, as outlined in the Assessment & Plan section above. Patient will need 1-2 more midnights stay, estimated, at least, to adequately and appropriately treat and optimally control above-named clinical conditions,. Coding Level of Care Code Acute Code for [facility] Diagnoses Renal azotemia R79.89 JOLE (acute kidney injury) N17.9 Gastroenteritis and colitis, viral A08.4 Type 2 diabetes mellitus E11.9 Essential hypertension I10 Hyperlipidemia E78.5 Hemiplegia following CVA (cerebrovascular accident) I69.359
[2025-02-09 09:15] LABS: Anion Gap 15.2 (5-19); Calcium 8.6 mg/dL (8.5-10.5); Carbon Dioxide 17 mmol/L (22-29); Chloride 114 mmol/L (98-107); Glucose 164 mg/dL (65-115); Osmolality Calculated 326 mOsm/kg (285-295); Potassium 4.2 mmol/L (3.5-5.1); Sodium 142 mmol/L (136-145)
[2025-02-09 09:30] LABS: Blood Urea Nitrogen 93 mg/dL (8-23)
[2025-02-09] MEDS: pantoprazole 40 mg SDV IVP (12:14)
[2025-02-10] VITALS: BP 184/76; PULSE 86; RESP 16; TEMP 36.7; O2SAT 95
[2025-02-10] MEDS: alum-mag-hydroxide-sime 30 mL UDC 15 ML PO ×3 (01:29→13:38)
[2025-02-10] MEDS: heparin 5,000 unit/mL INJ 1 mL 5000 UNIT SUBCUT ×2 (01:30→12:11)
[2025-02-10 04:00] VITALS: BP 186/72; PULSE 82; RESP 16; TEMP 36.6; O2SAT 94
[2025-02-10 06:07] VITALS: PULSE 75
[2025-02-10] MEDS: HYDROcodone-acetaminophen 5-325 mg Tablet 1 TAB PO ×2 (06:23→15:13)
[2025-02-10 07:34] VITALS: BP 134/54; PULSE 74; RESP 17; TEMP 36.5; O2SAT 96
[2025-02-10] MEDS: pantoprazole 40 mg SDV IVP (09:04)
[2025-02-10 11:32] VITALS: BP 150/70; PULSE 76; RESP 16; TEMP 36.4; O2SAT 98
--- NOTE | 2025-02-10 12:35 | PC.SOCIAL ---
IMM Update pg 2 of IMM updated and reviewed w/ patient. Copy provided and copy dated, initialed and placed in chart.
[2025-02-10 13:14] LABS: Hematocrit 27.0 % (37-53); Hemoglobin 8.40 g/dL (11.27-16.99); Mean Corpuscular HGB Conc 31.1 g/dL (30-55); Mean Corpuscular Hemoglobin 29.4 pg (27-33); Mean Corpuscular Volume 94.4 fl (82-101); Nucleated Red Blood Cells % 0 %; Platelet Count 128 10^3/cmm (157-399); Red Blood Count 2.86 10^6/uL (3.85-5.65); White Blood Count 4.91 10^3/uL (3.29-11.43)
[2025-02-10 13:36] LABS: Alanine Aminotransferase 9 U/L (0-41); Albumin Level 2.8 g/dL (3.5-5.2); Alkaline Phosphatase 76 U/L (40-130); Anion Gap 12.5 (5-19); Aspartate Amino Transferase 20 U/L (0-40); Blood Urea Nitrogen 63 mg/dL (8-23); Calcium 8.2 mg/dL (8.5-10.5); Carbon Dioxide 18 mmol/L (22-29); Chloride 113 mmol/L (98-107); Globulin 3.0 g/dL (1.3-4.6); Glucose 120 mg/dL (65-115); Osmolality Calculated 307 mOsm/kg (285-295); Potassium 4.5 mmol/L (3.5-5.1); Sodium 139 mmol/L (136-145); Total Protein 5.8 g/dL (6.6-8.7)
--- NOTE | 2025-02-10 14:43 | PC.NURSE ---
Prescriptions printed and sent in SNF packet. [facility] unable to fill at this time do to not finding patient's account.
--- NOTE | 2025-02-10 14:45 | P.DS_ITS ---
Discharge Providers Date of Admission: 02/07/25 13:44 Date of Discharge: February 10, 2025 Attending Provider at Admission: Justina Chavez MD Attending Provider at Discharge: Ajit Rosenbaum MD Primary Care Provider: Sebastián Cochran MD Diagnoses at Discharge Discharge Diagnosis 1. Renal azotemia: 2. JOEL (acute kidney injury): 3. Gastroenteritis and colitis, viral: 4. Type 2 diabetes mellitus: 5. Essential hypertension: 6. Hyperlipidemia: 7. Hemiplegia following CVA (cerebrovascular accident): Reason for Visit Reason for Visit: low bp - weight loss Hospital Course Hospital Course This is a 74-year-old male with a recent history of CVA on aspirin and Plavix, with left-sided weakness as a late effect of stroke, history of lupus, history of lupus nephritis on CellCept, history of diabetes, hypertension, hyperlipidemia, who presents [facility] for diarrhea Patient presented to [facility] for acute kidney injury associated dehydration - Received IV hydration - Overall creatinine has significantly improved to 1 on discharge - Discharged with close follow-up with primary care to recheck creatinine Patient's BUN is 63 on discharge - Advised to hydrate well - My only concern would be his hemoglobin is 8.4 - Have primary care provider recheck hemoglobin this week - No bloody black stools reported - Discharged on Protonix and Carafate For acute on chronic anemia -Hemoglobin 8.4 -Multifactorial -Concern for component of lupus nephritis, anemia chronic disease -Component of JOEL -However patient has been recently placed on aspirin and Plavix for recent CVA -This can certainly predispose patient develop upper GI bleed, Hemoccult stool was positive for blood -Denies any bloody or black stools, no hemodynamic compromise, no lightheadedness or dizziness -Certainly this is a difficult situation on the one hand continue on aspirin and Plavix as an increased risk of anemia and GI bleed and morbidity mortality associated -On the other hand he has a high risk of recurrent CVA given his recent CVA and his residual left-sided weakness -Discussed with him the risk benefits of all options, shared decision making, he voiced understanding, all questions answered agreed to continue aspirin and Plavix for now -Discharged with Protonix and Carafate -If his hemoglobin drops below 7 would recommend rehospitalization for blood transfusion -Nonetheless, I will have him follow-up with general surgery as outpatient for EGD and colonoscopy as outpatient -Patient was advised if he were to have any blood loss was to go to emergency room Patient does have an enlarged prostate on CT imaging findings roughly 4.5 cm -Will have a follow-up with urology - Certainly patient could have a component of postrenal azotemia, although he has been urinating without difficulty during his hospitalization For his JOEL on CKD, with uremia -With history of lupus nephritis -Will have him follow-up with nephrology as outpatient - Will hold his diuretics as outpatient until he follows up with nephrology for diarrhea, stool studies pending on discharge -Advised patient to hydrate well Physical Exam Const: COMMON NORMALS: no acute distress and patient oriented x3 Resp: COMMON NORMALS: normal respiratory effort, No retractions, No use of accessory muscles and clear to auscultation bilaterally AUSCULTATION: clear to auscultation bilaterally Cardio: COMMON NORMALS: regular rate, regular rhythm, S1 normal heart sound present and S2 normal heart sound present RATE: regular rate RHYTHM: regular rhythm HEART SOUNDS: S1 normal heart sound present and S2 normal heart sound present GI: COMMON NORMALS: Normal to inspection, nondistended, normoactive bowel sounds present and non-tender Extremity: COMMON NORMALS: no calf tenderness and no pedal edema Neuro: COMMON NORMALS: patient oriented x3 Psych: COMMON NORMALS: mental status grossly normal Urinary Catheter Management: Ahuja: Cath Placed During This Visit: yes Reason for Continuing Indwelling Catheter: Acute Urinary Retention or Obstruction Urinary Catheter Date of Insertion: 02/07/25 Urinary Catheter Time of Insertion: 10:56 Discharge Data Studies Completed and Pending Completed Studies During Hospitalization Category Date Time Status CT abdomen pelvis [facility] [id number] Stat Cat Scan 02/07/25 10:43 Completed Pending at discharge Category Date Time Status Blood Culture Stat Lab 02/07/25 11:04 Results OVA and Parasites, Conc and PE Routine Lab 02/07/25 14:59 Received Salmonella / Shigella / Campy Routine Lab 02/07/25 14:59 Received Radiology Impressions Abdomen/Pelvis CT 02/07/25 10:43 IMPRESSION: 1. Few sigmoid diverticuli. No evidence of acute diverticulitis. 2. A few air-fluid levels in normal caliber colon. No evidence of high-grade obstruction. 3. Normal noncontrast pancreas. 4. No hydronephrosis in either kidney. 5. Ahuja catheter. Enlarged prostate. Laboratory Results WBC 4.91 10^3/uL (3.29-11.43) 02/10/25 12:52 RBC 2.86 10^6/uL (3.85-5.65) L 02/10/25 12:52 Hgb 8.40 g/dL (11.27-16.99) L 02/10/25 12:52 Hct 27.0 % (37-53) L 02/10/25 12:52 MCV 94.4 fl (82-101) 02/10/25 12:52 MCH 29.4 pg (27-33) 02/10/25 12:52 MCHC 31.1 g/dL (30-55) 02/10/25 12:52 RDW 13.2 % (12.1-15.1) 02/10/25 12:52 Plt Count 128 10^3/cmm (157-399) L 02/10/25 12:52 MPV 12.1 fL (7.4-10.4) H 02/10/25 12:52 Neut % (Auto) 82.5 % 02/10/25 12:52 Lymph % (Auto) 10.4 % 02/10/25 12:52 Bowman % (Auto) 5.5 % 02/10/25 12:52 Eos % (Auto) 1.2 % 02/10/25 12:52 Baso % (Auto) 0.2 % 02/10/25 12:52 Neut # (Auto) 4.05 10^3/uL (1.8-7.7) 02/10/25 12:52 Lymph # (Auto) 0.5 10^3/uL (0.8-4.8) L 02/10/25 12:52 Bowman # (Auto) 0.3 10^3/uL (0.2-0.9) 02/10/25 12:52 Eos # (Auto) 0.1 10^3/uL (0.0-0.8) 02/10/25 12:52 Baso # (Auto) 0.0 10^3/uL (0.0-0.1) 02/10/25 12:52 Nucleated RBC % (auto) 0 % 02/10/25 12:52 Nucleated RBCs # 0.0 /100WBC 02/10/25 12:52 Sodium 139 mmol/L (136-145) 02/10/25 12:52 Potassium 4.5 mmol/L (3.5-5.1) 02/10/25 12:52 Chloride 113 mmol/L (98-107) H 02/10/25 12:52 Carbon Dioxide 18 mmol/L (22-29) L 02/10/25 12:52 Anion Gap 12.5 (5-19) 02/10/25 12:52 BUN 63 mg/dL (8-23) H 02/10/25 12:52 Creatinine 1.0 mg/dL (0.7-1.2) 02/10/25 12:52 GFR Calculation Not Reportable 02/10/25 12:52 Glucose 120 mg/dL (65-115) H 02/10/25 12:52 Calculated Osmolality 307 mOsm/kg (285-295) H 02/10/25 12:52 Lactic Acid 1.1 mmol/L (0.5-2.2) 02/07/25 09:49 Calcium 8.2 mg/dL (8.5-10.5) L 02/10/25 12:52 Phosphorus 8.1 mg/dL (2.5-4.5) H* 02/07/25 09:49 Magnesium 2.6 mg/dL (1.7-2.3) H 02/07/25 09:49 Magnesium Cancelled 02/07/25 09:49 Total Bilirubin 0.2 mg/dL (0.15-1.2) 02/10/25 12:52 AST 20 U/L (0-40) 02/10/25 12:52 ALT 9 U/L (0-41) 02/10/25 12:52 Alkaline Phosphatase 76 U/L (40-130) 02/10/25 12:52 Creatine Kinase 63 U/L (39-308) 02/07/25 09:49 Troponin T Baseline 75 ng/L (0-15) H 02/07/25 09:49 Troponin T 120 Minute 58.54 ng/L (0-15) H 02/07/25 11:54 Delta Troponin T -16.46 ABS# (0-10) L 02/07/25 11:54 Troponin T Hi Sens 6Hr 60.97 ng/L (0-15) H 02/07/25 16:42 Troponin T Hi Sens 6Hr Delta -14.03 ng/L (0-12) L 02/07/25 16:42 Total Protein 5.8 g/dL (6.6-8.7) L 02/10/25 12:52 Albumin 2.8 g/dL (3.5-5.2) L 02/10/25 12:52 Globulin 3.0 g/dL (1.3-4.6) 02/10/25 12:52 Lipase 923 U/L (13-60) H 02/07/25 09:49 TSH 1.01 uIU/mL (0.27-4.20) 02/07/25 09:49 Urine Color Yellow (Yellow) 02/07/25 11:42 Urine Appearance Clear (CLEAR) 02/07/25 11:42 Urine pH 5.0 (5-7) 02/07/25 11:42 Ur Specific [place]mond 1.014 (1.005-1.030) 02/07/25 11:42 Urine Protein 1+ (Negative) A 02/07/25 11:42 Urine Glucose (UA) Negative (Normal) 02/07/25 11:42 Urine Ketones Negative (Negative) 02/07/25 11:42 Urine Blood Negative (Negative) 02/07/25 11:42 Urine Nitrate Negative (Negative) 02/07/25 11:42 Urine Bilirubin Negative (Negative) 02/07/25 11:42 Urine Urobilinogen 0.2 mg/dL (Negative) 02/07/25 11:42 Ur Leukocyte Esterase Negative (Negative) 02/07/25 11:42 Urine RBC 6-10 /hpf (0-2) 02/07/25 11:42 Urine WBC 0-5 /hpf (0-5) 02/07/25 11:42 Ur Squamous Epith Cells 0-5 /hpf (0-5) 02/07/25 11:42 Amorphous Sediment Not Reportable 02/07/25 11:42 Urine Bacteria None seen /hpf (NONE) 02/07/25 11:42 Hyaline Casts 72.81 /lpf 02/07/25 11:42 Coarse Granular Casts 5-10 /lpf H 02/07/25 11:42 Rotavirus Antigen See note 02/07/25 14:59 C. difficile (PCR) Negative (Negative) 02/07/25 12:40 Blood Type A Positive 02/07/25 10:42 Rho(D) Type Rh positive 02/07/25 10:42 Antibody Screen Negative 02/07/25 10:42 Vitals Last Vital Signs Temp 97.5 F L 02/10/25 11:32 Pulse 76 02/10/25 11:32 Resp 16 02/10/25 11:32 BP 150/70 02/10/25 11:32 Pulse Ox 98 02/10/25 11:32 O2 Del Method Room Air 02/10/25 11:32 Discharge Plan Discharge Patient Disposition: Xfer SNF Condition: Stable Prescriptions: New sucralfate 1 gram Tablet 1 g PO Q12H 30 Days Qty: 60 0RF doxazosin 4 mg Tablet 8 mg PO DAILY 30 Days Qty: 60 0RF ezetimibe 10 mg Tablet 10 mg PO DAILY 30 Days Qty: 30 0RF pantoprazole [Protonix] 40 mg tablet,delayed release (DR/EC) 40 mg PO BID 30 Days Qty: 60 0RF Continued metoprolol succinate 100 mg tablet extended release 24 hr 100 mg PO DAILY mycophenolate mofetil [CellCept] 500 mg tablet 1,500 mg PO BID Qty: 180 5RF lisinopril 40 mg tablet 40 mg PO DAILY Qty: 90 1RF dapagliflozin propanediol [Farxiga] 10 mg Tablet 10 mg PO DAILY prednisone 1 mg Tablet 1 mg PO DAILY atorvastatin 40 mg tablet 40 mg PO BEDTIME acetaminophen 325 mg Tablet 650 mg PO Q4H PRN (Reason: Pain) clopidogrel 75 mg tablet 75 mg PO DAILY allopurinol 100 mg tablet 100 mg PO DAILY aspirin 81 mg tablet,delayed release (DR/EC) 81 mg PO DAILY doxazosin 8 mg tablet 8 mg PO DAILY bisacodyl 10 mg Suppository 10 mg ME DAILY PRN (Reason: Constipation) omeprazole 20 mg Capsule,Delayed Release(Dr/Ec) 20 mg PO DAILY Held bumetanide 2 mg tablet 4 mg PO DAILY Hold Instructions: Resume on 02/17/25. hold until you see nephrology potassium chloride 20 mEq tablet extended release 40 meq PO DAILY Qty: 180 3RF Hold Instructions: Resume on 02/17/25. Discontinued bumetanide 1 mg tablet 3 mg PO .QAFTERNOON DAILY Discharge Order = DC NOW: Discharge Order (Routine); Ordered 02/10/25 Ordered By: Ajit Rosenbaum Referrals: [facility] [Outside] - 1-3 days Referral Note: We have notified your physician's clinic of the need for a follow-up appointment to be scheduled. If you have not heard from them within the next 2 business days, please call them directly. [facility] [Outside] Beck Gregory MD [Physician, General Surgery] - 03/05/25 11:40 am Referral Note: acute on chronic anemia Calderon Guillen MD [Referring, Urology] - 1-3 days Referral Note: We have notified your physician's clinic of the need for a follow-up appointment to be scheduled. If you have not heard from them within the next 2 business days, please call them directly. Sebastián Cochran MD [Primary Care Provider, [facility]] - 02/25/25 9:30 am Referral Note: Discharge Diet: Cardiac Discharge Activity: Resume usual activity Patient Instructions: Sucralfate (By mouth), Doxazosin (By mouth), Pantoprazole (By mouth), Ezetimibe (By mouth), Opioid Safety, Patient Portal & Ivette Instructions Activity Restrictions/Additional Instructions: - Please have your primary care provider recheck your kidney function this week - Creatinine discharge 1 - Please have your primary care provider recheck your hemoglobin this week, hemoglobin discharge 8.7 - If you have any bloody or black stools go to the emergency room - I have held your Bumex and your potassium please continue to hold until you see kidney specialist - Please follow-up with kidney specialist in a week - Follow-up with general surgery in a month for EGD and colonoscopy for anemia Discharge Attestations Time Spent in Discharge Care*: greater than 30 min Quality Metrics Clinical Quality Measures [ No reported AMI, CVA or VTE this stay] Coding Level of Care Code 57074 Total time (in minutes) for Discharge: 45 Diagnoses Renal azotemia R79.89 JOEL (acute kidney injury) N17.9 Gastroenteritis and colitis, viral A08.4 Type 2 diabetes mellitus E11.9 Essential hypertension I10 Hyperlipidemia E78.5 Hemiplegia following CVA (cerebrovascular accident) I69.359
[2025-02-10 15:37] VITALS: BP 150/70; PULSE 76; RESP 16; TEMP 36.4; O2SAT 98
== END 2025-02-10 15:44 | disposition skilled nursing facility (03) | DRG 641 ==
LOC: ER 10:30 → ER IP 13:48 → MEDSURG 15:17
PROVIDERS: Family Medicine; Admitting Provider Student in an Organized Health Care Education/Training Program; Emergency Provider Family Medicine; PCP Family Medicine; Visit Provider Family Medicine
DX: E86.0 Dehydration (principal); N17.9 Acute kidney failure, unspecified; I69.354 Hemiplegia and hemiparesis following cerebral infarction affecting left non-dominant side; A08.4 Viral intestinal infection, unspecified; M32.14 Glomerular disease in systemic lupus erythematosus; M10.9 Gout, unspecified; E78.5 Hyperlipidemia, unspecified; I10 Essential (primary) hypertension; Z83.3 Family history of diabetes mellitus; Z82.49 Family history of ischemic heart disease and other diseases of the circulatory system; E11.65 Type 2 diabetes mellitus with hyperglycemia; D64.9 Anemia, unspecified; N40.0 Benign prostatic hyperplasia without lower urinary tract symptoms; N18.9 Chronic kidney disease, unspecified; E11.22 Type 2 diabetes mellitus with diabetic chronic kidney disease
CPT/HCPCS: 36415; 51702; 74176; 80048; 80053; 81001; 82274; 82550; 83605; 83630; 83690; 83735; 84100; 84443; 84484; 85025; 86850; 86900; 87040; 87045; 87177; 87209; 87425; 87427; 87449; 87493; 93005; 96361; 96372; 96374; 96375; 97116; 97162; 97530; 99285; J0744; J1644; J2470; J3490; J7030; J7120; J9999

== ENCOUNTER 2025-02-26 06:03 | Emergency (ER) | payer MEDICARE, OTHER, SELFPAY ==
--- OUTSIDE RECORDS SUMMARY | 2025-02-24 08:00 | XMS_ITS ---
Author Organization [facility] Address [address] [place] [address] Care Team Providers Care Director Apparel Name Role Phone Dimas MASON, Sebastián Primary Care Provider UnavailILDA Stokes Unavailable [phone] Allergies No Known Allergies Results Component Value Reference Range Notes AutoUA Reviewed date:02/25/2025 11:59:52 AM Interpretation: Performing Lab: Notes/Report: REASON FOR VISIT BPH Medications Medication SIG (Take, Route, Frequency, Duration) Notes Start Date End Date Status Bumetanide 1 MG 1 tablet Orally daily Active Lisinopril 40 MG 1 tablet Orally Once a day Active Acetaminophen 325 MG 1 tablet as needed Orally every 6 hrs Active Mycophenolate Mofetil 500 MG 1 tablet Orally Once a day Active Metoprolol Succinate 100 MG 1 capsule Or ally Once a day Active Clopidogrel Bisulfate 75 MG 1 tablet Ora lly Once a day Active Bisacodyl 10 MG 1 suppository as nee ded Rectal Once a day Active Allopurinol 300 MG 1 tablet Orally Once a day Active Atorvastatin Calcium 40 MG 1 tablet Oral ly Once a day Active Aspirin 81 81 MG 1 tablet Orally Once a day Active Potassium Chloride ER 10 MEQ 1 tablet with food Orally Twice a day Active Pantoprazole Sodium 40 MG 1 tablet 1/2 t o 1 hour before morning meal Orally Once a day Active predniSONE 1 MG 2 tablets with food or milk Orally Once a day Active Ezetimibe 10 MG 1 tablet Orally Once a day Active Doxazosin Mesylate 8 MG 1 tablet Orally Once a day Active traMADol HCl 50 MG 1 tablet as needed Orally every 6 hours As needed Active Social History Tobacco Use: Social History Observation Description Date Details (start date - stop date) Never Smoker NA - NA Tobacco Control (Standard) Question Answer Notes Tobacco use: Nonsmoker AUDIT-C (Standard) Question Answer Notes Did you have a drink containing alcohol in the p ast year? No Points 0 Interpretation Negative Vital Signs Blood pressure systolic 125 mm Hg 02/25/20 25 Blood pressure diastolic 61 mm Hg 025 Heart Rate 70 /min 02/24/2025 Height 72 in 02/24/2025 Weight 213 lbs 02/24/2025 BMI 28.88 kg/m2 02/24/2025 Height-cm 182.88 cm 02/24/2025 Weight-kg 96.62 kg 02/24/2025 Procedures Procedure Date Ordered Date Performed Result Body Sit e Bladder Scan 02/24/2025 02/24/2025 0 mL Encounters Encounter Location Date Provider Diagnosis [facility], [facility] [address] [place] [address] 02/24/2025 ILDA ISSA Benign prostatic hyperplasia with lower urinary tract symptoms N40.1 ; Encounter to establish care with new doctor Z76.89 ; Urinary urgency R39.15 ; Nocturia R35.1 ; History of CVA (cerebrovascular accident) Z86.73 and Family history of kidney cancer Z80.51 Assessments Encounter Date Diagnosis (ICD Code) Assessment Notes Treatment Notes Treatment Clinical Notes Section Notes 02/24/2025 Benign prostatic hyperplasia with lower urinary tract symptoms (ICD-10 - N40.1) 02/24/2025 Encounter to establish care with new doctor (ICD-10 - Z76.89) 02/24/2025 Urinary urgency (ICD-10 - R39.15) 02/24/2025 Nocturia (ICD-10 - R35.1) 02/24/2025 History of CVA (cerebrovascular accident) (ICD-10 - Z86.73) 02/24/2025 Family history of kidney cancer (ICD-10 - Z80.51) 02/24/2025 Other PVR is 0ml. He has no obvious BPH complaints. He does have urgency, but states this resolved when he was able to hold his Bumetanide. However, they have restarted him on this medication. He understands that this is to be expected on a diuretic. He does not have any incontinence. I will give him a bladder irritant handout to assess what he can modify to help. He will RTC PRN is symptoms worsen. Plan Of Treatment Treatment Notes Assessment Notes Other PVR is 0ml. He has n o obvious BPH complaints. He does have urgency, but states this resolved when he was able to hold his Bumetanide. However, they have restarted him on this medication. He understands that this is to be expected on a diuretic. He does not have any incontinence. I will give him a bladder irritant handout to assess what he can modify to help. He will RTC PRN is symptoms worsen. Next Appt Details Follow Up: prn, Reason: Progress Notes * Jose Miguel MERAZ EDOB:[birth year] (74 yo M)Acc No.[id number]:02/24/2025 Progress Notes Patient: Jose Miguel HOANG Provider: JALIL Welsh :1950 A ge:74 Y S ex:Male Date:02/24/2025 Address:[address] [place], [place] [id number] Pcp:Sebastián Cochran MD Subjective: * Chief Complaints: * B PH * HPI: M igrated HPI: Mr. Meraz is a 74 year old male new patient referred for BPH. His main complaint is urinary urgency, however he states he was recently told to hold his Bumetanide and this went away. He reports good urinary stream. No history of UTI or stones. Family history of kidney cancer in his brother. Denies gross hematuria or significant history of smoking. Denies bother with incontinence. He has nocturia x 1. IPSS 4, QOL 1. * ROS: G eneral / Constitutional: Patient denies f ever, chills, night sweats, change in appetite. R espiratory: Patient denies c ough, shortness of breath. ? C ardiovascular: Patient denies c hest pain, dizziness, palpitations. ? G astrointestinal: Patient denies a bdominal pain, nausea, vomiting, change in bowel habits. G enitourinary: Patient denies A s documented in HPI. * Medical History: * Surgical History: k nee replacement hernia repair * Hospitalization/Major Diagno stic Procedure: p neumonia troke 11/2024dehydration 01/2025 * Family History: F ather: 82 yrs, stroke. M other: 60 yrs, heart attack. brother - kidney cancer. * Social History: T obacco Use: T obacco Control (Standard) T obacco use: N onsmoker. D rug/Alcohol: D rugs H ave you used drugs other than those for medical reasons in the past 12 months??No. D o you smoke marijuana?: Denies. Do you drink alcohol?: No. AUDIT-C (Standard) D id you have a drink containing alcohol in the past year? N o, P oints 0 , I nterpretation N egative. * Medications: T akingtraMADol HCl 50 MG Tablet 1 tablet as needed Orally every 6 hours As neededpredniSONE 1 MG Tablet 2 tablets with food or milk Orally Once a day Potassium Chloride ER 10 MEQ Tablet Extended Release 1 tablet with food Orally Twice a day Pantoprazole Sodium 40 MG Tablet Delayed Release 1 tablet 1/2 to 1 hour before morning meal Orally Once a day Ezetimibe 10 MG Tablet 1 tablet Orally Once a day Doxazosin Mesylate 8 MG Tablet 1 tablet Orally Once a day Clopidogrel Bisulfate 75 MG Tablet 1 tablet Orally Once a day Bisacodyl 10 MG Suppository 1 suppository as needed Rectal Once a day Atorvastatin Calcium 40 MG Tablet 1 tablet Orally Once a day Aspirin 81 81 MG Tablet Delayed Release 1 tablet Orally Once a day Allopurinol 300 MG Tablet 1 tablet Orally Once a day Acetaminophen 325 MG Tablet 1 tablet as needed Orally every 6 hrs Mycophenolate Mofetil 500 MG Tablet 1 tablet Orally Once a day Bumetanide 1 MG Tablet 1 tablet Orally daily Lisinopril 40 MG Tablet 1 tablet Orally Once a day Metoprolol Succinate 100 MG Capsule ER 24 Hour Sprinkle 1 capsule Orally Once a day Medication List reviewed and reconciled with the patientTaking traMADol HCl 50 MG Tablet 1 tablet as needed Orally every 6 hours As neededTaking predniSONE 1 MG Tablet 2 tablets with food or milk Orally Once a day Taking Potassium Chloride ER 10 MEQ Tablet Extended Release 1 tablet with food Orally Twice a day Taking Pantoprazole Sodium 40 MG Tablet Delayed Release 1 tablet 1/2 to 1 hour before morning meal Orally Once a day Taking Ezetimibe 10 MG Tablet 1 tablet Orally Once a day Taking Doxazosin Mesylate 8 MG Tablet 1 tablet Orally Once a day Taking Clopidogrel Bisulfate 75 MG Tablet 1 tablet Orally Once a day Taking Bisacodyl 10 MG Suppository 1 suppository as needed Rectal Once a day Taking Atorvastatin Calcium 40 MG Tablet 1 tablet Orally Once a day Taking Aspirin 81 81 MG Tablet Delayed Release 1 tablet Orally Once a day Taking Allopurinol 300 MG Tablet 1 tablet Orally Once a day Taking Acetaminophen 325 MG Tablet 1 tablet as needed Orally every 6 hrs Taking Mycophenolate Mofetil 500 MG Tablet 1 tablet Orally Once a day Taking Bumetanide 1 MG Tablet 1 tablet Orally daily Taking Lisinopril 40 MG Tablet 1 tablet Orally Once a day Taking Metoprolol Succinate 100 MG Capsule ER 24 Hour Sprinkle 1 capsule Orally Once a day Medication List reviewed and reconciled with the patient * Allergies: N .K.D.A.no[Allergies Verified] Objective: * Vitals: B P:125/61mm Hg, HR:70/min, Wt:213lbs, Wt-k.62 kg, Ht: 72 in, Ht-cm: 182.88 cm, BMI:28.88Index, Body Surface Area: 2.21. * Examination: G eneral Examination: General appearance: a lert, elderly, male, well-nourished and in no acute distress. Skin: s kin is warm and dry, with no rashes, good skin turgor and normal hair distribution. Heart: r egular rate. Lungs: s ymmetrical, non labored respirations. Abdomen: s oft, non tender, non distended. Back: n o CVA tenderness. Assessment: * Assessment: 1. B enign prostatic hyperplasia with lower urinary tract symptoms - N40.1 (Primary) 2 . E ncounter to establish care with new doctor - Z76.89 3 . U rinary urgency - R39.15 4 . N octuria - R35.1 5 . H istory of CVA (cerebrovascular accident) - Z86.73 6 . F amily history of kidney cancer - Z80.51 Plan: * Treatment: ?Procedure: Bladder Scan (Performed Date - 02/24/2025)?0 mL2.?Others? Notes: PVR is 0ml. He has no obvious BPH complaints. He does have urgency, but states this resolvedwhen he was able to hold his Bumetanide. However, they have restarted him on this medication. He understands that this is to be expected on a diuretic. He does not have any incontinence. I will give him a bladder irritant handout to assess what he can modify to help. He will RTC PRN is symptoms worsen. ?? * Procedure Codes: 8 4311 [id number] MICROALBUMIN, [id number] GLUCOSE OTHER [id number] ASSAY OF URINE [id number] ACETONE [id number] BILIRUBIN, [id number] ASSAY OF BODY FLUID [id number] ASSAY OF PROTEIN, [id number] ASSAY OF URINE [id number] URINE SCREEN FOR [id number] US URINE CAPACITY [id number] SPECTROPHOTOMETRY, Modifiers: 59 * Follow Up: p rn * Billing Information: * Visit Code: 09780 Office Visit, New Pt., Level 3. * Procedure Codes: 16134 SPECTROPHOTOMETRY. 80895 MICROALBUMIN, QUANTITATIVE. 47320 GLUCOSE OTHER FLUID. 74279 ASSAY OF URINE HEMOGLOBIN. 88473 ACETONE ASSAY. 27246 BILIRUBIN, TOTAL. 08392 ASSAY OF BODY FLUID ACIDITY. 82000 ASSAY OF PROTEIN, URINE. 39719 ASSAY OF URINE CREATININE. 76721 URINE SCREEN FOR BACTERIA. 56469 US URINE CAPACITY MEASURE. 88550 SPECTROPHOTOMETRY. Modifiers: 59 * SOFTWARE ENGINEER Sign off status: Completed true * Provider: Pernell Issa APRN-[facility] Date: 04/27/2024 Generated for Margie hernandez/Randy/Jermaineitting on: 04/29/2024 06:11 AM IOS SOFTWARE ENGINEER History and Physical Notes * HPI (History of Present Illness) Category Sub-Category Detail Notes Category Not es Migrated HPI Mr. Meraz i s a 74 year old male new patient referred for BPH. His main complaint is urinary urgency, however he states he was recently told to hold his Bumetanide and this went away. He reports good urinary stream. No history of UTI or stones. Family history of kidney cancer in his brother. Denies gross hematuria or significant history of smoking. Denies bother with incontinence. He has nocturia x 1. IPSS 4, QOL 1. Examination Category Sub-Category Detail Notes Category Not es General Examination General appearance: alert, e lderly, male, well-nourished and in no acute distress Heart: regular rate Lungs: symmetrical, non lab ored respirations Abdomen: soft, non tender, no n distended Skin: skin is warm and dry , with no rashes, good skin turgor and normal hair distribution Back: no CVA tenderness
[2025-02-26] VITALS (9 sets, daily range): BP systolic 160–168; BP diastolic 75–87; PULSE 60–69; RESP 15–18; TEMP 36.6–36.8; O2SAT 98–100; BMI 29.8
--- NOTE | 2025-02-26 06:07 | ED_ITS ---
HPI - General Adult 2 General: Chief complaint: Recheck/Abnormal Lab/Rx Stated complaint: Critical Labs Time Seen by Provider: 02/26/25 06:06 History of Present Illness: 74[facility]. Patient has a history of diabetes mellitus hypertension hyperlipidemia lupus. He was recently hospitalized after a prolonged bout of diarrhea Laxatone with an acute kidney injury. At the time of discharge he was noted of a hemoglobin of 8 for discharging physician had related discharge summary to have this followed by his primary care doctor at the longterm. He has not had any hematochezia or melena with his prolonged episode of diarrhea. At the time of admission he had been tested for C. difficile and it was negative. On routine follow-up of his hemoglobin his hemoglobin is now reported to be 6.8. Associated symptoms: Deny chest pain, dyspnea or rash Related Data Home Medications ?Medication ?Instructions ?Recorded ?Confirmed metoprolol succinate 100 mg 100 mg PO DAILY 02/26/24 1 04/29/24 tablet,extended release 24 hr prednisone 1 mg tablet 1 mg PO DAILY 12/16/2402/26 acetaminophen 325 mg tablet 650 mg PO Q4H PRN Pain 02/26/25 aspirin 81 mg tablet,delayed 81 mg PO DAILY 02/07/25 1 04/29/24 release atorvastatin 40 mg tablet 40 mg PO BEDTIME 02/07/25 bisacodyl 10 mg rectal suppository 10 mg AL DAILY PRN Constipation 02/07/25 02/26/25 clopidogrel 75 mg tablet 75 mg PO DAILY 02/07/2502/17 doxazosin 8 mg tablet 8 mg PO DAILY 02/07/2502/26 allopurinol 300 mg tablet 300 mg PO DAILY 02/26/2501/11 bumetanide 1 mg tablet 1 mg PO DAILY 02/26/2502/26 potassium chloride 10 mEq 10 meq PO DAILY 02/26/2501/11 tablet,extended release Previous Rx's ?Medication ?Instructions ?Recorded lisinopril 40 mg tablet 40 mg PO DAILY #90 tabs 08/19 09/11 mycophenolate mofetil 500 mg 1,500 mg (3 x 500 mg) PO BID lpus 11/05/25 tablet (CellCept) nephriis #180 tabs ezetimibe 10 mg tablet 10 mg PO DAILY 30 days #30 t abs 02/10/25 pantoprazole 40 mg tablet,delayed 40 mg PO BID 30 days #60 tabs 02/10/25 release (Protonix) Allergies Allergy/AdvReac Type Severity Reaction Status Date / Time No Known Allergies Allergy Verified 01/29/25 08:34 Review of Systems 2 Const: Denies: fever(s) or chills Card: Denies: chest pain Resp: Denies: dyspnea GI: Denies: abdominal pain : Denies: dysuria, urinary frequency or urinary urgency Musc: Denies: neck pain or back pain Skin/Breast: Denies: rash PFSH ED 2 PFSH: Medical History Lupus nephritis Fluid retention Dependent edema Anasarca High gamma glutamyl transferase (GGT) History of pneumonia Allergic rhinitis due to allergen Hearing impaired Type 2 diabetes mellitus Hyperlipidemia Essential hypertension Family History Brother Cancer Lung disease Father Stroke Other Diabetes Hypertension Denies family history of CAD (coronary artery disease) Clotting disorder Dementia Hyperlipidemia Psychiatric illness Chronic kidney disease (CKD) Suicide Anesthesia complication Bleeding disorder Family history of premature coronary artery disease Social History Smoking and tobacco/nicotine status: never used tobacco/nicotine Second hand smoke exposure: No Alcohol intake: current Alcohol intake frequency: holidays/special occasions only Alcohol type: beer Substance/Drug Use: never Adopted: No Caregiver/support person: No Lives independently: Yes Household members: spouse Housing: House Marital status: service: Yes ([employer]) Physical Exam 2 Const: COMMON NORMALS: no acute distress GENERAL APPEARANCE: cooperative and comfortable ORIENTATION/CONSCIOUSNESS: Yes awake, Yes oriented to person, Yes oriented to place and Yes oriented to time HENMT: COMMON NORMALS: normocephalic, atraumatic and hearing grossly normal bilaterally HEAD & SCALP: normocephalic and atraumatic Resp: COMMON NORMALS: normal respiratory effort, No retractions, No use of accessory muscles and clear to auscultation bilaterally AUSCULTATION: clear to auscultation bilaterally Cardio: COMMON NORMALS: regular rate, regular rhythm and No murmurs present (Cardio) RATE: regular rate RHYTHM: regular rhythm GI: COMMON NORMALS: Soft to palpation and No hepatosplenomegaly present A USCULTATION: Yes normoactive bowel sounds PALPATION: Yes Soft to palpation, No Tenderness to palpation present (GI), No Guarding due to palpation present (GI) and Yes No hepatosplenomegaly present Extremity: COMMON NORMALS: normal to inspection, capillary refill normal, no clubbing, cyanosis or edema, no calf tenderness and no pedal edema Neuro: SENSORIUM/ORIENTATION: Yes oriented to person, Yes oriented to place and Yes oriented to time Skin: COMMON NORMALS: no rashes or lesions noted GENERAL SKIN EXAM: no rashes or lesions noted Course 2 Vital Signs: Vital signs: Vital Signs Temperature 98.1 F 02/26/25 10:08 Pulse Rate 69 02/26/25 11:40 Respiratory Rate 16 02/26/25 10:08 Blood Pressure 161/87 02/26/25 11:40 Pulse Oximetry 100 02/26/25 11:40 Oxygen Delivery Me thod Room Air 02/26/25 06:39 MDM - General Adult Medical Decision Making Medical decision making Social determinants: Patient currently in a longterm has good family support I reviewed the patient's medical record. I reviewed the patient's current home meds. Alternate historians: Reviewed patient's history for the last several months including his previous stroke and his downward trending hemoglobin and his chronic kidney disease with his primary care doctor and discussion on the phone on the course of planning his follow-up care Differential diagnosis: Diverticulitis, diverticular bleed, lower GI bleed, anemia of chronic disease Lab Review: Labs reviewed as found in the chart hemoglobin 7.3 MCV 96.4 platelets normal no significant chemistry abnormality Imaging: None done at this visit reviewed CT abdomen and pelvis done at previous visit in January Assessment of risk Level of risk: Moderate Hospitalization considerations: Reviewed chart patient has no active bleeding at this time no need for hospitalization for acute evaluation Reexamination: Stable Assessment and plan: Patient has had trending down of his hemoglobin for the last several months was first noted when he had a stroke at the end of November. He has been placed on dual platelet therapy since. He has a follow- up appointment with Dr. Gregory on the of this month although I cannot see specifically what that is for. I called and discussed case DrCyrus Sierra plan will be to give him a unit of blood and discharge him back to the longterm Dr. munson will coordinate further evaluation will get anemia labs today day. Lab Data 02/26/25 06:15 02/26/25 06:15 Laboratory Results WBC 4.47 10^3/uL (3.29-11.43) 02/26/25 06:15 RBC 2.50 10^6/uL (3.85-5.65) L 02/26/25 06:15 Hgb 7.30 g/dL (11.27-16.99) L 02/26/25 06:15 Hct 24.1 % (37-53) L 02/26/25 06:15 MCV 96.4 fl (82-101) 02/26/25 06:15 MCH 29.2 pg (27-33) 02/26/25 06:15 MCHC 30.3 g/dL (30-55) 02/26/25 06:15 RDW 14.4 % (12.1-15.1) 02/26/25 06:15 Plt Count 267 10^3/cmm (157-399) 02/26/25 06:15 MPV 9.5 fL (7.4-10.4) 02/26/25 06:15 Neut % (Auto) 69.6 % 02/26/25 06:15 Lymph % (Auto) 17.0 % 02/26/25 06:15 [place] % (Auto) 9.4 % 02/26/25 06:15 Eos % (Auto) 3.8 % 02/26/25 06:15 Baso % (Auto) 0.2 % 02/26/25 06:15 Reticulocyte % (Auto) 2.0 % (0.5-2.0) 02/26/25 06:15 Neut # (Auto) 3.11 10^3/uL (1.8-7.7) 02/26/25 06:15 Lymph # (Auto) 0.8 10^3/uL (0.8-4.8) 02/26/25 06:15 [place] # (Auto) 0.4 10^3/uL (0.2-0.9) 02/26/25 06:15 Eos # (Auto) 0.2 10^3/uL (0.0-0.8) 02/26/25 06:15 Baso # (Auto) 0.0 10^3/uL (0.0-0.1) 02/26/25 06:15 Nucleated RBC % (auto) 0 % 02/26/25 06:15 Nucleated RBCs # 0.0 /100WBC 02/26/25 06:15 Haptoglobin 321.0 mg/L (30-200) H 02/26/25 06:15 Sodium 143 mmol/L (136-145) 02/26/25 06:15 Potassium 4.6 mmol/L (3.5-5.1) 02/26/25 06:15 Chloride 112 mmol/L (98-107) H 02/26/25 06:15 Carbon Dioxide 24 mmol/L (22-29) 02/26/25 06:15 Anion Gap 11.6 (5-19) 02/26/25 06:15 BUN 17 mg/dL (8-23) 02/26/25 06:15 Creatinine 0.8 mg/dL (0.7-1.2) 02/26/25 06:15 GFR Calculation Not Reportable 02/26/25 06:15 Glucose 102 mg/dL (65-115) 02/26/25 06:15 Calculated Osmolality 298 mOsm/kg (285-295) H 02/26/25 06:15 Calcium 8.1 mg/dL (8.5-10.5) L 02/26/25 06:15 Iron 56 ug/dL (59-158) L 02/26/25 06:15 TIBC 147 mcg/dl 02/26/25 06:15 % Saturation 38.0 % (20-50) 02/26/25 06:15 Unsat Iron Binding 91 ug/dL (112-347) L 02/26/25 06:15 Ferritin 328 ng/mL (30-400) 02/26/25 06:15 Total Bilirubin 0.2 mg/dL (0.15-1.2) 02/26/25 06:15 AST 28 U/L (0-40) 02/26/25 06:15 ALT 17 U/L (0-41) 02/26/25 06:15 Alkaline Phosphatase 121 U/L (40-130) 02/26/25 06:15 Total Protein 5.2 g/dL (6.6-8.7) L 02/26/25 06:15 Albumin 2.6 g/dL (3.5-5.2) L 02/26/25 06:15 Globulin 2.6 g/dL (1.3-4.6) 02/26/25 06:15 Vitamin B12 279 pg/mL (232-1245) 02/26/25 06:15 Folate 17.7 ng/mL (4.5-32.2) 02/26/25 06:15 Urine Color Yellow (Yellow) 02/26/25 07:28 Urine Appearance Clear (CLEAR) 02/26/25 07: Urine pH 5.5 (5-7) 02/26/25 07: Ur Specific Petroleum 1.023 (1.005-1.030) 02/26/25 07:28 Urine Protein 4+ (Negative) A 02/26/25 07: Urine Glucose (UA) Negative (Normal) 02/26/25 07: Urine Ketones Negative (Negative) 02/26/25 07: Urine Blood 1+ (Negative) A 02/26/25 07: Urine Nitrate Negative (Negative) 02/26/25 07: Urine Bilirubin Negative (Negative) 02/26/25 07: Urine Urobilinogen 0.2 mg/dL (Negative) 02/26/25 07:28 Ur Leukocyte Esterase Negative (Negative) 02/26/25 07:28 Urine RBC 0-2 /hpf (0-2) 02/26/25 07:28 Urine WBC 0-5 /hpf (0-5) 02/26/25 07:28 Ur Squamous Epith Cells 0-5 /hpf (0-5) 02/26/25 07:28 Amorphous Sediment Not Reportable 02/26/25 07:28 Urine Bacteria 1+ /hpf (NONE) H 02/26/25 07:28 Hyaline Casts 14.47 /lpf 02/26/25 07:28 Coarse Granular Casts 0-4 /lpf H 02/26/25 07:28 Blood Type A Positive 02/26/25 06:37 Rho(D) Type Rh positive 02/26/25 06:37 Antibody Screen Negative 02/26/25 06:37 Crossmatch See Detail 02/26/25 06:37 All radiology interpretation(s) finalized by discharge Discharge Plan Discharge Patient Disposition: Home Clinical Impression: Anemia, Type 2 diabetes mellitus, Lupus nephritis Condition: Stable Prescriptions: No Action metoprolol succinate 100 mg tablet extended release 24 hr 100 mg PO DAILY mycophenolate mofetil [CellCept] 500 mg tablet 1,500 mg PO BID Qty: 180 5RF lisinopril 40 mg tablet 40 mg PO DAILY Qty: 90 1RF prednisone 1 mg Tablet 1 mg PO DAILY atorvastatin 40 mg tablet 40 mg PO BEDTIME acetaminophen 325 mg Tablet 650 mg PO Q4H PRN (Reason: Pain) clopidogrel 75 mg tablet 75 mg PO DAILY aspirin 81 mg tablet,delayed release (DR/EC) 81 mg PO DAILY doxazosin 8 mg tablet 8 mg PO DAILY bisacodyl 10 mg Suppository 10 mg AL DAILY PRN (Reason: Constipation) ezetimibe 10 mg Tablet 10 mg PO DAILY 30 Days Qty: 30 0RF pantoprazole [Protonix] 40 mg tablet,delayed release (DR/EC) 40 mg PO BID 30 Days Qty: 60 0RF allopurinol 300 mg tablet 300 mg PO DAILY bumetanide 1 mg tablet 1 mg PO DAILY potassium chloride 10 mEq Tablet Extended Release 10 meq PO DAILY Discharge Orders: Discharge ED (Routine); Ordered 02/26/25 Ordered By: Krzysztof Sewell Referrals: Sebastián Cochran MD [Primary Care Provider, [facility]] Discharge Diet: Usual diet Discharge Activity: Resume usual activity Patient Instructions: Opioid Safety, Pain Management, Patient Portal & Ivette Instructions Print Language: Kenyan Coding Level of Care Code ED 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
--- OUTSIDE RECORDS SUMMARY | 2025-02-26 06:07 | XMS_ITS | Clinical Summary ---
Author Organization [facility] Address [address] 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
--- OUTSIDE RECORDS SUMMARY | 2025-02-26 06:07 | XMS_ITS | Patient Health Record ---
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 Name Role Phone Dimas MASON, Sebastián Primary Care Provider UnavailILDA Stokes Unavailable [phone] Allergies No Known Allergies Results Component Value Reference Range Notes AutoUA Reviewed date:02/25/2025 11:59:52 AM Interpretation: Performing Lab: Notes/Report: Reason For Referral No Information Medications Medication SIG (Take, Route, Frequency, Duration) Notes Start Date End Date Status Allopurinol 300 MG 1 tablet Orally Once a day Active traMADol HCl 50 MG 1 tablet as needed Orally every 6 hours As needed Active Atorvastatin Calcium 40 MG 1 tablet Oral ly Once a day Active Aspirin 81 81 MG 1 tablet Orally Once a day Active Potassium Chloride ER 10 MEQ 1 tablet with food Orally Twice a day Active Bumetanide 1 MG 1 tablet Orally daily Active Pantoprazole Sodium 40 MG 1 tablet 1/2 t o 1 hour before morning meal Orally Once a day Active Lisinopril 40 MG 1 tablet Orally Once a day Active Acetaminophen 325 MG 1 tablet as needed Orally every 6 hrs Active predniSONE 1 MG 2 tablets with food or milk Orally Once a day Active Mycophenolate Mofetil 500 MG 1 tablet Orally Once a day Active Clopidogrel Bisulfate 75 MG 1 tablet Ora lly Once a day Active Bisacodyl 10 MG 1 suppository as nee ded Rectal Once a day Active Ezetimibe 10 MG 1 tablet Orally Once a day Active Metoprolol Succinate 100 MG 1 capsule Or ally Once a day Active Doxazosin Mesylate 8 MG 1 tablet Orally Once a day Active Social History Tobacco Use: Social History Observation Description Date Details (start date - stop date) Never Smoker NA - NA Tobacco Control (Standard) Question Answer Notes Tobacco use: Nonsmoker AUDIT-C (Standard) Question Answer Notes Did you have a drink containing alcohol in the p ast year? No Points 0 Interpretation Negative Problems Problem Type SNOMED Code ICD Code Onset Dates Problem Status W/U Status Risk Notes Problem Lower urinary tract symptoms due to benign prostatic hypertrophy (81666230991286) Benign prostatic hyperplasia with lower urinary tract symptoms (N40.1) Active confirmed Vital Signs Heart Rate 70 /min 02/24/2025 Blood pressure diastolic 61 mm Hg 02/24/2025 Height-cm 182.88 cm 02/24/2025 Weight-kg 96.62 kg 02/24/2025 Height 72 in 02/24/2025 Blood pressure systolic 125 mm Hg 02/24/2025 Weight 213 lbs 02/24/2025 BMI 28.88 kg/m2 02/24/2025 Procedures Procedure Date Ordered Date Performed Result Body Sit e Bladder Scan 02/24/2025 02/24/2025 0 mL Encounters Encounter Location Date Provider Diagnosis [facility] [address] [place] [address] 02/24/2025 ILDA ISSA Benign prostatic hyperplasia with lower urinary tract symptoms N40.1 ; Encounter to establish care with new doctor Z76.89 ; Urinary urgency R39.15 ; Nocturia R35.1 ; History of CVA (cerebrovascular accident) Z86.73 and Family history of kidney cancer Z80.51 [facility] [address] [place] [address] 02/11/2025 ILDA ISSA Assessments Encounter Date Diagnosis (ICD Code) Assessment [...] PRN is symptoms worsen. Plan Of Treatment No Information Insurance Providers Payer Name Payer Address Payer Phone Subscriber Number Group Number Insured Name Patient Relationship to Insured Coverage Start Date Coverage End Date [place] [address] FAZAL LANIER [id number] Jose Miguel Merrill Self - patient is the insured [employer] [facility] [address] [place] [address] [id number] Jose Miguel Merrill Self - patient is the insured Medical (General) History Medical History History ICD Code HTN CVA Surgical History Surgery Date(Month/Year) knee replacement hernia repair Hospitalization History Reason Date(Month/Year) dehydration 01/2025 stroke 11/2024 pneumonia 2020
--- OUTSIDE RECORDS SUMMARY | 2025-02-26 06:07 | XMS_ITS | Encounter Summary ---
Author Organization [facility] Address [address] [place] [address] Care Team Providers Care E Commerce Merchandising Coordinator Name Role Phone Unavailable Primary Care Provider Unavailabl e Encounter Details Date Type Department Care Team (Latest Contact Info) Description 04/30/2002 Outpatient Historical [facility] [address] [facility] [address] [place] [address] Nyla Ventura MD SCREENING MAL NEOP-COLON (Primary Dx) Social History Tobacco Use Types Packs/Day Years Used Date Smoking Tobacco: Never Assessed Sex and Gender Information Value Date Recorded Sex Assigned at Not on file 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
--- OUTSIDE RECORDS SUMMARY | 2025-02-26 06:07 | XMS_ITS | Continuity of Care Document ---
Author Organization [facility] Ardon [facility], L[facility], [facility] ([facility]) Address [address] [place] [address] Care Team Providers Care Wave Solder Offbearer Name Role Phone RAHDA LEWIS Primary Care Provider Assessment No assessment recorded. Plan of Treatment Reminders Order Date Submit Date Provider Last Modified By Organization Details Last Modified Time Details Appointments None record ed. Lab None record ed. Referral None record ed. Procedures None record ed. Surgeries None record ed. Imaging None record ed. Medication Orders None record ed. Patient TargetsNo targets recorded. Patient Instructions Encounter Date Encounter Id Patient Instructions Last Modified By Organization Details Last Modified Time 02/12/2025 [id number] hospital records reviewed; admitted with dehydration and cheryl related to diarrhea; better since stopping colchicine; hgb 8; will follow up increase allopurinol to 300mg daily. Does c/o worsening pain will start tramadol 50mg 1 every 6 hours prn. Tx gout flare with prednisone 20mg x 5 days. Labs on Monday [email or web address] Not available 02/16/2025 16:42:49 Reason for Referral None Reported. Problems Name Problem SNOMED Code Status Onset Date Resolution Date Notes Provider Name and Address Organization Details Recorded Time Benign essential hypertension 1662832 Active 2022 Hyperte nsion; 023 10:29AM by Pippa maguire, Office Visit; Promote d; acuity set as *; Not Available [facility] 03:08:39 Hyperlipidem ia 11455463 Active 2022 Hyperli pidemia ; 023 10:29AM by Pippa maguire, Office Visit; Promote d; acuity set as *; Not Available [facility] 3 03:08:39 Type 2 diabetes mellitus 59632335 [facility] 10:13[facility]38 Cerebrovascu lar accident 890669431 Active 2024 FABIO roy [facility] 5 19:23:30 Lives in fci 340925458 Active 2024 FABIO roy [facility] 5 19:23:32 Heartburn 57503830 Active 2024 FABIO roy [facility] 5 19:11:47 Problem Notes None recorded. Procedures Surgical History Date Name Laterality Status Provider Name and Address Organization Details Recorded Time Knee Replacement completed [facility] 09:58:28 [facility]/2023 10:31:35 Imaging Results None recorded. Procedure Notes None recorded. Medical Equipment None Reported. Medications Name Sig Start Date Stop Date Status Note LastModified by Organization Details LastModified Time atorvasta tin 40 mg tablet active Not Available Not Available Not Available neomycin- polymyxin -hydrocor t 3.5 mg/mL-10, 000 unit/mL-1 % ear solution INSTILL 4 DROPS IN EAR 2 TIMES PER DAY FOR 7 DAYS FOR OTITIS EXTERNA 11/24 completed Not Available Not Available Not Available prednison e 10 mg tablet TAKE 1 & 1/2 TABLETS BY MOUTH WITH FOOD OR MILK EVERY DAY 02/25 completed Not Available Not Available Not Available atorvasta tin 20 mg tablet TAKE 1 TABLET DAILY 01/03 completed Not Available Not Available Not Available torsemide 20 mg tablet TAKE 2 TABLETS BY MOUTH EVERY MORNING 02/25 completed Not Available Not Available Not Available bumetanid e 2 mg tablet TAKE 1&1/2 TABLETS BY MOUTH TWICE DAILY active Not Available Not Available No t Available cetirizin e 10 mg tablet TAKE 2 TABLETS IN THE MORNING AND 2 TABLETS IN THE EVENING 01/03 completed Not Available Not Available Not Available atorvasta tin 10 mg tablet 02/25 completed Not Available Not Available Not Available [...] DAYS, 1/2 TAB DAILY X 5 DAYS 02/25 completed Not Available Not Available Not Available fluoroura cil 5 % topical cream APPLY A THIN LAYER TWICE DAILY TO LESIONS OF CONCERNS ON FACE FOR 14 DAYS 11/24 completed Not Available Not Available Not Available metoprolo l succinate ER 100 mg tablet,ex tended release 24 hr TAKE 1 TABLET BY MOUTH TWICE A [...] MOUTH FOUR TIMES A DAY UNTIL GONE 02/25 completed Not Available Not Available Not Available clopidogr el 75 mg tablet active Not Available Not Available Not Available chlorthal idone 25 mg tablet TAKE 1 TABLET BY MOUTH EVERY DAY 02/25 completed Not Available Not Available Not Available chlorthal idone 50 mg tablet TAKE 2 TABLETS BY MOUTH DAILY active Not Available Not Available No t Available allopurin ol 100 mg tablet TAKE 1 TABLET BY MOUTH TWICE A DAY 02/25 completed Not Available Not Available Not Available aspirin 81 mg tablet,de layed release active Not Available Not Available Not Available tramadol 50 mg tablet Take 1 tablet every 6 hours by oral route as needed for 30 days. 2024 active Not Available Not Available Not Avai lable pantopraz ole 20 mg tablet,de layed release Take 1 tablet every day by oral route. active Dose change Not Available Not Available Not Available mycopheno late mofetil 500 mg tablet TAKE 3 TABLETS BY MOUTH TWICE A DAY FOR IPUS NEPHRIIS active Not Available Not Available No t Available losartan 100 mg-hydroc hlorothia zide 25 mg tablet 01/03 completed Not Available Not Available Not Available amoxicill in 875 mg tablet TAKE 1 TABLET BY MOUTH TWICE DAILY 11/24 completed Not Available Not Available Not Available doxazosin 8 mg tablet TAKE 1 TABLET DAILY active Not Available Not Available No t Available potassium chloride ER 20 mEq tablet,ex tended release(p art/cryst ) active Not Available Not Available Not Available prednison e 1 mg tablet TAKE 1 TABLET BY MOUTH WITH FOOD OR MILK ONCE A DAY active Not Available Not Available No t Available meclizine 25 mg tablet TAKE 1 TABLET BY MOUTH TWICE A DAY 01/03 completed Not Available Not Available Not Available amlodipin e 10 mg tablet TAKE 1 TABLET DAILY active Not Available Not Available No t Available prednison e 2.5 mg tablet TAKE 1 TABLET BY MOUTH WITH FOOD OR MILK active Not Available Not Available No t Available lisinopri l 10 mg tablet TAKE 1 TABLET BY MOUTH EVERY DAY 02/25 completed Not Available Not Available Not Available omeprazol e 20 mg capsule,d elayed release TAKE 1 CAPSULE BY MOUTH EVERY DAY 01/03 completed Not Available Not Available Not Available doxazosin 4 mg tablet TAKE 2 TABLETS BY MOUTH DAILY 02/25 completed Not Available Not Available Not Available bumetanid e 1 mg tablet 02/25 completed Not Available Not Available Not Available allopurin ol 300 mg tablet TAKE 1 TABLET BY MOUTH EVERY DAY active Not Available Not Available No t Available hydroxych loroquine 200 mg tablet TAKE 1 TABLET BY MOUTH EVERY DAY 02/25 completed Not Available Not Available Not Available cefuroxim e axetil 500 mg tablet [...] Not Available Not Available No t Available colchicin e 0.6 mg tablet PLEASE SEE ATTACHED FOR DETAILED DIRECTIO NS 02/25 completed Not Available Not Available Not Available megestrol 20 mg tablet TAKE 1 TABLET BY MOUTH TWICE A DAY 02/25 completed Not Available Not Available Not Available brompheni ramine-ps eudoephed rine-DM 2 mg-30 mg-10 mg/5 mL oral syrup TAKE 5 ML BY MOUTH EVERY 6 HOURS NEEDED FOR COLD SYMPTOMS active Not Available Not Available No t Available lisinopri l 40 mg tablet TAKE 1 TABLET BY MOUTH EVERY DAY active Not Available Not Available No t Available fluticaso ne propionat e 50 mcg/actua tion [...] TABLET BY MOUTH TWICE A DAY FOR 7 DAYS 02/24 completed Not Available Not Available Not Available [...] l succinate QD 11/24 completed Recorded 06/30/19 11:53AM by Radha Lewis MD, Office Visit; Mail Order Quantity : 100 Tablet; Refill Quantity : 0; Not Available Not Available Not Available metformin two times daily 11/24 completed 173; Recorded 05/24/19 1:38PM by Fabio Sutton RN (Authori zed through Radha Lewis MD), Refill Request; Mail Order Quantity : 180 Tablet; Refill Quantity : 0; Not Available Not Available Not Available Hyzaar QD 11/24 completed short supply sent to local pharmacy VO /; 173; Recorded 05/25/19 2:56PM by Fabio Sutton RN (Authori jenarod through Radha Lewis MD), Refill Request; Refill Quantity : 0; Not Available Not Available Not Available amlodipin e besylate (bulk) QD 11/24 completed 173; Recorded 04/06/19 9:29AM by Pippa hunter (Authori zed through Radha Lewis MD), Refill Request; Mail Order Quantity : 90 Tablet; Refill Quantity : 0; Not Available Not Available Not Available Farxiga 10 mg tablet TAKE 1 TABLET BY MOUTH EVERY DAY 02/25 completed Not Available Not Available Not Available potassium chloride ER 20 mEq tablet,ex tended release TAKE 40 MEQ (2 X 20 MEQ) BY MOUTH DAILY active Not Available Not Available No t Available Vitals Date Recorded Body height Body mass index (BMI) Body weight Heart rate Respiratory rate Body temperature Oxygen saturation Systolic And Diastolic Provider Name and Address Organization Details Last Updated DateTime 5 182.88 cm 25.2 kg/m2 32855.1 8 g 78 /min 18 /min 98.5 [degF] 96 % 122/72 mm[Hg] CHULA CAPPS [facility] 5 18:00:51 Social History Question Answer Notes LastModified by Organizat ion Details LastModified Time Tobacco Smoking Status Former Smoker ROSALINAANDRÉS ARTURO roy [facility] 01/03/2023 10:31:19 What Was The Date Of Your Most Recent Tobacco Screening? 12/19/2024 Information not available 12/19/2024 Have You Ever Been Counseled For Unhealthy Alcohol Use? No Information not available 01/03/2023 Sex: Unknown Functional Status Question Answer Note LastModified by Organizat ion Details LastModified Time Do you use any illicit or recreational drugs? No Information not available 01/03/2023 Do you or have you ever used any other forms of tobacco or nicotine? No Information not available 02/25/2025 What is your level of alcohol consumption? Occasional Information not available 01/03/2023 Mental Status None recorded. Family History Nothing Reported. Medical History Condition Response Stroke Y Immunizations Vaccine Type Date Status Note Provider Nam e and Address Organization Details Recorded Time Td(adult) unspecified formulation 3 completed Not Available [facility] 03/23/2023 14:02:51 Influenza, split virus, trivalent, preservative 3 completed Not Available [facility] 03/23/2023 14:02:52 zoster recombinant 3 completed FABIO roy [facility] 11/24/2022 10:05:09 COVID-19, mRNA, LNP-S, PF, 100 mcg/0.5mL dose or 50 mcg/0.25mL dose 1 completed FABIO roy [facility] 11/24/2022 10:05:09 COVID-19, mRNA, LNP-S, PF, 100 mcg/0.5mL dose or 50 mcg/0.25mL dose 1 completed FABIO roy [facility] 11/24/2022 10:05:09 Pneumococcal conjugate PCV20, polysaccharide [id number] conjugate, adjuvant, PF 2 completed FABIO roy [facility] 11/24/2022 10:05:09 pneumococcal polysaccharide PPV23 5 completed FABIO roy, [facility] 11/24/2022 10:05:10 Influenza, split virus, trivalent, preservative 2 completed FABIO roy, [facility] 11/24/2022 10:05:10 Td (adult), 2 Lf tetanus toxoid, preservative free, adsorbed 4 completed FABIO roy, [facility] 11/24/2022 10:05:10 Influenza, split virus, quadrivalent, PF 5 completed FABIO roy, [facility] 11/24/2022 10:05:10 Hep A-Hep B 5 completed FABIO SUTTON null, [facility] 11/24/2022 10:05:10 Hep A-Hep B 4 completed FABIO roy, [facility] 11/24/2022 10:05:10 Hep A-Hep B 4 completed FABIO roy, [facility] 11/24/2022 10:05:10 Influenza, recombinant, trivalent, PF 4 completed Not Available [facility] 02/25/2025 08:03:11 Past Encounters Encounter ID Performer Location Encounter Start Date Encounter Closed Date Diagnosis/Indication Diagnosis SNOMED-CT Code Diagnosis ICD10 Code Diagnosis IMO Codes Diagnosis Note [id number] Fabrizio Echavarria DO [facility] ([facility]) [address] [place] [address] 02/12/2025 15:40:14 02/19/2025 08:41:44 Post-discharge follow-up 283332519 Z51.89 [id number] Gouty arthritis 62696916 M10.9 71111 Acute kidney injury 1466 9001 N17.9 065751 Dehydration 56370397 E86 .0 9786 Diarrhea c aused by drug 161245517 K52.1 [id number] Health Concerns Section Related Observation LastModified by Organization Detai ls LastModified Time None Recorded Concern Status LastModified by Organization Details LastModified Time None Recorded Payers Encounter Date Sequence Insurance Name Policy Number Policy Forrester Covered Member ID Forrester Member ID Guarantor Name 02/12/2025 1 [place] Jose Miguel Coleman [id number] Jose Miguel Coleman 02/12/2025 2 [employer] - PLAN F (MEDICARE SUPPLEMENT) [id number] Jose Miguel Coleman [id number] Jose Miguel Coleman Notes Date Note Type Note Provider Name and Address Organization Details Recorded Time 02/12/2025 text/html Care Management - GeneralReported by PatientHPIFor prognosis, patient reportsexpected outcome: improveandprognosis: good. For context, patient reportsnot current smoker.ROS as noted in the HPI Patient was admitted yesterday 12/18/24 to [facility] following discharge from [facility] post CVA affecting Left side Fabrizio Echavarria, DO [address] [place] [address], [phone], [facility] 02/16/2025 16:43:27
--- OUTSIDE RECORDS SUMMARY | 2025-02-26 06:08 | XMS_ITS | Data Portability ---
Author Organization [facility] Duglas Knight [facility] Address [address] [place] [address] Care Team Providers Care Crate Repairer Name Role Phone RADHA LEWIS Primary Care [...] By Organization Details Last Modified Time 02/12/2025 [id number] hospital records reviewed; admitted with dehydration and cheryl related to diarrhea; better since stopping colchicine; hgb 8; will follow up increase allopurinol to 300mg daily. Does c/o worsening pain will start tramadol 50mg 1 every 6 hours prn. Tx gout flare with prednisone 20mg x 5 days. Labs on Monday Not available 02/16/2025 16:42:49 02/17/2025 [id number] edema improved. Gout improved. states he is feeling much better. Planning to see nephrology, will order labs they request. [email or web address] Not available 02/17/2025 13:31:05 Reason for Referral None Reported. Problems Name Problem SNOMED Code Status Onset Date Resolution Date Notes Provider Name and Address Organization Details Recorded Time Benign essential hypertension 8015118 Active 2022 Hyperte nsion; 023 10:29AM by Pippa maguire, Office Visit; Promote d; acuity set as *; Not Available [facility] 07/29/202 3 03:08:39 Hyperlipidem ia 87686758 Active 2022 Hyperli pidemia ; 023 10:29AM by Pippa maguire, Office Visit; Promote d; acuity set as *; Not Available [facility] 3 03:08:39 Type 2 diabetes mellitus 80239500 Active 2022 FABIO roy [facility] 3 10:13:38 Cerebrovascu lar accident 567990434 [facility] 19:23:30 Lives in alf 734328971 Active 2024 [facility] 5 19:23:32 Heartburn 15824105 Active 2024 [facility] 19:11:47 Problem Notes None recorded. Procedures Surgical History Date Name Laterality Status Provider Name and Address Organization Details Recorded Time Knee Replacement completed FABIO SUTTON [facility] 11/24/2022 09:58:28 Hernia Repair completed [facility]IS [facility] 01/03/2023 10:31:35 Imaging Results None recorded. Procedure [...] 23 12:40PM by Fabio Sutton RN (Authori marilynn through Radha Lewis [...] local pharmacy VO /; 173; Recorded 05/25/19 23 2:56PM by Fabio [...] Organization Details Last Updated DateTime 182.88 cm 25.2 kg/m2 88877.1 8 g 78 /min 18 /min 98.5 [degF] 96 % 122/72 mm[Hg] CHULA CAPPS [facility] 5 18:00:51 Date Recorded Body height Body mass index (BMI) Body weight Heart rate Respiratory rate Body temperature Oxygen saturation Systolic And Diastolic Provider Name and Address Organization Details Last Updated DateTime 5 182.88 cm 25.9 kg/m2 19982.1 4 g 72 /min 18 /min 98.6 [degF] 99 % 134/70 mm[Hg] CHULA CAPPS [facility] 5 13:28:56 Date Recorded Body height Body mass index (BMI) Body weight Heart rate Respiratory rate Body temperature Oxygen saturation Systolic And Diastolic Provider Name and Address Organization Details Last Updated DateTime 5 182.88 cm 29 kg/m2 64484.7 7 g 72 /min 18 /min 98.5 [degF] 99 % 132/68 mm[Hg] CHULA [facility] 5 15:51:08 Date Recorded Body height Provider Name an d Address Organization Details Last Updated DateTime 02/25/2025 182.88 cm FABIO SUTTON [facility] 02/25/2025 19:02:10 Social History Question Answer Notes LastModified by [employer] Details LastModified Time Tobacco Smoking Status Former Smoker PIPPA roy [facility] 01/03/2023 10:31:19 What Was The Date [...] Td(adult) unspecified formulation 3 completed Not Available [facility] 03/23/2023 14:02:51 Influenza, split virus, trivalent, preservative 3 completed Not Available [facility] 03/23/2023 14:02:52 zoster recombinant 3 completed FABIO roy [facility] 11/24/2022 10:05:09 COVID-19, mRNA, LNP-S, PF, 100 mcg/0.5mL dose or 50 mcg/0.25mL dose 1 completed FABIO roy [facility] 11/24/2022 10:05:09 COVID-19, mRNA, LNP-S, PF, 100 mcg/0.5mL dose or 50 mcg/0.25mL dose 1 completed FABIO roy [facility] 11/24/2022 10:05:09 Pneumococcal conjugate PCV20, polysaccharide [id number] conjugate, adjuvant, PF 2 completed FABIO roy [facility] 11/24/2022 10:05:09 pneumococcal polysaccharide PPV23 5 completed FABIO roy [facility] 11/24/2022 10:05:10 Influenza, split virus, trivalent, preservative 2 completed FABIO roy [facility] 11/24/2022 10:05:10 Td (adult), 2 Lf tetanus toxoid, preservative free, adsorbed 4 completed FABIO roy [facility] 11/24/2022 10:05:10 Influenza, split virus, quadrivalent, PF 5 completed FABIOSHANNAN TALLEYY null, [facility] 11/24/2022 10:05:10 Hep A-Hep B 5 completed FABIO JOSE RAMON null, [facility] 11/24/2022 10:05:10 Hep A-Hep B 4 completed FABIOSHANNAN TALLEYY null, [facility] 11/24/2022 10:05:10 Hep A-Hep B 4 completed FABIO SUTTON null, [facility] 11/24/2022 10:05:10 Influenza, recombinant, trivalent, PF 4 completed Not Available [facility] 02/25/2025 08:03:11 Past Encounters Encounter ID Performer Location Encounter Start Date Encounter Closed Date Diagnosis/Indication Diagnosis SNOMED-CT Code Diagnosis ICD10 Code Diagnosis IMO Codes Diagnosis Note [id number] LESLIE CUMMINGS PA-C [facility] ([facility]) [address] [place], [place] [phone] 07/01/2022 11:21:06 07/07/2022 13:04:37 Impacted cerumen in left ear 8957952016 912380 H61.22 ear flushed with water until clear. TM was visuallize d and normal after. [id number] Radha Lewis MD [facility] ([facility]) [address] [place] [address] 11/24/2022 09:45:38 12/02/2022 22:52:07 Benign essential hypertension 8010878 I10 Type 2 martha betes mellitus 01982939 E11.9 [id number] Radha Lewis MD [facility] ([facility]) [address] [place] [employer], [place] [phone] 01/03/2023 09:53:12 01/03/2023 14:24:48 Benign essential hypertension 7881984 I10 [id number] TERRANCE DE LA TORRE [facility] ([facility]) [address] [place] [address] 03/15/2023 12:13:28 03/15/2023 16:10:03 Acute otitis externa 88878267 H60.509 Start Ciprodex today. Encouraged patient to avoid swimming and submerging head in water for the next 14 days. Can use heat compresses as needed for pain relief. If not improving in 7 days, should return for further evaluation . Essential hypertension 08887102 I10 Recommend a follow up with PCP regarding BP readings. Recommend keeping a log of morning and evening blood pressures until seen by PCP. If any chest pain, SOB, dizziness, or severe HAs occur, should go to ED. Patient verbalizes understand ing. [id number] Radha Lewis MD [facility] ([facility]) [address] [place] [address] 03/23/2023 14:02:33 03/23/2023 15:44:23 Benign essential hypertension 3604237 I10 Cough 40119244 R05.9 [id number] Radha Lewis MD [facility] ([facility]) [address] [place] [address] 12/19/2024 09:09:42 12/20/2024 08:46:19 Cerebrovascular accident 408759323 I63.9 01188660 Lives in alf 16 2310103 Z78.9 [id number] Fabrizio Echavarria DO [facility]) [address] [place] [address] 02/12/2025 15:40:14 02/19/2025 08:41:44 Post-discharge follow-up 114051009 Z51.89 644223 Gouty arthritis 87128046 M10.9 93549 Acute kidney injury 1466 9001 N17.9 998039 Dehydration 24919933 E86 .0 9786 Diarrhea c aused by drug 752448030 K52.1 [id number] [id number] Fabrizio Echavarria DO [facility] ([facility]) [address] [place] [address] 02/17/2025 12:40:47 02/19/2025 15:24:25 Benign essential hypertension 8925202 I10 Cerebrovas cular accident 025208884 I63.9 45987463 Type 2 martha betes mellitus 33143320 E11.9 Health Concerns Section Related Observation LastModified by Organization Detai ls LastModified Time None Recorded Concern Status LastModified by Organization Details LastModified Time None Recorded Advance Directives Directive None Recorded Payers Insurance Date Sequence Insurance Name Policy Number Policy Forrester Covered Member ID Forrester Member ID Guarantor Name 02/17/2025 [place] - [facility] (MEDICARE) Jose Miguel E Jared [id number] Jose Miguel E Jared 02/24/2025 2 Agency [employer] - PLAN F (MEDICARE SUPPLEMENT) [id number] Jose Miguel E Jared [id number] Jose Miguel E Jared 12/19/2024 2 [employer] (MEDICARE SUPPLEMENT) Jose Miguel E Jared [id number] Jose Miguel E Jared 02/17/2025 1 [place] Jose Miguel E Jared [id number] Jose Miguel E Jared Notes Date Note Type Note Provider Name and Address Organization Details Recorded Time 02/12/2025 text/html Care Management - GeneralReported by PatientHPIFor prognosis, patient reportsexpected outcome: improveandprognosis: good. For context, patient reportsnot current smoker.ROS as noted in the HPI Patient was admitted yesterday 12/18/24 to [facility] following discharge from [facility] post CVA affecting Left side Fabrizio Echavarria [address], [phone], [facility] 02/16/2025 16:43:27 02/17/2025 text/html Care Management - GeneralReported by PatientHPIFor prognosis, patient reportsexpected outcome: improveandprognosis: good. For context, patient reportsnot current smoker.ROS as noted in the HPI follow up on gout and edema Fabrizio Echavarria DO [address] [place] [address], [phone], [facility] 02/17/2025 16:18:52 02/24/2025 text/html Care Management - GeneralReported by PatientHPIFor prognosis, patient reportsexpected outcome: improveandprognosis: good. For context, patient reportsnot current smoker.ROS as noted in the HPI staff reports weight gain and edmea. Not Available Not Available Not Available 02/25/2025 text/html Care Management - GeneralReported by PatientHPIFor prognosis, patient reportsexpected outcome: improveandprognosis: good. For context, patient reportsnot current smoker.ROS as noted in the HPI follow up on gout and edema, CVA Not Available Not Available Not Available
--- OUTSIDE RECORDS SUMMARY | 2025-02-26 06:09 | XMS_ITS | Continuity of Care Document ---
Author Organization [facility] Duglas Knight [facility], [facility] ([facility]) Address [address] [place] [address] Care Team Providers Care Hand Painter Name Role Phone JOSHUAPEDRORADHA Primary Care Provider Assessment No assessment recorded. [...] Modified By Organization Details Last Modified Time 02/17/2025 [id number] edema improved. Gout improved. states he is feeling much better. Planning to see nephrology, will order labs they request. Not available 02/17/2025 13:31:05 Reason for Referral None Reported. Problems Name Problem SNOMED Code Status Onset Date Resolution Date Notes Provider Name and Address Organization Details Recorded Time Benign essential hypertension 8291327 Active 2022 Hyperte nsion; 023 10:29AM by Pippa maguire, Office Visit; Promote d; acuity set as *; Not Available [facility] 3 03:08:39 Hyperlipidem ia 86969934 Active 2022 Hyperli pidemia ; 023 10:29AM by Pippa maguire, Office Visit; Promote d; acuity set as *; Not Available [facility] 3 03:08:39 Type 2 diabetes mellitus 72010898 Active 2022 FABIO roy, [facility] 3 10:13:38 Cerebrovascu lar accident 726537536 Active 2024 FABIOSHANNAN TALLEYY kirill [facility], [facility] 5 19:23:30 Lives in intermediate 117241553 Active 2024 FABIO roy [facility], [facility] 5 19:23:32 Heartburn 98736807 Active 2024 FABIO JOSE RAMON roy [facility], [facility] 19:11:47 Problem Notes None recorded. Procedures Surgical History Date Name Laterality Status Provider Name and Address Organization Details Recorded Time Knee Replacement completed FABIO JOSE RAMON [facility], [facility] 11/24/2022 09:58:28 Hernia Repair completed PIPPA MORRIS [facility] 01/03/2023 10:31:35 Imaging Results None recorded. Procedure [...] Fabio Sutton RN (Authori zed through Radha Gonzalez MD), Refill Request; Mail Order Quantity : 100 Tablet; Refill Quantity : 0; Not Available Not Available Not Available doxazosin QD 11/24 completed Recorded 03/07/20 22 2:20PM by Radha Gonzalez MD, Office Visit; Mail Order Quantity : 100 Tablet; Refill Quantity : 0; Not Available Not Available Not Available metoprolo l succinate QD 11/24 completed Recorded 06/30/19 22 11:53AM by Radha Gonzalez MD, Office Visit; Mail Order Quantity : 100 Tablet; Refill Quantity : 0; Not Available Not Available Not Available metformin two times daily 11/24 completed 173; Recorded 05/24/19 1:38PM by Fabio Sutton RN (Authori zed through Radha Gonzalez MD), Refill Request; Mail Order Quantity : 180 Tablet; Refill Quantity : 0; Not Available Not Available Not Available Hyzaar QD 11/24 completed short supply sent to local pharmacy [facility]/; 173; Recorded 05/25/19 2:56PM by Fabio Sutton RN (Authori zed through Radha Gonzalez MD), Refill Request; Refill Quantity : 0; Not Available Not Available Not Available amlodipin e besylate (bulk) QD 11/24 completed 173; Recorded 04/06/19 9:29AM by Pippa hunter (Authori zed through Radha Gonzalez MD), Refill Request; Mail Order Quantity : [...] Updated DateTime 5 182.88 cm 25.9 kg/m2 51631.1 4 g 72 /min 18 /min 98.6 [degF] 99 % 134/70 mm[Hg] CHULA CAPPS [facility] 13:28:56 Social History Question Answer Notes LastModified by Organizat ion Details LastModified Time Tobacco Smoking Status Former Smoker PIPPA roy [facility] 01/03/2023 10:31:19 What Was The Date Of [...] formulation 3 completed Not Available [facility] 03/23/2023 14:02:51 Influenza, split virus, trivalent, preservative 3 completed Not Available [facility] 03/23/2023 14:02:52 zoster recombinant 3 completed FABIO roy [facility] 11/24/2022 10:05:09 COVID-19, mRNA, LNP-S, PF, 100 mcg/0.5mL dose or 50 mcg/0.25mL dose 1 completed FABIO roy [facility] 11/24/2022 10:05:09 COVID-19, mRNA, LNP-S, PF, 100 mcg/0.5mL dose or 50 mcg/0.25mL dose 1 completed FABIO roy [facility] 11/24/2022 10:05:09 Pneumococcal conjugate PCV20, polysaccharide EYE786 conjugate, adjuvant, PF 2 completed FABIO roy [facility] 11/24/2022 10:05:09 pneumococcal polysaccharide PPV23 5 completed FABIO roy [facility] 11/24/2022 10:05:10 Influenza, split virus, trivalent, preservative 2 completed FABIO roy, [facility] 11/24/2022 10:05:10 Td (adult), 2 Lf tetanus toxoid, preservative free, adsorbed 4 completed FABIO roy, [facility] 11/24/2022 10:05:10 Influenza, split virus, quadrivalent, PF 5 completed FABIO roy, [facility] 11/24/2022 10:05:10 Hep A-Hep B 5 completed FABIO roy [facility] 11/24/2022 10:05:10 Hep A-Hep B 4 completed FABIO roy, [facility] 11/24/2022 10:05:10 Hep A-Hep B 4 completed FABIO roy, [facility] 11/24/2022 10:05:10 Influenza, recombinant, trivalent, PF 4 completed Not Available [facility] 02/25/2025 08:03:11 Past Encounters Encounter ID Performer Location Encounter Start Date Encounter Closed Date Diagnosis/Indication Diagnosis SNOMED-CT Code Diagnosis ICD10 Code Diagnosis IMO Codes Diagnosis Note [id number] Fabrizio Echavarria DO [facility] ([facility]) [address] [place] [address] 02/12/2025 15:40:14 02/19/2025 08:41:44 Post-discharge follow-up 636695338 Z51.89 001895 Gouty arthritis 71295428 M10.9 84795 Acute kidney injury 1466 9001 N17.9 483145 Dehydration 92199594 E86 .0 9786 Diarrhea c aused by drug 337213127 K52.1 [id number] Fabrizio Echavarria DO [facility] ([facility]) [address] [place] [address] 02/17/2025 12:40:47 02/19/2025 15:24:25 Benign essential hypertension 0780944 I10 Cerebrovas cular accident 124582946 I63.9 88901150 Type 2 martha betes mellitus 07256210 E11.9 Health Concerns Section Related Observation LastModified by Organization Detai ls LastModified Time None Recorded Concern Status LastModified by Organization Details LastModified Time None Recorded Payers Encounter Date Sequence Insurance Name Policy Number Policy Forrester Covered Member ID Forrester Member ID Guarantor Name 02/17/2025 1 [place] Jose Miguel Coleman [id number] Jose Miguel Coleman 02/17/2025 2 [employer] - PLAN F (MEDICARE SUPPLEMENT) [id number] Jose Miguel Coleman [id number] Jose Miguel Coleman Notes Date Note Type Note Provider Name and Address Organization Details Recorded Time 02/17/2025 text/html Care Management - GeneralReported by PatientHPIFor prognosis, patient reportsexpected outcome: improveandprognosis: good. For context, patient reportsnot current smoker.ROS as noted in the HPI follow up on gout and edema Fabrizio Echavarria DO [address] [place] [address], [phone], [facility]CHO [facility] 02/17/2025 16:18:52
--- OUTSIDE RECORDS SUMMARY | 2025-02-26 06:12 | XMS_ITS | Patient Health Record ---
Author Organization [facility] Address [address] [place] [address] Care Team Providers Care Millroom Supervisor Name Role Phone Dimas MASON, Sebastián Primary Care Provider Unavailab Latonya Beaulieu Unavailable [phone] Flex Rao Unavailable [phone] Mariana Lazar Unavailable [phone] Adri Walters Unavailable [phone] Rossy Stokes Unavailable [phone] Allergies No Known Allergies Results Component Value Reference Range Flag Notes CT Guidance for Needle Biops [id number] Reviewed date:03/28/2024 11:55:00 AM Interpretation: Performing Lab: Notes/Report: See Below For Report CT Guidance for Needle Biopsy-Renal Diagnosis Description: Proteinuria, unspecified Read See Below For Report UA Microscopic--40580 Reviewed date:08/23/2024 01:00:15 PM Interpretation: Performing Lab: Notes/Report: Micro UA ordered by Discern Expert Rules system. RBC U <1 NA WBC U <1 0-5 /HPF SQ EPI 4 NA Uric Acid (B) 19981 Reviewed date:11/13/2024 01:35:07 PM Interpretation: Performing Lab: [...] unspecified Diagnosis Description: Hypokalemia Diagnosis Description: Other fpc (current) drug therapy Uric Acid 6.9 3.5-7.2 MG/DL Phosphorus (B) 11113 Reviewed date:11/13/2024 01:35:07 PM Interpretation: Performing Lab: [...] unspecified Diagnosis Description: Hypokalemia Diagnosis Description: Other watermelon inspector (current) drug therapy Phos 3.3 2.4-5.1 MG/DL Albumin 18700 Reviewed date:11/13/2024 01:35:07 PM Interpretation: Performing Lab: [...] unspecified Diagnosis Description: Hypokalemia Diagnosis Description: Other watermelon inspector (current) drug therapy Albumin 2.5 3.2-4.8 G/DL LOW Protein (U) Random 29773 Reviewed date:06/26/2024 11:02:44 PM Interpretation: Performing Lab: Notes/Report: Ur Prot 100.30 .00-12.00 MG/DL HI Microalbumin (U) Random 8204 3 Reviewed date:06/26/2024 11:02:44 PM Interpretation: Performing Lab: Notes/Report: Ur Microalbumin >380.0 .0-30.0 MG/L HI Ur Creat 11.1 40.0-278.0 MG/DL LOW Mal/Crea/Ratio >3423.4 .0-30.0 mg Alb/g Cr HI Schedule Confirmation Reviewed date:03/28/2024 11:55:21 AM Interpretation: Performing Lab: Notes/Report: CT Guidance for Needle Biopsy-Renal Microalbumin (U) Random 8204 3 Reviewed date:05/20/2024 05:55:21 PM Interpretation: Performing Lab: Notes/Report: Diagnosis Description: Proteinuria, unspecified Diagnosis Description: Essential (primary) hypertension Ur Microalbumin >380.0 .0-30.0 MG/L HI Ur Creat 32.9 40.0-278.0 MG/DL LOW Mal/Crea/Ratio >1155.0 .0-30.0 mg Alb/g Cr HI UA Microscopic--38513 Reviewed date:11/13/2024 01:35:07 PM Interpretation: Performing Lab: Notes/Report: Micro UA ordered by [email or web address] Expert Rules system. RBC U 2 NA WBC U <1 0-5 /HPF Bacteria None Seen Hyaline Casts 13 NA SQ EPI <1 NA Prothrombin Time 17621 Reviewed date:03/28/2024 11:55:10 AM Interpretation: Performing Lab: Notes/Report: Diagnosis Description: Proteinuria, unspecified Diagnosis Description: Acute kidney failure, unspecified Diagnosis Description: Essential (primary) hypertension Diagnosis Description: Abnormal levels of other serum enzymes Diagnosis Description: Other specified disorders of kidney and ureter Diagnosis Description: Hemorrhagic condition, unspecified Diagnosis Description: Encounter for preprocedural laboratory examination ProTime 9.8 9.1-11.9 SEC Normal Range : 9.1-11.9 INR <.93 .90-1.20 Therapaeutic Range for heart valve replacement: 2.5-3.50 Therapeutic Range: 2.0-3.0 Partial Thromboplastin Time 57037 Reviewed date:03/28/2024 11:55:06 AM Interpretation: Performing Lab: Notes/Report: Diagnosis Description: Proteinuria, unspecified Diagnosis Description: Acute kidney failure, unspecified Diagnosis Description: Essential (primary) hypertension Diagnosis Description: Abnormal levels of other serum enzymes Diagnosis Description: Other specified disorders of kidney and ureter Diagnosis Description: Hemorrhagic condition, unspecified Diagnosis Description: Encounter for preprocedural laboratory examination PTT 24.0 22.6-31.8 SEC Critical Value Starting at > 100. Therapeutic Range: 60-100. Schedule Confirmation Reviewed date:03/28/2024 11:55:16 AM Interpretation: Performing Lab: Notes/Report: CT Guidance for Needle Biopsy-Renal Hemoglobin 96835 Reviewed date:05/23/2024 04:11:14 PM Interpretation: Performing Lab: Notes/Report: Obtain 4 hours after biopsy. Hgb 10.1 13.5-17.5 G/DL LOW Protein C Total 49288 Reviewed date:06/26/2024 11:02:58 PM Interpretation: Performing Lab: Notes/Report: Diagnosis 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 Diagnosis Description: Disorder involving the immune mechanism, unspecified Diagnosis Description: Chronic kidney disease, stage 2 (mild) Diagnosis Description: Acute kidney failure, unspecified Diagnosis Description: Anemia in chronic kidney disease Diagnosis Description: Other watermelon inspector (current) drug therapy Diagnosis Description: Proteinuria, unspecified Diagnosis Description: Essential (primary) hypertension Diagnosis Description: Edema, unspecified Protein C Tot >95 63-153 % NA CLIA Number: [id number] INTERPRETIVE INFORMATION: Protein C, Total Antigen intervals for this test in the [facility] [place] [address] Access complete set of age- and/or gender-specific reference Tool And Equipment Rental Clerk: Jadiel Coates MD, PhD should be off warfarin therapy for two weeks for accurate [address] Performed By: Selleration measurement of protein C. ([employer]). Patients on warfarin may have decreased protein C values. Patients UA Reflex Micro, Reflex Cult 92934, 78644, 27520 Reviewed date:11/13/2024 01:35:07 PM Interpretation: Performing Lab: [...] unspecified Diagnosis Description: Hypokalemia Diagnosis Description: Other fpc (current) drug therapy Color UA Yellow NA Clarity UA Clear NA Specific gravity UA 1.011 1.005-1.030 Urine pH 5.5 5.0-8.0 NA Urine Glucose Negative NA Urine Bilirubin Negative NA Urine Ketone Negative NA Urine Blood Negative NA Urine Protein 3+ NA Urobilinogen 0.2 0.1-1.0 NA Urine Nitrite Negative NA Urine Leukocyte Negative NA Normal UA No Urine Culture No Protein (U) Random 23565 Reviewed date:08/22/2024 04:50:29 PM Interpretation: Performing Lab: Notes/Report: Ur Prot 98.40 .00-12.00 MG/DL HI Uric Acid (B) 84819 Reviewed date:08/22/2024 04:50:29 PM Interpretation: Performing Lab: Notes/Report: Uric Acid 13.9 3.5-7.2 MG/DL HI UA Reflex Micro, Reflex Cult 64306, 85712, 77232 Reviewed date:08/22/2024 04:50:29 PM Interpretation: Performing Lab: [...] Normal UA No Urine Culture No Hemoglobin 20815 Reviewed date:08/22/2024 04:50:29 PM Interpretation: Performing Lab: Notes/Report: Hgb 11.0 13.5-17.5 G/DL LOW Ferritin 25255 Reviewed date:08/22/2024 04:50:29 PM Interpretation: Performing Lab: Notes/Report: Ferritin 118 8-388 NG/ML % Iron Saturation (Fe & TIBC )--29332,49258 Reviewed date:08/22/2024 04:50:29 PM Interpretation: Performing Lab: Notes/Report: Iron 100 65-175 MCG/DL Per Iron as say instruction for Use(IFU), patients treated with metal-binding drugs (e.g.deferoxamine) may have depressed iron values as chelated iron may not properly react in the iron assay. Testing was performed with this assay method. TIBC 250 250-450 NG/DL % Iron Saturation 40 20-50 % Albumin 63085 Reviewed date:08/22/2024 04:50:29 PM Interpretation: Performing Lab: Notes/Report: Albumin 2.9 3.2-4.8 G/DL LOW Creatinine (U) 97979 Reviewed date:08/22/2024 04:50:29 PM Interpretation: Performing Lab: Notes/Report: Ur Creat 19.7 40.0-278.0 MG/DL LOW Microalbumin (U) Random 8204 3 Reviewed date:08/22/2024 04:50:29 PM Interpretation: Performing Lab: Notes/Report: Ur Microalbumin >380.0 .0-30.0 MG/L HI Ur Creat 19.7 40.0-278.0 MG/DL LOW Mal/Crea/Ratio >1928.9 .0-30.0 mg Alb/g Cr HI Phosphorus (B) 09642 Reviewed date:08/22/2024 04:50:29 PM Interpretation: Performing Lab: Notes/Report: Phos 3.7 2.4-5.1 MG/DL Magnesium (B) 78537 Reviewed date:08/22/2024 04:50:29 PM Interpretation: Performing Lab: Notes/Report: Magnesium 2.1 1.8-2.4 MG/DL Basic Metabolic Panel (BMP) 89135 Reviewed date:08/22/2024 04:50:29 PM Interpretation: Performing Lab: Notes/Report: Sodium 144 136-145 MMOL/L Potassium 3.8 3.5-5.1 MMOL/L Chloride 106 98-107 MMOL/L CO2 28.4 20.0-31.0 MMOL/L Glucose Serum 115 71-110 MG/DL HI Testing p erformed at [facility], [address] [place] [address] [address] [place] [address]. CLIA ID#: [id number] BUN 48 7-21 MG/DL HI Creat 1.10 .57-1.17 MG/DL Use of this assay is not recommended for patients undergoing treatment with phenindione, due to the potential for falsely depressed results. O-ybtjrf-a-benzoquino ne imine (NAPQI) is a metabolite of acetaminophen, NAPQI concentrations of apparoximately 10 mg/L correlation to toxic levels of acetaminophen demonstrates a greater than or equil to 10% change in results. NAPQI concentrations greater than this may lead to falsely depressed results for patient samples. GFR 70.4 NA Calculation pe rformed from [...] Serum,Calculated 312 280-300 MOSM/KG HI Magnesium (B) 99230 Reviewed date:05/20/2024 05:55:21 PM Interpretation: Performing Lab: Notes/Report: Diagnosis Description: Acute kidney failure, unspecified Diagnosis Description: Proteinuria, unspecified Diagnosis Description: Essential (primary) hypertension Magnesium 2.2 1.8-2.4 MG/DL Hemoglobin 30861 Reviewed date:04/24/2024 02:39:44 PM Interpretation: Performing Lab: Notes/Report: Diagnosis Description: Proteinuria, unspecified Diagnosis Description: Acute kidney failure, unspecified Diagnosis Description: Essential (primary) hypertension Diagnosis Description: Abnormal levels of other serum enzymes Diagnosis Description: Other specified disorders of kidney and ureter Diagnosis Description: Hemorrhagic condition, unspecified Diagnosis Description: Encounter for preprocedural laboratory examination Hgb 10.8 13.5-17.5 G/DL LOW Ferritin 10263 Reviewed date:11/13/2024 01:35:07 PM Interpretation: Performing Lab: [...] unspecified Diagnosis Description: Hypokalemia Diagnosis Description: Other fpc (current) drug therapy Ferritin 100 8-388 NG/ML % Iron Saturation (Fe & TIBC )--89771,14169 Reviewed date:11/13/2024 01:35:07 PM Interpretation: Performing Lab: [...] unspecified Diagnosis Description: Hypokalemia Diagnosis Description: Other watermelon inspector (current) drug therapy Iron 61 65-175 MCG/DL LOW Per Iron as say instruction for Use(IFU), patients treated with metal-binding drugs (e.g.deferoxamine) may have depressed iron values as chelated iron may not properly react in the iron assay. Testing was performed with this assay method. TIBC 231 250-450 NG/DL LOW % Iron Saturation 26 20-50 % Protein (U) Random 80224 Reviewed date:11/13/2024 01:35:07 PM Interpretation: Performing Lab: [...] unspecified Diagnosis Description: Hypokalemia Diagnosis Description: Other watermelon inspector (current) drug therapy Ur Prot 189.20 .00-12.00 MG/DL HI Magnesium (B) 31477 Reviewed date:11/13/2024 01:35:07 PM Interpretation: Performing Lab: [...] unspecified Diagnosis Description: Hypokalemia Diagnosis Description: Other watermelon inspector (current) drug therapy Magnesium 2.0 1.8-2.4 MG/DL Basic Metabolic Panel (BMP) 23510 Reviewed date:11/13/2024 01:35:07 PM Interpretation: Performing Lab: [...] unspecified Diagnosis Description: Hypokalemia Diagnosis Description: Other fpc (current) drug therapy Sodium 144 136-145 MMOL/L Potassium 4.3 3.5-5.1 MMOL/L Chloride 108 98-107 MMOL/L HI CO2 26.5 20.0-31.0 MMOL/L Glucose Serum 100 71-110 MG/DL Testing p erformed at [facility], [address] [place] [address] [address] [place] [address]. CLIA ID#: [id number] BUN 50 7-21 MG/DL HI Creat 1.31 .57-1.17 MG/DL HI Use of this assay is not recommended for patients undergoing treatment with phenindione, due to the potential for falsely depressed results. W-yfycoa-j-benzoquino ne imine (NAPQI) is a metabolite of acetaminophen, NAPQI concentrations of apparoximately 10 mg/L correlation to toxic levels of acetaminophen demonstrates a greater than or equil to 10% change in results. NAPQI concentrations greater than this may lead to falsely depressed results for patient samples. GFR 57.2 NA Calculation pe rformed from [...] LOW Osmo Serum,Calculated 311 280-300 MOSM/KG HI UA Reflex Micro, Reflex Cult 95315, 33640, 27216 Reviewed date:05/20/2024 05:55:21 PM Interpretation: Performing Lab: [...] Normal UA No Urine Culture No UA Microscopic--60004 Reviewed date:05/16/2024 01:20:10 PM Interpretation: Performing Lab: Notes/Report: Micro UA ordered by [email or web address] Expert Rules system. RBC U 4 NA WBC U <1 0-5 /HPF Bacteria None Seen Hyaline Casts <1 NA SQ EPI <1 NA Protein (U) Random 29355 Reviewed date:05/20/2024 05:55:21 PM Interpretation: Performing Lab: Notes/Report: Diagnosis Description: Acute kidney failure, unspecified Diagnosis Description: Proteinuria, unspecified Diagnosis Description: Essential (primary) hypertension Ur Prot 205.90 .00-12.00 MG/DL HI Creatinine (U) 92079 Reviewed date:05/20/2024 05:55:21 PM Interpretation: Performing Lab: Notes/Report: Diagnosis Description: Proteinuria, unspecified Diagnosis Description: Essential (primary) hypertension Ur Creat 32.9 40.0-278.0 MG/DL LOW CT Guidance for Needle Biops [id number] Reviewed date:03/28/2024 12:03:03 PM Interpretation: Performing Lab: Notes/Report: [id number] Hepatic Function Panel 94692 Reviewed date:05/20/2024 05:55:21 PM Interpretation: Performing Lab: [...] 22 15-37 UNIT/L ALT/SGPT 33 12-78 UNIT/L Creatinine (U) 70693 Reviewed date:06/26/2024 11:03:53 PM Interpretation: Performing Lab: Notes/Report: Diagnosis 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 Diagnosis Description: Disorder involving the immune mechanism, unspecified Diagnosis Description: Chronic kidney disease, stage 2 (mild) Diagnosis Description: Acute kidney failure, unspecified Diagnosis Description: Anemia in chronic kidney disease Diagnosis Description: Other fpc (current) drug therapy Diagnosis Description: Proteinuria, unspecified Diagnosis Description: Essential (primary) hypertension Diagnosis Description: Edema, unspecified Ur Creat 11.1 40.0-278.0 MG/DL LOW CBC w\ Auto Diff 37148 Reviewed date:06/26/2024 11:03:53 PM Interpretation: Performing Lab: Notes/Report: Diagnosis 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 Diagnosis Description: Disorder involving the immune mechanism, unspecified Diagnosis Description: Chronic kidney disease, stage 2 (mild) Diagnosis Description: Acute kidney failure, unspecified Diagnosis Description: Anemia in chronic kidney disease Diagnosis Description: Other watermelon inspector (current) drug therapy Diagnosis Description: Proteinuria, unspecified [...] HI Lymph Auto% 11.5 22.0-44.0 % LOW [place] Auto% 4.7 3.0-7.0 % Eos Auto% 1.5 2.0-4.0 % LOW Baso Auto% 0.3 0.0-1.0 % Imm Gran% .6 .0-.4 % HI Neutro Abs 5.58 .80-7.70 Absolute Neutrophil Count 5580 NA Lymph Abs .79 .10-4.10 [place] Abs .32 .20-1.00 Eos Abs .10 .00-.40 Baso Abs .02 .00-.20 Imm Gran Abs .04 .00-.10 NRBC# .00 .00-.20 NRBC% .00 .00-.20 /100 intact WBC's CBC w\o Diff 36244 Reviewed date:05/20/2024 05:55:21 PM Interpretation: Performing Lab: Notes/Report: Diagnosis Description: Anemia in chronic kidney disease Diagnosis Description: Other fpc (current) drug therapy WBC 7.4 4.5-11.0 X10'3 RBC 3.83 4.50-5.90 X10'6 LOW Hgb 11.8 13.5-17.5 G/DL LOW Hct 36.8 41.0-53.0 % LOW MCV 96.1 80.0-100.0 FL MCH 30.8 27.0-31.0 PG MCHC 32.1 31.0-37.0 G/DL Platelet 157 150-400 X10'3 RDW-SD 46.2 35.0-49.0 FL RDW-CV 13.2 12.2-15.6 % MPV 10.5 9.2-12.0 FL Basic Metabolic Panel (BMP) 97746 Reviewed date:05/20/2024 05:55:21 PM Interpretation: Performing Lab: Notes/Report: Diagnosis 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 Diagnosis Description: Chronic kidney disease, stage 2 (mild) Diagnosis Description: Acute kidney failure, unspecified Sodium 141 136-145 MMOL/L Potassium 4.3 3.5-5.1 MMOL/L Chloride 103 98-107 MMOL/L CO2 32.0 20.0-31.0 MMOL/L HI Glucose Serum 112 71-110 MG/DL HI Testing p erformed at [facility], [address] [place] [address] [address] [place] [address]. CLIA ID#: [id number] BUN 56 7-21 MG/DL HI Creat .94 .57-1.17 MG/DL R-equjew-u-benzoquino ne imine (NAPQI) is a metabolite of [...] LOW Osmo Serum,Calculated 308 280-300 MOSM/KG HI Hemoglobin 12204 Reviewed date:11/13/2024 01:35:07 PM Interpretation: Performing Lab: [...] unspecified Diagnosis Description: Hypokalemia Diagnosis Description: Other watermelon inspector (current) drug therapy Hgb 10.9 13.5-17.5 G/DL LOW Magnesium (B) 15307 Reviewed date:06/26/2024 11:03:53 PM Interpretation: Performing Lab: Notes/Report: Diagnosis 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 Diagnosis Description: Disorder involving the immune mechanism, unspecified Diagnosis Description: Chronic kidney disease, stage 2 (mild) Diagnosis Description: Acute kidney failure, unspecified Diagnosis Description: Anemia in chronic kidney disease Diagnosis Description: Other watermelon inspector (current) drug therapy Diagnosis Description: Proteinuria, unspecified Diagnosis Description: Essential (primary) hypertension Diagnosis Description: Edema, unspecified Magnesium 2.1 1.8-2.4 MG/DL Basic Metabolic Panel (BMP) 42060 Reviewed date:06/26/2024 11:03:53 PM Interpretation: Performing Lab: Notes/Report: Diagnosis 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 Diagnosis Description: Disorder involving the immune mechanism, unspecified Diagnosis Description: Chronic kidney disease, stage 2 (mild) Diagnosis Description: Acute kidney failure, unspecified Diagnosis Description: Anemia in chronic kidney disease Diagnosis Description: Other fpc (current) drug therapy Diagnosis Description: Proteinuria, unspecified Diagnosis Description: Essential (primary) hypertension Diagnosis Description: Edema, unspecified Sodium 144 136-145 MMOL/L Potassium 3.8 3.5-5.1 MMOL/L Chloride 109 98-107 MMOL/L HI CO2 29.7 20.0-31.0 MMOL/L Glucose Serum 125 71-110 MG/DL HI Testing p erformed at [facility] [place] [place] [address]. CLIA ID#: [id number] BUN 60 7-21 MG/DL HI Creat 1.02 .57-1.17 MG/DL Use of this assay is not recommended for patients undergoing treatment with phenindione, due to the potential for falsely depressed results. R-ijejfz-m-benzoquino ne imine (NAPQI) is a metabolite of acetaminophen, NAPQI concentrations of apparoximately 10 mg/L correlation to toxic levels of acetaminophen demonstrates a greater than or equil to 10% change in results. NAPQI concentrations greater than this may lead to falsely depressed results for patient samples. GFR 77.1 NA Calculation pe rformed from [...] Osmo Serum,Calculated 316 280-300 MOSM/KG HI Albumin 84890 Reviewed date:06/26/2024 11:03:53 PM Interpretation: Performing Lab: Notes/Report: Diagnosis 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 Diagnosis Description: Disorder involving the immune mechanism, unspecified Diagnosis Description: Chronic kidney disease, stage 2 (mild) Diagnosis Description: Acute kidney failure, unspecified Diagnosis Description: Anemia in chronic kidney disease Diagnosis Description: Other watermelon inspector (current) drug therapy Diagnosis Description: Proteinuria, unspecified Diagnosis Description: Essential (primary) hypertension Diagnosis Description: Edema, unspecified Albumin 2.6 3.2-4.8 G/DL LOW Microalbumin (U) Random 8204 3 Reviewed date:11/13/2024 [...] unspecified Diagnosis Description: Hypokalemia Diagnosis Description: Other fpc (current) drug therapy Ur Microalbumin >380.0 .0-30.0 MG/L HI Ur Creat 67.9 40.0-278.0 MG/DL Mal/Crea/Ratio >559.6 .0-30.0 mg Alb/g Cr HI UA Microscopic--32897 Reviewed date:06/26/2024 11:03:53 PM Interpretation: Performing Lab: Notes/Report: Micro UA ordered by Discern Expert Rules system. RBC U 5 NA WBC U <1 0-5 /HPF Bacteria None Seen Hyaline Casts <1 NA SQ EPI <1 NA UA Reflex Micro, Reflex Cult 07424, 02154, 20517 Reviewed date:06/26/2024 11:03:28 PM Interpretation: Performing Lab: Notes/Report: Diagnosis 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 Diagnosis Description: Disorder involving the immune mechanism, unspecified Diagnosis Description: Chronic kidney disease, stage 2 (mild) Diagnosis Description: Acute kidney failure, unspecified Diagnosis Description: Anemia in chronic kidney disease Diagnosis Description: Other fpc (current) drug therapy Diagnosis Description: Proteinuria, unspecified [...] NA Normal UA No Urine Culture No Reason For Referral No Information Medications Medication [...] Details Miscellaneous: Marital status: Children: x2 : [facility] Level of Education: 2 years damaris e[employer] Current Employment Status Retire d Drugs/Alcohol: Do you smoke marijuana? Cori Benitez Section Notes: Former smoker: Former smoker: Problems Problem Type SNOMED Code ICD Code Onset Dates Problem Status W/U Status Risk Notes Problem Anemia in chronic kidney disease (138821608) Anemia in chronic kidney disease (D63.1) Active confirmed Problem Primary biliary cirrhosis (00171976) Primary biliary cirrhosis (K74.3) Active confirmed Problem Disorder of kidney and/or ureter (018187849) Other specified disorders of kidney and ureter (N28.89) Active confirmed Problem Long-term current use of systemic steroid (092704073371326) group home (current) use of systemic steroids (Z79.52) Active confirmed Problem Essential hypertension (79139060) Essential hypertension (I10) Active confirmed Problem Anemia (939039558) Anemia, unspe cified type (D64.9) Active confirmed Problem Gout (47468367) Gout (M10.9) Active confirmed Problem Hypoalbuminemia (581326546) Hypoalbuminemia (E88.09) Active confirmed Problem Chronic kidney disease stage 2 (377283208) Stage 2 chronic kidney disease (N18.2) Active confirmed Problem Encounter for pre-operative laboratory testing (Z01.812) Active confirmed Problem Alkaline phosphatase raised (210898038) Elevated alkaline phosphatase level (R74.8) Active confirmed Problem Anemia of chronic disease (853220733) Anemia of chronic disease (D63.8) Active confirmed Problem Disorder of immune function (610730353) Immunosuppressed status (D89.9) Active confirmed Problem Lupus nephritis (40320805) 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) Active confirmed Problem Bleeds easily (628414541) Bleeds easily (D69.9) Active confirmed Vital Signs Heart Rate 74 /min 11/27/2024 Temperature 98.0 degrees Fahrenheit 11/27/2024 Respiratory Rate 20 /min 11/27/2024 Height-cm 182.88 cm 11/27/2024 Oximetry 98 % 11/27/2024 Blood pressure diastolic 60 mm Hg 11/27/2024 Weight-kg 103.33 kg 11/27/2024 Height 72 in 11/27/2024 Blood pressure systolic 146 mm Hg 11/27/2024 Weight 227.8 lbs 11/27/2024 BMI 30.89 kg/m2 11/27/2024 Encounters Encounter Location Date Provider Diagnosis [facility] [address] [place] [address] [id number] 06/24/2024 Flex Rao Lupus nephritis M32. 14 ; Nephrotic range proteinuria R80.9 ; Hypoalbuminemia E88.09 ; Immunosuppressed status D89.9 ; Stage 2 chronic kidney disease N18.2 ; Essential hypertension I10 ; Edema R60.9 ; Hypokalemia E87.6 ; Anemia, unspecified type D64.9 and Pharmacologic therapy Z79.899 [facility] [address] [place] [address] [address] [place] [address] 05/16/2024 Flex Rao Lupus nephritis M32. 14 ; Nephrotic range proteinuria R80.9 ; Hypoalbuminemia E88.09 ; Immunosuppressed status D89.9 ; JOEL (acute kidney injury) N17.9 ; Stage 2 chronic kidney disease N18.2 ; Essential hypertension I10 ; Edema R60.9 ; Hypokalemia E87.6 ; Anemia in chronic kidney disease D63.1 and Pharmacologic therapy Z79.899 [facility] [address] [place] [address] 04/04/2024 Rossy Stokes Lupus nephritis M32. 14 ; Stage 2 chronic kidney disease N18.2 ; JOEL (acute kidney injury) N17.9 ; Nephrotic range proteinuria R80.9 ; Essential hypertension I10 ; Anemia in chronic kidney disease D63.1 and Pharmacologic therapy Z79.899 [facility] [address] [place] [address] 11/21/2024 Flex Rao Lupus nephritis M32. 14 ; Nephrotic range proteinuria R80.9 ; Hypoalbuminemia E88.09 ; exterminator (current) use of systemic steroids Z79.52 ; Immunosuppressed status D89.9 ; Stage 2 chronic kidney disease N18.2 ; Essential hypertension I10 ; Edema R60.9 ; Hypokalemia E87.6 ; Anemia of chronic disease D63.8 ; Bilateral leg edema R60.0 and Pharmacologic therapy Z79.899 [facility] [address] [place] [address] 11/27/2024 Abodunrin Badejo Elevated alkaline phosphatase level R74.8 ; Essential hypertension I10 ; Lupus nephritis M32.14 ; Stage 2 chronic kidney disease N18.2 ; Anemia in chronic kidney disease D63.1 and Gout M10.9 [facility] [address] [place] [address] 05/01/2024 Abodunrin Badejo Elevated alkaline phosphatase level R74.8 ; Essential hypertension I10 ; 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 14 ; Nephrotic range proteinuria R80.9 ; Hypoalbuminemia E88.09 ; group home (current) use of systemic steroids Z79.52 ; Immunosuppressed status D89.9 ; Stage 2 chronic kidney disease N18.2 ; Essential hypertension I10 ; Edema R60.9 ; Hypokalemia E87.6 ; Anemia of chronic disease D63.8 and Pharmacologic therapy Z79.899 [facility] [address] [place] [address] 04/17/2024 [facility] [address] [place] [address] [place] [address] 04/10/2024 [facility] [address] [place] [address] 04/10/2024 [facility] [address] [place] [address] 04/05/2024 [facility] [address] [place] [address] 03/28/2024 Adri Walters [facility] [address] [place] [address] 03/07/2024 Adri Walters Proteinuria, unspecified type R80.9 ; JOEL (acute kidney injury) N17.9 ; Essential hypertension I10 ; Elevated serum gamma-glutamyl transferase level R74.8 ; Other specified disorders of kidney and ureter N28.89 ; Bleeds easily D69.9 and Encounter for pre-operative laboratory testing Z01.812 [facility] [address] [place] [address] 02/04/2025 [facility] [address] [place] [address] 11/26[facility] K74.3 [facility] [address] [place] [address] 11/25/2024 [facility] [address] [place] [address] 11/25/2024 [facility] [address] [place] [address] 11/14/2024 [facility] [address] [place] [address] 11/05/2024 [facility] [address] [place] [address] 10/10/2024 [facility] [address] [place] [address] 10/07/2024 Flex Rao Edema R60.9 [facility] [address] [place] [address] 09/24/2024 Adri Walters Stage 2 chronic kidn ey disease N18.2 [facility] [address] [place] [address] 09/02/2024 Adri Walters [facility] [address] [place] [address] 08/22/2024 [facility] [address] [place] [address] 06/24/2024 Flex Rao Nephrotic range proteinuria R80.9 ; JOEL (acute kidney injury) N17.9 and Hypoalbuminemia E88.09 [facility] [address] [place] [address] 05/16/2024 Flex Rao [facility] [address] [place] [address] 05/14/2024 Flex Rao Lupus nephritis M32. 14 ; Stage 2 chronic kidney disease N18.2 ; JOEL (acute kidney injury) N17.9 ; Anemia in chronic kidney disease D63.1 ; Pharmacologic therapy Z79.899 ; Nephrotic range proteinuria R80.9 ; Proteinuria, unspecified type R80.9 ; Essential hypertension I10 and Elevated alkaline phosphatase level R74.8 [facility] [address] [place] [address] 05/07/2024 Rossy Stokes Assessments Encounter Date Diagnosis (ICD Code) Assessment Notes Treatment Notes Treatment Clinical Notes Section Notes 11/27/2024 Essential hypertension (ICD-10 - I10) 11/27/2024 Elevated alkaline phosphatase level (ICD-10 - R74.8) 11/26/2024 Primary biliary cirrhosis (ICD-10 - K74.3) 11/21/2024 Nephrotic range proteinuria (ICD-10 - R80.9) [...] recurrent. Hypokalemia is controlled. Gout is controlled. 09/24/2024 Stage 2 chronic kidney disease (ICD-10 - N18.2) 06/24/2024 Nephrotic range proteinuria (ICD-10 - R80.9) 05/16/2024 Nephrotic range proteinuria (ICD-10 - R80.9) [...] is controlled. Anemia is at goal 05/14/2024 Lupus nephritis (ICD-10 - M32.14) 05/01/2024 Essential hypertension (ICD-10 - I10) 05/01/2024 Elevated alkaline phosphatase level (ICD-10 - R74.8) 04/04/2024 Stage 2 chronic kidney disease (ICD-10 [...] at home but uncontrolled in clinic. 03/07/2024 Proteinuria, unspecified type (ICD-10 - R80.9) 10/07/2024 Edema (ICD-10 - R60.9) 08/22/2024 Nephrotic range proteinuria (ICD-10 - R80.9) [...] goal and he is iron replete 06/24/2024 Nephrotic range proteinuria (ICD-10 - R80.9) [...] is at goal, unknown iron status. 06/24/2024 Hypoalbuminemia (ICD-10 - E88.09) Class V lupus is being treated with persistent nephrotic proteinuria but with improved hypoalbuminemia. No complications of immunosuppressio n. Renal function is slightly worse, possibly due to hydration status as shown by BUN/Cr. HTN is stable. Edema is controlled. Hypokalemia is controlled. Anemia is at goal, unknown iron status. 08/22/2024 Hypoalbuminemia (ICD-10 - E88.09) Class V [...] at goal and he is iron replete 03/07/2024 JOEL (acute kidney injury) (ICD-10 - N17.9) 04/04/2024 JOEL (acute kidney injury) (ICD-10 - N17.9) CKD stage 1-2 is baseline. JOEL noted in 12/2023 with no further lab to evaluate current renal function. Renal biopsy is consistent with lupus nephritis with resultant JOEL previously. Proteinuria was nephrotic range. Anemia is at goal with no iron studies to review. HTN is controlled at home but uncontrolled in clinic. 05/01/2024 Lupus nephritis (ICD-10 - M32.14) 05/14/2024 Stage 2 chronic kidney disease (ICD-10 - N18.2) 05/16/2024 Hypoalbuminemia (ICD-10 - E88.09) Class V lupus is being treated with persistent nephrotic proteinuria and hypoalbuminemia. No complications of immunosuppressio n. JOEL is improved but renal function is not back at previous baseline. HTN is not controlled and is exacerbated by steroids and hypervolemia. Edema is uncontrolled. Hypokalemia is controlled. Anemia is at goal 06/24/2024 JOEL (acute kidney injury) (ICD-10 - N17.9) 11/21/2024 Hypoalbuminemia (ICD-10 - E88.09) Class V lupus is being treated with persistent nephrotic, but improved, proteinuria and no microscopic hematuria. No complications of immunosuppressio n. Renal function is slightly worse. HTN is stable. Anemia is at goal and he is iron replete. Edema is worse. Murmur is newly detected. Hypoalbuminemia is recurrent. Hypokalemia is controlled. Gout is controlled. 11/27/2024 Lupus nephritis (ICD-10 - M32.14) 11/21/2024 group home (current) use of systemic steroids (ICD-10 - [...] 2 chronic kidney disease (ICD-10 - N18.2) 06/24/2024 Hypoalbuminemia (ICD-10 - E88.09) 05/14/2024 JOEL (acute kidney injury) (ICD-10 - [...] Hypokalemia is controlled. Anemia is at goal 05/01/2024 Stage 2 chronic kidney disease (ICD-10 - N18.2) 04/04/2024 Nephrotic range proteinuria (ICD-10 - R80.9) CKD stage 1-2 i s baseline. JOEL noted in 12/2023 with no further lab to evaluate current renal function. Renal biopsy is consistent with lupus nephritis with resultant JOEL previously. Proteinuria was nephrotic range. Anemia is at goal with no iron studies to review. HTN is controlled at home but uncontrolled in clinic. 03/07/2024 Essential hypertension (ICD-10 - I10) 08/22/2024 group home (current) use of systemic steroids (ICD-10 - [...] is at goal, unknown iron status. 06/24/2024 Stage 2 chronic kidney disease (ICD-10 - N18.2) Class V lupus i s being treated with persistent nephrotic proteinuria but with improved hypoalbuminemia. No complications of immunosuppressio n. Renal function is slightly worse, possibly due to hydration status as shown by BUN/Cr. HTN is stable. Edema is controlled. Hypokalemia is controlled. Anemia is at goal, unknown iron status. 08/22/2024 Immunosuppressed status (ICD-10 - D89.9) Class [...] at goal and he is iron replete 03/07/2024 Elevated serum gamma-glutamyl transferase level (ICD-10 - R74.8) 05/01/2024 Anemia in chronic kidney disease (ICD-10 - D63.1) 04/04/2024 Essential hypertension (ICD-10 - I10) CKD stage 1-2 is baseline. JOEL noted in 12/2023 with no further lab to evaluate current renal function. Renal biopsy is consistent with lupus nephritis with resultant JOEL previously. Proteinuria was nephrotic range. Anemia is at goal with no iron studies to review. HTN is controlled at home but uncontrolled in clinic. 05/16/2024 JOEL (acute kidney injury) (ICD-10 - [...] in chronic kidney disease (ICD-10 - D63.1) 11/21/2024 Immunosuppressed status (ICD-10 - D89.9) Class V lupus is being treated with persistent nephrotic, but improved, proteinuria and no microscopic hematuria. No complications of immunosuppressio n. Renal function is slightly worse. HTN is stable. Anemia is at goal and he is iron replete. Edema is worse. Murmur is newly detected. Hypoalbuminemia is recurrent. Hypokalemia is controlled. Gout is controlled. 11/27/2024 Anemia in chronic kidney disease (ICD-10 - D63.1) 11/27/2024 Gout (ICD-10 - M10.9) 11/21/2024 Stage 2 chronic kidney disease (ICD-10 [...] recurrent. Hypokalemia is controlled. Gout is controlled. 05/16/2024 Stage 2 chronic kidney disease (ICD-10 - N18.2) Class V lupus i s being treated with persistent nephrotic proteinuria and hypoalbuminemia. No complications of immunosuppressio n. JOEL is improved but renal function is not back at previous baseline. HTN is not controlled and is exacerbated by steroids and hypervolemia. Edema is uncontrolled. Hypokalemia is controlled. Anemia is at goal 05/14/2024 Pharmacologic therapy (ICD-10 - Z79.899) 04/04/2024 Anemia in chronic kidney disease (ICD-10 [...] of kidney and ureter (ICD-10 - N28.89) 08/22/2024 Stage 2 chronic kidney disease (ICD-10 [...] goal and he is iron replete 06/24/2024 Essential hypertension (ICD-10 - I10) Class V lupus is being treated with persistent nephrotic proteinuria but with improved hypoalbuminemia. No complications of immunosuppressio n. Renal function is slightly worse, possibly due to hydration status as shown by BUN/Cr. HTN is stable. Edema is controlled. Hypokalemia is controlled. Anemia is at goal, unknown iron status. 06/24/2024 Edema (ICD-10 - R60.9) Class V lupus is being treated with persistent nephrotic proteinuria but with improved hypoalbuminemia. No complications of immunosuppressio n. Renal function is slightly worse, possibly due to hydration status as shown by BUN/Cr. HTN is stable. Edema is controlled. Hypokalemia is controlled. Anemia is at goal, unknown iron status. 03/07/2024 Bleeds easily (ICD-10 - D69.9) 08/22/2024 Essential hypertension (ICD-10 - I10) Class [...] goal and he is iron replete 05/16/2024 Essential hypertension (ICD-10 - I10) Class V lupus is being treated with persistent nephrotic proteinuria and hypoalbuminemia. No complications of immunosuppressio n. JOEL is improved but renal function is not back at previous baseline. HTN is not controlled and is exacerbated by steroids and hypervolemia. Edema is uncontrolled. Hypokalemia is controlled. Anemia is at goal 05/14/2024 Nephrotic range proteinuria (ICD-10 - R80.9) 11/21/2024 Essential hypertension (ICD-10 - I10) Class V lupus is being treated with persistent nephrotic, but improved, proteinuria and no microscopic hematuria. No complications of immunosuppressio n. Renal function is slightly worse. HTN is stable. Anemia is at goal and he is iron replete. Edema is worse. Murmur is newly detected. Hypoalbuminemia is recurrent. Hypokalemia is controlled. Gout is controlled. 11/21/2024 Edema (ICD-10 - R60.9) Class V lupus is being treated with persistent nephrotic, but improved, proteinuria and no microscopic hematuria. No complications of immunosuppressio n. Renal function is slightly worse. HTN is stable. Anemia is at goal and he is iron replete. Edema is worse. Murmur is newly detected. Hypoalbuminemia is recurrent. Hypokalemia is controlled. Gout is controlled. 05/14/2024 Proteinuria, unspecified type (ICD-10 - R80.9) 05/16/2024 Edema (ICD-10 - R60.9) Class V lupus is being treated with persistent nephrotic proteinuria and hypoalbuminemia. No complications of immunosuppressio n. JOEL is improved but renal function is not back at previous baseline. HTN is not controlled and is exacerbated by steroids and hypervolemia. Edema is uncontrolled. Hypokalemia is controlled. Anemia is at goal 04/04/2024 Pharmacologic therapy (ICD-10 - Z79.899) CKD [...] for pre-operative laboratory testing (ICD-10 - Z01.812) 08/22/2024 Edema (ICD-10 - R60.9) Class V [...] goal and he is iron replete 06/24/2024 Hypokalemia (ICD-10 - E87.6) Class V lupus i s being treated with persistent nephrotic proteinuria but with improved hypoalbuminemia. No complications of immunosuppressio n. Renal function is slightly worse, possibly due to hydration status as shown by BUN/Cr. HTN is stable. Edema is controlled. Hypokalemia is controlled. Anemia is at goal, unknown iron status. 06/24/2024 Anemia, unspecified type (ICD-10 - D64.9) [...] goal 05/14/2024 Essential hypertension (ICD-10 - I10) 11/21/2024 Hypokalemia (ICD-10 - E87.6) Class V lupus i s being treated with persistent nephrotic, but improved, proteinuria and no microscopic hematuria. No complications of immunosuppressio n. Renal function is slightly worse. HTN is stable. Anemia is at goal and he is iron replete. Edema is worse. Murmur is newly detected. Hypoalbuminemia is recurrent. Hypokalemia is controlled. Gout is controlled. 11/21/2024 Anemia of chronic disease (ICD-10 - D63.8) Class V lupus is being treated with persistent nephrotic, but improved, proteinuria and no microscopic hematuria. No complications of immunosuppressio n. Renal function is slightly worse. HTN is stable. Anemia is at goal and he is iron replete. Edema is worse. Murmur is newly detected. Hypoalbuminemia is recurrent. Hypokalemia is controlled. Gout is controlled. 05/14/2024 Elevated alkaline phosphatase level (ICD-10 - [...] is controlled. Anemia is at goal 11/21/2024 Bilateral leg edema (ICD-10 - R60.0) Class V lupus is being treated with persistent nephrotic, but improved, proteinuria and no microscopic hematuria. No complications of immunosuppressio n. Renal function is slightly worse. HTN is stable. Anemia is at goal and he is iron replete. Edema is worse. Murmur is newly detected. Hypoalbuminemia is recurrent. Hypokalemia is controlled. Gout is controlled. 11/21/2024 Pharmacologic therapy (ICD-10 - Z79.899) Class [...] AST 35, ALT 25, albumin 2.1, alkaline [id number], WBC 4, hemoglobin 11, hematocrit 37, MCV [...] Follow-up in 1 month with labs at [place] the morning of the appointment. BMP, mag, [...] Follow-up in 2 months with labs at [place] 5 to 10 days prior to appointment. [...] Follow-up in 2 months with labs at [place] 5 to 10 days prior to appointment. [...] potassium and magnesium levels. Obtain echo at [facility] to evaluate murmur and cardiac function. Follow-up in 2 months with labs at [place] 5 to 10 days prior to appointment. [...] Test Test Name Order Date Prothrombin Time 07930 03/07/2024 CBC w\ Auto Diff 15826 02/14/2024 Hemoglobin 93720 03/07/2024 Hepatic Function Panel 52569 02/14/2024 Hepatic Function Panel 29860 11/26/2024 Partial Thromboplastin Time 92348 2023 Basic Metabolic Panel (BMP) 79470 2023 Protein Electrophoresis (S) 87773, 07760 02/01/2024 Protein Electrophoresis (U) ([place] a) 77776, 69631, 25573, 86915 02/01/2024 Immunofixation-Serum 07222 02/01/2024 Albumin 87966 05/14/2024 Future Test Test Name Order Date Basic Metabolic Panel (BMP) 76561 2024 CBC w\ Auto Diff 13675 11/11/2024 Hepatic Function Panel 18457 11/11/2024 Creatinine (U) 13945 11/11/2024 Urinalysis--82749 11/11/2024 Echo Complete [id number] 12/23/2024 Albumin 03898 02/21/2025 Basic Metabolic Panel (BMP) 41603 2024 CBC w\ Auto Diff 09581 02/21/2025 Ferritin 44080 02/21/2025 Hemoglobin 18003 02/21/2025 Iron Binding Capacity Total 63203 2024 Iron Level 40464 02/21/2025 Magnesium (B) 75645 02/21/2025 Protein (U) Random 13892 02/21/2025 Uric Acid (B) 05887 02/21/2025 Creatinine (U) 79584 02/21/2025 UA Reflex Micro, Reflex Cult 80337, 8101 5, 77678 02/21/2025 % Iron Saturation (Fe & TIBC)--31856,835 50 02/21/2025 Next Appt Details Provider Name:Flex Rao, 02/26/2025 11:00:00 AM, [address] [place] [address] Rik Freitas, [place], [address], Provider Name:Flex Rao, 04/24/2025 02:00:00 PM, [address] [place] [address] Rik Freitas, [place], [address], Provider Name:Flex Jalen, 08/28/2025 01:00:00 PM, [address] [place] [address] Rik Freitas, [place], [address], Insurance Providers Payer Name Payer Address Payer Phone Subscriber Number Group Number Insured Name Patient Relationship to Insured Coverage Start Date Coverage End Date [place] Medicare [address] [place] [phone] [id number] MARKY NAJERA Self - patient is the insured [place] [employer] [facility] [address] [place] [phone] [id number] MARKY NAJERA Self - patient is the insured Medical (General) History Medical History History ICD Code Pneumonia hernia Back Trouble hypertension anxiety colonic polyps elevated LFTs primary biliary cirrhosis lupus gout Surgical History Surgery Date(Month/Year) (L) knee replacement umbilical hernia repair Hospitalization History Reason Date(Month/Year) see surgical history
--- OUTSIDE RECORDS SUMMARY | 2025-02-26 06:13 | XMS_ITS | Continuity of Care Document ---
Author Organization [facility] Rose Mary Mora, [facility] ([facility]) Address [address] [place] [address] Care Team Providers Care Career Guidance Technician Name Role Phone RADHA LEWIS Primary Care Provider [phone] Assessment No assessment recorded. Plan of Treatment [...] Organization Details Recorded Time Benign essential hypertension 9242847 Active 2022 Hyperte nsion; 023 10:29AM by Pippa maguire, Office Visit; Promote d; acuity set as *; Not Available [facility] 3 03:08:39 Hyperlipidem ia 84208281 Active 2022 Hyperli pidemia ; 023 10:29AM by Pippa maguire, Office Visit; Promote d; acuity set as *; Not Available [facility] 3 03:08:39 Type 2 diabetes mellitus 62837881 Active 2022 CAMRYN roy [facility] Rose Mary Mora 3 10:13:38 Cerebrovascu lar accident 338333311 Active [facility] 668147295 Active 2024 CAMRYN TALLEYY kirill [facility], [facility] 19:23:32 Heartburn 41106630 Active 2024 CAM[facility] JOSE RAMON [facility]:11[facility]47 Problem Notes None recorded. Procedures Surgical History Date Name Laterality Status Provider Name and Address Organization Details Recorded Time Knee Replacement completed [facility] 09:58:28 Hernia Repair completed [facility] 01/03/2023 10:31:35 Imaging Results None [...] 23 1:38PM by Camryn Sutton RN (Authori jenarod through Radha Lewis MD), Refill Request; Mail Order Quantity : 180 Tablet; Refill Quantity : 0; Not Available Not Available Not Available Hyzaar QD 11/24 completed short supply sent to local pharmacy VO /; 173; Recorded 05/25/19 2:56PM by Camryn Sutton RN (Authori jenarod through Radha Lewis MD), Refill Request; Refill Quantity : 0; Not Available Not Available Not Available amlodipin e besylate (bulk) QD 11/24 completed 173; Recorded 04/06/19 9:29AM by Pippa hunter (Authori jenarod through Radha Lewis MD), Refill [...] Last Updated DateTime 182.88 cm 29.2 kg/m2 27582.3 6 g 97 % 76 /min 20 /min 98.6 [degF] 138/72 mm[Hg] CAMRYN SUTTON [facility] 19:13:57 Social History Question Answer Notes LastModified by Organizat ion Details LastModified Time Tobacco Smoking Status Former Smoker PIPPA roy [facility] 01/03/2023 10:31:19 What Was The Date Of Your Most Recent Tobacco Screening? 12/19/2024 Information not available 12/19/2024 Have You Ever Been Counseled For Unhealthy Alcohol Use? No fantasma Information not available 01/03/2023 Sex: Unknown Functional [...] Td(adult) unspecified formulation 3 completed Not Available [facility] 03/23/2023 14:02:51 Influenza, split virus, trivalent, preservative 3 completed Not Available [facility] 03/23/2023 14:02:52 zoster recombinant 3 completed CAMRYN roy [facility] 11/24/2022 10:05:09 COVID-19, mRNA, LNP-S, PF, 100 mcg/0.5mL dose or 50 mcg/0.25mL dose 1 completed CAMRYN roy [facility] 11/24/2022 10:05:09 COVID-19, mRNA, LNP-S, PF, 100 mcg/0.5mL dose or 50 mcg/0.25mL dose 1 completed CAMRYN roy [facility] 11/24/2022 10:05:09 Pneumococcal conjugate PCV20, polysaccharide DTF487 conjugate, adjuvant, PF 2 completed CAMRYN roy [facility] 11/24/2022 10:05:09 pneumococcal polysaccharide PPV23 5 completed CAMRYN roy [facility] 11/24/2022 10:05:10 Influenza, split virus, trivalent, preservative 2 completed CAMRYN roy [facility] 11/24/2022 10:05:10 Td (adult), 2 Lf tetanus toxoid, preservative free, adsorbed 4 completed CAMRYNSHANNAN TALLEYY kirill, [facility] 11/24/2022 10:05:10 Influenza, split virus, quadrivalent, PF 5 completed CAMRYN JOSE RAMON null, [facility] 11/24/2022 10:05:10 Hep A-Hep B 5 completed CAMRYN JOSE RAMON null, [facility] 11/24/2022 10:05:10 Hep A-Hep B 4 completed CAMRYNSHANNAN TALLEYY null, [facility] 11/24/2022 10:05:10 Hep A-Hep B 4 completed CAMRYNSHANNAN SUTTON null, [facility] 11/24/2022 10:05:10 Influenza, recombinant, trivalent, PF 4 completed Not Available [facility] 02/25/2025 08:03:11 Past Encounters Encounter ID Performer Location Encounter Start Date Encounter Closed Date Diagnosis/Indication Diagnosis SNOMED-CT Code Diagnosis ICD10 Code Diagnosis IMO Codes Diagnosis Note [id number] Radha Lewis MD [facility] ([facility]) [address] [place] [phone] 12/19/2024 09:09:42 12/20/2024 08:46:19 Cerebrovascular accident 762879442 I63.9 11467494 Lives in shelter 16 3265077 Z78.9 [id number] Health Concerns Section Related Observation LastModified by Organization Detai ls LastModified Time None Recorded Concern Status LastModified by Organization Details LastModified Time None Recorded Payers Encounter Date Sequence Insurance Name Policy Number Policy Forrester Covered Member ID Forrester Member ID Guarantor Name 12/19/2024 1 [place]: S Jose Miguel Coleman [id number] Jose Miguel Coleman 12/19/2024 2 [place] [employer] - PLAN F (MEDICARE SUPPLEMENT) [id number] Jose Miguel Coleman [id number] Jose Miguel Coleman Notes Date Note Type Note Provider Name and Address Organization Details Recorded Time 12/19/2024 text/html Patient was admitted yesterday 12/18/24 to [facility] following discharge from [facility] post CVA affecting Left side Radha Lewis MD [address] [place] [address], [phone], [facility] 12/20/2024 09:18:06
[2025-02-26 06:25] LABS: Hematocrit 24.1 % (37-53); Hemoglobin 7.30 g/dL (11.27-16.99); Mean Corpuscular HGB Conc 30.3 g/dL (30-55); Mean Corpuscular Hemoglobin 29.2 pg (27-33); Mean Corpuscular Volume 96.4 fl (82-101); Nucleated Red Blood Cells % 0 %; Platelet Count 267 10^3/cmm (157-399); Red Blood Count 2.50 10^6/uL (3.85-5.65); White Blood Count 4.47 10^3/uL (3.29-11.43)
[2025-02-26 06:41] LABS: Alanine Aminotransferase 17 U/L (0-41); Albumin Level 2.6 g/dL (3.5-5.2); Alkaline Phosphatase 121 U/L (40-130); Anion Gap 11.6 (5-19); Aspartate Amino Transferase 28 U/L (0-40); Blood Urea Nitrogen 17 mg/dL (8-23); Calcium 8.1 mg/dL (8.5-10.5); Carbon Dioxide 24 mmol/L (22-29); Chloride 112 mmol/L (98-107); Globulin 2.6 g/dL (1.3-4.6); Glucose 102 mg/dL (65-115); Osmolality Calculated 298 mOsm/kg (285-295); Potassium 4.6 mmol/L (3.5-5.1); Sodium 143 mmol/L (136-145); Total Protein 5.2 g/dL (6.6-8.7)
[2025-02-26 07:38] LABS: Glucose Urine UA Negative (Normal); Nitrate Urine Negative (Negative); Specific Gravity, Urine 1.023 (1.005-1.030)
[2025-02-26 07:43] LABS: Add Urine Microscopic? YES
[2025-02-26 07:53] LABS: UA Slide Review UA Slide Review Perf
[2025-02-26 08:37] LABS: Ferritin 328 ng/mL (30-400); Iron 56 ug/dL (59-158); Total Iron Binding Capacity 147 mcg/dl; Unsaturated Iron Binding 91 ug/dL (112-347)
[2025-02-26 08:51] LABS: Vitamin B12 279 pg/mL (232-1245)
--- NOTE | 2025-02-26 09:47 | PC.NURSE ---
This nurse gave report to Norberto at [facility].
== END 2025-02-26 11:43 | disposition home or self-care (01) ==
PROVIDERS: Emergency Provider Family Medicine; PCP Family Medicine
DX: D64.9 Anemia, unspecified (principal); E11.9 Type 2 diabetes mellitus without complications; M32.14 Glomerular disease in systemic lupus erythematosus; Z79.02 Long term (current) use of antithrombotics/antiplatelets; Z79.82 Long term (current) use of aspirin; E78.5 Hyperlipidemia, unspecified; I10 Essential (primary) hypertension
CPT/HCPCS: 36415; 36430; 80053; 81001; 82607; 82668; 82728; 82746; 83010; 83540; 83550; 85025; 85045; 86850; 86900; 86920; 99283; P9016

== ENCOUNTER → 2025-03-19 09:10 | Outpatient (BNVA) | payer MEDICARE, OTHER, SELFPAY | PROVIDERS: PCP Family Medicine; Visit Provider Family Medicine | DX: D64.9 Anemia, unspecified (principal); N17.9 Acute kidney failure, unspecified | CPT/HCPCS: 80053; 85025 ==